=== PATIENT | male | born 1965 | race Two or more races ===

== ENCOUNTER 2020-09-21 16:18 | Outpatient (REF) | payer MEDICARE, MEDICAID, SELFPAY ==
--- NOTE | 2020-09-21 16:45 | XR_ITS ---
EXAMINATION: XR SHOULDER, RIGHT CLINICAL INFORMATION: Acute pain right shoulder. COMPARISON: Right shoulder 04/30/2015 TECHNIQUE: 3 views of the right shoulder. FINDINGS: There is no visible acute fracture or dislocation or subluxation. There are calcified densities along the lateral aspect of right greater tuberosity suggestive of calcific tendinitis. Glenohumeral joint space is maintained. The AC joint space is maintained with minimal marginal osteophytes similar to 2015 exam. Marginal osteophytes also suspected along the inferior glenoid. XR/XR shoulder RT min 2V IMPRESSION: Most likely calcific tendinitis. Mild degenerative changes glenohumeral joint and right AC joint. No acute fracture or dislocation.
== END 2020-09-21 16:19 | disposition home or self-care (01) ==
LOC: HO.XRAY 16:18
PROVIDERS: PCP Internal Medicine Medical Oncology; Visit Provider Internal Medicine Medical Oncology
DX: M25.511 Pain in right shoulder (principal)
CPT/HCPCS: 73030

== ENCOUNTER 2020-09-22 11:23 | Emergency (ER) | payer MEDICARE, MEDICAID, SELFPAY ==
[2020-09-22 11:35] VITALS: BP 165/98; PULSE 103; RESP 16; TEMP 37.4; O2SAT 98; BMI 37.2
--- NOTE | 2020-09-22 11:53 | US_ITS ---
EXAMINATION: RIGHT UPPER EXTREMITY COMPRESSION ULTRASOUND FOR DVT CLINICAL INFORMATION: Right upper extremity swelling COMPARISON: None TECHNIQUE: Doppler spectral analysis and color flow Doppler imaging was performed of the right upper extremity. Compression and augmentation maneuvers were performed. FINDINGS: On the provided imaging the proximal brachial veins are not definitely identified. Within the mid upper arm 1 vein is seen with either an adjacent nerve or segment of the second brachial vein containing thrombus. The subclavian, right internal jugular, cephalic, basilic, and medial cubital veins are patent and compressible. Radial and ulnar veins appear unremarkable. US/US venous duplex UE RT IMPRESSION: Possible noncompressible thrombus within the peripheral aspect of a right brachial vein versus less likely adjacent nerve . Remainder of the right upper extremity venous system is widely patent. This critical result was discussed with PRAKASH Ureña at 2:40 PM on September 22, 2020 and it was ascertained that the content and urgency of the report was understood at the time of direct communication.
[2020-09-22] MEDS: 0.9 % Sodium Chloride 1,000 ML 999 ML IVCONT (12:30)
[2020-09-22] MEDS: Meclizine HCl 25 MG TABLET PO (12:33)
[2020-09-22] MEDS: ondansetron HCL 4 MG/2 ML VIAL IVPUSH (12:34)
--- NOTE | 2020-09-22 12:35 | ED.EXTPRO ---
HPI - Extremity Problem General Chief complaint: Extremity Injury, Upper <PRAKASH Ureña Last Filed: 09/22/20 16:29> Stated complaint: rt arm pain and swelling <PRAKASH Ureña Last Filed: 09/22/20 16:29> Time Seen by Provider: 09/22/20 11:52 <PRAKASH Ureña Last Filed: 09/22/20 16:29> Source: patient <PRAKASH Ureña Last Filed: 09/22/20 16:29> Mode of arrival: ambulatory <PRAKASH Ureña Last Filed: 09/22/20 16:29> Limitations: no limitations <PRAKASH Ureña Last Filed: 09/22/20 16:29> History of Present Illness HPI Narrative: patient presents to ED for right shoulder pain that started on Sunday and then yesterday he developed swelling of right upper extremity from shoulder to hands. Patient states no chest pain or shortness of breath. Patient denies any obvious trauma. Patient had x-ray and his PCP which is negative for any fracture or dislocation as per patient. Patient was seen by PCP to have CT scan of shoulder. <PRAKASH Ureña Last Filed: 09/22/20 16:29> MD Complaint: extremity pain and extremity swelling <PRAKASH Ureña Last Filed: 09/22/20 16:29> Related Data Home medications: Previous Rx's Medication Instructions Recorded apixaban [Eliquis] 5 mg PO BID #42 tab 09/22/20 <PRAKASH Ureña Last Filed: 09/22/20 16:29> Allergies/Adverse reactions: Allergies Allergy/AdvReac Type Severity Reaction Status Date / Time ENVIRONMENTAL Allergy Mild ITCHINESS, Uncoded 07/08/20 15:22 CONGESTION N.K.D.A. Allergy Unknown Uncoded 11/27/18 00:00 <PRAKASH Ureña Last Filed: 09/22/20 16:29> Review of Systems Review of Systems: Yes all other systems are reviewed and are negative <PRAKASH Ureña Last Filed: 09/22/20 16:29> Constitutional: Constitutional: Reports as per HPI and Reports no additional constitutional complaints <PRAKASH Ureña Last Filed: 09/22/20 16:29> Eyes: Eyes: Reports as per HPI and Reports no additional eye complaints <PRAKASH Ureña Last Filed: 09/22/20 16:29> ENT: Reports system reviewed and no additional complaints, except as documented and Reports as per HPI <PRAKASH Ureña - Last Filed: 09/22/20 16:29> Cardiovascular: Cardiovascular: Reports as per HPI and Reports no additional cardiovascular complaints <PRAKASH Ureña - Last Filed: 09/22/20 16:29> Respiratory: Respiratory: Reports as per HPI and Reports no additional respiratory complaints <PRAKASH Ureña - Last Filed: 09/22/20 16:29> Gastrointestinal: Gastrointestinal: Reports as per HPI and Reports no additional gastrointestinal complaints <PRAKASH Ureña - Last Filed: 09/22/20 16:29> Genitourinary: Genitourinary: Reports no additional male genitourinary complaints and Reports as per HPI <PRAKASH Ureña Last Filed: 09/22/20 16:29> Musculoskeletal: Musculoskeletal: Reports no additional musculoskeletal complaints, Reports as per HPI and Reports arthralgias ( Right shoulder) <PRAKASH Ureña - Last Filed: 09/22/20 16:29> Comments: swelling of right upper extremity <PRAKASH Ureña - Last Filed: 09/22/20 16:29> Neurologic: Reports system reviewed and no additional complaints, except as documented and Reports as per HPI <PRAKASH Ureña Last Filed: 09/22/20 16:29> Psychiatric: Psychiatric: Reports no additional psychiatric complaints and Reports as per HPI <PRAKASH Ureña Last Filed: 09/22/20 16:29> [facility] Past Medical History Medical History: Medical History Back pain with history of spinal surgery <PRAKASH Ureña - Last Filed: 09/22/20 16:29> Social History Social History: Social History Advance Directives: No Advance Directives Information Provided: No <PRAKASH Ureña Last Filed: 09/22/20 16:29> Physical Exam Vital Signs: Vital Signs: Last Vital Signs Temp 99.2 F 09/22/20 14:14 Pulse 107 H 09/22/20 15:39 Resp 14 09/22/20 15:39 BP 161/92 H 09/22/20 15:39 Pulse Ox 95 09/22/20 15:39 Body Mass Index 37.2 <PRAKASH Ureña Last Filed: 09/22/20 16:29> Vital Signs: Last Vital Signs Temp 99.2 F 09/22/20 14:14 Pulse 107 H 09/22/20 15:39 Resp 14 09/22/20 15:39 BP 161/92 H 09/22/20 15:39 Pulse Ox 95 09/22/20 15:39 Body Mass Index 37.2 <Gerald Kahn MD - Last Filed: 09/22/20 15:38> Const: General: cooperative, healthy appearing, comfortable, no acute distress, well developed, alert and awake <PRAKASH Ureña - Last Filed: 09/22/20 16:29> Orientation/consciousness: patient oriented x3 <PRAKASH Ureña - Last Filed: 09/22/20 16:29> HENMT: Head: Yes normal to inspection and Yes No palpable skull fracture present <PRAKASH Ureña Last Filed: 09/22/20 16:29> Eyes: General: appearance normal, both eyes and all related structures <PRAKASH Ureña Last Filed: 09/22/20 16:29> Neck: Neck: Yes normal visual inspection, Yes full ROM, Yes no lymphadenopathy, Yes no meningeal signs, Yes trachea midline and Yes tender <PRAKASH Ureña Last Filed: 09/22/20 16:29> Chest: Chest palpation & inspection: normal inspection of the chest, normal palpation of entire chest wall and no localized rib tenderness <PRAKASH Ureña Last Filed: 09/22/20 16:29> Resp: Effort & Inspection: normal respiratory effort and able to speak in complete sentences <PRAKASH Ureña Last Filed: 09/22/20 16:29> Auscultation: clear to auscultation bilaterally <PRAKASH Ureña Last Filed: 09/22/20 16:29> Cardio: Jugular venous distension: no JVD <PRAKASH Ureña Last Filed: 09/22/20 16:29> Heart sounds: S1 normal heart sound present and S2 normal heart sound present <PRAKASH Ureña Last Filed: 09/22/20 16:29> GI: Inspection: Yes normal to inspection and No abdominal wall ecchymosis <PRAKASH Ureña Last Filed: 09/22/20 16:29> Palpation (GI): Soft to palpation, not firm, nontender, no guarding and not rigid <PRAKASH Ureña Last Filed: 09/22/20 16:29> : General: No CVA tenderness and Yes no CVA tenderness <PRAKASH Ureña Last Filed: 09/22/20 16:29> Back/Spine/Pelvis: Back: no CVA tenderness, No CVA tenderness and No back tenderness <PRAKASH Ureña Last Filed: 09/22/20 16:29> Skin: General skin exam: no rashes or lesions noted <PRAKASH Ureña Last Filed: 09/22/20 16:29> Neuro: General: patient oriented x3, gait normal, no meningeal signs and CN's II-XI intact bilaterally <PRAKASH Ureña Last Filed: 09/22/20 16:29> Cranial nerves: Yes CN's II-XII intact bilaterally <PRAKASH Ureña Last Filed: 09/22/20 16:29> Extrem: Other: right upper extremity positive for swelling from shoulder to hand. Radial and brachial pulses intact of right upper extremity. Negative for any redness or warmth of right upper extremity. Negative for red streaks. Patient has limited range of motion due to pain at shoulder. other extremities are normal <PRAKASH Ureña Last Filed: 09/22/20 16:29> Psych: Appearance: grossly normal, well kempt and not disheveled <PRAKASH Ureña Last Filed: 09/22/20 16:29> Course Course Course Narrative: Patient will have basic labs. Patient will be sent for ultrasound to rule out for a DVT. Patient will have basic labs including inflammatory markers. Patient had vasovagal episode while labs during drawn. Patient given fluids, Zofran. If Ultrasound comes back normal. Will send patient for CT scan of shoulder. shoulder Xry yesterday just shows tendonitits. <PRAKASH Ureña - Last Filed: 09/22/20 16:29> I have discussed the case and management with the ELISABETH <Gerald Kahn MD - Last Filed: 09/22/20 15:38> Reevaluation(s) Reevaluation #1: ultrasound shows thrombus of brachial vein as per radiologist to indicate DVT. patient does not have any risk factors for DVT. Will contact Oncology to see if there is any further Workup is indicated. <PRAKASH Ureña - Last Filed: 09/22/20 16:29> Time: 14:57 <PRAKASH Ureña - Last Filed: 09/22/20 16:29> Reevaluation #2: spoke with Dr. Eldridge of Hematology/Oncology who recommends patient be discharged with Eliquis and can follow-up with her for outpatient workup. Patient patient not in any distress. <PRAKASH Ureña - Last Filed: 09/22/20 16:29> Time: 15:25 <PRAKASH Ureña - Last Filed: 09/22/20 16:29> Reevaluation #3: case discussed with Dr. Kahn who agrees to plan. Patient given copy of labs and imaging for follow-up. Patient states he has appointment with his PCP for this Sunday. history, physical exam, and diagnostic does not indicate cellulitis, arterial occlusion, or septic joint. Presently patient denies any chest pain or shortness of breath to indicate PE. <PRAKASH Ureña - Last Filed: 09/22/20 16:29> Time: 16:03 <PRAKASH Ureña - Last Filed: 09/22/20 16:29> MDM - Extremity (Nontraumatic) MDM Narrative Medical decision making narrative: DVT. <PRAKASH Ureña - Last Filed: 09/22/20 16:29> Lab Data Result diagrams: : 09/22/20 12:20 09/22/20 12:20 <PRAKASH Ureña - Last Filed: 09/22/20 16:29> Labs: Lab Results 09/22/20 09/22/20 09/22/20 Range/Units 12:19 12:19 12: WBC 10.6 (4.8-10.8) X10*3/uL RBC 4.62 (4.60-5.80) X10*6/uL Hgb 10.1 L (14.0-18.0) g/dl Hct 33.8 L (42-52) % MCV 73.2 L (80-98) fL MCH 21.9 L (27.0-33.0) pg MCHC 29.9 L (31.0-36.0) g/dl RDW 18.0 H (11.0-16.0) % Plt Count 393 (160-400) X10*3/uL MPV 10.1 (9.4-12.4) fL Immature Gran % (Auto) 0.4 (0.0-0.4) % Neut % (Auto) 71.5 (45-73) % Lymph % (Auto) 17.2 L (20-40) % [place] % (Auto) 10.2 (2-11) % Eos % (Auto) 0.3 (0-4) % Baso % (Auto) 0.4 (0-2) % Lymph # (Auto) 1.8 (1.2-4.9) X10*3/uL [place] # (Auto) 1.1 (0.1-1.2) X10*3/uL Eos # (Auto) 0.0 (0.0-0.4) X10*3/uL Baso # (Auto) 0.0 (0.0-0.2) X10*3/uL Abs Immat Gran (auto) 0.04 H (0.00-0.03) X10*3/uL Absolute Neuts (auto) 7.6 (2.0-8.3) X10*3/uL Absolute Nucleated RBC 0.000 (0.0-0.012) X10*3/uL Nucleated RBC % (auto) 0.0 (0.0-0.2) /100WBC ESR 45 H (0-15) MM/HR PT (10.8-13.0) SEC INR (0.9-1.1) APTT (24.1-38.0) SEC Sodium (135-145) mmol/L Potassium (3.3-5.1) mmol/l Chloride (96-108) mmol/L Carbon Dioxide (22-29) mmol/L Anion Gap (12-20) BUN (9-16) mg/dL Creatinine (0.5-1.4) mg/dL Estim Creat Clear Calc Estimated GFR Random Glucose (60-115) mg/dL Calcium (8.4-10.2) mg/dL Total Bilirubin (0.0-1.0) mg/dL AST (5-37) U/L ALT (0-40) U/L Alkaline Phosphatase (39-117) U/L C-Reactive Protein 17.61 H (< or = 0.50) mg/dL Total Protein (6.5-8.0) g/dL Albumin (3.5-5.0) g/dL 09/22/20 09/22/20 Range/Units 12:20 12:20 WBC (4.8-10.8) X10*3/uL RBC (4.60-5.80) X10*6/uL Hgb (14.0-18.0) g/dl Hct (42-52) % MCV (80-98) fL MCH (27.0-33.0) pg MCHC (31.0-36.0) g/dl RDW (11.0-16.0) % Plt Count (160-400) X10*3/uL MPV (9.4-12.4) fL Immature Gran % (Auto) (0.0-0.4) % Neut % (Auto) (45-73) % Lymph % (Auto) (20-40) % [place] % (Auto) (2-11) % Eos % (Auto) (0-4) % Baso % (Auto) (0-2) % Lymph # (Auto) (1.2-4.9) X10*3/uL [place] # (Auto) (0.1-1.2) X10*3/uL Eos # (Auto) (0.0-0.4) X10*3/uL Baso # (Auto) (0.0-0.2) X10*3/uL Abs Immat Gran (auto) (0.00-0.03) X10*3/uL Absolute Neuts (auto) (2.0-8.3) X10*3/uL Absolute Nucleated RBC (0.0-0.012) X10*3/uL Nucleated RBC % (auto) (0.0-0.2) /100WBC ESR (0-15) MM/HR PT 14.4 H (10.8-13.0) SEC INR 1.2 H (0.9-1.1) APTT 37.6 (24.1-38.0) SEC Sodium 137 (135-145) mmol/L Potassium 4.3 (3.3-5.1) mmol/l Chloride 99 (96-108) mmol/L Carbon Dioxide 27 (22-29) mmol/L Anion Gap 15 (12-20) BUN 15 (9-16) mg/dL Creatinine 1.03 (0.5-1.4) mg/dL Estim Creat Clear Calc 83.8 Estimated GFR > 60 Random Glucose 109 (60-115) mg/dL Calcium 9.0 (8.4-10.2) mg/dL Total Bilirubin 2.3 H (0.0-1.0) mg/dL AST 11 (5-37) U/L ALT 11 (0-40) U/L Alkaline Phosphatase 58 (39-117) U/L C-Reactive Protein (< or = 0.50) mg/dL Total Protein 7.9 (6.5-8.0) g/dL Albumin 4.1 (3.5-5.0) g/dL <PRAKASH Ureña - Last Filed: 09/22/20 16:29> Lab Results 09/22/20 09/22/20 09/22/20 Range/Units 12:19 12:19 12:20 WBC 10.6 (4.8-10.8) X10*3/uL RBC 4.62 (4.60-5.80) X10*6/uL Hgb 10.1 L (14.0-18.0) g/dl Hct 33.8 L (42-52) % MCV 73.2 L (80-98) fL MCH 21.9 L (27.0-33.0) pg MCHC 29.9 L (31.0-36.0) g/dl RDW 18.0 H (11.0-16.0) % Plt Count 393 (160-400) X10*3/uL MPV 10.1 (9.4-12.4) fL Immature Gran % (Auto) 0.4 (0.0-0.4) % Neut % (Auto) 71.5 (45-73) % Lymph % (Auto) 17.2 L (20-40) % [place] % (Auto) 10.2 (2-11) % Eos % (Auto) 0.3 (0-4) % Baso % (Auto) 0.4 (0-2) % Lymph # (Auto) 1.8 (1.2-4.9) X10*3/uL [place] # (Auto) 1.1 (0.1-1.2) X10*3/uL Eos # (Auto) 0.0 (0.0-0.4) X10*3/uL Baso # (Auto) 0.0 (0.0-0.2) X10*3/uL Abs Immat Gran (auto) 0.04 H (0.00-0.03) X10*3/uL Absolute Neuts (auto) 7.6 (2.0-8.3) X10*3/uL Absolute Nucleated RBC 0.000 (0.0-0.012) X10*3/uL Nucleated RBC % (auto) 0.0 (0.0-0.2) /100WBC ESR 45 H (0-15) MM/HR PT (10.8-13.0) SEC INR (0.9-1.1) APTT (24.1-38.0) SEC Sodium (135-145) mmol/L Potassium (3.3-5.1) mmol/l Chloride (96-108) mmol/L Carbon Dioxide (22-29) mmol/L Anion Gap (12-20) BUN (9-16) mg/dL Creatinine (0.5-1.4) mg/dL Estim Creat Clear Calc Estimated GFR Random Glucose (60-115) mg/dL Calcium (8.4-10.2) mg/dL Total Bilirubin (0.0-1.0) mg/dL AST (5-37) U/L ALT (0-40) U/L Alkaline Phosphatase (39-117) U/L C-Reactive Protein 17.61 H (< or = 0.50) mg/dL Total Protein (6.5-8.0) g/dL Albumin (3.5-5.0) g/dL 09/22/20 09/22/20 Range/Units 12:20 12:20 WBC (4.8-10.8) X10*3/uL RBC (4.60-5.80) X10*6/uL Hgb (14.0-18.0) g/dl Hct (42-52) % MCV (80-98) fL MCH (27.0-33.0) pg MCHC (31.0-36.0) g/dl RDW (11.0-16.0) % Plt Count (160-400) X10*3/uL MPV (9.4-12.4) fL Immature Gran % (Auto) (0.0-0.4) % Neut % (Auto) (45-73) % Lymph % (Auto) (20-40) % [place] % (Auto) (2-11) % Eos % (Auto) (0-4) % Baso % (Auto) (0-2) % Lymph # (Auto) (1.2-4.9) X10*3/uL [place] # (Auto) (0.1-1.2) X10*3/uL Eos # (Auto) (0.0-0.4) X10*3/uL Baso # (Auto) (0.0-0.2) X10*3/uL Abs Immat Gran (auto) (0.00-0.03) X10*3/uL Absolute Neuts (auto) (2.0-8.3) X10*3/uL Absolute Nucleated RBC (0.0-0.012) X10*3/uL Nucleated RBC % (auto) (0.0-0.2) /100WBC ESR (0-15) MM/HR PT 14.4 H (10.8-13.0) SEC INR 1.2 H (0.9-1.1) APTT 37.6 (24.1-38.0) SEC Sodium 137 (135-145) mmol/L Potassium 4.3 (3.3-5.1) mmol/l Chloride 99 (96-108) mmol/L Carbon Dioxide 27 (22-29) mmol/L Anion Gap 15 (12-20) BUN 15 (9-16) mg/dL Creatinine 1.03 (0.5-1.4) mg/dL Estim Creat Clear Calc 83.8 Estimated GFR > 60 Random Glucose 109 (60-115) mg/dL Calcium 9.0 (8.4-10.2) mg/dL Total Bilirubin 2.3 H (0.0-1.0) mg/dL AST 11 (5-37) U/L ALT 11 (0-40) U/L Alkaline Phosphatase 58 (39-117) U/L C-Reactive Protein (< or = 0.50) mg/dL Total Protein 7.9 (6.5-8.0) g/dL Albumin 4.1 (3.5-5.0) g/dL <Gerald Kahn MD - Last Filed: 09/22/20 15:38> Discharge Plan Discharge Clinical Impression: DVT (deep venous thrombosis) <PRAKASH Ureña - Last Filed: 09/22/20 16:29> Patient Disposition: Home, Self-Care <PRAKASH Ureña - Last Filed: 09/22/20 16:29> Instructions: Deep Vein Thrombosis (ED) <PRAKASH Ureña - Last Filed: 09/22/20 16:29> Additional Instructions: to ED for any chest pain, shortness of breath, worsening swelling of upper extremity, redness, coughing up blood, dizziness, passing out, fever, chills, or any other concerning symptoms. <PRAKASH Ureña - Last Filed: 09/22/20 16:29> Prescriptions: New Eliquis 5 mg tablet 5 mg PO BID Qty: 42 RF: 0 <PRAKASH Ureña - Last Filed: 09/22/20 16:29> Referrals: Joe Burnett MD [Primary Care Provider] - 2 days ( right upper extremity DVT. Patient started on Eliquis. Recommend outpatient workup for possible hyper coagulable disorders or malignancy.) Pretty Eldridge MD [Physician] - 2 days ( Right upper extremity DVT. Needs outpatient workup. Started on eliquis.) <PRAKASH Ureña - Last Filed: 09/22/20 16:29> Stand Alone Forms: Work/School Release <PRAKASH Ureña Last Filed: 09/22/20 16:29> Interventions: ED Discharge Assessment Last Done: 09/22/20 16:06 <PRAKASH Ureña - Last Filed: 09/22/20 16:29> Discharge Date/Time: 09/22/20 16:07 <PRAKASH Ureña - Last Filed: 09/22/20 16:29> Print Language: Malay <PRAKASH Ureña - Last Filed: 09/22/20 16:29>
[2020-09-22 12:42] LABS: MANUAL DIFF FLAG NO
[2020-09-22 12:46] LABS: Basophils Percent Auto 0.4 % (0-2); Eosinophils Percent Auto 0.3 % (0-4); Hematocrit 33.8 % (42-52); Hemoglobin 10.1 g/dl (14.0-18.0); Imm Gran Abs Auto 0.04 X10*3/uL (0.00-0.03); Imm Gran Pct Auto 0.4 % (0.0-0.4); Lymphocytes Absolute Auto 1.8 X10*3/uL (1.2-4.9); Lymphocytes Percent Auto 17.2 % (20-40); Mean Corpuscular HGB Conc 29.9 g/dl (31.0-36.0); Mean Corpuscular Hemoglobin 21.9 pg (27.0-33.0); Mean Corpuscular Volume 73.2 fL (80-98); Mean Platelet Volume 10.1 fL (9.4-12.4); Monocytes Absolute Auto 1.1 X10*3/uL (0.1-1.2); Monocytes Percent Auto 10.2 % (2-11); Neutrophils Absolute Auto 7.6 X10*3/uL (2.0-8.3); Neutrophils Percent Auto 71.5 % (45-73); Platelet Count 393 X10*3/uL (160-400); Red Blood Count 4.62 X10*6/uL (4.60-5.80); White Blood Count 10.6 X10*3/uL (4.8-10.8)
[2020-09-22 12:58] LABS: INTERNATIONAL NORM RATIO 1.2 (0.9-1.1); Prothrombin Time 14.4 SEC (10.8-13.0)
[2020-09-22 13:01] LABS: Partial Thromboplastin Time 37.6 SEC (24.1-38.0)
[2020-09-22 13:04] LABS: C Reactive Protein 17.61 mg/dL (< or = 0.50)
[2020-09-22 13:06] LABS: Alanine Aminotransferase 11 U/L (0-40); Albumin Level 4.1 g/dL (3.5-5.0); Alkaline Phosphatase 58 U/L (39-117); Anion Gap 15 (12-20); Aspartate Amino Transferase 11 U/L (5-37); Bilirubin Total 2.3 mg/dL (0.0-1.0); Blood Urea Nitrogen 15 mg/dL (9-16); Carbon Dioxide 27 mmol/L (22-29); Chloride 99 mmol/L (96-108); Creatinine Clr Calc Pharmacy 83.8; Estimated Glomerular Filt Rate > 60; Glucose Random 109 mg/dL (60-115); Potassium 4.3 mmol/l (3.3-5.1); Sodium 137 mmol/L (135-145); Total Protein 7.9 g/dL (6.5-8.0)
[2020-09-22 13:28] LABS: Erythrocyte Sedimentation Rate 45 MM/HR (0-15)
[2020-09-22 14:14] VITALS: PULSE 105; RESP 16; TEMP 37.3; O2SAT 97
[2020-09-22 15:11] VITALS: RESP 16
[2020-09-22] MEDS: Morphine Sulfate 4 MG/ML CARTRIDGE IVPUSH (15:11)
[2020-09-22 15:39] VITALS: BP 161/92; PULSE 107; RESP 14; O2SAT 95
--- NOTE | 2020-09-22 15:54 | PC.NURSE ---
radha tovar and pt aware us results, radha spoke with supervisor fitting dr torres re: poc, pt to go home and start on anticoagulants, iv removed w/o apparent incident
--- NOTE | 2020-09-24 11:50 | ED_ITS ---
HPI - Extremity Problem General Chief complaint: Extremity Injury, Upper Stated complaint: rt arm pain and swelling Time Seen by Provider: 09/22/20 11:52 Source: patient Mode of arrival: ambulatory Limitations: no limitations History of Present Illness HPI Narrative: 2 days ago diagnosed with right arm blood clot. Patient presents with increased with swelling MD Complaint: extremity pain and extremity swelling Onset (ago): day(s) Pain Consistency: constant Location: right Quality: aching Related Data Previous Rx's Medication Instructions Recorded apixaban [Eliquis] 5 mg PO BID #42 tab 09/22/20 Allergies Allergy/AdvReac Type Severity Reaction Status Date / Time ENVIRONMENTAL Allergy Mild ITCHINESS, Uncoded 07/08/20 15:22 CONGESTION N.K.D.A. Allergy Unknown Uncoded 11/27/18 00:00 Review of Systems Constitutional: Constitutional: Reports no additional constitutional complaints Eyes: Eyes: Reports no additional eye complaints ENT: Denies dizziness Cardiovascular: Cardiovascular: Reports no additional cardiovascular complaints Respiratory: Respiratory: Reports as per HPI Gastrointestinal: Gastrointestinal: Reports no additional gastrointestinal complaints Musculoskeletal: Musculoskeletal: Reports no additional musculoskeletal complaints Integumentary/Breasts: Skin/Breast: Denies rash Neurologic: Reports system reviewed and no additional complaints, except as documented, Reports as per HPI, Denies dizziness and Denies Sensory deficit (Neuro) Psychiatric: Psychiatric: Denies anxiety PMF Past Medical History Medical History Back pain with history of spinal surgery Social History Social History Advance Directives: No Advance Directives Information Provided: No Physical Exam Vital Signs: Vital Signs: Last Vital Signs Temp 99.2 F 09/22/20 14:14 Pulse 107 H 09/22/20 15:39 Resp 14 09/22/20 15:39 BP 161/92 H 09/22/20 15:39 Pulse Ox 95 09/22/20 15:39 Body Mass Index 37.2 Const: General: healthy appearing Nutritional Appearance: obese Orientation/consciousness: oriented to person and patient oriented x3 Limitations: no limitations HENMT: Head: Yes normal to inspection Ears: external ears normal General nose exam: Normal external nose present Mouth: Normal oral and palatal mucosa present and oropharynx normal Throat: Yes posterior oropharynx normal Eyes: General: appearance normal, both eyes and all related structures Neck: Other: supple Neck: Yes normal visual inspection Chest: Chest palpation & inspection: normal inspection of the chest Resp: Auscultation: clear to auscultation bilaterally Cardio: Jugular venous distension: no JVD Rate: regular rate Rhythm: regular rhythm Heart sounds: S1 normal heart sound present and S2 normal heart sound present GI: Inspection: Yes normal to inspection Palpation (GI): Soft to palpation, nontender and No hepatosplenomegaly present Auscultation: normal bowel sounds : General: Yes no CVA tenderness Back/Spine/Pelvis: Back: no CVA tenderness Skin: General skin exam: no rashes or lesions noted Neuro: General: oriented to person and patient oriented x3 Cranial nerves: Yes CN's II-XII intact bilaterally Motor exam (neuro): 5/5 motor strength present throughout Sensory Exam: No Sensory deficit (Neuro) Extrem: Other: right arm with significant swelling Psych: Appearance: grossly normal Course Course Course Narrative: will place in a sling to keep elevated and give the patient a percocet MDM - Extremity (Nontraumatic) MDM Narrative Medical decision making narrative: patient with known blood clot just started eliquis. will elevate to keep swelling down Lab Data Result diagrams: 09/22/20 12:20 09/22/20 12:20 Labs: Lab Results 09/22/20 09/22/20 09/22/20 Range/Units 12:19 12:19 12:20 WBC 10.6 (4.8-10.8) X10*3/uL RBC 4.62 (4.60-5.80) X10*6/uL Hgb 10.1 L (14.0-18.0) g/dl Hct 33.8 L (42-52) % MCV 73.2 L (80-98) fL MCH 21.9 L (27.0-33.0) pg MCHC 29.9 L (31.0-36.0) g/dl RDW 18.0 H (11.0-16.0) % Plt Count 393 (160-400) X10*3/uL MPV 10.1 (9.4-12.4) fL Immature Gran % (Auto) 0.4 (0.0-0.4) % Neut % (Auto) 71.5 (45-73) % Lymph % (Auto) 17.2 L (20-40) % [place] % (Auto) 10.2 (2-11) % Eos % (Auto) 0.3 (0-4) % Baso % (Auto) 0.4 (0-2) % Lymph # (Auto) 1.8 (1.2-4.9) X10*3/uL [place] # (Auto) 1.1 (0.1-1.2) X10*3/uL Eos # (Auto) 0.0 (0.0-0.4) X10*3/uL Baso # (Auto) 0.0 (0.0-0.2) X10*3/uL Abs Immat Gran (auto) 0.04 H (0.00-0.03) X10*3/uL Absolute Neuts (auto) 7.6 (2.0-8.3) X10*3/uL Absolute Nucleated RBC 0.000 (0.0-0.012) X10*3/uL Nucleated RBC % (auto) 0.0 (0.0-0.2) /100WBC ESR 45 H (0-15) MM/HR PT (10.8-13.0) SEC INR (0.9-1.1) APTT (24.1-38.0) SEC Sodium (135-145) mmol/L Potassium (3.3-5.1) mmol/l Chloride (96-108) mmol/L Carbon Dioxide (22-29) mmol/L Anion Gap (12-20) BUN (9-16) mg/dL Creatinine (0.5-1.4) mg/dL Estim Creat Clear Calc Estimated GFR Random Glucose (60-115) mg/dL Calcium (8.4-10.2) mg/dL Total Bilirubin (0.0-1.0) mg/dL AST (5-37) U/L ALT (0-40) U/L Alkaline Phosphatase (39-117) U/L C-Reactive Protein 17.61 H (< or = 0.50) mg/dL Total Protein (6.5-8.0) g/dL Albumin (3.5-5.0) g/dL 09/22/20 09/22/20 Range/Units 12:20 12:20 WBC (4.8-10.8) X10*3/uL RBC (4.60-5.80) X10*6/uL Hgb (14.0-18.0) g/dl Hct (42-52) % MCV (80-98) fL MCH (27.0-33.0) pg MCHC (31.0-36.0) g/dl RDW (11.0-16.0) % Plt Count (160-400) X10*3/uL MPV (9.4-12.4) fL Immature Gran % (Auto) (0.0-0.4) % Neut % (Auto) (45-73) % Lymph % (Auto) (20-40) % [place] % (Auto) (2-11) % Eos % (Auto) (0-4) % Baso % (Auto) (0-2) % Lymph # (Auto) (1.2-4.9) X10*3/uL [place] # (Auto) (0.1-1.2) X10*3/uL Eos # (Auto) (0.0-0.4) X10*3/uL Baso # (Auto) (0.0-0.2) X10*3/uL Abs Immat Gran (auto) (0.00-0.03) X10*3/uL Absolute Neuts (auto) (2.0-8.3) X10*3/uL Absolute Nucleated RBC (0.0-0.012) X10*3/uL Nucleated RBC % (auto) (0.0-0.2) /100WBC ESR (0-15) MM/HR PT 14.4 H (10.8-13.0) SEC INR 1.2 H (0.9-1.1) APTT 37.6 (24.1-38.0) SEC Sodium 137 (135-145) mmol/L Potassium 4.3 (3.3-5.1) mmol/l Chloride 99 (96-108) mmol/L Carbon Dioxide 27 (22-29) mmol/L Anion Gap 15 (12-20) BUN 15 (9-16) mg/dL Creatinine 1.03 (0.5-1.4) mg/dL Estim Creat Clear Calc 83.8 Estimated GFR > 60 Random Glucose 109 (60-115) mg/dL Calcium 9.0 (8.4-10.2) mg/dL Total Bilirubin 2.3 H (0.0-1.0) mg/dL AST 11 (5-37) U/L ALT 11 (0-40) U/L Alkaline Phosphatase 58 (39-117) U/L C-Reactive Protein (< or = 0.50) mg/dL Total Protein 7.9 (6.5-8.0) g/dL Albumin 4.1 (3.5-5.0) g/dL Discharge Plan Discharge Clinical Impression: DVT (deep venous thrombosis) Patient Disposition: Home, Self-Care Instructions: Deep Vein Thrombosis (ED) Additional Instructions: to ED for any chest pain, shortness of breath, worsening swelling of upper extremity, redness, coughing up blood, dizziness, passing out, fever, chills, or any other concerning symptoms. Prescriptions: New Eliquis 5 mg tablet 5 mg PO BID Qty: 42 RF: 0 Referrals: Joe Burnett MD [Primary Care Provider] - 2 days ( right upper extremity DVT. Patient started on Eliquis. Recommend outpatient workup for possible hyper coagulable disorders or malignancy.) Pretty Eldridge MD [Physician] - 2 days ( Right upper extremity DVT. Needs ou tpatient workup. Started on eliquis.) Stand Alone Forms: Work/School Release Interventions: ED Discharge Assessment Last Done: 09/22/20 16:06 Discharge Date/Time: 09/22/20 16:07 Print Language: Kinyarwanda
== END 2020-09-22 16:07 | disposition home or self-care (01) ==
PROVIDERS: Physician Assistant; Emergency Provider Emergency Medicine; PCP Internal Medicine Medical Oncology
DX: I82.621 Acute embolism and thrombosis of deep veins of right upper extremity (principal)
CPT/HCPCS: 36415; 80053; 85025; 85610; 85652; 85730; 86140; 93971; 96361; 96374; 96375; 99284; J2270; J2405

== ENCOUNTER 2020-09-24 10:46 | Emergency (ER) | payer MEDICARE, MEDICAID, SELFPAY ==
[2020-09-24 10:52] VITALS: BP 142/74; PULSE 95; RESP 18; TEMP 36.7; O2SAT 98; BMI 37.2
--- NOTE | 2020-09-24 11:05 | PC.NURSE ---
family vania [phone]
--- NOTE | 2020-09-24 11:44 | ED.EXTPRO ---
HPI - Extremity Problem General Chief complaint: Extremity Injury, Upper Stated complaint: SWOLLEN RT HAND BLOOD CLOT Time Seen by Provider: 09/24/20 11:44 Source: patient Mode of arrival: ambulatory Limitations: no limitations Related Data Previous Rx's Medication Instructions Recorded apixaban [Eliquis] 5 mg PO BID #42 tab 09/22/20 Allergies Allergy/AdvReac Type Severity Reaction Status Date / Time ENVIRONMENTAL Allergy Mild ITCHINESS, Uncoded 07/08/20 15:22 CONGESTION N.K.D.A. Allergy Unknown Uncoded 11/27/18 00:00 PMFSH Past Medical History Medical History Back pain with history of spinal surgery Social History Social History Advance Directives: No Advance Directives Information Provided: No Physical Exam Vital Signs: Vital Signs: Last Vital Signs Temp 98.0 F 09/24/20 10:52 Pulse 95 09/24/20 10:52 Resp 18 09/24/20 10:52 BP 142/74 H 09/24/20 10:52 Pulse Ox 98 09/24/20 10:52 Body Mass Index 37.2 Discharge Plan Discharge Prescriptions: No Action Eliquis 5 mg tablet 5 mg PO BID Qty: 42 RF: 0
[2020-09-24 12:04] VITALS: BP 131/75; PULSE 92; RESP 18; O2SAT 100
--- NOTE | 2020-09-24 12:07 | PC.NURSE ---
pt states he was seen sunday for pain to right shoulder/axilla and diagnosed with a blood clot. He states he was sent home with blood thinners but continues to have increasing pain. Denies chest pain ot shortness of breath, denies calf pain, has no neuro deficits.
== END 2020-09-24 13:01 | disposition home or self-care (01) ==
PROVIDERS: Emergency Provider Emergency Medicine; PCP Internal Medicine Medical Oncology
DX: R22.31 Localized swelling, mass and lump, right upper limb (principal); M79.641 Pain in right hand; Z79.01 Long term (current) use of anticoagulants
CPT/HCPCS: 99283; 99284

== ENCOUNTER 2020-09-24 16:04 | Outpatient (REF) | payer MEDICARE, MEDICAID, SELFPAY ==
[2020-09-24 16:48] LABS: MANUAL DIFF FLAG NO
[2020-09-24 16:59] LABS: Basophils Percent Auto 0.5 % (0-2); Eosinophils Absolute Auto 0.3 X10*3/uL (0.0-0.4); Eosinophils Percent Auto 3.8 % (0-4); Hematocrit 32.3 % (42-52); Hemoglobin 9.6 g/dl (14.0-18.0); Imm Gran Abs Auto 0.02 X10*3/uL (0.00-0.03); Imm Gran Pct Auto 0.2 % (0.0-0.4); Immature Retic Fraction 29.2 % (2.3-13.4); Lymphocytes Absolute Auto 2.2 X10*3/uL (1.2-4.9); Lymphocytes Percent Auto 26.4 % (20-40); Mean Corpuscular HGB Conc 29.7 g/dl (31.0-36.0); Mean Corpuscular Hemoglobin 22.1 pg (27.0-33.0); Mean Corpuscular Volume 74.3 fL (80-98); Mean Platelet Volume 9.9 fL (9.4-12.4); Monocytes Absolute Auto 0.8 X10*3/uL (0.1-1.2); Neutrophils Absolute Auto 4.9 X10*3/uL (2.0-8.3); Neutrophils Percent Auto 59.1 % (45-73); Platelet Count 417 X10*3/uL (160-400); Red Blood Count 4.35 X10*6/uL (4.60-5.80); Red Cell Distribution Width 17.6 % (11.0-16.0); Retic HGB Equivalent 21.9 pg (30.0-35.0); Reticulocyte Percent 1.3 % (0.5-1.8); Reticulocytes Absolute 0.056 X10*6/uL (0.026-0.095); White Blood Count 8.4 X10*3/uL (4.8-10.8)
[2020-09-24 17:43] LABS: Ferritin 82 ng/mL (20-250)
== END 2020-09-24 16:05 | disposition home or self-care (01) ==
LOC: HO.LAB 16:04
PROVIDERS: PCP Internal Medicine Medical Oncology; Visit Provider Internal Medicine Medical Oncology
DX: I10 Essential (primary) hypertension (principal); E66.9 Obesity, unspecified
CPT/HCPCS: 36415; 82728; 85025; 85045

== ENCOUNTER → 2020-10-13 12:53 | Outpatient (BNVA) | payer MEDICARE, MEDICAID, SELFPAY | PROVIDERS: PCP Internal Medicine Medical Oncology; Visit Provider Orthopaedic Surgery | DX: Z76.89 Persons encountering health services in other specified circumstances (principal) | CPT/HCPCS: 99202 ==

== ENCOUNTER 2020-10-13 13:20 | Outpatient (REF) | payer MEDICARE, MEDICAID, SELFPAY ==
[2020-10-13 15:11] LABS: MANUAL DIFF FLAG NO
[2020-10-13 15:17] LABS: Basophils Absolute Auto 0.1 X10*3/uL (0.0-0.2); Basophils Percent Auto 0.7 % (0-2); Eosinophils Absolute Auto 0.4 X10*3/uL (0.0-0.4); Eosinophils Percent Auto 6.1 % (0-4); Hematocrit 35.7 % (42-52); Hemoglobin 10.4 g/dl (14.0-18.0); Imm Gran Abs Auto 0.01 X10*3/uL (0.00-0.03); Imm Gran Pct Auto 0.1 % (0.0-0.4); Lymphocytes Absolute Auto 2.9 X10*3/uL (1.2-4.9); Lymphocytes Percent Auto 41.4 % (20-40); Mean Corpuscular HGB Conc 29.1 g/dl (31.0-36.0); Mean Corpuscular Hemoglobin 21.6 pg (27.0-33.0); Mean Corpuscular Volume 74.2 fL (80-98); Mean Platelet Volume 10.2 fL (9.4-12.4); Monocytes Absolute Auto 0.4 X10*3/uL (0.1-1.2); Monocytes Percent Auto 6.2 % (2-11); Neutrophils Absolute Auto 3.1 X10*3/uL (2.0-8.3); Neutrophils Percent Auto 45.5 % (45-73); Platelet Count 530 X10*3/uL (160-400); Red Blood Count 4.81 X10*6/uL (4.60-5.80); Red Cell Distribution Width 17.4 % (11.0-16.0); White Blood Count 6.9 X10*3/uL (4.8-10.8)
[2020-10-13 15:56] LABS: Ferritin 5 ng/mL (20-250)
[2020-10-19 18:06] LABS: Hemoglobin 10.3 g/dL (13.2-17.1); MCH 21.4 pg (27.0-33.0); MCV 72.6 fL (80.0-100.0); RBC 4.82 Million/uL (4.20-5.80); RDW 16.6 % (11.0-15.0)
== END 2020-10-13 13:21 | disposition home or self-care (01) ==
LOC: HO.LAB 13:20
PROVIDERS: Visit Provider Internal Medicine Medical Oncology
DX: M75.40 Impingement syndrome of unspecified shoulder (principal); I82.411 Acute embolism and thrombosis of right femoral vein; D64.9 Anemia, unspecified
CPT/HCPCS: 36415; 82728; 83021; 85014; 85018; 85025; 85041; 99202

== ENCOUNTER 2020-10-28 10:59 | Outpatient (REF) | payer MEDICARE, MEDICAID, SELFPAY | END 2020-10-28 11:00 | disposition home or self-care (01) | LOC: HO.LAB 10:59 | PROVIDERS: Visit Provider Internal Medicine | DX: Z20.822 Contact with and (suspected) exposure to COVID-19 (principal) | CPT/HCPCS: 36415; C9803; U0003 ==

== ENCOUNTER 2020-12-02 10:13 | Outpatient (REF) | payer MEDICARE, MEDICAID, SELFPAY ==
[2020-12-02 10:37] LABS: MANUAL DIFF FLAG NO
[2020-12-02 10:42] LABS: Basophils Percent Auto 0.7 % (0-2); Eosinophils Absolute Auto 0.2 X10*3/uL (0.0-0.4); Eosinophils Percent Auto 3.8 % (0-4); Hematocrit 36.5 % (42-52); Hemoglobin 10.7 g/dl (14.0-18.0); Imm Gran Abs Auto 0.01 X10*3/uL (0.00-0.03); Imm Gran Pct Auto 0.2 % (0.0-0.4); Immature Retic Fraction 22.4 % (2.3-13.4); Lymphocytes Absolute Auto 2.4 X10*3/uL (1.2-4.9); Mean Corpuscular HGB Conc 29.3 g/dl (31.0-36.0); Mean Corpuscular Hemoglobin 21.4 pg (27.0-33.0); Mean Platelet Volume 9.9 fL (9.4-12.4); Monocytes Absolute Auto 0.6 X10*3/uL (0.1-1.2); Monocytes Percent Auto 9.7 % (2-11); Neutrophils Absolute Auto 2.8 X10*3/uL (2.0-8.3); Neutrophils Percent Auto 46.6 % (45-73); Platelet Count 405 X10*3/uL (160-400); Red Cell Distribution Width 18.9 % (11.0-16.0); Retic HGB Equivalent 22.7 pg (30.0-35.0); Reticulocyte Percent 1.2 % (0.5-1.8); Reticulocytes Absolute 0.058 X10*6/uL (0.026-0.095); White Blood Count 6.1 X10*3/uL (4.8-10.8)
[2020-12-02 11:31] LABS: Ferritin < 1 ng/mL (20-250)
== END 2020-12-02 10:14 | disposition home or self-care (01) ==
LOC: HO.LAB 10:13
PROVIDERS: PCP Internal Medicine Medical Oncology; Visit Provider Internal Medicine Medical Oncology
DX: Z00.00 Encounter for general adult medical examination without abnormal findings (principal)
CPT/HCPCS: 36415; 82728; 85025; 85045

== ENCOUNTER 2020-12-31 15:51 | Outpatient (REF) | payer MEDICARE, MEDICAID, SELFPAY ==
[2020-12-31 17:11] LABS: MANUAL DIFF FLAG NO
[2020-12-31 17:19] LABS: Basophils Absolute Auto 0.1 X10*3/uL (0.0-0.2); Basophils Percent Auto 0.8 % (0-2); Eosinophils Absolute Auto 0.3 X10*3/uL (0.0-0.4); Eosinophils Percent Auto 4.5 % (0-4); Hematocrit 40.4 % (42-52); Hemoglobin 11.9 g/dl (14.0-18.0); Imm Gran Abs Auto 0.01 X10*3/uL (0.00-0.03); Imm Gran Pct Auto 0.2 % (0.0-0.4); Lymphocytes Absolute Auto 2.8 X10*3/uL (1.2-4.9); Lymphocytes Percent Auto 42.4 % (20-40); Mean Corpuscular HGB Conc 29.5 g/dl (31.0-36.0); Mean Corpuscular Hemoglobin 22.9 pg (27.0-33.0); Mean Corpuscular Volume 77.8 fL (80-98); Mean Platelet Volume 10.3 fL (9.4-12.4); Monocytes Absolute Auto 0.6 X10*3/uL (0.1-1.2); Monocytes Percent Auto 8.3 % (2-11); Neutrophils Absolute Auto 2.9 X10*3/uL (2.0-8.3); Neutrophils Percent Auto 43.8 % (45-73); Platelet Count 347 X10*3/uL (160-400); Red Blood Count 5.19 X10*6/uL (4.60-5.80); Red Cell Distribution Width 23.7 % (11.0-16.0); White Blood Count 6.6 X10*3/uL (4.8-10.8)
[2020-12-31 17:43] LABS: Alanine Aminotransferase 16 U/L (0-40); Albumin Level 4.3 g/dL (3.5-5.0); Alkaline Phosphatase 74 U/L (39-117); Anion Gap 12 (12-20); Aspartate Amino Transferase 16 U/L (5-37); Bilirubin Total 0.9 mg/dL (0.0-1.0); Blood Urea Nitrogen 19 mg/dL (9-16); Calcium 9.3 mg/dL (8.4-10.2); Carbon Dioxide 30 mmol/L (22-29); Chloride 106 mmol/L (96-108); Estimated Glomerular Filt Rate > 60; Glucose Random 104 mg/dL (60-115); Potassium 4.8 mmol/L (3.3-5.1); Sodium 143 mmol/L (135-145); Total Protein 7.7 g/dL (6.5-8.0)
[2020-12-31 18:05] LABS: Ferritin 8 ng/mL (20-250)
== END 2020-12-31 15:52 | disposition home or self-care (01) ==
LOC: HO.LAB 15:51
PROVIDERS: PCP Internal Medicine Medical Oncology; Visit Provider Internal Medicine Medical Oncology
DX: E66.9 Obesity, unspecified (principal); E61.1 Iron deficiency; I10 Essential (primary) hypertension
CPT/HCPCS: 36415; 80053; 82728; 85025

== ENCOUNTER → 2021-01-03 09:38 | Outpatient (BNVA) | payer MEDICARE, MEDICAID, SELFPAY | PROVIDERS: PCP Internal Medicine Medical Oncology; Visit Provider Physician Assistant | DX: Z13.89 Encounter for screening for other disorder (principal) | CPT/HCPCS: Q3014 ==

== ENCOUNTER → 2021-01-24 09:52 | Outpatient (BNVA) | payer MEDICARE, MEDICAID, SELFPAY | PROVIDERS: PCP Internal Medicine Medical Oncology; Visit Provider Physician Assistant | DX: Z13.89 Encounter for screening for other disorder (principal) | CPT/HCPCS: Q3014 ==

== ENCOUNTER 2021-01-31 10:31 | Outpatient (REF) | payer MEDICARE, MEDICAID, SELFPAY ==
[2021-01-31 11:44] LABS: MANUAL DIFF FLAG NO
[2021-01-31 11:51] LABS: Basophils Percent Auto 0.6 % (0-2); Eosinophils Absolute Auto 0.3 X10*3/uL (0.0-0.4); Eosinophils Percent Auto 4.2 % (0-4); Hemoglobin 13.2 g/dl (14.0-18.0); Imm Gran Abs Auto 0.01 X10*3/uL (0.00-0.03); Imm Gran Pct Auto 0.1 % (0.0-0.4); Immature Retic Fraction 13.3 % (2.3-13.4); Lymphocytes Absolute Auto 2.4 X10*3/uL (1.2-4.9); Lymphocytes Percent Auto 35.6 % (20-40); Mean Corpuscular HGB Conc 30.7 g/dl (31.0-36.0); Mean Corpuscular Hemoglobin 24.9 pg (27.0-33.0); Mean Platelet Volume 10.1 fL (9.4-12.4); Monocytes Absolute Auto 0.5 X10*3/uL (0.1-1.2); Monocytes Percent Auto 7.6 % (2-11); Neutrophils Absolute Auto 3.5 X10*3/uL (2.0-8.3); Neutrophils Percent Auto 51.9 % (45-73); Platelet Count 353 X10*3/uL (160-400); Red Blood Count 5.31 X10*6/uL (4.60-5.80); Red Cell Distribution Width 22.6 % (11.0-16.0); Retic HGB Equivalent 28.7 pg (30.0-35.0); Reticulocyte Percent 1.5 % (0.5-1.8); White Blood Count 6.7 X10*3/uL (4.8-10.8)
[2021-01-31 12:25] LABS: Alanine Aminotransferase 18 U/L (0-40); Albumin Level 4.3 g/dL (3.5-5.0); Alkaline Phosphatase 73 U/L (39-117); Anion Gap 16 (12-20); Aspartate Amino Transferase 18 U/L (5-37); Bilirubin Total 0.9 mg/dL (0.0-1.0); Blood Urea Nitrogen 15 mg/dL (9-16); Calcium 9.3 mg/dL (8.4-10.2); Carbon Dioxide 27 mmol/L (22-29); Chloride 102 mmol/L (96-108); Estimated Glomerular Filt Rate > 60; Glucose Random 101 mg/dL (60-115); Potassium 4.7 mmol/L (3.3-5.1); Sodium 140 mmol/L (135-145); Total Protein 7.9 g/dL (6.5-8.0)
[2021-01-31 12:46] LABS: Ferritin 6 ng/mL (20-250)
== END 2021-01-31 10:32 | disposition home or self-care (01) ==
LOC: HO.LAB 10:31
PROVIDERS: PCP Internal Medicine Medical Oncology; Visit Provider Internal Medicine Medical Oncology
DX: I10 Essential (primary) hypertension (principal); E61.1 Iron deficiency; E66.9 Obesity, unspecified
CPT/HCPCS: 36415; 80053; 82728; 85025; 85045

== ENCOUNTER 2021-08-25 09:11 | Outpatient (REF) | payer MEDICARE, MEDICAID, SELFPAY ==
[2021-08-25 10:33] LABS: Prothrombin Time 11.3 SEC (9.9-13.0)
[2021-08-25 10:36] LABS: Partial Thromboplastin Time 41.1 SEC (24.1-38.0)
[2021-08-26 18:35] LABS: Homocysteine 8.7 umol/L (<11.4)
[2021-08-28 20:22] LABS: Protein C Activity 116 % (70-180); Protein S Activity rflx Tot&Fr 96 % (70-150)
[2021-08-29 12:42] LABS: PTT (LAC) Screen 34 sec (< OR = 40)
[2021-08-29 21:47] LABS: Anti-Thrombin III Antigen 91 % (80-120)
[2021-08-30 16:16] LABS: Factor V Leiden NEGATIVE; Prothrombin 20210A NEGATIVE
== END 2021-08-25 09:12 | disposition home or self-care (01) ==
LOC: HO.LAB 09:11
PROVIDERS: PCP Internal Medicine Medical Oncology; Visit Provider Internal Medicine Medical Oncology
DX: G62.9 Polyneuropathy, unspecified (principal); I82.629 Acute embolism and thrombosis of deep veins of unspecified upper extremity
CPT/HCPCS: 36415; 81240; 81241; 83090; 85301; 85302; 85303; 85305; 85306; 85597; 85610; 85613; 85730

== ENCOUNTER 2021-11-30 15:14 | Outpatient (REF) | payer MEDICARE, MEDICAID, SELFPAY ==
--- NOTE | ~2021-11-30 | XR_ITS ---
EXAMINATION: XR CERVICAL SPINE CLINICAL INFORMATION: Neck pain. COMPARISON: None TECHNIQUE: Six views of the cervical spine were obtained. FINDINGS: There is mild straightening of the cervical lordosis. There is grade 1 anterolisthesis of C4 over C5. The rest the vertebral alignment is normal. There is loss of C5-C6, C6-C7 and C7-T1 disc heights. There is moderate ventral spondylosis throughout the cervical spine. The craniovertebral junction and the C1-C2 alignment is normal. No visible acute fracture, dislocation or lytic process is seen. The prevertebral soft tissues are normal. XR/XR cervical spine 4V IMPRESSION: Grade 1 anterolisthesis of C4 over C5. Degenerative disc changes in the lower cervical spine. No visible acute fracture or dislocation.
== END 2021-11-30 15:15 | disposition home or self-care (01) ==
LOC: HO.XRAY 15:14
PROVIDERS: PCP Internal Medicine Medical Oncology; Visit Provider Internal Medicine Medical Oncology
DX: M54.2 Cervicalgia (principal); M54.9 Dorsalgia, unspecified
CPT/HCPCS: 72050

== ENCOUNTER 2022-04-27 07:35 | Emergency (ER) | payer MEDICARE, MEDICAID, SELFPAY ==
--- NOTE | ~2022-04-27 | CT_ITS ---
EXAMINATION: CT ABDOMEN AND PELVIS WITHOUT CONTRAST CLINICAL INFORMATION: Abdominal pain COMPARISON: CT abdomen pelvis 03/14/2013 TECHNIQUE: Multidetector volumetric imaging was performed from the superior aspect of the liver through the pubic symphysis. Sagittal and coronal reformatted images were obtained on the technologist's workstation. This CT examination was performed using dose optimization techniques as appropriate, variously including the following: *Automated exposure control *Adjustment of mA and/or kV according to patient size (this includes techniques or standardized protocols for targeted exams where dose is matched to indication/reason for exam; i.e. extremities or head) *Use of iterative reconstruction technique DLP: 716 mGy-cm FINDINGS: LUNG BASES: The visualized lung bases are unremarkable. LIVER, GALLBLADDER, AND BILIARY TREE: The liver is normal in size, shape, and attenuation. No focal hepatic lesion or biliary ductal dilatation is present. The gallbladder is unremarkable with no evidence of radiopaque gallstones, gallbladder wall thickening, or obvious pericholecystic inflammatory changes. PANCREAS: Unremarkable. SPLEEN: Unremarkable. ADRENAL GLANDS: Unremarkable. KIDNEYS AND URETERS: The kidneys are normal in size, shape, and attenuation. No hydronephrosis, hydroureter, or calculi seen. No perinephric stranding. BLADDER: The bladder is empty with marked symmetric wall thickening measuring about 1.5 cm GASTROINTESTINAL TRACT: Moderate diverticulosis is present in the sigmoid without definite evidence of diverticulitis. The transverse colon appears mildly thickened with some pericolonic inflammatory change is seen, new since the prior study (for example 3:20 and 5:22). ABDOMINAL WALL: No significant hernia is appreciated. LYMPH NODES: No retroperitoneal lymphadenopathy is seen. Small lymph nodes are present in the mesentery, new since the prior study. VASCULAR: Unremarkable. PELVIC VISCERA: There is mild BPH. Seminal vesicles are unremarkable. OSSEOUS STRUCTURES: Posterior pedicular screws are present at L4, L5 and S1. Degenerative changes are noted throughout the spine. CT/CT abdomen pelvis wo con IMPRESSION: 1. There are mild edematous changes in the transverse colon with some pericolonic inflammatory changes in the surrounding fat. Findings suggestive of colitis. 2. Marked bladder wall thickening, however the bladder is poorly distended. Such findings can be seen with cystitis. Please correlate clinically and with urine analysis. 3. Other incidental findings as described above. Fleischner guidelines were followed.
[2022-04-27 07:56] VITALS: BP 156/97; PULSE 87; RESP 16; TEMP 36.6; O2SAT 97; BMI 36.8
--- NOTE | 2022-04-27 07:59 | ED.GENADULT ---
HPI - General Adult General Chief complaint: Abdominal Pain Stated complaint: sharp pain under belly button, worse when eating Time Seen by Provider: 04/27/22 07:59 Source: patient Mode of arrival: ambulatory Limitations: no limitations History of Present Illness HPI narrative: Patient is a 57 year old male presenting to the emergency department today with left sided abdominal pain. Patient states that he has been having abdominal pain intermittently over the last few weeks that starts in his left lower abdomen and radiates to his right lower abdomen. Patient states that he has had diverticulitis in the past and this feels a lot like that. Patient denies any dizziness, lightheadedness, nausea, vomiting, fever, chills, blurry vision, double vision, loss of vision, chest pain, difficulty breathing, shortness of breath, back pain, night sweats, pain with urination, increased urinary frequency, increased urinary urgency, blood in his urine or stool, syncope or a near syncopal episode, recent trauma or falls, bowel incontinence, bladder incontinence, bowel retention, bladder retention, or any other complaints at this time. Onset (ago): week(s) Location: abdomen Radiation: non-radiation Severity: mild Severity scale (1-10): 2 Quality: dull Pain Consistency: intermittent Relieving factors: none Exacerbating factors: none Associated symptoms: denies other symptoms Treatments prior to arrival: none Related Data Home Medications Medication Instructions Recorded Confirmed ferrous sulfate 325 mg (65 mg 325 mg PO DAILY 01/03/21 01/24/21 iron) tablet (Feosol) omeprazole 20 mg capsule,delayed mg PO 01/24/21 01/24/21 release Previous Rx's Medication Instructions Recorded apixaban 5 mg tablet (Eliquis) 5 mg PO BID DVT #42 tabs 09/22/20 bisacodyl 5 mg tablet,delayed 10 mg PO ONCE colonoscopy prep 1 01/24/21 release (Dulcolax (bisacodyl)) day #2 tabs polyethylene glycol 3350 17 238 g PO ONCE 1 day #238 grams 01/24/21 gram/dose oral powder (Miralax) Allergies Allergy/AdvReac Type Severity Reaction Status Date / Time ENVIRONMENTAL Allergy Mild ITCHINESS, Uncoded 01/03/21 09:39 CONGESTION Review of Systems Constitutional: Constitutional: Reports no additional constitutional complaints, Denies chills, Denies fever(s) and Denies night sweats Eyes: Eyes: Reports no additional eye complaints, Denies blurry vision, Denies change in vision, Denies diplopia, Denies eye discharge, Denies loss of vision and Denies eye pain ENT: Denies dizziness Cardiovascular: Cardiovascular: Reports no additional cardiovascular complaints, Denies chest pain, Denies lightheadedness, Denies Loss of Consciousness and Denies dyspnea Respiratory: Respiratory: Reports no additional respiratory complaints and Denies dyspnea Gastrointestinal: Gastrointestinal: Reports no additional gastrointestinal complaints, Reports abdominal pain, Denies melena, Denies hematochezia, Denies change in bowel habits and Denies change in stool character Genitourinary: Genitourinary: Reports no additional male genitourinary complaints, Denies hematuria, Denies oliguria, Denies difficulty urinating, Denies dysuria, Denies urinary frequency, Denies urinary hesitancy, Denies urinary incontinence and Denies urinary urgency Musculoskeletal: Musculoskeletal: Reports no additional musculoskeletal complaints, Denies numbness and Denies tingling Neurologic: Denies dizziness, Denies loss of vision, Denies numbness and Denies tingling Psychiatric: Psychiatric: Reports no additional psychiatric complaints Endocrine: Endocrine: Reports no additional endocrine complaints Hematologic/Lymphatic: Hematologic/Lymphatic: Reports no additional hematologic/lymphatic complaints Allergic/Immunologic: Allergic/Immunologic: Reports no additional allergic/immunologic complaints [facility] Past Medical History Attestation statement: The following information was validated with the patient. Source: old records reviewed Medical History Back pain with history of spinal surgery Social History Social History Household Members: Significant Other Alcohol intake: current Alcohol intake frequency: a few times a month Alcohol type: beer Patient Tobacco Use Status: Never used Tobacco Use of substances other than those prescribed or required for medical reasons: No Advance Directives: No Advance Directives Information Provided: No Current occupational status: disabled Current occupation: Right Handed Physical Exam ED Vital Signs: Vital Signs - 24 hr 04/27/22 07:56 04/27/22 08:35 Temperature 97.8 F Pulse Rate 87 85 Respiratory Rate 16 14 Blood Pressure 156/97 H 164/94 H Pulse Oximetry 97 95 Oxygen Delivery Method Room Air Room Air BMI result Body Mass Index 36.8 Const General: cooperative, no acute distress, alert and awake Nutritional Appearance: well nourished Orientation/consciousness: patient oriented x3 Limitations: no limitations HENMT Head: Yes normal to inspection and Yes atraumatic Ears: hearing grossly normal bilaterally and external ears normal General nose exam: Normal external nose present, no nasal discharge noted and no epistaxis Face and sinus: Yes normal facial exam, No abrasion and No laceration Mouth: Normal oral and palatal mucosa present, no drooling and no muffled voice Eyes General: appearance normal, both eyes and all related structures Periorbital: periorbital findings normal Eyelids: Yes eyelids normal Conjunctivae: conjunctivae normal Pupils: Equal, round and reactive pupils present EOM: EOMs intact bilaterally Neck Neck: Yes normal visual inspection, Yes full ROM and Yes no lymphadenopathy Chest Chest palpation & inspection: normal inspection of the chest Resp Effort & Inspection: normal respiratory effort and able to speak in complete sentences Auscultation: clear to auscultation bilaterally Cardio Rate: regular rate Rhythm: regular rhythm GI Inspection: Yes normal to inspection Palpation (GI): Soft to palpation, not firm, nontender and no guarding Neuro General: patient oriented x3 and moves all extremities Cranial nerves: Yes Equal, round and reactive pupils present Cognition (Neuro): normal cognition Motor exam (neuro): 5/5 motor strength present throughout Sensory Exam: Normal double simultaneous stimulation for sensation Coordination: [id number] test normal Extrem General: Yes normal to inspection, Yes full ROM and Yes capillary refill normal Psych Appearance: grossly normal Mental Status: mental status grossly normal Affect: normal affect Attitude: cooperative Thought process: Normal thought process present Thought content: Normal thought content present Insight: Good insight present (Psych) Medical Decision Making [facility] Narrative Medical decision making narrative: Patient is a 57 year old male presenting to the emergency department today with abdominal pain. Patient's physical exam was unremarkable. Patient's blood work was unremarkable. Patient's urine showed no acute process. Patient's EKG was unremarkable. Patient's abdominal CT showed evidence of colitis and a thickened bladder. I explained my physical exam findings as well as all test results to the patient. I answered all questions asked by the patient. I stressed the importance of the patient taking his medication as prescribed. I stressed the importance of the patient following up with his primary care provider and a urologist for the thickened bladder finding. I stressed the importance of the patient returning to the emergency department immediately if his symptoms were to worsen or if he were to develop any dizziness, shortness of breath, difficulty breathing, chest pain, blurry vision, loss of vision, nausea, vomiting, abdominal pain, fever, chills, back pain, or any other complaints. Patient verbalized agreement and understanding with this treatment plan and discharge. Differential Diagnosis Differential Diagnosis: colitis Medical Records Medical records reviewed: Yes I reviewed the patient's medical records. Lab Data Lab results reviewed: Yes I reviewed the patient's lab results. Result diagrams: 04/27/22 08:19 04/27/22 08:19 Labs: Lab Results 04/27/22 04/27/22 04/27/22 Range/Units 08:19 08:19 08:19 WBC 9.2 (4.8-10.8) X10*3/uL RBC 4.85 (4.60-5.80) X10*6/uL Hgb 13.7 L (14.0-18.0) g/dl Hct 42.9 (42.0-52.0) % MCV 88.5 (80.0-98.0) fL MCH 28.2 (27.0-33.0) pg MCHC 31.9 (31.0-36.0) g/dl RDW 14.2 (11.0-16.0) % Plt Count 326 (160-400) X10*3/uL MPV 9.2 L (9.4-12.4) fL Immature Gran % (Auto) 0.3 (0.0-0.4) % Neut % (Auto) 59.7 (45-73) % Lymph % (Auto) 22.0 (20-40) % [place] % (Auto) 7.9 (2-11) % Eos % (Auto) 9.4 H (0-4) % Baso % (Auto) 0.7 (0-2) % Lymph # (Auto) 2.0 (1.2-4.9) X10*3/uL [place] # (Auto) 0.7 (0.1-1.2) X10*3/uL Eos # (Auto) 0.9 H (0.0-0.4) X10*3/uL Baso # (Auto) 0.1 (0.0-0.2) X10*3/uL Abs Immat Gran (auto) 0.03 (0.00-0.03) X10*3/uL Absolute Neuts (auto) 5.5 (2.0-8.3) x10*3/uL Absolute Nucleated RBC 0.000 (0.0-0.012) X10*3/uL Nucleated RBC % (auto) 0.0 (0.0-0.2) /100WBC Sodium 140 (135-145) mmol/L Potassium 4.3 (3.3-5.1) mmol/L Chloride 104 (96-108) mmol/L Carbon Dioxide 26 (22-29) mmol/L Anion Gap 14 (12-20) BUN 12 (9-16) mg/dL Creatinine 0.94 (0.5-1.4) mg/dL Estim Creat Clear Calc 89.1 Estimated GFR > 60 Random Glucose 134 H (60-115) mg/dL Calcium 9.0 (8.4-10.2) mg/dL Magnesium 1.9 (1.6-2.6) mg/dL Total Bilirubin 1.1 H (0.0-1.0) mg/dL AST 22 (5-37) U/L ALT 15 (0-40) U/L Alkaline Phosphatase 65 (39-117) U/L Troponin I High Sens < 3.5 (<3.5-35.0) ng/L Total Protein 7.4 (6.5-8.0) g/dL Albumin 3.9 (3.5-5.0) g/dL Urine Color Urine Appearance Urine pH (5.0-8.0) Ur Specific Boyds (1.005-1.025) Urine Protein (NEG-TRACE) MG/DL Urine Glucose (UA) (NEG) MG/DL Urine Ketones (NEG) MG/DL Urine Blood (NEG) Urine Nitrite (NEG) Ur Leukocyte Esterase (NEG) Urine RBC (0) /HPF Urine WBC (0-4) /HPF Ur Squamous Epith Cells /LPF Urine Bacteria /LPF Hyaline Casts /LPF Urine Mucus /LPF COVID-19 (BRUCE) (Negative) COVID-19 Clin Com Influenza Type A ([place]YANNE) (Negative) Influenza Type B (CHEYANNE) (Negative) Influenza A & B Note 0704/27/22 04/27/22 Range/Units 08:19 08:19 08:25 WBC (4.8-10.8) X10*3/uL RBC (4.60-5.80) X10*6/uL Hgb (14.0-18.0) g/dl Hct (42.0-52.0) % MCV (80.0-98.0) fL MCH (27.0-33.0) pg MCHC (31.0-36.0) g/dl RDW (11.0-16.0) % Plt Count (160-400) X10*3/uL MPV (9.4-12.4) fL Immature Gran % (Auto) (0.0-0.4) % Neut % (Auto) (45-73) % Lymph % (Auto) (20-40) % [place] % (Auto) (2-11) % Eos % (Auto) (0-4) % Baso % (Auto) (0-2) % Lymph # (Auto) (1.2-4.9) X10*3/uL [place] # (Auto) (0.1-1.2) X10*3/uL Eos # (Auto) (0.0-0.4) X10*3/uL Baso # (Auto) (0.0-0.2) X10*3/uL Abs Immat Gran (auto) (0.00-0.03) X10*3/uL Absolute Neuts (auto) (2.0-8.3) x10*3/uL Absolute Nucleated RBC (0.0-0.012) X10*3/uL Nucleated RBC % (auto) (0.0-0.2) /100WBC Sodium (135-145) mmol/L Potassium (3.3-5.1) mmol/L Chloride (96-108) mmol/L Carbon Dioxide (22-29) mmol/L Anion Gap (12-20) BUN (9-16) mg/dL Creatinine (0.5-1.4) mg/dL Estim Creat Clear Calc Estimated GFR Random Glucose (60-115) mg/dL Calcium (8.4-10.2) mg/dL Magnesium (1.6-2.6) mg/dL Total Bilirubin (0.0-1.0) mg/dL AST (5-37) U/L ALT (0-40) U/L Alkaline Phosphatase (39-117) U/L Troponin I High Sens (<3.5-35.0) ng/L Total Protein (6.5-8.0) g/dL Albumin (3.5-5.0) g/dL Urine Color YELLOW Urine Appearance HAZY Urine pH 6.0 (5.0-8.0) Ur Specific Boyds 1.025 (1.005-1.025) Urine Protein 1+ H (NEG-TRACE) MG/DL Urine Glucose (UA) NEG (NEG) MG/DL Urine Ketones 15 (NEG) MG/DL Urine Blood TRACE (NEG) Urine Nitrite NEG (NEG) Ur Leukocyte Esterase NEG (NEG) Urine RBC 1-4 (0) /HPF Urine WBC 0-2 (0-4) /HPF Ur Squamous Epith Cells 1+ /LPF Urine Bacteria TRACE /LPF Hyaline Casts 0-2 /LPF Urine Mucus 3+ /LPF COVID-19 (BRUCE) Negative (Negative) COVID-19 Clin Com See Note Influenza Type A (CHEYANNE) Negative (Negative) Influenza Type B (CHEY[place]NE) Negative (Negative) Influenza A & B Note See Note Imaging Data CT scan - abdomen: Attestation: I personally reviewed and interpreted this imaging study as follows: My impression: No acute process. Radiologist's impression: EXAMINATION: CT ABDOMEN AND PELVIS WITHOUT CONTRAST? CLINICAL INFORMATION: Abdominal pain? COMPARISON: None? TECHNIQUE: Multidetector volumetric imaging was performed from the superior aspect of the liver through the pubic symphysis. Sagittal and coronal reformatted images were obtained on the technologist's workstation.? This CT examination was performed using dose optimization techniques as appropriate, variously including the following: *Automated exposure control *Adjustment of mA and/or kV according to patient size (this includes techniques or standardized protocols for targeted exams where dose is matched to indication/reason for exam; i.e. extremities or head) *Use of iterative reconstruction technique DLP: 518 mGy-cm FINDINGS: LUNG BASES: The visualized lung bases are unremarkable.? LIVER, GALLBLADDER, AND BILIARY TREE: The liver is normal in size and shape but demonstrates minimally decreased attenuation suggesting hepatic steatosis. No focal hepatic lesion or biliary ductal dilatation is present. The gallbladder is unremarkable with no evidence of radiopaque gallstones, gallbladder wall thickening, or obvious pericholecystic inflammatory changes.? PANCREAS: Unremarkable.? SPLEEN: Unremarkable.? ADRENAL GLANDS: Unremarkable.? KIDNEYS AND URETERS: The kidneys are normal in size, shape, and attenuation. No hydronephrosis, hydroureter, or calculi seen. No perinephric stranding. ? BLADDER: Unremarkable.? GASTROINTESTINAL TRACT: The small and large bowel are unremarkable. The appendix is unremarkable.? ABDOMINAL WALL: No significant hernia is appreciated.? LYMPH NODES: Normal. VASCULAR: Unremarkable. PELVIC VISCERA: Unremarkable.? OSSEOUS STRUCTURES: Mild degenerative changes are present lower thoracic spine with Schmorl's nodes at the endplates of T10 and T11 and a superior endplate Schmorl's node at L1.? CT/CT abdomen pelvis wo con IMPRESSION: 1.? No significant abnormality.? 2.? Incidental note made of normal-sized liver with question of hepatic steatosis as well as mild degenerative changes in the spine with Schmorl's nodes. ? Fleischner guidelines were followed. Dictated By: Gerald Glez MD Signed By: Electronically signed by Gerald Glez MD 04/27/22 8469 ECG Data Attestation: I personally reviewed and interpreted this ECG as follows: Prior ECG tracings: available for review Interpretation: Vent. Rate: 088 BPM ? ? Atrial Rate: 088 BPM P-R Int: 126 ms? QRS Dur: 098 ms QT Int: 388 ms ? ? ? P-R-T Axes: 058 009 043 degrees QTc Int: 469 ms ? Normal sinus rhythm Normal ECG When compared with ECG of 12-NOV-2015 03:19, No significant change was found DD/ 0812 Discharge Plan Discharge Clinical Impression: Colitis Patient Disposition: Home, Self-Care Instructions: Colitis (ED) Additional Instructions: Follow up with your primary care provider and a urologist. Return to the emergency department immediately if your symptoms worsen or if you develop any dizziness, shortness of breath, difficulty breathing, chest pain, blurry vision, loss of vision, nausea, vomiting, abdominal pain, fever, chills, back pain, or any other complaints. Prescriptions: No Action Eliquis 5 mg tablet 5 mg PO BID Qty: 42 0RF Rx Instructions: Take 10 mg b.i.d. daily for 7 days. Then take 5 mg twice b.i.d. daily for 7 day ferrous sulfate [Feosol] 325 mg (65 mg iron) tablet 325 mg PO DAILY omeprazole 20 mg capsule,delayed release(DR/EC) PO bisacodyl [Dulcolax (bisacodyl)] 5 mg tablet,delayed release (DR/EC) 10 mg PO ONCE 1 Days Qty: 2 0RF Rx Instructions: Take 2 tablets by mouth at 12:00pm the day before your procedure. polyethylene glycol 3350 [Miralax] 17 gram/dose powder 238 g PO ONCE 1 Days Qty: 238 0RF Rx Instructions: Take as directed by mouth the day before your procedure. Referrals: Enrrique Snow MD [Physician] - (Call to establish and follow up with a urologist. ) Joe Burnett MD [Primary Care Provider] - (Follow up with your primary care provider. ) Interventions: ED Discharge Assessment Last Done: 04/27/22 10:20 Discharge Date/Time: 04/27/22 10:21 Print Language: Yi
--- NOTE | 2022-04-27 08:01 | ECG_ITS ---
Test Reason : abd pain Blood Pressure : / mmHG Vent. Rate : 088 BPM Atrial Rate : 088 BPM P-R Int : 126 ms QRS Dur : 098 ms QT Int : 388 ms P-R-T Axes : 058 009 043 degrees QTc Int : 469 ms Normal sinus rhythm Normal ECG When compared with ECG of 12-NOV-2015 03:19, No significant change was found Referred By: Marcia Palmer Electronically Signed By:Casimiro Feldman
[2022-04-27 08:23] LABS: MANUAL DIFF FLAG NO
[2022-04-27 08:26] LABS: Basophils Absolute Auto 0.1 X10*3/uL (0.0-0.2); Basophils Percent Auto 0.7 % (0-2); Eosinophils Absolute Auto 0.9 X10*3/uL (0.0-0.4); Eosinophils Percent Auto 9.4 % (0-4); Hematocrit 42.9 % (42.0-52.0); Hemoglobin 13.7 g/dl (14.0-18.0); Imm Gran Abs Auto 0.03 X10*3/uL (0.00-0.03); Imm Gran Pct Auto 0.3 % (0.0-0.4); Mean Corpuscular HGB Conc 31.9 g/dl (31.0-36.0); Mean Corpuscular Hemoglobin 28.2 pg (27.0-33.0); Mean Corpuscular Volume 88.5 fL (80.0-98.0); Mean Platelet Volume 9.2 fL (9.4-12.4); Monocytes Absolute Auto 0.7 X10*3/uL (0.1-1.2); Monocytes Percent Auto 7.9 % (2-11); Neutrophils Absolute Auto 5.5 x10*3/uL (2.0-8.3); Neutrophils Percent Auto 59.7 % (45-73); Platelet Count 326 X10*3/uL (160-400); Red Blood Count 4.85 X10*6/uL (4.60-5.80); Red Cell Distribution Width 14.2 % (11.0-16.0); White Blood Count 9.2 X10*3/uL (4.8-10.8)
[2022-04-27 08:35] VITALS: BP 164/94; PULSE 85; RESP 14; O2SAT 95
[2022-04-27 08:35] LABS: Appearance Urine HAZY; Color Urine YELLOW; Glucose Urine UA NEG (NEG); Leukocyte Esterase Urine NEG (NEG); Nitrite Urine NEG (NEG); Specific Gravity - Urine 1.025 (1.005-1.025); UACC Culture Trigger NO; Urine Blood TRACE (NEG); Urine Ketones 15 MG/DL (NEG); Urine Protein 1+ MG/DL (NEG-TRACE)
[2022-04-27 08:41] LABS: Alanine Aminotransferase 15 U/L (0-40); Albumin Level 3.9 g/dL (3.5-5.0); Alkaline Phosphatase 65 U/L (39-117); Anion Gap 14 (12-20); Aspartate Amino Transferase 22 U/L (5-37); Bilirubin Total 1.1 mg/dL (0.0-1.0); Blood Urea Nitrogen 12 mg/dL (9-16); Carbon Dioxide 26 mmol/L (22-29); Chloride 104 mmol/L (96-108); Creatinine Clr Calc Pharmacy 89.1; Estimated Glomerular Filt Rate > 60; Glucose Random 134 mg/dL (60-115); Magnesium 1.9 mg/dL (1.6-2.6); Potassium 4.3 mmol/L (3.3-5.1); Sodium 140 mmol/L (135-145); Total Protein 7.4 g/dL (6.5-8.0)
[2022-04-27 08:45] LABS: Troponin-I High Sensitivity < 3.5 ng/L (<3.5-35.0)
[2022-04-27 08:46] LABS: COVID-19 Test Negative (Negative)
[2022-04-27 08:55] LABS: WBC Urine 0-2 /HPF (0-4)
[2022-04-27 08:56] LABS: Bacteria Urine TRACE /LPF; Mucus Urine 3+ /LPF; Squamous Epithelial Cell Urine 1+ /LPF
[2022-04-27 08:57] LABS: Hyaline Casts Urine 0-2 /LPF
[2022-04-27 09:19] LABS: IDNOW Serial# 9DB6401D; Influenza A Negative (Negative); Influenza B2 Negative (Negative)
== END 2022-04-27 10:21 | disposition home or self-care (01) ==
PROVIDERS: Physician Assistant Medical; Emergency Provider Emergency Medicine; PCP Internal Medicine Medical Oncology
DX: K52.9 Noninfective gastroenteritis and colitis, unspecified (principal); Z20.822 Contact with and (suspected) exposure to COVID-19; Z79.899 Other long term (current) drug therapy
CPT/HCPCS: 74176; 80053; 81001; 83735; 84484; 85025; 87502; 87635; 93005; 99284

== ENCOUNTER → 2022-05-03 12:39 | Outpatient (BNVA) | payer MEDICARE, MEDICAID, SELFPAY | PROVIDERS: PCP Internal Medicine Medical Oncology; Referring Provider Internal Medicine Medical Oncology; Visit Provider Physician Assistant | DX: R10.9 Unspecified abdominal pain (principal); Z53.20 Procedure and treatment not carried out because of patient's decision for unspecified reasons | CPT/HCPCS: 99212 ==

== ENCOUNTER 2022-06-05 09:14 | Outpatient (REF) | payer MEDICARE, MEDICAID, SELFPAY ==
[2022-06-05 09:42] LABS: MANUAL DIFF FLAG NO
[2022-06-05 10:07] LABS: Basophils Absolute Auto 0.1 X10*3/uL (0.0-0.2); Basophils Percent Auto 0.7 % (0-2); Eosinophils Absolute Auto 0.3 X10*3/uL (0.0-0.4); Eosinophils Percent Auto 4.3 % (0-4); Hematocrit 45.3 % (42.0-52.0); Hemoglobin 14.6 g/dl (14.0-18.0); Imm Gran Abs Auto 0.01 X10*3/uL (0.00-0.03); Imm Gran Pct Auto 0.1 % (0.0-0.4); Lymphocytes Absolute Auto 2.8 X10*3/uL (1.2-4.9); Lymphocytes Percent Auto 42.4 % (20-40); Mean Corpuscular HGB Conc 32.2 g/dl (31.0-36.0); Mean Corpuscular Hemoglobin 28.2 pg (27.0-33.0); Mean Corpuscular Volume 87.6 fL (80.0-98.0); Monocytes Absolute Auto 0.5 X10*3/uL (0.1-1.2); Monocytes Percent Auto 7.8 % (2-11); Neutrophils Percent Auto 44.7 % (45-73); Platelet Count 294 X10*3/uL (160-400); Red Blood Count 5.17 X10*6/uL (4.60-5.80); Red Cell Distribution Width 12.7 % (11.0-16.0); White Blood Count 6.7 X10*3/uL (4.8-10.8)
[2022-06-05 10:17] LABS: Alanine Aminotransferase 23 U/L (0-40); Albumin Level 4.4 g/dL (3.5-5.0); Alkaline Phosphatase 73 U/L (39-117); Anion Gap 15 (12-20); Aspartate Amino Transferase 17 U/L (5-37); Bilirubin Total 1.2 mg/dL (0.0-1.0); Blood Urea Nitrogen 14 mg/dL (9-16); Calcium 9.2 mg/dL (8.4-10.2); Carbon Dioxide 30 mmol/L (22-29); Chloride 101 mmol/L (96-108); Estimated Glomerular Filt Rate > 60; Glucose Random 121 mg/dL (60-115); Potassium 4.7 mmol/L (3.3-5.1); Sodium 141 mmol/L (135-145); Total Protein 7.9 g/dL (6.5-8.0)
== END 2022-06-05 09:15 | disposition home or self-care (01) ==
LOC: HO.LAB 09:14
PROVIDERS: PCP Internal Medicine Medical Oncology; Visit Provider Physician Assistant
DX: R10.9 Unspecified abdominal pain (principal); K52.9 Noninfective gastroenteritis and colitis, unspecified
CPT/HCPCS: 36415; 80053; 85025

== ENCOUNTER 2022-06-06 13:56 | Outpatient (REF) | payer MEDICARE, MEDICAID, SELFPAY ==
[2022-06-06] MEDS: Sorbitol/Mannit/Xanth Imaging 500 ML LIQUID 1500 ML PO (15:16)
== END 2022-06-06 13:57 | disposition home or self-care (01) ==
LOC: HO.US 13:56
PROVIDERS: Visit Provider Physician Assistant
DX: E61.1 Iron deficiency (principal)

== ENCOUNTER 2022-09-19 10:07 | Outpatient (REF) | payer MEDICARE, MEDICAID, SELFPAY ==
[2022-09-19 11:44] LABS: MANUAL DIFF FLAG NO
[2022-09-19 11:56] LABS: Basophils Percent Auto 0.8 % (0-2); Eosinophils Absolute Auto 0.2 X10*3/uL (0.0-0.4); Eosinophils Percent Auto 3.4 % (0-4); Hematocrit 44.3 % (42.0-52.0); Imm Gran Abs Auto 0.01 X10*3/uL (0.00-0.03); Imm Gran Pct Auto 0.2 % (0.0-0.4); Lymphocytes Percent Auto 38.5 % (20-40); Mean Corpuscular HGB Conc 31.6 g/dl (31.0-36.0); Mean Corpuscular Hemoglobin 27.6 pg (27.0-33.0); Mean Corpuscular Volume 87.2 fL (80.0-98.0); Mean Platelet Volume 10.5 fL (9.4-12.4); Monocytes Absolute Auto 0.3 X10*3/uL (0.1-1.2); Monocytes Percent Auto 6.3 % (2-11); Neutrophils Absolute Auto 2.7 x10*3/uL (2.0-8.3); Neutrophils Percent Auto 50.8 % (45-73); Platelet Count 276 X10*3/uL (160-400); Red Blood Count 5.08 X10*6/uL (4.60-5.80); Red Cell Distribution Width 15.1 % (11.0-16.0); White Blood Count 5.3 X10*3/uL (4.8-10.8)
[2022-09-19 12:16] LABS: C Reactive Protein 0.04 mg/dL (< or = 0.50); Iron 116 mcg/dL (45-160); Percent Iron Saturation 27 % (15-50); Total Iron Binding Capacity 431 mcg/dL (228-428); Unsaturated Iron Binding 315 ug/dL
[2022-09-19 12:29] LABS: Erythrocyte Sedimentation Rate 3 MM/HR (0-15)
== END 2022-09-19 10:08 | disposition home or self-care (01) ==
LOC: HO.WFDLDS 10:07
PROVIDERS: Visit Provider Physician Assistant
DX: R19.5 Other fecal abnormalities (principal); K21.9 Gastro-esophageal reflux disease without esophagitis; R93.5 Abnormal findings on diagnostic imaging of other abdominal regions, including retroperitoneum; Z86.2 Personal history of diseases of the blood and blood-forming organs and certain disorders involving the immune mechanism
CPT/HCPCS: 36415; 83540; 85025; 85652; 86140; 99212

== ENCOUNTER 2022-10-24 08:59 | Outpatient (REF) | payer MEDICARE, SELFPAY ==
[2022-10-24 09:21] LABS: MANUAL DIFF FLAG NO
[2022-10-24 10:08] LABS: Basophils Absolute Auto 0.1 X10*3/uL (0.0-0.2); Basophils Percent Auto 0.9 % (0-2); Eosinophils Absolute Auto 0.4 X10*3/uL (0.0-0.4); Eosinophils Percent Auto 5.8 % (0-4); Hematocrit 44.5 % (42.0-52.0); Hemoglobin 14.1 g/dl (14.0-18.0); Imm Gran Abs Auto 0.01 X10*3/uL (0.00-0.03); Imm Gran Pct Auto 0.1 % (0.0-0.4); Lymphocytes Absolute Auto 3.3 X10*3/uL (1.2-4.9); Lymphocytes Percent Auto 47.7 % (20-40); Mean Corpuscular HGB Conc 31.7 g/dl (31.0-36.0); Mean Corpuscular Hemoglobin 27.9 pg (27.0-33.0); Mean Corpuscular Volume 87.9 fL (80.0-98.0); Mean Platelet Volume 9.4 fL (9.4-12.4); Monocytes Absolute Auto 0.4 X10*3/uL (0.1-1.2); Monocytes Percent Auto 5.7 % (2-11); Neutrophils Absolute Auto 2.8 x10*3/uL (2.0-8.3); Neutrophils Percent Auto 39.8 % (45-73); Platelet Count 382 X10*3/uL (160-400); Red Blood Count 5.06 X10*6/uL (4.60-5.80); Red Cell Distribution Width 13.4 % (11.0-16.0); White Blood Count 6.9 X10*3/uL (4.8-10.8)
[2022-10-24 11:11] LABS: Alanine Aminotransferase 15 U/L (0-40); Albumin Level 4.2 g/dL (3.5-5.0); Alkaline Phosphatase 69 U/L (39-117); Anion Gap 13 (12-20); Aspartate Amino Transferase 16 U/L (5-37); Bilirubin Total 0.5 mg/dL (0.0-1.0); Blood Urea Nitrogen 11 mg/dL (9-16); Calcium 9.6 mg/dL (8.4-10.2); Carbon Dioxide 30 mmol/L (22-29); Chloride 102 mmol/L (96-108); Cholesterol 144 mg/dL; Estimated Glomerular Filt Rate > 60; Glucose Random 103 mg/dL (60-115); HDL Cholesterol 41 mg/dL; LDL Cholesterol Calculated 84 mg/dl; Potassium 5.1 mmol/L (3.3-5.1); Sodium 140 mmol/L (135-145); Total Protein 7.9 g/dL (6.5-8.0); Triglycerides 95 mg/dL
[2022-10-24 11:17] LABS: Vitamin D 25-OH Total 19.2 ng/mL (>30)
== END 2022-10-24 09:00 | disposition home or self-care (01) ==
LOC: HO.LAB 08:59
PROVIDERS: PCP Internal Medicine Medical Oncology; Visit Provider Internal Medicine Medical Oncology
DX: Z12.5 Encounter for screening for malignant neoplasm of prostate (principal); E66.9 Obesity, unspecified; N52.9 Male erectile dysfunction, unspecified; I10 Essential (primary) hypertension; E61.1 Iron deficiency; G62.9 Polyneuropathy, unspecified
CPT/HCPCS: 36415; 80053; 80061; 82306; 84153; 85025

== ENCOUNTER 2022-10-31 10:32 | Outpatient (REF) | payer MEDICARE, SELFPAY ==
--- NOTE | ~2022-10-31 | XR_ITS ---
EXAMINATION: XR CHEST CLINICAL INFORMATION: Chest pain. COMPARISON: 04/08/2020 TECHNIQUE: 2 lateral and one frontal view of the chest were obtained. FINDINGS: Stable cardiomediastinal silhouette. Apparent 8 mm nodular opacity in the left lower lung projected over the posterior/lateral left 6th rib. No focal consolidation otherwise. No effusion. No pulmonary edema. No pneumothorax. Mild dorsal spine degeneration. XR/XR chest 2V IMPRESSION: Apparent 8 mm nodular opacity projected over the left lower lung. Recommend follow-up radiographs with nipple marker or CT chest for further evaluation.
--- NOTE | ~2022-10-31 | XR_ITS ---
EXAMINATION: XR RIBS, BILATERAL CLINICAL INFORMATION: Chest, rib pain COMPARISON: Chest x-ray from 04/08/2020 TECHNIQUE: 3 views of the bilateral ribs were obtained. FINDINGS: Metallic BB is placed adjacent to the right lateral eighth rib Lungs are clear. No consolidation, pneumothorax, or pleural effusion. The cardiomediastinal silhouette and pulmonary vasculature are normal. Osseous structures are unremarkable. Ribs are intact. No fractures are identified. XR/XR ribs BI 3V IMPRESSION: Unremarkable examination.
== END 2022-10-31 10:33 | disposition home or self-care (01) ==
LOC: HO.XRAY 10:32
PROVIDERS: PCP Internal Medicine Medical Oncology; Visit Provider Internal Medicine Medical Oncology
DX: R07.9 Chest pain, unspecified (principal); S22.39XA Fracture of one rib, unspecified side, initial encounter for closed fracture; X58.XXXA Exposure to other specified factors, initial encounter; Y93.9 Activity, unspecified; Y92.9 Unspecified place or not applicable; Y99.9 Unspecified external cause status
CPT/HCPCS: 71046; 71110

== ENCOUNTER 2022-11-06 09:07 | Outpatient (REF) | payer MEDICARE, SELFPAY ==
--- NOTE | ~2022-11-06 | XR_ITS ---
EXAMINATION: XR CHEST CLINICAL INFORMATION: Chest pain. Nodule left lower lobe COMPARISON: Chest 10/31/2022 TECHNIQUE: 2 views of the chest were obtained. FINDINGS: The lungs are well-expanded and clear acute process. Previously seen pulmonary nodule left lower lobe is not evident on this exam. Heart size and pulmonary vascularity is normal. No gross bony abnormality seen. XR/XR chest 2V IMPRESSION: No acute cardiopulmonary process seen. No nodules seen left lower lung.
== END 2022-11-06 09:08 | disposition home or self-care (01) ==
LOC: HO.XRAY 09:07
PROVIDERS: PCP Internal Medicine Medical Oncology; Visit Provider Internal Medicine Medical Oncology
DX: R07.9 Chest pain, unspecified (principal); R91.1 Solitary pulmonary nodule
CPT/HCPCS: 71046

== ENCOUNTER 2022-12-05 06:26 | Day surgery (SDC) | payer MEDICARE, SELFPAY ==
[2022-11-30 11:27] VITALS: BMI 34.1
[2022-12-05 06:39] VITALS: BP 172/102; PULSE 97; RESP 20; TEMP 36.8; O2SAT 98
--- NOTE | 2022-12-05 06:42 | P.HPSUR_ITS ---
Pre-Procedural Eval Section A Date of Service: 12/05/22 Section B Chief Complaint: reflux,fecal abnormalities,ab findings on imaging Relevant Family History (Specify if Yes): No Relevant Social History: None Present Medications: see Short Stay Collaborative assessment Medical History: Significant History (Back pain with history of spinal surgery History of anemia) History of Previous Operations: Relevant previous surgery/procedure and date(s) (back surgery) Allergies: Allergies Allergy/AdvReac Type Severity Reaction Status Date / Time ENVIRONMENTAL Allergy Mild ITCHINESS, Uncoded 01/03/21 09:39 CONGESTION Review of Systems Sugical H&P ROS: Negative: Constitution, Cardiovascular, Respiratory, Neurological, Psychiatric, Hem-Onc, Allergic/Immunologic, Gastrointestinal, Genitourinary, Musculoskeletal, Integumentary, Endocrine and Eyes/Ears/Nose/Th roat Exam Surgical H&P Exam: Normal: HEENT, Normal: Heart, Normal: Lungs, Normal: Extremities, Normal: Abdomen, Normal: Skin and Normal: Neurological Plan Diagnosis/Plan: Unchanged I have reviewed the history and physical and performed a pertinent physical examination on my patient. No changes have occurred unless specified. Time Spent With Patient Time: Total time managing care of this patient today ____ minutes.
[2022-12-05 06:46] VITALS: BMI 34.0
[2022-12-05] MEDS: Lactated Ringers 1,000 ML 80 ML IVCONT (07:19)
--- NOTE | 2022-12-05 08:28 | W.PM.OPN ---
Operative Note Operative Note Date of Service: 12/05/22 Narrative: Operative Information Procedure Description: EGD, Colonoscopy Indication: pos cologuard, hx of anemia Anesthesia: MAC FLEXIBLE TRANSORAL UPPER GASTROINTESTINAL ENDOSCOPY AND COLONOSCOPY PROCEDURE NOTE UPPER ENDOSCOPY Consent: Indications for the procedure and potential complications of bleeding, perforation, reaction to medications and missed diagnosis were discussed with the patient and informed consent was obtained. Instrument: Olympus GIF H 190 J mid size upper endoscope Monitoring: Vital signs and clinical assessment, continuous EKG monitoring, Pulse oximetry, Carbon Dioxide monitoring and blood pressure monitoring were done throughout the procedure. Procedure: The patient was placed in the left lateral decubitis position and pre-procedure medications were administered and a bite block was placed. The endoscope was inserted into the mouth and advanced under direct vision to the third part of duodenum. A careful inspection was made as the upper endoscope was withdrawn including a retroflexed examination of the proximal stomach; Findings and interventions are described below. Findings: Larynx:normal Esophagus: GE junction at 44 cm, diaphragm hiatus at 44 cm, normal mucosa Stomach: Patchy erythema. Biopsies were obtained. Grade 2 flap valve on retroflexed examination of the cardia. Duodenum: bulbar duodenitis, bx taken Intervention: Biopsies as noted above COLONOSCOPY Instrument: Olympus variable stiffness pediatric scope 190L Colonoscopy Monitoring: Vital signs and clinical assessment, continuous EKG monitoring, Pulse oximetry, Carbon Dioxide monitoring and blood pressure monitoring were done throughout the procedure. Colon withdrawal time was 14 minutes. Procedure: The patient was placed in the left lateral decubitis position and pre-procedure medications were administered. After a digital rectal examination of the ano-rectum, the video colonoscope was inserted into the rectum and advanced through the colon to the cecum/TI. The colonoscope was slowly withdrawn in a retrograde panoramic fashion and the colon mucosa was carefully examined including a retroflexed view of the rectum. Findings and interventions are described below. Procedure Difficulty:moderate due to looping and prep Findings: Terminal Ileum-not intubated Cecum:normal Ascending Colon: normal, random bx taken Transverse Colon -normal Descending Colon: 8-10 mm L shaped sessile polyp removed with cold snare, not retrieved Sigmoid Colon: moderate diverticulosis with patchy erythema, bx taken Rectum: Retroflexion with medium sized inflammed internal hemorrhoids, grade II Anorectum - normal Colon preparation: [place] Bowel Preparation Scale Right colon; 1-2 Transverse colon: 2 Left colon; 1-2 (0 = Unprepared colon segment with mucosa not seen due to solid stool that cannot be cleared. 1 = Portion of mucosa of the colon segment seen, but other areas of the colon segment not well seen due to staining, residual stool and/or opaque liquid. 2 = Minor amount of residual staining, small fragments of stool and/or opaque liquid, but mucosa of colon segment seen well. 3 = Entire mucosa of colon segment seen well with no residual staining, small fragments of stool or opaque liquid) Impression and Post Procedure Diagnosis: Endoscopy Findings: duodenitis gastritis Colonoscopy Findings: polyp internal hemorrhoids diverticular disease non specific colitis prob SCAD (Segmental?colitis?associated with diverticulosis) Plan: Await Pathology results Repeat Colonoscopy in 1 year due to fair prep and polyp found today or earlier if clinically indicated High fiber diet leaflet avoid straining at stool, epsom salts and sitz bath, anusol supps or cream Above findings were reviewed with the patient and relevant handouts were provided if indicated.
[2022-12-05 08:35] VITALS: BP 141/88; PULSE 95; RESP 18; TEMP 36.1; O2SAT 99
[2022-12-05 08:50] VITALS: BP 152/72; PULSE 91; RESP 18; TEMP 36.4; O2SAT 100
== END 2022-12-05 09:23 | disposition home or self-care (01) ==
PROVIDERS: PCP Internal Medicine Medical Oncology; Visit Provider Internal Medicine Gastroenterology
PROC: (CPT 45385; principal; 2022-12-05 07:30)
DX: R19.5 Other fecal abnormalities (principal); K63.5 Polyp of colon; K52.9 Noninfective gastroenteritis and colitis, unspecified; K57.30 Diverticulosis of large intestine without perforation or abscess without bleeding; K64.1 Second degree hemorrhoids; K21.9 Gastro-esophageal reflux disease without esophagitis; R93.5 Abnormal findings on diagnostic imaging of other abdominal regions, including retroperitoneum; K29.50 Unspecified chronic gastritis without bleeding; K29.80 Duodenitis without bleeding; K44.9 Diaphragmatic hernia without obstruction or gangrene; Z86.2 Personal history of diseases of the blood and blood-forming organs and certain disorders involving the immune mechanism; Z79.899 Other long term (current) drug therapy
CPT/HCPCS: 45385; 45380; 43239; 88305; 88342; J2250

== ENCOUNTER → 2022-12-26 10:42 | Outpatient (BNVA) | payer MEDICARE, SELFPAY | PROVIDERS: PCP Internal Medicine Medical Oncology; Visit Provider Physician Assistant | DX: R19.5 Other fecal abnormalities (principal); K21.9 Gastro-esophageal reflux disease without esophagitis; K57.90 Diverticulosis of intestine, part unspecified, without perforation or abscess without bleeding | CPT/HCPCS: 99212 ==

== ENCOUNTER 2023-02-10 09:35 | Outpatient (REF) | payer MEDICARE, SELFPAY ==
[2023-02-15 12:58] LABS: Testosterone, Total 255 ng/dL (250-1100)
== END 2023-02-10 09:36 | disposition home or self-care (01) ==
LOC: HO.LAB 09:35
PROVIDERS: PCP Internal Medicine Medical Oncology; Visit Provider Internal Medicine Medical Oncology
DX: N52.9 Male erectile dysfunction, unspecified (principal)
CPT/HCPCS: 36415; 84403

== ENCOUNTER 2023-03-29 15:09 | Outpatient (REF) | payer MEDICARE, MEDICAID, SELFPAY ==
--- NOTE | ~2023-03-29 | US_ITS ---
EXAMINATION: US SOFT TISSUE HEAD/NECK CLINICAL INFORMATION: Neck mass. COMPARISON: None available. TECHNIQUE: Linear transducer grayscale and color Doppler examination of the neck. FINDINGS: There are numerous bilateral cervical lymph nodes. Lymph nodes are normal in size and demonstrate normal ultrasound morphology and flow. Largest right cervical lymph node is in the submandibular region and measures 0.8 x 0.5 x 1.3 cm. Largest left cervical lymph node is in the submental region and measures 1.9 x 0.5 x 1.1 cm. No soft tissue mass or fluid collection is seen. US/US soft tiss head and/or neck IMPRESSION: Bilateral normal-appearing cervical lymph nodes.
== END 2023-03-29 15:10 | disposition home or self-care (01) ==
LOC: HO.US 15:09
PROVIDERS: PCP Internal Medicine Medical Oncology; Visit Provider Internal Medicine Medical Oncology
DX: R22.1 Localized swelling, mass and lump, neck (principal)
CPT/HCPCS: 76536

== ENCOUNTER → 2023-04-05 10:41 | Outpatient (BNVA) | payer MEDICARE, SELFPAY | PROVIDERS: PCP Internal Medicine Medical Oncology; Visit Provider Urology | DX: R79.89 Other specified abnormal findings of blood chemistry (principal); N52.9 Male erectile dysfunction, unspecified | CPT/HCPCS: 99202 ==

== ENCOUNTER 2023-04-21 07:44 | Outpatient (REF) | payer MEDICARE, SELFPAY | END 2023-04-21 07:45 | disposition home or self-care (01) | LOC: HO.LAB 07:44 | PROVIDERS: PCP Internal Medicine Medical Oncology; Visit Provider Internal Medicine Medical Oncology | DX: N52.9 Male erectile dysfunction, unspecified (principal); E66.9 Obesity, unspecified; E61.1 Iron deficiency; E55.9 Vitamin D deficiency, unspecified; E29.1 Testicular hypofunction | CPT/HCPCS: 36415; 80053; 80061; 82947; 83001; 83002; 84146; 84402; 84403; 84443; 85025 ==

== ENCOUNTER 2023-05-01 12:11 | Outpatient (REF) | payer MEDICARE, MEDICAID, SELFPAY ==
--- NOTE | ~2023-05-01 | US_ITS ---
EXAMINATION: US THYROID CLINICAL INFORMATION: Dysphagia. COMPARISON: Ultrasound soft tissue head/neck 03/29/2023. TECHNIQUE: Linear transducer grayscale and color Doppler examination with attention to the region of the thyroid. FINDINGS: SIZE: Measurements of the thyroid lobes and nodules are given in sagittal, anteroposterior and transverse dimensions respectively. Right Thyroid Lobe: 4.5 x 1.2 x 2.4 cm, volume 6.8 mL. Parenchyma: The gland echotexture is homogeneous. Thyroid vascularity is normal. Left Thyroid Lobe: 4.3 x 1.4 x 2.4 cm, volume 7.6 mL. Parenchyma: The gland echotexture is homogeneous. Thyroid vascularity is normal. Isthmus: 0.3 cm in maximum AP dimension. Estimated total number of nodules greater than or equal to 1 cm: 0. Lumber Planer nodules are described as follows: 1. Location: Right mid. Size: 0.7 x 0.7 x 0.7 cm, volume 0.2 mL. Nodule characteristics: Composition: Solid/almost completely solid (2). Echogenicity: Isoechoic (1). Shape: Not taller than wide (0). Margins: Smooth (0). Echogenic Foci: None (0). ACR TI-RADS total points: 3 ACR TI-RADS category: 3 2. Location: Right inferior. Size: 0.8 x 0.5 x 0.8 cm, volume 0.2 mL. Nodule characteristics: Composition: Cannot be determined (2). Echogenicity: Cannot be determined (1). Shape: Not taller than wide (0). Margins: Smooth (0). Echogenic Foci: None (0). ACR TI-RADS total points: 3 ACR TI-RADS category: 3 NODES: No lymphadenopathy is seen in the tissue surrounding the thyroid gland. US/US thyroid IMPRESSION: Normal size homogeneous thyroid gland with 2 subcentimeter nodules, both TR 3, for which no further follow-up is recommended. ACR TI-RADS RECOMMENDATION REFERENCE: Ultrasound-guided fine-needle aspiration, followup ultrasound, no further follow up. * TR1 (0 point) and TR2 (2 points): No FNA or follow up. * TR3 (3 points): FNA if more than or equal to 2.5 cm in maximum dimension, followup ultrasound in 1, 3 and 5 years if 1.5 to 2.4 cm in maximum dimension. * TR4 (4-6 points): FNA if more than or equal to 1.5 cm in maximum dimension, followup ultrasound in 1, 2, 3 and 5 years if 1 to 1.4 cm in maximum dimension. * TR5 (more than or equal to 7 points): FNA if more than or equal to 1 cm in maximum dimension, followup ultrasound every year for 5 years if 0.5 to 0.9 cm in maximum dimension. * TR3, TR4 or TR5 nodules that are below the size threshold for followup receive no follow up.
== END 2023-05-01 12:12 | disposition home or self-care (01) ==
LOC: HO.US 12:11
PROVIDERS: PCP Internal Medicine Medical Oncology; Visit Provider Internal Medicine Medical Oncology
DX: R13.10 Dysphagia, unspecified (principal)
CPT/HCPCS: 76536

== ENCOUNTER 2023-07-06 11:25 | Outpatient (AMB) | payer MEDICARE, SELFPAY ==
--- NOTE | 2023-07-06 11:25 | A.OFFVIS_ITS ---
Intake Intake Visit Reasons: 3m/ED-low testo/labs Allergies ENVIRONMENTAL Allergy (Mild, Uncoded 01/03/21 09:39) ITCHINESS, CONGESTION Medication List - Last Reconciled 07/06/23 by Page Joshua MD ferrous sulfate (Feosol) 325 mg PO DAILY methylcellulose (laxative) (Citrucel) 500 mg PO TID omeprazole 20 mg PO DAILY polyethylene glycol 3350 (Miralax) 17 grams PO DAILY sildenafil (Viagra) 100 mg PO DAILY PRN tadalafil (Cialis) 5 mg PO DAILY HPI HPI Comments History of Present Illness Details Jann is a 58-year-old male who presents today to the office via Tele- health for a follow-up. 07/06/2023? He is followed today for blood work results.? He was last seen by me on 04/05/2023 for erectile dysfunction. Testosterone free/total, glucose fasting, prolactin, LH and FSH was ordered at that time. Cialis 5 mg QD was ordered, and he was advised to Tele-health follow-up after 3 months at that time. He has been taking Cialis 5 mg. He states that he is not having the erection during the time of intercourse. Blood work was reviewed,FSH, prolactin WNL; LH - low normal, Testosterone low normal. Discussed to add Viagra on demand in addition to the daily Cialis Review of charts: Last visit: 04/05/23-- The patient states that his previous testosterone levels that were checked couple of years ago were even lower than the current one and since then he lost 60 pounds. I did discuss that obesity is a risk factor for low testosterone and he states that he has been working on changing his diet to more healthy diet.? The patient complains about erectile dysfunction. IIEF score -21 I have discussed ordering Cialis 5 mg QD. I did review, PSA results with him from 10/24/22--0.70. PMH blood clot in his right arm and was on blood thinner about a year currently off the blood thinner for several months.? He denies any problems with urination.? Evaluation today-- Blood: negative, leukocytes: negative.? prostate exam deferred, pt states had ALINA recently with PCP, testes nl size. IIEF score -21 AUA symptom score- 0 07/06/2023: Plan: Add Viagra 100 mg at the time of intercourse. Refilled Cialis 5 mg. Continue taking Cialis 5 mg daily. Follow-up Tele-health in 4 months. [facility] Medical History Back pain with history of spinal surgery DVT (deep venous thrombosis) GERD (gastroesophageal reflux disease) History of anemia Surgical History H/O colonoscopy History of esophagogastroduodenoscopy (EGD) Family History Son CML (chronic myelocytic leukemia), Onset Age: 36 Social History Household Members: Significant Other Are you a primary care program resident to a significant other at home: No Do you presently have visiting nurse or other home services: No Alcohol intake: current Alcohol intake frequency: former alcohol drinker Alcohol type: beer Patient Tobacco Use Status: Never used Tobacco Current occupational status: disabled Current occupation: Right Handed Review of Systems Const All systems reviewed & are unremarkable except as noted in HPI and below Reports no additional complaints Eyes Reports no additional complaints ENT Denies neck pain Card Denies leg edema Resp Denies cough GI Denies constipation Musc Reports no additional complaints and Denies neck pain Skin/Breast Denies rash and Denies unusual bruising Neuro Reports no additional complaints Psych Reports no additional complaints Endo Reports no additional complaints Ethan/Lymph Reports no additional complaints Aller/Immun Reports no additional complaints Assessment & Plan Assessment & Plan (1) Low testosterone in male: Code(s): R79.89 - Other specified abnormal findings of blood chemistry (2) Erectile dysfunction: Code(s): N52.9 - Male erectile dysfunction, unspecified Plan To add Viagra 100 mg at the time of intercourse. Refilled Cialis 5 mg. Continue taking Cialis 5 mg daily. Follow-up Tele-health in 4 months. Medications: New sildenafil (Viagra) administer 30 minutes to 1 hours before sexual activity BIN [id number] [facility] Group [id number] 100 mg PO DAILY PRN 30 tabs 1RF sexual activity Refilled tadalafil (Cialis) [id number] [facility] [id number] Member [id number] 5 mg PO DAILY 30 tabs 5RF Patient Instructions: The patient had an opportunity to ask questions regarding treatment plan. All questions were answered. Imaging, Laboratory studies and physical exam results were discussed and reviewed in detail. No major barriers to understanding were identified. The patient expressed understanding and agreement with the above treatment plan.? ? ? The patient is aware they should contact our office by phone for worsening of their current condition or the appearance of new symptoms. Compliance is encouraged with any medications and followup testing that is ordered.? ? ? It is a privilege to be allowed the opportunity to participate in the urologic care of your patient. If you have any questions or concerns regarding treatment for the above conditions please do not hesitate to contact me. The office telephone contact is [phone].? ? ? This note is constructed in part using voice recognition software. While every effort has been made to ensure accuracy driver license reviewing officer errors may have been included.? ? ? Yours sincerely,? ? ? Page Josuha MD? ? ? Telehealth Telehealth Location of provider rendering services: practice address Location of patient: address on file Patient Identification confirmed using: Name, : Yes Telehealth method: voice only Patient verbally consented to treatment: Yes Patient verbally consented to billing insurance company: Yes Patient informed of any privacy concerns related to visit: Yes Minutes spent on Phone/Video with Pt.: 15 Coding Level of Care Code Tele New Pt Level 4 (31472) Diagnoses Low testosterone in male R79.89 Erectile dysfunction N52.9
== END 2023-07-06 12:12 | disposition home or self-care (01) ==
LOC: HO.HUSH 11:25
PROVIDERS: PCP Internal Medicine Medical Oncology; Visit Provider Urology
DX: R79.89 Other specified abnormal findings of blood chemistry (principal); N52.9 Male erectile dysfunction, unspecified
CPT/HCPCS: 99442

== ENCOUNTER → 2023-07-06 11:25 | Outpatient (BNVA) | payer MEDICARE, SELFPAY | PROVIDERS: PCP Internal Medicine Medical Oncology; Visit Provider Urology ==

== ENCOUNTER 2023-07-13 10:13 | Outpatient (REF) | payer MEDICARE, MEDICAID, SELFPAY ==
--- NOTE | ~2023-07-13 | FL_ITS ---
EXAMINATION: XR BARIUM SWALLOW CLINICAL INFORMATION: Dysphagia COMPARISON: None available. TECHNIQUE: Modified barium swallow was performed under lateral fluoroscopy in presence of speech therapist. Video documentation was performed. FINDINGS: Following oral administration of various consistencies of barium under lateral fluoroscopy there is normal propagation bolus from the oral cavity through the pharynx into esophagus without any laryngeal penetration or aspiration. Internal finding of grade 1 anterolisthesis C4 over C5. There are degenerative disc changes with spondylosis C5-C6 and C6-C7 disc levels. The craniovertebral junction and the C1-C2 alignment is normal. FLUOROSCOPY TIME: 0 minutes and 21 seconds DOSE AREA PRODUCT: 279.8 uGy-m2 (microgray-meter squared) FL/FL barium swallow modified IMPRESSION: Unremarkable modified barium swallow. Grade 1 anterolisthesis C4 over C5 with degenerative disc changes C5-C6 and C6-C7 disc levels with moderate spondylosis. Correlate with speech therapy results.
--- NOTE | 2023-07-13 14:08 | MHC.SL.IMP ---
Date of Plan of Treatment: 07/13/23 Onset of Symptoms/Illness: 04/30/23 Date Treatment Started: 07/13/23 Admitting Diagnosis: Dysphagia Primary Speech & Language Diagnosis: R13.19 Other Dysphagia Reason for Today's Visit: 49702 Modified Barium Swallow Study Comments: Pre-evaluation Dietary Consistencies: Regular Pre-evaluation Liquid Consistency: Thin Pre-evaluation Medication Administration: Crushed with Puree [facility] Fall Risk Assessment Score: Oral Motor Exam Facial Symmetry: Asymmetrical Normal for Patient Oral Expression Ability: No Impairment Is patient able to manage secretions?: Yes Is patient able to produce volitional cough?: Yes Food and Liquid Trials: Oral Impairment: Lip Closure: 0=No labial escape Oral Impairment: Tongue Control During Bolus Hold: 0=Cohesive bolus between tongue to palatal seal Oral Impairment: Bolus Preparation/Mastication: 0=Timely and efficient chewing and mashing Oral Impairment: Bolus Transport/Lingual Motion: 0=Brisk tongue motion Oral Impairment: Oral Residue: 1=Trace residue lining oral structures Oral Impairment:Initiation of Pharyngeal Swallow: 0=Bolus head at posterior angle of ramus (first hyoid excursion) Pharyngeal Impairment: Soft Palate Elevation: 0=No bolus between soft palate (SP)/pharyngeal wall (PW) Pharyngeal Impairment: Laryngeal Elevation: 0=Complete superior movement of thyroid cartilage (see description) Pharyngeal Impairment: Anterior Hyoid Excursion: 0=Complete anterior movement Pharyngeal Impairment: Epiglottic Movement: 0=Complete inversion Pharyngeal Impairment: Laryngeal Vestibular Closure:: 0=Complete: no air/contrast in laryngeal vestibule Pharyngeal Impairment: Pharyngeal Stripping Wave: 0=Present: complete Pharyngeal Impairment: Pharyngeal Contraction: Did not test Pharyngeal Impairment: Pharyngoesophageal Segment Openin=Partial distention/partial duration: partial obstruction of flow Pharyngeal Impairment: Tongue Base (TB) Retraction: 1=Trace column of contrast/air between TB and posterior PW Pharyngeal Impairment: Pharyngeal Residue: 1=Trace residue within or on pharyngeal structures Pharyngeal Impairment: Esophageal Clearance Upright Position: 0=Complete clearance: esophageal coating Impressions and Recommendations Clinical Observations: Modified Barium Swallow Study Fluoroscopic Evaluation of Swallowing Function CPT Code 78596 Evaluation Year: 2022 Evaluating Clinician: Cristhian Shelley MA, CCC-DIAMOND CLEAVER Study Number: 1 Patient Name: Jann Garcia Age: 68 Gender: Male MEDICAL HISTORY: COVID-19 Positive: No Current (pre-evaluation) Intake/Diet: Pre-Study Functional Oral Intake Scale (FOIS): 7- Total oral intake with no restrictions MBSImP ID: [id number] [facility] Results: Lip closure for intraoral bolus containment resulted in no labial escape. Tongue control during bolus hold maintained a cohesive bolus held between tongue to palate seal. Bolus preparation and mastication resulted in timely and efficient chewing and mashing. Bolus transport/lingual motion was with brisk tongue motion. Oral residue was a trace, lining oral structures. Initiation of the pharyngeal swallow occurred as the bolus head reached the posterior angle of the mandibular ramus. Soft palate elevation resulted in no bolus between the soft palate and the pharyngeal wall. Laryngeal elevation demonstrated complete superior movement of the thyroid cartilage with complete approximation of the arytenoids to the epiglottic petiole. Anterior hyoid excursion demonstrated complete anterior movement. Epiglottic movement resulted in complete inversion. Laryngeal vestibular closure was complete, as indicated by no air or contrast within the laryngeal vestibule at the height of the swallow. Pharyngeal stripping wave was present and complete. Pharyngeal contraction could not be determined due to logistical reasons not related to physiologic impairment. Pharyngoesophageal segment opening demonstrated partial distension/partial duration, with partial obstruction of bolus flow. Tongue base retraction allowed a trace column of contrast or air between the retracted tongue base and the posterior pharyngeal wall. Pharyngeal residue was not present. There was complete pharyngeal clearance. Esophageal clearance in the upright position could not be assessed due to logistical reasons not related to physiologic impairment. Oral Impairment Score: 0 Pharyngeal Impairment Score: 1 (absence of score, component 13) Esophageal Impairment Score: --- (absence of score, component 17) Laryngeal Penetration and Aspiration: Neither penetration nor aspiration was observed in today's study with Cookie, Pudding-thick, Thin. Summary: Pt demonstrated good airway protection with oral and pharyngeal clearance. Incomplete clearance of the upper esophageal sphincter was noted with contrast present after the swallow. Further investigation of esophageal motility may assist with determining the etiology of the phenomenon via full Esophagram or EGD procedure. Liquid Intake Recommendation: Thin Liquid Intake Strategies: Unrestricted Dietary Recommendations: Regular Medication Administration: Crushed with Puree Please contact the pharmacy regarding appropriate crushable or liquid drug formulations that are available whenever modified delivery is recommended. Compensatory Strategies Recommended: Sitting Upright (90 deg) Small Bites and Sips Alternate Liquids/Solids Supervision during eating and or drinking: None Needed Recommended Treatments: Compens. Strategy Educat. Recommendation for Speech Therapy: NA:Typical Evaluation Text Comment: Frequency/Duration: Date Range for Service Requested: Timeline to reassess: PRN Dust Collector Clinician/Clinical Fellow: No Supervisory Statement: N/A Speech Language Pathologist: Cristhian Shelley M.A., CCC-DIAMOND [employer]AVER
== END 2023-07-13 10:14 | disposition home or self-care (01) ==
LOC: HO.XRAY 10:13
PROVIDERS: PCP Internal Medicine Medical Oncology; Visit Provider Internal Medicine Medical Oncology
DX: R13.19 Other dysphagia (principal)
CPT/HCPCS: 74230; 92611

== ENCOUNTER → 2023-07-13 10:16 | Outpatient (BNV) | payer MEDICARE, SELFPAY | PROVIDERS: PCP Internal Medicine Medical Oncology; Visit Provider Radiology Diagnostic Radiology | DX: R13.10 Dysphagia, unspecified (principal); M43.02 Spondylolysis, cervical region | CPT/HCPCS: 74230 ==

== ENCOUNTER 2023-10-27 08:47 | Outpatient (REF) | payer MEDICARE, SELFPAY ==
[2023-10-27 10:26] LABS: Alanine Aminotransferase 15 U/L (0-40); Albumin Level 4.1 g/dL (3.5-5.0); Alkaline Phosphatase 57 U/L (39-117); Anion Gap 13 (12-20); Aspartate Amino Transferase 19 U/L (5-37); Bilirubin Total 1.8 mg/dL (0.0-1.0); Blood Urea Nitrogen 15 mg/dL (9-16); Calcium 9.9 mg/dL (8.4-10.2); Carbon Dioxide 31 mmol/L (22-29); Chloride 104 mmol/L (96-108); Cholesterol 145 mg/dL (<200); Estimated Glomerular Filt Rate > 60; Glucose Random 121 mg/dL (60-115); HDL Cholesterol 51 mg/dL (>40); LDL Cholesterol Calculated 71 mg/dL (<100); Potassium 4.9 mmol/L (3.3-5.1); Sodium 143 mmol/L (135-145); Total Protein 7.8 g/dL (6.5-8.0); Triglycerides 115 mg/dL (<150)
== END 2023-10-27 08:48 | disposition home or self-care (01) ==
LOC: HO.LAB 08:47
PROVIDERS: PCP Internal Medicine Medical Oncology; Visit Provider Internal Medicine Medical Oncology
DX: M54.16 Radiculopathy, lumbar region (principal); E66.9 Obesity, unspecified; I10 Essential (primary) hypertension; R53.82 Chronic fatigue, unspecified; R35.1 Nocturia; Z12.5 Encounter for screening for malignant neoplasm of prostate
CPT/HCPCS: 36415; 80053; 80061; 84153; 85025

== ENCOUNTER 2023-11-08 15:01 | Outpatient (AMB) | payer MEDICARE, SELFPAY ==
--- NOTE | 2023-11-08 14:51 | MHC.OFFVIS ---
Intake Intake Visit Reasons: 4m follow up Intake Note: Patient is present today for a follow up: Erectile Disfunction medications: Sildenafil, Tadalafil Blood Thiners: None Esthetician Permanent Makeup Artist Required: No Accompanied by: self Allergies ENVIRONMENTAL Allergy (Mild, Uncoded 01/03/21 09:39) ITCHINESS, CONGESTION Medication List - Last Reconciled 11/08/23 by Page Joshua MD ferrous sulfate (Feosol) 325 mg PO DAILY methylcellulose (laxative) (Citrucel) 500 mg PO TID omeprazole 20 mg PO DAILY polyethylene glycol 3350 (Miralax) 17 grams PO DAILY sildenafil (Viagra) 100 mg PO DAILY PRN tadalafil (Cialis) 5 mg PO DAILY HPI HPI Comments History of Present Illness Details Jann is a 58-year-old male who presents today to the office via Tele-health for a follow-up. 11/08/23-- FU prescribed Cialis 5 mg daily and Viagra 100 mg prn as needed on demand for ED. The patient states he is doing well and erections are better since on Cialis. Discussed PSA is normal. PSA - 10/27/23-- 0.83 Review of chart: Office visit: 04/05/23-- IIEF score -21 AUA symptom score- 0 prostate exam deferred, pt states had ALINA recently with PCP, testes nl size. results: PSA 10/24/22--0.70. 11/08/23 Plan: Viagra 100 mg at the time of intercourse prn Continue taking Cialis 5 mg daily. Follow-up one year in person [facility] Medical History DVT (deep venous thrombosis) GERD (gastroesophageal reflux disease) History of anemia Back pain with history of spinal surgery Surgical History History of esophagogastroduodenoscopy (EGD) H/O colonoscopy Family History Son CML (chronic myelocytic leukemia), Onset Age: 36 Social History Household Members: Significant Other Are you a primary day care center director to a significant other at home: No Do you presently have visiting nurse or other home services: No Alcohol intake: current Alcohol intake frequency: former alcohol drinker Alcohol type: beer Patient Tobacco Use Status: Never used Tobacco Current occupational status: disabled Current occupation: Right Handed Assessment & Plan Assessment & Plan (1) Low testosterone in male: Code(s): R79.89 - Other specified abnormal findings of blood chemistry (2) Erectile dysfunction: Code(s): N52.9 - Male erectile dysfunction, unspecified Plan Viagra 100 mg at the time of intercourse prn Continue taking Cialis 5 mg daily. Follow-up one year in person Medications: Refilled tadalafil (Cialis) [id number] [facility] [id number] Member [id number] 5 mg PO DAILY 30 tabs 5RF Telehealth Telehealth Location of provider rendering services: practice address Location of patient: address on file Patient Identification confirmed using: Name, : Yes Telehealth method: voice only Patient verbally consented to treatment: Yes Patient verbally consented to billing insurance company: Yes Patient informed of any privacy concerns related to visit: Yes Minutes spent on Phone/Video with Pt.: 15 Coding Level of Care Code Tele Est Pt Level 3 (91040) Diagnoses Low testosterone in male R79.89 Erectile dysfunction N52.9
== END 2023-11-08 15:46 | disposition home or self-care (01) ==
LOC: HO.HUSH 15:01
PROVIDERS: PCP Internal Medicine Medical Oncology; Visit Provider Urology
DX: R79.89 Other specified abnormal findings of blood chemistry (principal); N52.9 Male erectile dysfunction, unspecified
CPT/HCPCS: 99442

== ENCOUNTER → 2023-11-08 15:01 | Outpatient (BNVA) | payer MEDICARE, SELFPAY | PROVIDERS: PCP Internal Medicine Medical Oncology; Visit Provider Urology ==

== ENCOUNTER 2024-02-05 10:06 | Emergency (ER) | payer MEDICARE, SELFPAY ==
--- NOTE | ~2024-02-05 | XR_ITS ---
EXAMINATION: XR CHEST CLINICAL INFORMATION: Shortness of breath and cough COMPARISON: 11/06/2022 TECHNIQUE: 2 views of the chest were obtained. FINDINGS: No significant abnormality is noted involving the heart, lungs, mediastinum, bony thorax or soft tissues. Some minimal left basilar atelectasis is seen. No consolidations, pleural effusions or pneumothorax. XR/XR chest 2V IMPRESSION: No acute intrathoracic disease.
[2024-02-05 10:56] VITALS: BP 165/91; PULSE 116; RESP 20; TEMP 38.5; O2SAT 95; BMI 33.4
[2024-02-05 12:11] LABS: Influenza A PCR POSITIVE (Negative); Influenza B PCR NEGATIVE (Negative); Resp Syncy Virus RNA Qual PCR NEGATIVE (Negative); SARS COV2 PCR INHOUSE NEGATIVE (Negative)
[2024-02-05 14:43] VITALS: BP 148/93; PULSE 112; RESP 16; TEMP 39.3; O2SAT 98
--- NOTE | 2024-02-05 14:44 | ED.GENADULT ---
HPI - General Adult General Chief complaint: Upper Respiratory Symptoms Stated complaint: Flu Symptoms Time Seen by Provider: 02/05/24 14:43 Source: patient, RN notes reviewed and old records reviewed Mode of arrival: ambulatory Limitations: no limitations History of Present Illness HPI narrative: 58-year-old male presents for evaluation of flu-like symptoms. He reports his symptoms started this past Sunday Reports his girlfriend is admitted with flu and pneumonia Patient complains of fevers, cough, body aches, headache. He has not taken any medications to help alleviate his symptoms He denies any chest pain or shortness of breath Related Data Home Medications ?Medication ?Instructions ?Recorded ?Confirmed ferrous sulfate 325 mg (65 mg 325 mg PO DAILY 01/03/21 11/08/23 iron) tablet (Feosol) omeprazole 20 mg capsule,delayed 20 mg PO DAILY 01/24/21 11/08/23 release Previous Rx's ?Medication ?Instructions ?Recorded methylcellulose (laxative) 500 mg 500 mg PO TID #90 tabs 12/26/22 tablet (Citrucel) polyethylene glycol 3350 17 17 g PO DAILY #510 grams 12/26/22 gram/dose oral powder (Miralax) sildenafil 100 mg tablet (Viagra) 100 mg PO DAILY PRN sexual 07/06/23 activity #30 tabs tadalafil 5 mg tablet (Cialis) 5 mg PO DAILY #30 tabs 11/08/23 acetaminophen 325 mg capsule 650 mg (2 x 325 mg) PO Q6H PRN 02/05/24 fever or pain #20 caps ibuprofen 600 mg tablet 600 mg PO Q6H PRN fever or pain 02/05/24 #20 tabs Allergies Allergy/AdvReac Type Severity Reaction Status Date / Time ENVIRONMENTAL Allergy Mild Itching Uncoded 02/05/24 11:00 Review of Systems Constitutional: Constitutional: Reports body ache(s), Reports chills, Reports fever(s), Reports headache(s) and Reports malaise Eyes: Eyes: Denies blurry vision ENT: Reports headache(s) Cardiovascular: Cardiovascular: Denies chest pain and Denies dyspnea Respiratory: Respiratory: Reports cough and Denies dyspnea Gastrointestinal: Gastrointestinal: Denies abdominal pain, Denies nausea and Denies vomiting Musculoskeletal: Musculoskeletal: Denies back pain Integumentary/Breasts: Skin/Breast: Denies rash Neurologic: Reports headache(s) PMFSH Past Medical History Medical History DVT (deep venous thrombosis) GERD (gastroesophageal reflux disease) History of anemia Back pain with history of spinal surgery Surgical History History of esophagogastroduodenoscopy (EGD) H/O colonoscopy Family History Family History Son CML (chronic myelocytic leukemia), Onset Age: 36 Social History Social History Household Members: Significant Other Are you a primary medicare insurance specialist to a significant other at home: No Do you presently have visiting nurse or other home services: No Alcohol intake: current Alcohol intake frequency: former alcohol drinker Alcohol type: beer Patient Tobacco Use Status: Never used Tobacco Advance Directives: No Advance Directives Information Provided: Yes Current occupational status: disabled Current occupation: Right Handed Physical Exam ED Vital Signs: Vital Signs - 24 hr 02/05/24 10:56 02/05/24 14:43 Temperature 101.3 F H 102.8 F H Pulse Rate 116 H 112 H Respiratory Rate 20 16 Blood Pressure 165/91 H 148/93 H Pulse Oximetry 95 98 Oxygen Delivery Method Room Air Room Air BMI result Body Mass Index 33.4 Const General: healthy appearing, comfortable, no acute distress, alert and awake Nutritional Appearance: well nourished Orientation/consciousness: patient oriented x3 HENMT Head: Yes normocephalic and Yes atraumatic Eyes Eyelids: Yes eyelids normal Conjunctivae: conjunctivae normal Sclerae: sclerae normal Corneas: corneas normal Pupils: Equal, round and reactive pupils present EOM: EOMs intact bilaterally Neck Neck: Yes full ROM Resp Effort & Inspection: normal respiratory effort, able to speak in complete sentences, no audible wheezes and not labored Auscultation: clear to auscultation bilaterally GI Inspection: No distended Palpation (GI): Soft to palpation, not firm, nontender, no guarding and not rigid Skin General skin exam: elasticity normal Neuro General: patient oriented x3 Cranial nerves: Yes Equal, round and reactive pupils present and Yes Bilaterally intact EOM present Cognition (Neuro): normal cognition Extrem Other: Moving all extremities well without any obvious deformities Medications Administered Discontinued Medications Generic Name Dose Route Start Last Admin Trade Name Freq PRN Reason Stop Dose Admin Acetaminophen 975 mg 02/05/24 14:43 02/05/24 14:48 Acetaminophen 325 Mg Tablet PO 02/05/24 14:44 975 mg ONCE ONE Administration Ibuprofen 600 mg 02/05/24 14:43 02/05/24 14:48 Ibuprofen 600 Mg Tablet PO 02/05/24 14:44 600 mg ONCE ONE Administration Medical Decision Making Medical Decision Making MDM Narrative: 58 old male presents for evaluation of flu-like symptoms. He tested positive for influenza A. Symptoms started 5 days ago, he is under window for Tamiflu treatment. He is febrile to 102.8, slightly tachycardic which is likely related to his fever. However he is not hypoxic or hypotensive. Plan to treat with antipyretics and discharge Differential Diagnosis Differential Diagnoses: The differential diagnosis associated with the presentation includes Influenza Viral syndrome Pneumonia Bronchitis Lab Data Labs: Lab Results 02/05/24 Range/Units 11:15 Influenza Type A (PCR) POSITIVE A (Negative) Influenza Type B (PCR) NEGATIVE (Negative) RSV RNA Qual (PCR) NEGATIVE (Negative) SARS-CoV-2 RNA (RT-PCR) NEGATIVE (Negative) Discharge Plan Discharge Clinical Impression: Influenza A Patient Disposition: Home, Self-Care Instructions: Influenza (ED) Additional Instructions: You tested positive for the flu. Drink lots of fluids to stay hydrated. You may use ibuprofen/Tylenol for fevers headache and body aches Follow-up with your primary doctor return for new or worsening symptoms Prescriptions: New ibuprofen 600 mg tablet 600 mg PO Q6H PRN (Reason: fever or pain) Qty: 20 0RF acetaminophen 325 mg capsule 650 mg PO Q6H PRN (Reason: fever or pain) Qty: 20 0RF No Action ferrous sulfate [Feosol] 325 mg (65 mg iron) tablet 325 mg PO DAILY omeprazole 20 mg capsule,delayed release(DR/EC) 20 mg PO DAILY Citrucel 500 mg tablet 500 mg PO TID Qty: 90 5RF polyethylene glycol 3350 [Miralax] 17 gram/dose powder 17 g PO DAILY Qty: 510 6RF sildenafil [Viagra] 100 mg tablet 100 mg PO DAILY PRN (Reason: sexual activity) Qty: 30 1RF Rx Instructions: administer 30 minutes to 1 hours before sexual activity ARA [id number] [facility] [id number] tadalafil [Cialis] 5 mg tablet 5 mg PO DAILY Qty: 30 5RF Rx Instructions: [id number] [facility][NOTE 3] [id number] Member [id number] Discharge Date/Time: 02/05/24 14:50 Print Language: Guinean
[2024-02-05] MEDS: Acetaminophen 325 MG TABLET 975 MG PO (14:48)
[2024-02-05] MEDS: Ibuprofen 600 MG TABLET PO (14:48)
== END 2024-02-05 14:50 | disposition home or self-care (01) ==
PROVIDERS: Emergency Provider Emergency Medicine; PCP Internal Medicine Medical Oncology
DX: J10.1 Influenza due to other identified influenza virus with other respiratory manifestations (principal); Z86.718 Personal history of other venous thrombosis and embolism
CPT/HCPCS: 0241U; 71046; 99282; 99283

== ENCOUNTER 2024-06-25 09:53 | Outpatient (REF) | payer MEDICARE, SELFPAY ==
[2024-06-25 10:18] LABS: MANUAL DIFF FLAG NO
[2024-06-25 10:42] LABS: Basophils Percent Auto 0.6 % (0-2); Eosinophils Absolute Auto 0.3 X10*3/uL (0.0-0.4); Eosinophils Percent Auto 4.5 % (0-4); Hematocrit 45.5 % (42.0-52.0); Hemoglobin 14.8 g/dl (14.0-18.0); Imm Gran Abs Auto 0.01 X10*3/uL (0.00-0.03); Imm Gran Pct Auto 0.1 % (0.0-0.4); Lymphocytes Absolute Auto 2.9 X10*3/uL (1.2-4.9); Lymphocytes Percent Auto 41.2 % (20-40); Mean Corpuscular HGB Conc 32.5 g/dl (31.0-36.0); Mean Corpuscular Hemoglobin 28.9 pg (27.0-33.0); Mean Corpuscular Volume 88.9 fL (80.0-98.0); Mean Platelet Volume 9.6 fL (9.4-12.4); Monocytes Absolute Auto 0.4 X10*3/uL (0.1-1.2); Neutrophils Absolute Auto 3.3 x10*3/uL (2.0-8.3); Neutrophils Percent Auto 47.6 % (45-73); Platelet Count 287 X10*3/uL (160-400); Red Blood Count 5.12 X10*6/uL (4.60-5.80); Red Cell Distribution Width 13.8 % (11.0-16.0)
[2024-06-25 11:21] LABS: Alanine Aminotransferase 18 U/L (0-40); Albumin Level 4.2 g/dL (3.5-5.0); Alkaline Phosphatase 55 U/L (39-117); Anion Gap 12 (12-20); Aspartate Amino Transferase 18 U/L (5-37); Blood Urea Nitrogen 13 mg/dL (9-16); Calcium 10.1 mg/dL (8.4-10.2); Carbon Dioxide 30 mmol/L (22-29); Chloride 103 mmol/L (96-108); Cholesterol 166 mg/dL (<200); Estimated Glomerular Filt Rate > 60; Glucose Fasting 113 mg/dL (60-99); HDL Cholesterol 54 mg/dL (>40); LDL Cholesterol Calculated 96 mg/dL (<100); Potassium 4.4 mmol/L (3.3-5.1); Sodium 141 mmol/L (135-145); Triglycerides 83 mg/dL (<150)
[2024-06-25 11:28] LABS: Ferritin 25 ng/mL (20-250)
== END 2024-06-25 09:54 | disposition home or self-care (01) ==
LOC: HO.LAB 09:53
PROVIDERS: PCP Internal Medicine Medical Oncology; Visit Provider Internal Medicine Medical Oncology
DX: E66.9 Obesity, unspecified (principal); I10 Essential (primary) hypertension; R53.82 Chronic fatigue, unspecified
CPT/HCPCS: 36415; 80053; 80061; 82728; 85025

== ENCOUNTER 2024-11-04 09:21 | Outpatient (REF) | payer MEDICARE, SELFPAY ==
[2024-11-04 09:35] LABS: MANUAL DIFF FLAG NO
[2024-11-04 09:52] LABS: Basophils Absolute Auto 0.1 X10*3/uL (0.0-0.2); Basophils Percent Auto 0.9 % (0-2); Eosinophils Absolute Auto 0.2 X10*3/uL (0.0-0.4); Eosinophils Percent Auto 3.1 % (0-4); Hematocrit 44.4 % (42.0-52.0); Hemoglobin 14.5 g/dl (14.0-18.0); Lymphocytes Absolute Auto 2.3 X10*3/uL (1.2-4.9); Mean Corpuscular HGB Conc 32.7 g/dl (31.0-36.0); Mean Corpuscular Hemoglobin 28.7 pg (27.0-33.0); Mean Corpuscular Volume 87.7 fL (80.0-98.0); Mean Platelet Volume 9.3 fL (9.4-12.4); Monocytes Absolute Auto 0.4 X10*3/uL (0.1-1.2); Monocytes Percent Auto 7.6 % (2-11); Neutrophils Absolute Auto 2.6 x10*3/uL (2.0-8.3); Neutrophils Percent Auto 47.4 % (45-73); Platelet Count 270 X10*3/uL (160-400); Red Blood Count 5.06 X10*6/uL (4.60-5.80); Red Cell Distribution Width 13.7 % (11.0-16.0); White Blood Count 5.5 X10*3/uL (4.8-10.8)
--- OUTSIDE RECORDS SUMMARY | 2024-11-04 10:16 | XMS_ITS ---
Author Organization Jessica Burnett III, MD Address [address] [place] [address] Care Team Providers Care Exhibit Cleaner Name Role Phone Jessica Burnett Primary Care Provider Allergies Allergen (clinical drug ingredient) Drug/Non Drug Allergy documented on EMR Reaction Allergy Type Onset Date Status No Known Drug Allergy Unknown Drug Allergy Active REASON FOR VISIT Right lower quadrant abdominal pain, Inguinal hernia, Lumbar radiculopathy Medications Medication SIG (Take, Route, Frequency, Duration) Notes Start Date End Date Status Omeprazole 20 MG TAKE 2 CAPSULE 30 NJ NUTES BEFORE MORNING MEAL ORALLY ONCE A DAY 30 DAYS Active Ferrous Sulfate 324 (65 Fe) MG TAKE 1 TABLET BY MOUTH EVERY DAY Active Social History Tobacco Use: Social History Observation Description Date Details (start date - stop date) Never Smoker NA - NA Sex Assigned At : Social History Observation Description Sex Assigned At Male Tobacco Use/Smoking Question Answer Notes Patient is a nonsmoker Additional Findings: Tobacco Non-User Aggressive non-smoker Vital Signs Temperature 98.2 degrees Fahrenheit 05/02/20 24 Blood pressure systolic 122 mm Hg 05/02/20 24 Blood pressure diastolic 76 mm Hg 024 Heart Rate 86 /min 05/02/2024 Height 63 in 05/02/2024 Weight 199 lbs 05/02/2024 BMI 35.25 kg/m2 05/02/2024 Encounters Encounter Location Date Provider Diagnosis Jessica Burnett III, MD [address] [place] [address] [place] [id number] 05/02/2024 Jessica Whiterne Radiculopathy, lumba r region M54.16 ; Hearing loss H91.90 ; Obesity E66.9 ; Shoulder impingement syndrome M75.40 and Right inguinal hernia K40.90 Assessments Encounter Date Diagnosis (ICD Code) Assessment Notes Treatment Notes Treatment Clinical Notes 05/02/2024 Radiculopathy, lumbar region (ICD-10 - M54.16) He continues to complain of discomfort in his lumbar spine that radiates into the buttocks. He has less intense pain in his lumbar spine with decreased range of motion. We will employ conservative regimen of heat, rest and ibuprofen. 05/02/2024 Hearing loss (ICD-10 - H91.90) He has mild hearing loss. He does not wish to have amplification her ENT evaluation at this time. He is able to function without impairment in daily life.. 05/02/2024 Obesity (ICD-10 - E66.9) His weight is stable. He is in the obese range. We have reviewed his diet and nutrition. We have formulated a weight loss strategy to lose weight at a rate of one half of a pound per week. 05/02/2024 Shoulder impingement syndrome (ICD-10 - M75.40) He has a nerve impingement left arm and I have referred him back to orthopedics. 05/02/2024 Right inguinal hernia (ICD-10 - K40.90) His symptoms are mild and he wants to observe this for a while to see how much of a nuisance it is. He was informed he could have it repaired or live with it. Follow-up visit was arranged. Plan Of Treatment Medication Medication Name Sig Start Date Stop Date Notes Omeprazole 20 MG TAKE 2 CAPSULE 30 NJ NUTES BEFORE MORNING MEAL ORALLY ONCE A DAY 30 DAYS Ferrous Sulfate 324 (65 Fe) MG TAKE 1 TA BLET BY MOUTH EVERY DAY Next Appt Details Follow Up: 3 Months, Reason: Office visit Provider Name:Jessica Burnett, 11/11/2024 10:00:00 AM, [address] [place] [address] [place], [place], [id number], Progress Notes * Hugo GARCIAOB:1965 (59 yo M)Acc No.[id number]:05/02/2024 Progress Notes Patient:?Jann Garcia Provider:?Jessica Burnett MD :1965???Age:59 Y???Sex:Male Andre e:05/02/2024 [id number] Subjective: * Chief Complaints: * ???Right lower quadrant abdo magdiel painInguinal herniaLumbar radiculopathy * HPI: ???COVID-19 Screening:? Recently complained of right lower quadrant abdominal pain in a small hernia was detected. Since his last visit the pain has resolved. He has occasional mild discomfort in the inguinal area but it does not affect his ability to conduct all of the activities of daily living. We agreed on observation at this time. He has gained 2 pounds and feels well. His low back pain is minimal at this time. ?Questions?Have you experienced fever, chills, cough, sore throat, shortness of breath, difficulty breathing, muscle aches, loss of taste or smell??No ?Have you been exposed to the virus within the last 10 days??No ?Have you travelled internationally in the last 10 days??No ?Have you been exposed to COVID-19 in the past??Yes * ROS:?General/Constitutional:?pain?Right lower quadrant abdominal pain and back pain are much better.?Chills?denies.?Fatigue?admits.?Fever?denies.?ENT:?Decreased hearing?denies.?Respiratory:?Cough?denies.?Cardiovascular:?Chest pain with exertion?denies.?Dyspnea on exertion?denies.?Shortness of breath?denies.?Gastrointestinal:?Constipation?occasional.?Decreased appetite?denies.?Diarrhea?denies.?Heartburn?denies.?Nausea?denies.?Rectal bleeding?denies.?Vomiting?denies.?Hematology:?bruising?denies.?petechiae?denies.?Swollen glands?none have been noted.?Genitourinary:?Frequent urination?once a night.?Musculoskeletal:?Muscle aches?denies.?Painful joints?denies.?Sciatica?denies.?Weakness?denies.?Skin:?Itching?denies.?Rash?denies.?Skin lesion(s)?denies.?Neurologic:?Difficulty speaking?denies.?Dizziness?denies.?Headache?denies.?Low back pain?that is chronic.?Psychiatric:?Depressed mood?denies.? * Medical History:? * Surgical History:?spinal fus ion x 4 L4-S1 colonoscopy posterior decompresson L4- L5 caudal epidural injection LSS 12/2012removal of cyst in back 10/2018 * Hospitalization/Major Diagno stic Procedure:?back pain 04/2019 * Family History:?Father: shyam lopez, asthma, cardiac disease, diagnosed with CVD.?Mother: alive, diagnosed with DM.?3 brother(s) , 2 sister(s) - healthy. 2 son(s) , 2 daughter(s) - healthy. .? His mother is diabetic and his father has CAD and asthma. * Social History:?Tobacco Use:?Tobacco Use/Smoking?Patient is a?nonsmoker ?Additional Findings: Tobacco Non-User?Aggressive non-smoker ???He drinks socially and does not smoke. He is and sexually active. * Medications:?TakingFerrous S ulfate 324 (65 Fe) MG Tablet Delayed Release TAKE 1 TABLET BY MOUTH EVERY DAY Omeprazole 20 MG Capsule Delayed Release TAKE 2 CAPSULE 30 MINUTES BEFORE MORNING MEAL ORALLY ONCE A DAY 30 DAYS Medication List reviewed and reconciled with the patientTaking Ferrous Sulfate 324 (65 Fe) MG Tablet Delayed Release TAKE 1 TABLET BY MOUTH EVERY DAY Taking Omeprazole 20 MG Capsule Delayed Release TAKE 2 CAPSULE 30 MINUTES BEFORE MORNING MEAL ORALLY ONCE A DAY 30 DAYS Medication List reviewed and reconciled with the patient * Allergies:?No Known Drug All ergyno[Allergies Verified] Objective: * Vitals:?Ht: 63, Wt: 199, BMI :35.25, BP: 122/76, HR: 86, Temp: 98.2, Wt-k.26. * ???Past Orders: Imaging:XR chest 2V * Order Date 02/05/2024 11/06/2022 10/31/2022 ???Lab:SARS-CoV2/FLU/RSV (Order Date - 02/05/2024) (Collection Date - 02/05/2024)?ValueReference Range?Influenza A PCRPOSITIVEANegative -?Influenza B PCRNEGATIVENegative -?Resp Syncy Virus RNA Qual PCR NEGATIVENegative -?SARS COV2 PCR INHOUSENEGATIVENegative - * Examination: ???General Examination: ?GENERAL APPEARANCE:?pleasant, well nourished, well developed, in no acute distress, calm and relaxed , obese , man.?HEAD:?atraumatic, normocephalic.?EYES:?eomi, perrla, anicteric, conjugate.?EARS:?normal.?NOSE:?septum intact.?ORAL CAVITY:?normal, unremarkable.?NECK/THYROID:?no jugular venous distention, no carotid bruit, thyroid normal.?LYMPH NODES:?no enlarged lymph nodes,spleen normal.?SKIN:?no suspicious lesions, anicteric.?HEART:?no clicks, gallops, murmurs, or rubs, regular rhythm, S1, S2 normal, no s3, or vascular bruits.?LUNGS:?clear to auscultation .?BREASTS:??no masses palpable bilaterally.?ABDOMEN:?bowel sounds normal, no ascites, no organomegaly, no mass , centripital obesity, Small right inguinal hernia unchanged.?RECTAL EXAM:?not examined.?MUSCULOSKELETAL:?extremities unremarkable, no clubbing, cyanosis or edema, Mild decreased range of motion lumbar spine.?PERIPHERAL PULSES:?normal.?NEUROLOGIC:?alert and oriented, cranial nerves 2-12 grossly intact, deep tendon reflexes 2+ symmetrical, motor strength normal upper and lower extremities, sensory exam intact.?PSYCH:?alert, oriented.? Assessment: * Assessment: 1.?Hearing loss - H91.90, He has mild hearing loss. He does not wish to have amplification her ENT evaluation at this time. He is able to function without impairment in daily life..?2.?Radiculopathy, lumbar region - M54.16, He continues to complain of discomfort in his lumbar spine that radiates into the buttocks. He has less intense pain in his lumbar spine with decreased range of motion. We will employ conservative regimen of heat, rest and ibuprofen.?3.?Obesity - E66.9, His weight is stable. He is in the obese range. We have reviewed his diet and nutrition. We have formulated a weight loss strategy to lose weight at a rate of one half of a pound per week.?4.?Shoulder impingement syndrome - M75.40, He has a nerve impingement left arm and I have referred him back to orthopedics.?5.?Right inguinal hernia - K40.90, His symptoms are mild and he wants to observe this for a while to see how much of a nuisance it is. He was informed he could have it repaired or live with it. Follow-up visit was arranged.? Plan: * Treatment: * Procedure Codes:? * Preventive Medicine:? ??Counseling:?Care goal follow-up plan:?Counseling for abnormal BMI given?Yes ?Above Normal BMI Follow-up?Dietary management education, guidance, and counseling, Dietary needs education, Exercise promotion: strength training, Exercise promotion: stretching, Feeding regime, Giving encouragement to exercise, Lifestyle education regarding diet, Nutrition / feeding management, Nutrition therapy, Prescribed activity/exercise education, Prescribed diet education, Prescribed dietary intake, Special diet education, Weight monitoring , Intervention, Order not done: Medical or Other reason not done * Follow Up:?3 Months (Reason: Office visit) * Images: * Sign off status: Completed true * Provider:?Jessica Burnett MD Date:?04/21 Generated for Jordy roberts/Basilio/eTransmitting on:?11/04/2024 10:15 AM EST History and Physical Notes * HPI (History of Present Illness) Category Sub-Category Detail Notes COVID-19 Screening Questions Have you had any new onset fever, chills, cough, congestion, sore throat, shortness of breath, muscle aches?: No Have you been exposed to the virus withi n the last 10 days?: No Have you travelled internationally in [facility] last 10 days?: No Have you been exposed to COVID-19 in the past?: Yes Examination Category Sub-Category Detail Notes General Examination GENERAL APPEARANCE: pleasant , well nourished, well developed, in no acute distress, calm and relaxed , obese , man HEAD: atraumatic, normocep halic EYES: eomi, perrla, anicte shania, conjugate EARS: normal NOSE: septum intact NECK/THYROID: no jugular venous di stention, no carotid bruit, thyroid normal HEART: no clicks, gallops, murmurs, or rubs, regular rhythm, S1, S2 normal, no s3, or vascular bruits LUNGS: clear to auscultatio n ABDOMEN: bowel sounds normal, no ascites, no organomegaly, no mass , centripital obesity, Small right inguinal hernia unchanged NEUROLOGIC: alert and oriented, cranial nerves 2-12 grossly intact, deep tendon reflexes 2+ symmetrical, motor strength normal upper and lower extremities, sensory exam intact SKIN: no suspicious lesion s, anicteric PERIPHERAL PULSES: normal BREASTS: no masses palpable b ilaterally MUSCULOSKELETAL: extremities unremark able, no clubbing, cyanosis or edema, Mild decreased range of motion lumbar spine LYMPH NODES: no enlarged lymph no erika,spleen normal RECTAL EXAM: not examined PSYCH: alert, oriented ORAL CAVITY: normal, unremarkable
--- OUTSIDE RECORDS SUMMARY | 2024-11-04 10:16 | XMS_ITS ---
Author Organization Jessica Burnett III, MD Address [address] [place] [address] Care Team Providers Care Yarn Weigher Name Role Phone Jessica Burnett Primary Care Provider Allergies Allergen (clinical drug ingredient) Drug/Non Drug Allergy documented on EMR Reaction Allergy Type Onset Date Status No Known Drug Allergy Unknown Drug Allergy Active REASON FOR VISIT Intermittent sharp right lower quadrant abdominal pain, Lumbar radiculopathy, Obesity, Hearing loss, Right shoulder pain, Hypertension Medications Medication SIG (Take, Route, Frequency, Duration) Notes Start Date End Date Status Ferrous Sulfate 324 (65 Fe) MG TAKE 1 TABLET BY MOUTH EVERY DAY Active Omeprazole 20 MG TAKE 2 CAPSULE 30 TX NUTES BEFORE MORNING MEAL ORALLY ONCE A DAY 30 DAYS Active Social History Tobacco Use: Social History Observation Description Date Details (start date - stop date) Never Smoker NA - NA Sex Assigned At : Social History Observation Description Sex Assigned At Male Tobacco Use/Smoking Question Answer Notes Patient is a nonsmoker Additional Findings: Tobacco Non-User Aggressive non-smoker Problems Problem Type SNOMED Code ICD Code Onset Dates Problem Status W/U Status Risk Notes Problem [id number] Right inguinal hernia (K40.90) Active confirmed His symptoms are mild and he wants to observe this for a while to see how much of a nuisance it is. He was informed he could have it repaired or live with it. Follow-up visit was arranged. Vital Signs Temperature 97.2 degrees Fahrenheit 04/10/20 24 Blood pressure systolic 149 mm Hg 04/10/20 24 Blood pressure diastolic 80 mm Hg 024 Heart Rate 80 /min 04/10/2024 Height 63 in 04/10/2024 Weight 197 lbs 04/10/2024 BMI 34.89 kg/m2 04/10/2024 Encounters Encounter Location Date Provider Diagnosis Jessica Burnett III, MD [address] [place] [address] [place] [address] 04/10/2024 Jessica Burnett Radiculopathy, lumba r region M54.16 ; Obesity E66.9 ; Hearing loss H91.90 ; Hypertension I10 ; Shoulder impingement syndrome M75.40 ; Chronic GERD K21.9 ; Pilonidal cyst L05.91 and Right inguinal hernia K40.90 Assessments Encounter Date Diagnosis (ICD Code) Assessment Notes Treatment Notes Treatment Clinical Notes 04/10/2024 Radiculopathy, lumbar region (ICD-10 - M54.16) He continues to complain of discomfort in his lumbar spine that radiates into the buttocks. He Has significant pain in his lumbar spine with decreased range of motion. We will employ conservative regimen of heat, rest and ibuprofen. 04/10/2024 Obesity (ICD-10 - E66.9) His weight is stable. He is in the obese range. We have reviewed his diet and nutrition. We have formulated a weight loss strategy to lose weight at a rate of one half of a pound per week. 04/10/2024 Hearing loss (ICD-10 - H91.90) He has mild hearing loss. He does not wish to have amplification her ENT evaluation at this time. He is able to function without impairment in daily life.. 04/10/2024 Hypertension (ICD-10 - I10) His blood pressure stable. I have strongly recommended aggressive weight loss with regular exercise and sodium restriction. 04/10/2024 Shoulder impingement syndrome (ICD-10 - M75.40) He has a nerve impingement left arm and I have referred him back to orthopedics. 04/10/2024 Chronic GERD (ICD-10 - K21.9) This discomfort has resolved and his current therapy was continued. 04/10/2024 Pilonidal cyst (ICD-10 - L05.91) . This lesion has completely healed and is not symptomatic at this time. 04/10/2024 Right inguinal hernia (ICD-10 - K40.90) His symptoms are mild and he wants to observe this for a while to see how much of a nuisance it is. He was informed he could have it repaired or live with it. Follow-up visit was arranged. Plan Of Treatment Medication Medication Name Sig Start Date Stop Date Notes Ferrous Sulfate 324 (65 Fe) MG TAKE 1 TA BLET BY MOUTH EVERY DAY Omeprazole 20 MG TAKE 2 CAPSULE 30 TX NUTES BEFORE MORNING MEAL ORALLY ONCE A DAY 30 DAYS Next Appt Details Follow Up: 6 Weeks, Reason: Office visit Provider Name:Jessica Burnett, 11/11/2024 10:00:00 AM, [address] [place] [address] [place], [address], Progress Notes * Hugo GARCIAOB:1965 (59 yo M)Acc No.[id number]:04/10/2024 Progress Notes Patient:?Jose Jann Provider:?Jessica Burnett MD :1965???Age:59 Y???Sex:Male Andre e:04/10/2024 [facility] [place] [id number] Subjective: * Chief Complaints: * ???Intermittent sharp right lower quadrant abdominal painLumbar radiculopathyObesityHearing lossRight shoulder painHypertension * HPI: ???COVID-19 Screening:? He returns for a scheduled visit to manage numerous medical issues. His blood pressure is currently stable. His shoulder pain has improved. His hearing loss is unchanged. He continues to try to lose weight. The pilonidal cyst is not effective. A new complaint is a sharp intermittent discomfort in the right lower quadrant of the abdomen over the inguinal ligament. This is worse when he bends over or strains. On examination today a small right inguinal hernia was detected. He does not wish to pursue surgery at this time and will be observed. ?Questions?Have you experienced fever, chills, cough, sore throat, shortness of breath, difficulty breathing, muscle aches, loss of taste or smell??No ?Have you been exposed to the virus within the last 10 days??No ?Have you travelled internationally in the last 10 days??No ?Have you been exposed to COVID-19 in the past??Yes * ROS:?General/Constitutional:?pain?Lumbar spine, right inguinal ligament.?Chills?denies.?Fatigue?admits.?Fever?denies.?ENT:?Decreased hearing?denies.?Respiratory:?Cough?denies.?Cardiovascular:?Chest pain with exertion?denies.?Dyspnea on exertion?denies.?Shortness of [...] ergyno[Allergies Verified] Objective: * Vitals:?Ht: 63, Wt: 197, BMI :34.89, BP: 149/80, HR: 80, Temp: 97.2, Wt-k.36. * Examination: ???General Examination: ?GENERAL APPEARANCE:?pleasant, well [...] mass , centripital obesity, Small right inguinal hernia.?RECTAL EXAM:?not examined.?MUSCULOSKELETAL:?extremities unremarkable, no clubbing, cyanosis or edema, Mild pain range of motion lumbar spine and both shoulders.?PERIPHERAL PULSES:?normal.?NEUROLOGIC:?alert and oriented, cranial nerves 2-12 grossly intact, deep tendon reflexes 2+ symmetrical, motor strength normal upper and lower extremities, sensory exam intact.?PSYCH:?alert, oriented.? Assessment: * Assessment: 1.?Obesity - E66.9, His ericka ht is stable. He is in the obese range. We have reviewed his diet and nutrition. We have formulated a weight loss strategy to lose weight at a rate of one half of a pound per week.?2.?Radiculopathy, lumbar region - M54.16, He continues to complain of discomfort in his lumbar spine that radiates into the buttocks. He Has significant pain in his lumbar spine with decreased range of motion. We will employ conservative regimen of heat, rest and ibuprofen.?3.?Hearing loss - H91.90, He has mild hearing loss. He does not wish to have amplification her ENT evaluation at this time. He is able to function without impairment in daily life..?4.?Hypertension - I10, His blood pressure stable. I have strongly recommended aggressive weight loss with regular exercise and sodium restriction.?5.?Shoulder impingement syndrome - M75.40, He has a nerve impingement left arm and I have referred him back to orthopedics.?6.?Chronic GERD - K21.9, This discomfort has resolved and his current therapy was continued.?7.?Pilonidal cyst - L05.91, . This lesion has completely healed and is not symptomatic at this time. 8.?Right inguinal hernia - K40.90, His symptoms are [...] or Other reason not done * Follow Up:?6 Weeks (Reason: Office visit) * Images: * Sign off status: Completed true * Provider:?Jessica Burnett MD Date:?03/23 Generated for Jordy roberts/Basilio/eTransmitting on:?11/04/2024 10:16 AM EST History and Physical Notes * HPI (History of Present Illness) Category Sub-Category Detail Notes COVID-19 Screening Questions Have you had any new onset fever, chills, cough, congestion, sore throat, shortness of breath, muscle aches?: No Have you been exposed to the virus withi n the last 10 days?: No Have you travelled internationally in [facility] last 10 days?: No Have you been [...] , centripital obesity, Small right inguinal hernia NEUROLOGIC: alert and oriented, cranial nerves 2-12 grossly intact, deep tendon reflexes 2+ symmetrical, motor strength normal upper and lower extremities, sensory exam intact SKIN: no suspicious lesion s, anicteric PERIPHERAL PULSES: normal BREASTS: no masses palpable b ilaterally MUSCULOSKELETAL: extremities unremark able, no clubbing, cyanosis or edema, Mild pain range of motion lumbar spine and both shoulders LYMPH NODES: no enlarged lymph no erika,spleen normal RECTAL EXAM: not examined PSYCH: alert, oriented ORAL CAVITY: normal, unremarkable
--- OUTSIDE RECORDS SUMMARY | 2024-11-04 10:16 | XMS_ITS ---
Author Organization Jessica Burnett III, MD Address [address] [place] [address] Care Team Providers Care Body Man Name Role Phone Jessica Burnett Primary Care Provider [phone] Allergies Allergen (clinical drug ingredient) Drug/Non Drug Allergy documented on EMR Reaction Allergy Type Onset Date Status No Known Drug Allergy Unknown Drug Allergy Active REASON FOR VISIT Right inguinal hernia, Lumbar radiculopathy, History of DVT, Iron deficiency anemia, GERD, Obesity,Hearing loss Medications Medication SIG (Take, Route, Frequency, Duration) Notes Start Date End Date Status Ferrous Sulfate 324 (65 Fe) MG TAKE 1 TABLET BY MOUTH EVERY DAY Active Omeprazole 20 MG TAKE 2 CAPSULES 30 M INUTES BEFORE MORNING MEAL ORALLY ONCE A DAY 30 DAYS 90 Active Social History Tobacco Use: Social History Observation Description Date Details (start date - stop date) Never Smoker NA - NA Sex Assigned At : Social History Observation Description Sex Assigned At Male Tobacco Use/Smoking Question Answer Notes Patient is a nonsmoker Additional Findings: Tobacco Non-User Aggressive non-smoker Vital Signs Temperature 97.3 degrees Fahrenheit 07/08/20 24 Blood pressure systolic 141 mm Hg 07/08/20 24 Blood pressure diastolic 98 mm Hg 024 Heart Rate 76 /min 07/08/2024 Height 63 in 07/08/2024 Weight 200 lbs 07/08/2024 BMI 35.42 kg/m2 07/08/2024 Encounters Encounter Location Date Provider Diagnosis Jessica Burnett III, MD [address] [place] [address] [address] [place], [place] [address] 07/08/2024 Jessica Burnett Radiculopathy, lumba r region M54.16 ; Obesity E66.9 ; Iron deficiency E61.1 ; Hearing loss H91.90 ; Hypertension I10 ; Chronic GERD K21.9 ; Vitamin D deficiency E55.9 and Right inguinal hernia K40.90 Assessments Encounter Date Diagnosis (ICD Code) Assessment Notes Treatment Notes Treatment Clinical Notes 07/08/2024 Radiculopathy, lumbar region (ICD-10 - M54.16) He continues to complain of discomfort in his lumbar spine that radiates into the buttocks. He has less intense pain in his lumbar spine with decreased range of motion. We will employ conservative regimen of heat, rest and ibuprofen. 07/08/2024 Obesity (ICD-10 - E66.9) His body mass index is 35.4. He has gained 1 pound. He now weighs 200 pounds. We discussed his weight loss strategy on diet. We made a plan to lose weight at one half of a pound per week. 07/08/2024 Iron deficiency (ICD-10 - E61.1) His blood work is stable. He will continue on his iron therapy. His ferritin is in the normal range. 07/08/2024 Hearing loss (ICD-10 - H91.90) He has mild hearing loss. He does not wish to have amplification her ENT evaluation at this time. He is able to function without impairment in daily life.. 07/08/2024 Hypertension (ICD-10 - I10) His blood pressure is 141/88. I have strongly recommended aggressive weight loss with regular exercise and sodium restriction. 07/08/2024 Chronic GERD (ICD-10 - K21.9) This discomfort has resolved and his current therapy was continued. 07/08/2024 Vitamin D deficiency (ICD-10 - E55.9) I continue to recommend he take 1000 units of vitamin D daily 07/08/2024 Right inguinal hernia (ICD-10 - K40.90) His [...] EVERY DAY Omeprazole 20 MG TAKE 2 CAPSULES 30 M INUTES BEFORE MORNING MEAL ORALLY ONCE A DAY 30 DAYS 90 Pending Test Test Name Order Date PROFILE, RANDOM (COMPREHENSIVE METABOLIC ) 07/08/2024 CBC WITH AUTO DIFF 07/08/2024 Ferritin 07/08/2024 Next Appt Details Follow Up: As Scheduled, Urmila son: OV, Annual Exam Provider Name:Jessica Burnett, 11/11/2024 10:00:00 AM, [address] [place] [address] DR, [facility] [address], [place], [address], Progress Notes * GARCIAHugo PORRASOB:1965 (59 yo M)Acc No.[id number]:07/08/2024 Progress Notes Patient:?Jann Garcia Provider:?Jessica Burnett MD :1965???Age:59 Y???Sex:Male Andre e:07/08/2024 [facility] Subjective: * Chief Complaints: * ???Right inguinal herniaLumb ar radiculopathyHistory of DVTIron deficiency anemiaGERDObesityHearing loss * HPI: ???COVID-19 Screening:? He returns for routine medical management. He occasionally feels the hernia in the right inguinal area but it is not painful and he does not wish to have it repaired at this time. His low back pain is occasional but has not gotten worse. His shoulder pain has resolved. His reflux symptoms are controlled. He is trying to lose weight and consume a healthy diet. ?Questions?Have you experienced fever, chills, cough, sore throat, shortness of breath, difficulty breathing, muscle aches, loss of taste or smell??No ?Have you been exposed to the virus within the last 10 days??No ?Have you travelled internationally in the last 10 days??No ?Have you been exposed to COVID-19 in the past??Yes * ROS:?General/Constitutional:?pain?only normal aches and pains.?Chills?denies.?Fatigue?admits.?Fever?denies.?ENT:?Decreased hearing?in both ears.?Respiratory:?Cough?denies.?Cardiovascular:?Chest pain with exertion?denies.?Dyspnea on exertion?denies.?Shortness of breath?denies.?Gastrointestinal:?Constipation?denies.?Decreased appetite?denies.?Diarrhea?denies.?Heartburn?denies.?Nausea?denies.?Rectal bleeding?denies.?Vomiting?denies.?Hematology:?bruising?denies.?petechiae?denies.?Swollen glands?none have been noted.?Genitourinary:?Frequent urination?once a night.?Musculoskeletal:?Muscle aches?denies.?Painful joints?denies.?Sciatica?denies.?Weakness?denies.?Skin:?Itching?denies.?Rash?denies.?Skin lesion(s)?denies.?Neurologic:?Difficulty speaking?denies.?Dizziness?denies.?Headache?denies.?Low back pain?denies.?Psychiatric:?Depressed mood?denies.? * Medical History:? * Surgical History:?spinal [...] 20 MG Capsule Delayed Release TAKE 2 CAPSULES 30 MINUTES BEFORE MORNING MEAL ORALLY ONCE A DAY 30 DAYS 90 Medication List reviewed and reconciled with the patientTaking Ferrous Sulfate 324 (65 Fe) MG Tablet Delayed Release TAKE 1 TABLET BY MOUTH EVERY DAY Taking Omeprazole 20 MG Capsule Delayed Release TAKE 2 CAPSULES 30 MINUTES BEFORE MORNING MEAL ORALLY ONCE A DAY 30 DAYS 90 Medication List reviewed and reconciled with the patient * Allergies:?No Known Drug All ergyno[Allergies Verified] Objective: * Vitals:?Ht: 63, Wt: 200, BMI :35.42, BP: 141/98, HR: 76, Temp: 97.3, Wt-k.72. * Examination: ???General Examination: ?GENERAL APPEARANCE:?pleasant, well [...] ascites, no organomegaly, no mass , centripital obesity,Small right inguinal hernia.?RECTAL EXAM:?not examined.?MUSCULOSKELETAL:?extremities unremarkable, no clubbing, cyanosis or edema, Pain to elevation right shoulder.?PERIPHERAL PULSES:?normal.?NEUROLOGIC:?alert and oriented, cranial nerves 2-12 grossly intact, deep tendon reflexes 2+ symmetrical, motor strength normal upper and lower extremities, sensory exam intact.?PSYCH:?alert, oriented.? Assessment: * Assessment: 1.?Radiculopathy, lumbar reg ion - M54.16 (Primary), He continues to complain of discomfort in his lumbar spine that radiates into the buttocks. He has less intense pain in his lumbar spine with decreased range of motion. We will employ conservative regimen of heat, rest and ibuprofen.?2.?Obesity - E66.9, His body mass index is 35.4. He has gained 1 pound. He now weighs 200 pounds. We discussed his weight loss strategy on diet. We made a plan to lose weight at one half of a pound per week.?3.?Iron deficiency - E61.1, His blood work is stable. He will continue on his iron therapy. His ferritin is in the normal range.?4.?Hearing loss - H91.90, He has mild hearing loss. He does not wish to have amplification her ENT evaluation at this time. He is able to function without impairment in daily life..?5.?Hypertension - I10, His blood pressure is 141/88. I have strongly recommended aggressive weight loss with regular exercise and sodium restriction. 6.?Chronic GERD - K21.9, This discomfort has resolved and his current therapy was continued.?7.?Vitamin D deficiency - E55.9, I continue to recommend he take 1000 units of vitamin D daily?8.?Right inguinal hernia - K40.90, His symptoms are mild and he wants to observe this for a while to see how much of a nuisance it is. He was informed he could have it repaired or live with it. Follow-up visit was arranged.? Plan: * Treatment: 2.?Obesity?LAB: PROFILE, RANDOM (COMPREHENSIVE METABOLIC) ?LAB: CBC WITH AUTO DIFF ?LAB: Ferritin 3.?Iron deficiency?LAB: PROFILE, RANDOM (COMPREHENSIVE METABOLIC) ?LAB: CBC WITH AUTO DIFF ?LAB: Ferritin 4.?Others? Continue Omeprazole Capsule Delayed Release, 20 MG, TAKE 2 CAPSULES 30 MINUTES BEFORE MORNING MEAL ORALLY ONCE A DAY 30 DAYS 90.?? * Procedure Codes:? * Preventive Medicine:? ??Counseling:?Care [...] or Other reason not done * Follow Up:?As Scheduled (Urmila son: OV, Annual Exam) * Images: * Sign off status: Completed true * Provider:?Jessica Burnett MD Date:?06/22 Generated for Jordy roberts/Basilio/Gemini on:?11/04/2024 10:15 AM EST History and Physical Notes * HPI (History of Present Illness) Category Sub-Category Detail Notes COVID-19 Screening Questions Have you had any new onset fever, chills, cough, congestion, sore throat, shortness of breath, muscle aches?: No Have you been exposed to the virus withi n the last 10 days?: No Have you travelled internationally in e last 10 days?: No Have you been [...] ascites, no organomegaly, no mass , centripital obesity,Small right inguinal hernia NEUROLOGIC: alert and oriented, cranial nerves 2-12 grossly intact, deep tendon reflexes 2+ symmetrical, motor strength normal upper and lower extremities, sensory exam intact SKIN: no suspicious lesion s, anicteric PERIPHERAL PULSES: normal BREASTS: no masses palpable b ilaterally MUSCULOSKELETAL: extremities unremark able, no clubbing, cyanosis or edema, Pain to elevation right shoulder LYMPH NODES: no enlarged lymph no erika,spleen normal RECTAL EXAM: not examined PSYCH: alert, oriented ORAL CAVITY: normal, unremarkable
--- OUTSIDE RECORDS SUMMARY | 2024-11-04 10:17 | XMS_ITS | Patient Health Record ---
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 Name Role Phone Jessica Burnett Primary Care Provider [phone] Allergies Allergen (clinical drug ingredient) Drug/Non Drug Allergy documented on EMR Reaction Allergy Type Onset Date Status No Known Drug Allergy Unknown Drug Allergy Active Results Component Value Reference Range Notes URINE DIP STICK Reviewed date:11/06/2023 09:56:54 AM Interpretation:normal Performing Lab: Notes/Report: normal SG 1.000 1.005 - 1.025 pH 5.0 5.0 - 9.0 JAIDA neg Negative - NIT neg Negative - PRO trace Negative - Trace GLU neg Negative - KET neg Negative - UBG 0.2 0.1 - 1.8 ELEANOR neg 0.2 - 1.3 BLD neg Negative - Menstrating N/A SARS-CoV2/FLU/RSV Reviewed date:02/15/2024 08:47:43 PM Interpretation: Performing Lab:[facility], [address] [place] [phone] Notes/Report: Influenza A PCR POSITIVE Negative Influenza B PCR NEGATIVE Negative Resp Syncy Virus RNA Qual PCR NEGATIVE Negative SARS COV2 PCR INHOUSE NEGATIVE Negative All test results must be correlated with clinical findings. Negative results do not preclude SARS-CoV2, influenza A virus, influenza B virus and/or RSV infection and should not be used as the sole basis for treatment or other patient management decisions. Negative results must be combined with clinical observations, patient history, and epidemiological information. This test has not been evaluated for monitoring treatment of infection. This test has been authorized by the FDA under an Emergency Use Authorization (EUA) for use by authorized laboratories. Testing performed on the [employer] GeneXpert utilizing real-time RT-PCR. All SARS CoV2 and positive influenza A/B results are reported to [facility]. XR chest 2V Reviewed date:02/15/2024 08:47:43 PM Interpretation: Performing Lab: Notes/Report: [address] [address] XRay Report Signed Patient: Jann Garcia MR#: [id number] 724 : 1965 Acct:[id number] Age/Sex: 58 / M ADM Date: 02/05/24 Loc: .ED Attending Dr: Ordering Physician: Generic ED Physician Date of Service: 02/05/24 Procedure(s): XR chest 2V Accession Number(s): [id number] cc: Jessica Burnett MD; Generic ED Physician EXAMINATION: XR CHEST CLINICAL INFORMATION: Shortness of breath and cough COMPARISON: 11/06/2022 TECHNIQUE: 2 views of the chest were obtained. FINDINGS: No significant abnormality is noted involving the heart, lungs, mediastinum, bony thorax or soft tissues. Some minimal left basilar atelectasis is seen. No consolidations, pleural effusions or pneumothorax. XR/XR chest 2V IMPRESSION: No acute intrathoracic disease. Dictated By: Gerald Glez MD Signed By: <Electronically signed by Gerald Glez MD in OV> 02/05/24 1213 DD/ 1112 TD/TT: Instructional Support Services Director: [address] [address] XRay Report Signed Patient: Mak Garcia MR#: [id number] 724 : 1965 Acct:[id number] Age/Sex: 58 / M ADM Date: 02/05/24 Loc: .ED Attending Dr: Ordering Physician: Generic ED Physician Date of Service: 02/05/24 Procedure(s): XR [address] 2V Accession Number(s): [id number] cc: Jessica Burnett MD; Generic ED Physician EXAMINATION: XR CHEST CLINICAL INFORMATION: Shortness of breath and cough COMPARISON: 11/06/2022 TECHNIQUE: 2 views of the chest were obtained. FINDINGS: No significant abnormality is noted involving the heart, lungs, mediastinum, bony thorax or soft tissues. Some minimal left basilar atelectasis is seen. No consolidations, pleural effusions or pneumothorax. XR/XR chest 2V IMPRESSION: No acute intrathorac ic disease. Dictated By: Gerald Glez MD Signed By: <Electronically signed by Gerald Glez MD in OV> 02/05/24 1213 DD/ 1112 TD/TT: Instructional Support Services Director: VALENTE Complete Blood Count Auto Di ff Reviewed date:07/08/2024 10:08:54 AM Interpretation: Performing Lab:[facility], [address] [place] [phone] Notes/Report: White Blood Count 7.0 4.8-10.8 X10*3/uL Red Blood Count 5.12 4.60-5.80 X10*6/uL Hemoglobin 14.8 14.0-18.0 g/dl Hematocrit 45.5 42.0-52.0 % Mean Corpuscular Volume 88.9 80.0-98.0 fL Mean Corpuscular Hemoglobin 28.9 27.0-33.0 pg Mean Corpuscular HGB Conc 32.5 31.0-36.0 g/dl Red Cell Distribution Width 13.8 11.0-16.0 % Platelet Count 287 160-400 X10*3/uL Mean Platelet Volume 9.6 9.4-12.4 fL Neutrophils Percent Auto 47.6 45-73 % Imm Gran Pct Auto 0.1 0.0-0.4 % Lymphocytes Percent Auto 41.2 20-40 % Monocytes Percent Auto 6.0 2-11 % Eosinophils Percent Auto 4.5 0-4 % Basophils Percent Auto 0.6 0-2 % NRBC Pct Auto 0.0 0.0-0.2 /100WBC Neutrophils Absolute Auto 3.3 2.0-8.3 x10*3/u L Imm Gran Abs Auto 0.01 0.00-0.03 X10*3/uL Lymphocytes Absolute Auto 2.9 1.2-4.9 X10*3/u L Monocytes Absolute Auto 0.4 0.1-1.2 X10*3/uL Eosinophils Absolute Auto 0.3 0.0-0.4 X10*3/u L Basophils Absolute Auto 0.0 0.0-0.2 X10*3/uL NRBC Abs Auto 0.000 0.0-0.012 X10*3/uL Comprehensive [place]. Panel Fa Reviewed date:07/08/2024 10:08:54 AM Interpretation: Performing Lab:[facility], [address] [place] [phone] Notes/Report: Sodium 141 135-145 mmol/L Potassium 4.4 3.3-5.1 mmol/L Chloride 103 96-108 mmol/L Carbon Dioxide 30 22-29 mmol/L Anion Gap 12 12-20 Blood Urea Nitrogen 13 9-16 mg/dL Creatinine 0.83 0.5-1.4 mg/dL Estimated Glomerular Filt Rate > 60 NOTE: For -[place] individuals, multiply the result by 1.210. Chronic Kidney Disease: Estimated GFR < 60 mL/min/1.73m2 Severe Kidney Disease: Estimated GFR < 15 mL/min/1.73m2 Glucose Fasting 113 60-99 mg/dL A fasting glucose from 100-125 mg/dl is considered impaired (pre-diabetes). Calcium 10.1 8.4-10.2 mg/dL Bilirubin Total 1.0 0.0-1.0 mg/dL Aspartate Amino Transferase 18 5-37 U/L Alanine Aminotransferase 18 0-40 U/L Total Protein 8.0 6.5-8.0 g/dL Albumin Level 4.2 3.5-5.0 g/dL Alkaline Phosphatase 55 39-117 U/L Ferritin Reviewed date:07/08/2024 10:08:54 AM Interpretation: Performing Lab:[facility], [address] [place] [phone] Notes/Report: Ferritin 25 20-250 ng/mL Lipid Panel Reviewed date:07/08/2024 10:08:54 AM Interpretation: Performing Lab:[facility], [address] [place] [phone] Notes/Report: Triglycerides 83 <150 mg/dL Desirable Triglyceride: less than 150 mg/dL Borderline High Triglyceride 150-199 mg/dL High Triglyceride: 200-499 mg/dL Very High Triglyceride: greater than or equal to 5OO mg/dL Cholesterol 166 <200 mg/dL Desirable Cholesterol: less than 200 mg/dL Borderline High Cholesterol: 200-239 mg/dL High Cholesterol: greater than 239 mg/dL LDL Cholesterol Calculated 96 <100 mg/dL Desirable LDL: less than 100 mg/dL Near Optimal/Above Optimal LDL: 110-129 mg/dL Borderline High LDL: 130-159 mg/dL High LDL: 160-189 mg/dL Very High LDL: greater than or equal to 190 mg/dL HDL Cholesterol 54 >40 mg/dL Desirable HDL: greater than 40 mg/dL Note: This HDL assay may give artificially low results in patients with liver disease. Complete Blood Count Auto Di ff (Not yet reviewed by provider) Interpretation: Performing Lab:[facility], [address] [place] [address] Notes/Report: White Blood Count 5.5 4.8-10.8 X10*3/uL Red Blood Count 5.06 4.60-5.80 X10*6/uL Hemoglobin 14.5 14.0-18.0 g/dl Hematocrit 44.4 42.0-52.0 % Mean Corpuscular Volume 87.7 80.0-98.0 fL Mean Corpuscular Hemoglobin 28.7 27.0-33.0 pg Mean Corpuscular HGB Conc 32.7 31.0-36.0 g/dl Red Cell Distribution Width 13.7 11.0-16.0 % Platelet Count 270 160-400 X10*3/uL Mean Platelet Volume 9.3 9.4-12.4 fL Neutrophils Percent Auto 47.4 45-73 % Imm Gran Pct Auto 0.0 0.0-0.4 % Lymphocytes Percent Auto 41.0 20-40 % Monocytes Percent Auto 7.6 2-11 % Eosinophils Percent Auto 3.1 0-4 % Basophils Percent Auto 0.9 0-2 % NRBC Pct Auto 0.0 0.0-0.2 /100WBC Neutrophils Absolute Auto 2.6 2.0-8.3 x10*3/u L Imm Gran Abs Auto 0.00 0.00-0.03 X10*3/uL Lymphocytes Absolute Auto 2.3 1.2-4.9 X10*3/u L Monocytes Absolute Auto 0.4 0.1-1.2 X10*3/uL Eosinophils Absolute Auto 0.2 0.0-0.4 X10*3/u L Basophils Absolute Auto 0.1 0.0-0.2 X10*3/uL NRBC Abs Auto 0.000 0.0-0.012 X10*3/uL Reason For Referral No Information Medications Medication SIG (Take, Route, Frequency, Duration) Notes Start Date End Date Status Ferrous Sulfate 324 (65 Fe) MG TAKE 1 TABLET BY MOUTH EVERY DAY Active Omeprazole 20 MG TAKE 2 CAPSULES 30 M INUTES BEFORE MORNING MEAL ORALLY ONCE A DAY 30 DAYS 90 Active Immunizations Vaccine Route Administration Date Status Comme nts Influenza IM Intramuscular 09/06/2015 Administered Influenza IM Intramuscular 07/24/2016 Administered Influenza no Preserv 3 and > IM Intramuscular 08/27/2017 Administered Influenza no Preserv 3 and > IM Intramuscular 08/22/2018 Administered Influenza no Preserv 3 and > Unknown 06/10/2020 Administered COVID- 19 Vaccine Unknown 01/24/2021 Administered COVID- 19 Vaccine Unknown 02/23/2021 Administered Influenza, quad Unknown 07/30/2021 Administered COVID- 19 Vaccine Unknown 02/03/2022 Administered COVID- 19 Vaccine Unknown 09/02/2021 Administered COVID- 19 Vaccine Unknown 07/28/2022 Administered Tdap Unknown 06/20/2011 Administered SHINGRIX Unknown 08/25/2020 Administered Influenza no Preserv 3 and > Unknown 08/03/2010 Administered Influenza no Preserv 3 and > Unknown 08/22/2012 Administered Influenza, quad Unknown 08/25/2022 Administered Influenza no Preserv 3 and > Unknown 08/15/2013 Administered Influenza no Preserv 3 and > Unknown 07/17/2019 Administered Influenza no Preserv 3 and > Unknown 07/18/2011 Administered PCV20 Unknown 11/06/2022 Administered Influenza, quad IM Intramuscular 08/22/2023 Administered Social History Tobacco Use: Social History Observation Description Date Details (start date - stop date) Never Smoker NA - NA Sex Assigned At : Social History Observation Description Sex Assigned At Male Tobacco Use/Smoking Question Answer Notes Patient is a nonsmoker Additional Findings: Tobacco Non-User Aggressive non-smoker Problems Problem Type SNOMED Code ICD Code Onset Dates Problem Status W/U Status Risk Notes Problem 300071031 Obesity (E66.9) Active confirmed His body mass index is 35.4. He has gained 1 pound. He now weighs 200 pounds. We discussed his weight loss strategy on diet. We made a plan to lose weight at one half of a pound per week. Problem 62514217 Hypertension (I10) Active confirmed His blood pressure is 141/88. I have strongly recommended aggressive weight loss with regular exercise and sodium restriction. Problem 82744853 Iron deficiency (E61.1) Active confirmed His blood work is stable. He will continue on his iron therapy. His ferritin is in the normal range. Problem 220813318 Radiculopathy, lumbar region (M54.16) Active confirmed He continues to complain of discomfort in his lumbar spine that radiates into the buttocks. He has less intense pain in his lumbar spine with decreased range of motion. We will employ conservative regimen of heat, rest and ibuprofen. Problem 83647499 Hearing loss (H91.90) Active confirmed He has mild hearing loss. He does not wish to have amplification her ENT evaluation at this time. He is able to function without impairment in daily life.. Problem 18555562 Pilonidal cyst (L05.91) Active confirmed . This lesion has completely healed and is not symptomatic at this time. Problem 268975035 DJD (degenerative joint disease) (M19.90) Active confirmed He continues to have recommended lumbar spine pain. He will continue on his current regimen. Problem 13356104 Vitamin D deficiency (E55.9) Active confirmed I continue to recommend he take 1000 units of vitamin D daily Problem 248604925 Shoulder impingement syndrome (M75.40) Active confirmed He has a nerve impingement left arm and I have referred him back to orthopedics. Problem 783396283 ED (erectile dysfunction) (N52.9) Active confirmed This problem rascon s been addressed with prescription medication. He says it is working. He remained generally care of urologist. Problem 516217079 Right inguinal hernia (K40.90) Active confirmed His symptoms ar e mild and he wants to observe this for a while to see how much of a nuisance it is. He was informed he could have it repaired or live with it. Follow-up visit was arranged. Problem 595354440 Chronic GERD (K21.9) Active confirmed This discomfort has resolved and his current therapy was continued. Problem 837447144711990 Chronic deep vein thrombosis (DVT) of brachial vein of right upper extremity (I82.721) Active confirmed After an adequate course of anticoagulation a thrombophilia evaluation is negative. His anticoagulation was discontinued today. Vital Signs Heart Rate 76 /min 07/08/2024 Temperature 97.3 degrees Fahrenheit 07/08/2024 Blood pressure diastolic 98 mm Hg 07/08/2024 Height 63 in 07/08/2024 Blood pressure systolic 141 mm Hg 07/08/2024 Weight 200 lbs 07/08/2024 BMI 35.42 kg/m2 07/08/2024 Encounters Encounter Location Date Provider Diagnosis Jessica Burnett III, MD [address] [place] [address] [place] [address] 11/06/2023 Jessica Burnett Radiculopathy, lumba r region M54.16 ; Iron deficiency E61.1 ; Chronic GERD K21.9 ; Obesity E66.9 ; Shoulder impingement syndrome M75.40 ; DJD (degenerative joint disease) M19.90 ; Pilonidal cyst L05.91 ; Hypertension I10 ; Vitamin D deficiency E55.9 and Chronic deep vein thrombosis (DVT) of brachial vein of right upper extremity I82.721 Jessica Burnett III, MD [address] [place] [address] [place] [address] 03/07/2024 Jessica Burnett Radiculopathy, lumba r region M54.16 ; Obesity E66.9 ; Hypertension I10 ; Chronic fatigue R53.82 ; Hearing loss H91.90 and Shoulder impingement syndrome M75.40 Jessica Burnett III, MD [address] [place] [address] [place] [address] 04/10/2024 Jessica Burnett Radiculopathy, lumba r region M54.16 ; Obesity E66.9 ; Hearing loss H91.90 ; Hypertension I10 ; Shoulder impingement syndrome M75.40 ; Chronic GERD K21.9 ; Pilonidal cyst L05.91 and Right inguinal hernia K40.90 Jessica Burnett III, MD [address] [place] [address] [place] [address] 05/02/2024 Jessica Burnett Radiculopathy, lumba r region M54.16 ; Hearing loss H91.90 ; Obesity E66.9 ; Shoulder impingement syndrome M75.40 and Right inguinal hernia K40.90 Jessica Burnett III, MD [address] [place] [address] [place] [address] 07/08/2024 Jessica Burnett Radiculopathy, lumba r region M54.16 ; Obesity E66.9 ; Iron deficiency E61.1 ; Hearing loss H91.90 ; Hypertension I10 ; Chronic GERD K21.9 ; Vitamin D deficiency E55.9 and Right inguinal hernia K40.90 Jessica Burnett III, MD [address] [place] [address] [place] [address] 01/08/2024 Jessica Burnett III, MD [address] [place] [address] [place] [address] 01/08/2024 Jessica Burnett III, MD [address] [place] [address] [place] [address] 02/05/2024 Jessica Burnett III, MD [address] [place] [address] [place] [address] 02/06/2024 Jessica Burnett III, MD [address] [place] [address] [place] [address] 02/06/2024 Jessica Burnett Assessments Encounter Date Diagnosis (ICD Code) Assessment Notes Treatment Notes Treatment Clinical Notes 11/06/2023 Iron deficiency (ICD-10 - E61.1) He was continued on his iron therapy at this time. 11/06/2023 Radiculopathy, lumbar region (ICD-10 - M54.16) The pain in his neck is now much improved and he is able to conduct all of the activities of daily living without impairment. He Has significant pain in his lumbar spine with decreased range of motion. We will employ conservative regimen of heat, rest and ibuprofen. 03/07/2024 Obesity (ICD-10 - E66.9) His weight is stable. He is in the obese range. We have reviewed his diet and nutrition. We have formulated a weight loss strategy to lose weight at a rate of one half of a pound per week. 03/07/2024 Radiculopathy, lumbar region (ICD-10 - M54.16) He [...] half of a pound per week. 04/10/2024 Radiculopathy, lumbar region (ICD-10 - M54.16) He continues to complain of discomfort in his lumbar spine that radiates into the buttocks. He Has significant pain in his lumbar spine with decreased range of motion. We will employ conservative regimen of heat, rest and ibuprofen. 05/02/2024 Radiculopathy, lumbar region (ICD-10 - M54.16) [...] function without impairment in daily life.. 07/08/2024 Obesity (ICD-10 - E66.9) His body mass index is 35.4. He has gained 1 pound. He now weighs 200 pounds. We discussed his weight loss strategy on diet. We made a plan to lose weight at one half of a pound per week. 07/08/2024 Radiculopathy, lumbar region (ICD-10 - M54.16) He continues to complain of discomfort in his lumbar spine that radiates into the buttocks. He has less intense pain in his lumbar spine with decreased range of motion. We will employ conservative regimen of heat, rest and ibuprofen. 11/06/2023 Chronic GERD (ICD-10 - K21.9) This discomfort has resolved and his current therapy was continued. 03/07/2024 Hypertension (ICD-10 - I10) His blood pressure stable but slightly high. I have strongly recommended aggressive weight loss with regular exercise and sodium restriction. 04/10/2024 Hearing loss (ICD-10 - H91.90) He [...] His ferritin is in the normal range. 11/06/2023 Obesity (ICD-10 - E66.9) He haslost 1 pound and remains obese. We discussed his diet and nutrition. We reviewed his weight loss strategy. We made a plan to lose weight at a rate of one half of a pound per week. 03/07/2024 Chronic fatigue (ICD-10 - R53.82) He says he is tired most of the time. Comprehensive blood work has been ordered to assess this problem. 04/10/2024 Hypertension (ICD-10 - I10) His blood pressure stable. I have strongly recommended aggressive weight loss with regular exercise and sodium restriction. 05/02/2024 Shoulder impingement syndrome (ICD-10 - M75.40) He has a nerve impingement left arm and I have referred him back to orthopedics. 07/08/2024 Hearing loss (ICD-10 - H91.90) He has mild hearing loss. He does not wish to have amplification her ENT evaluation at this time. He is able to function without impairment in daily life.. 11/06/2023 Shoulder impingement syndrome (ICD-10 - M75.40) He has a nerve impingement left arm and I have referred him back to orthopedics. 03/07/2024 Hearing loss (ICD-10 - H91.90) He has mild hearing loss. He does not wish to have amplification her ENT evaluation at this time. He is able to function without impairment in daily life.. 04/10/2024 Shoulder impingement syndrome (ICD-10 - M75.40) [...] live with it. Follow-up visit was arranged. 07/08/2024 Hypertension (ICD-10 - I10) His blood pressure is 141/88. I have strongly recommended aggressive weight loss with regular exercise and sodium restriction. 11/06/2023 DJD (degenerative joint disease) (ICD-10 - M19.90) He continues to have recommended lumbar spine pain. He will continue on his current regimen. 03/07/2024 Shoulder impingement syndrome (ICD-10 - M75.40) He has a nerve impingement left arm and I have referred him back to orthopedics. 04/10/2024 Chronic GERD (ICD-10 - K21.9) This discomfort has resolved and his current therapy was continued. 07/08/2024 Chronic GERD (ICD-10 - K21.9) This discomfort has resolved and his current therapy was continued. 11/06/2023 Pilonidal cyst (ICD-10 - L05.91) . This lesion has completely healed and is not symptomatic at this time. 04/10/2024 Pilonidal cyst (ICD-10 - L05.91) . This lesion has completely healed and is not symptomatic at this time. 07/08/2024 Vitamin D deficiency (ICD-10 - E55.9) I continue to recommend he take 1000 units of vitamin D daily 11/06/2023 Hypertension (ICD-10 - I10) His blood pressures in the normal range. I recommended aggressive weight loss and sodium restriction. No change in his medication was necessary. 04/10/2024 Right inguinal hernia (ICD-10 - K40.90) His symptoms are mild and he wants to observe this for a while to see how much of a nuisance it is. He was informed he could have it repaired or live with it. Follow-up visit was arranged. 07/08/2024 Right inguinal hernia (ICD-10 - K40.90) His symptoms are mild and he wants to observe this for a while to see how much of a nuisance it is. He was informed he could have it repaired or live with it. Follow-up visit was arranged. 11/06/2023 Vitamin D deficiency (ICD-10 - E55.9) I continue to recommend he take 1000 units of vitamin D daily 11/06/2023 Chronic deep vein thrombosis (DVT) of brachial vein of right upper extremity (ICD-10 - I82.721) After an adequate course of anticoagulation a thrombophilia evaluation is negative. His anticoagulation was discontinued today. Plan Of Treatment Pending Test Test Name Order Date PROFILE, FASTING (COMPREHENSIVE METABOLI C) 03/23/2023 PROFILE, FASTING (COMPREHENSIVE METABOLI C) 08/22/2023 PROFILE, FASTING (COMPREHENSIVE METABOLI C) 05/23/2023 PROFILE, RANDOM (COMPREHENSIVE METABOLIC ) 01/31/2021 PROFILE, RANDOM (COMPREHENSIVE METABOLIC ) 08/30/2022 PROFILE, RANDOM (COMPREHENSIVE METABOLIC ) 07/08/2024 PROFILE, RANDOM (COMPREHENSIVE METABOLIC ) 12/31/2020 LIPID PANEL 08/30/2022 LIPID PANEL 05/23/2023 TSH (THYROID STIMULATING HORMONE) 2022 FERRITIN 05/23/2023 FERRITIN 12/31/2020 PSA, TOTAL 08/30/2022 PSA, TOTAL 08/22/2023 CBC w DIFF 05/23/2023 CBC w DIFF 01/31/2021 CBC w DIFF 03/23/2023 CBC w DIFF 08/30/2022 CBC w DIFF 08/22/2023 CBC w DIFF 12/31/2020 PROTHROMBIN TIME (PT, INR) 08/17/2021 PARTIAL THROMBOPLASTIN TIME (PTT) 2020 ANTITHROMBIN III & AG (REFLEX) HOMOCYSTEINE 08/17/2021 PROTEIN C ACTIVITY REFLEX AG 08/17/2021 PROTEIN S ACTIVITY REFLEX AG 08/17/2021 TESTOSTERONE, FREE AND TOTAL 05/23/2023 TESTOSTERONE, TOTAL 02/09/2023 TESTOSTERONE, TOTAL 03/23/2023 LUPUS ANTICOAGULANT PANEL 08/17/2021 FACTOR V LEIDEN 08/17/2021 XR BARIUM SWALLOW, MODIFIED VIDEO 2022 XR SHOULDER RT 2 VIEWS 09/21/2020 US THYROID 04/30/2023 VITAMIN D 25-OH TOTAL 08/30/2022 CBC WITH AUTO DIFF 07/08/2024 Complete Blood Count Auto Diff Prothrombin [id number] 08/17/2021 Ferritin 07/08/2024 Lipid Panel 03/23/2023 Lipid Panel 08/22/2023 Next Appt Details Provider Name:Jessica Burnett, 11/11/2024 10:00:00 AM, [address] [place] [address] [address], [place], [address], Insurance Providers Payer Name Payer Address Payer Phone Subscriber Number Group Number Insured Name Patient Relationship to Insured Coverage Start Date Coverage End Date [employer] [address] [place] [address] [id number] Mka Garciage Self - patient is the insured MEDICAID [address] [place] [id number] Mak Garciage Self - patient is the insured [facility]ICARE [facility] [address] [facility] [place] [address] [id number] Jann Garcia Self - patient is the insured Medical (General) History Medical History History ICD Code Shoulder impingement syndrome 726.2 obesity hypertension erectile dysfunction chronic back pain low testosterone level DJD lumbar spine with foraminal narrowin g 2012 MRI [facility] lumbar radiculopathy hearing loss Anemia D64.9 09/22/2020 DVT right brachial vein Right inguinal hernia Surgical History Surgery Date(Month/Year) removal of cyst in back 10/2018 caudal epidural injection LSS 12/2012 posterior decompresson L4-L5 colonoscopy spinal fusion x 4 L4-S1 Hospitalization History Reason Date(Month/Year) back pain 04/2019
[2024-11-04 10:48] LABS: Alanine Aminotransferase 21 U/L (0-40); Albumin Level 4.3 g/dL (3.5-5.0); Alkaline Phosphatase 59 U/L (39-117); Anion Gap 9 (12-20); Aspartate Amino Transferase 23 U/L (5-37); Bilirubin Total 3.1 mg/dL (0.0-1.0); Blood Urea Nitrogen 20 mg/dL (9-16); Calcium 9.5 mg/dL (8.4-10.2); Carbon Dioxide 32 mmol/L (22-29); Chloride 105 mmol/L (96-108); Estimated Glomerular Filt Rate > 60; Ferritin 48 ng/mL (20-250); Glucose Random 146 mg/dL (60-115); Potassium 4.2 mmol/L (3.3-5.1); Sodium 142 mmol/L (135-145); Total Protein 7.9 g/dL (6.5-8.0)
== END 2024-11-04 09:22 | disposition home or self-care (01) ==
LOC: HO.LAB 09:21
PROVIDERS: PCP Internal Medicine Medical Oncology; Visit Provider Internal Medicine Medical Oncology
DX: E66.9 Obesity, unspecified (principal); E61.1 Iron deficiency
CPT/HCPCS: 36415; 80053; 82728; 85025

== ENCOUNTER 2024-11-11 10:39 | Outpatient (REF) | payer MEDICARE, SELFPAY ==
--- OUTSIDE RECORDS SUMMARY | 2024-11-11 12:05 | XMS_ITS ---
Author Organization Jessica Burnett III, MD Address [address] [place] [address] Care Team Providers Care Social Services Assistant Name Role Phone Jessica Burnett Primary Care Provider Allergies Allergen (clinical drug ingredient) Drug/Non Drug Allergy documented on EMR Reaction Allergy Type Onset Date Status No Known Drug Allergy Unknown Drug Allergy Active Results Component Value Reference Range Notes URINE DIP STICK Reviewed date:11/11/2024 11:09:46 AM Interpretation: Performing Lab: Notes/Report: SG 1.020 1.005 - 1.025 pH 6.0 5.0 - 9.0 JAIDA Neg Negative - NIT Neg Negative - PRO 15 Negative - Trace GLU Neg Negative - KET 5 Negative - UBG 0.2 0.1 - 1.8 ELEANOR Neg 0.2 - 1.3 BLD Positive Negative - Menstrating N/A REASON FOR VISIT annual exam Medications Medication SIG (Take, Route, Frequency, Duration) Notes Start Date End Date Status Omeprazole 20 MG TAKE 2 CAPSULES 30 M INUTES BEFORE MORNING MEAL ORALLY ONCE A DAY 30 DAYS 90 Active Ferrous Sulfate 324 (65 Fe) MG TAKE 1 TABLET BY MOUTH EVERY DAY Active Immunizations Vaccine Route Administration Date Status Comme nts Influenza Vaccine Afluria IM Intramuscular 11/11/2024 Admi nistered Social History Tobacco Use: Social History Observation Description Date Details (start date - stop date) Never Smoker NA - NA Sex Assigned At : Social History Observation Description Sex Assigned At Male Tobacco Control (Standard) Question Answer Notes Tobacco use: Nonsmoker Additional Findings: Tobacco non-user Aggressive nonsmoker AUDIT-C (Standard) Question Answer Notes Did you have a drink containing alcohol in the p ast year? No Points 0 Interpretation Negative Vital Signs Temperature 99.5 degrees Fahrenheit 11/11/19 25 Blood pressure systolic 130 mm Hg 11/11/19 25 Blood pressure diastolic 74 mm Hg 025 Heart Rate 81 /min 11/11/2024 Height 63 in 11/11/2024 Weight 202 lbs 11/11/2024 BMI 35.78 kg/m2 11/11/2024 Encounters Encounter Location Date Provider Diagnosis Jessica Burnett III, MD [address] [place] [address] [place] [address] 11/11/2024 Jessica Burnett Radiculopathy, lumba r region M54.16 ; Encounter for immunization Z23 ; Obesity E66.9 ; ED (erectile dysfunction) N52.9 ; Iron deficiency E61.1 and Annual physical exam Z00.00 Assessments Encounter Date Diagnosis (ICD Code) Assessment Notes Treatment Notes Treatment Clinical Notes 11/11/2024 Radiculopathy, lumbar region (ICD-10 - M54.16) He continues to complain of discomfort in his lumbar spine that radiates into the buttocks. He has less intense pain in his lumbar spine with decreased range of motion. We will employ conservative regimen of heat, rest and ibuprofen. 11/11/2024 Encounter for immunization (ICD-10 - Z23) 11/11/2024 Obesity (ICD-10 - E66.9) 11/11/2024 ED (erectile dysfunction) (ICD-10 - N52.9) 11/11/2024 Iron deficiency (ICD-10 - E61.1) 11/11/2024 Annual physical exam (ICD-10 - Z00.00) Plan Of Treatment Medication Medication Name Sig Start Date Stop Date Notes Omeprazole 20 MG TAKE 2 CAPSULES 30 M INUTES BEFORE MORNING MEAL ORALLY ONCE A DAY 30 DAYS 90 Ferrous Sulfate 324 (65 Fe) MG TAKE 1 TA BLET BY MOUTH EVERY DAY Pending Test Test Name Order Date PROFILE, FASTING (COMPREHENSIVE METABOLI C) 11/11/2024 PROFILE, RANDOM (COMPREHENSIVE METABOLIC ) 11/11/2024 PSA, TOTAL 11/11/2024 CBC WITH AUTO DIFF 11/11/2024 Lipid Panel 11/11/2024 Next Appt Details Follow Up: 3 Months, Reason: OV Provider Name:Jessica Burnett, 02/10/2025 09:30:00 AM, [address] [facility] [address], [place], [address], Provider Name:Jessica Burnett, 11/12/2025 10:00:00 AM, [address] [facility] [address], [place], [address], Progress Notes * Hugo GARCIAOB:1965 (59 yo M)Acc No.[id number]:11/11/2024 Progress Notes Patient:?GARCIASisJann Provider:?Jessica Burnett MD :1965???Age:59 Y???Sex:Male Andre e:11/11/2024 [facility] [place] Subjective: * Chief Complaints: * ???1. Annual exam. * HPI: ???Depression Screening:?PHQ-9?Little interest or pleasure in doing things?Not at all ?Feeling down, depressed, or hopeless?Not at all ?Trouble falling or staying asleep, or sleeping too much?More than half the days ?Feeling tired or having little energy?Not at all ?Poor appetite or overeating?Not at all ?Feeling bad about yourself or that you are a failure, or have let yourself or your family down?Not at all ?Trouble concentrating on things, such as reading the newspaper or watching television?Not at all ?Moving or speaking so slowly that other people could have noticed; or the opposite, being so fidgety or restless that you have been moving around a lot more than usual?Not at all ?Thoughts that you would be better off or of hurting yourself in some way?Not at all ?Total Score?2 ?Interpretation?Minimal Depression ???COVID-19 Screening:?Questions?Have you had any new onset fever, chills, cough, congestion, sore throat, shortness of breath, muscle aches??No ???Fall Risk Screening:?Fall History?Have you had any falls with injury in the past year??No ?Have you had two or more falls in the past year??No ?Fall Risk Assessment:?SDOH Questions:?SDOH Questions?In the past year have you been worried about losing your housing??No ?In the past year have you or any family members you live with been unable to get any of the following when it was really needed? Check all that apply:?Decline to answer * ROS:?General/Constitutional:?pain?only normal aches and pains.?Chills?denies.?Fatigue?admits.?Fever?denies.?ENT:?Decreased hearing?denies.?Respiratory:?Cough?denies.?Cardiovascular:?Chest pain with exertion?denies.?Dyspnea on exertion?denies.?Shortness of breath?denies.?Gastrointestinal:?Constipation?denies.?Decreased appetite?denies.?Diarrhea?denies.?Heartburn?denies.?Nausea?denies.?Rectal bleeding?denies.?Vomiting?denies.?Hematology:?bruising?denies.?petechiae?denies.?Swollen glands?none have been noted.?Genitourinary:?Frequent urination?denies.?Musculoskeletal:?Muscle aches?denies.?Painful joints?denies.?Sciatica?denies.?Weakness?denies.?Skin:?Itching?denies.?Rash?denies.?Skin lesion(s)?denies.?Neurologic:?Difficulty speaking?denies.?Dizziness?denies.?Headache?denies.?Low back pain?denies.?Psychiatric:?Depressed mood?denies.? * Medical History:?Shoulder im pingement syndrome, Obesity, Hypertension, Erectile dysfunction, Chronic back pain, Low testosterone level, DJD lumbar spine with foraminal narrowing 2012 MRI [facility], Lumbar radiculopathy, Hearing loss, Anemia, 09/22/2020 DVT right brachial vein, Right inguinal hernia. * Surgical History:?spinal fus ion x 4 L4-S1 , colonoscopy , posterior decompresson L4-L5 , caudal epidural injection LSS 12/2012, removal of cyst in back 10/2018. * Hospitalization/Major Diagno stic Procedure:?back pain 04/2019. * Family History:?Father: dece ased, asthma, cardiac disease, alzheimer's dementia, diagnosed with CVD.?Mother: , diagnosed with DM.?3 brother(s) , 2 sister(s) - healthy. 2 son(s) , 2 daughter(s) - healthy. .? His mother is diabetic and his father has CAD and asthma. * Social History:?Tobacco Use:?Tobacco Control (Standard)?Tobacco use:?Nonsmoker ?Additional Findings: Tobacco non-user?Aggressive nonsmoker ???Drugs/Alcohol:?Drugs?Have you used drugs other than those for medical reasons in the past 12 months??No ???Drug/Alcohol:?AUDIT-C (Standard)?Did you have a drink containing alcohol in the past year??No ?Points?0 ?Interpretation?Negative ???He drinks socially and does not smoke. He is and sexually active. * Medications:?Taking Omeprazo le 20 MG Capsule Delayed Release TAKE 2 CAPSULES 30 MINUTES BEFORE MORNING MEAL ORALLY ONCE A DAY 30 DAYS 90 , Taking Ferrous Sulfate 324 (65 Fe) MG Tablet Delayed Release TAKE 1 TABLET BY MOUTH EVERY DAY , Medication List reviewed and reconciled with the patient * Allergies:?No Known Drug All ergy. Objective: * Vitals:?Ht: 63, Wt: 202, BMI :35.78, BP: 130/74, HR: 81, Temp: 99.5, Wt-k.63. * ???Past Orders: Lab:Complete Blood Count Aut o Diff * Collection Date 11/04/2024 06/25/2024 10/27/2023 Collection Time 09:33 AM 10:16 AM 09:06 AM Order Date 11/04/2024 06/25/2024 10/27/2023 White Blood Count 5.5 (Ref Range: 4.8-10.8 X10*3/uL) 7.0 (Ref Range: 4.8-10.8 X10*3/uL) 6.8 (Ref Range: 4.8-10.8 X10*3/uL) Red Blood Count 5.06 (Ref Range: 4.60-5.80 X10*6/uL) 5.12 (Ref Range: 4.60-5.80 X10*6/uL) 5.11 (Ref Range: 4.60-5.80 X10*6/uL) Hemoglobin 14.5 (Ref Range: 14.0-18.0 g/dl) 14.8 (Ref Range: 14.0-18.0 g/dl) 14.5 (Ref Range: 14.0-18.0 g/dl) Hematocrit 44.4 (Ref Range: 42.0-52.0 %) 45.5 (Ref Range: 42.0-52.0 %) 45.3 (Ref Range: 42.0-52.0 %) Mean Corpuscular Volume 87.7 (Ref Range: 80.0-98.0 fL) 88.9 (Ref Range: 80.0-98.0 fL) 88.6 (Ref Range: 80.0-98.0 fL) Mean Corpuscular Hemoglobin 28.7 (Ref Range: 27.0-33.0 pg) 28.9 (Ref Range: 27.0-33.0 pg) 28.4 (Ref Range: 27.0-33.0 pg) Mean Corpuscular HGB Conc 32.7 (Ref Range: 31.0-36.0 g/dl) 32.5 (Ref Range: 31.0-36.0 g/dl) 32.0 (Ref Range: 31.0-36.0 g/dl) Red Cell Distribution Width 13.7 (Ref Range: 11.0-16.0 %) 13.8 (Ref Range: 11.0-16.0 %) 13.8 (Ref Range: 11.0-16.0 %) Platelet Count 270 (Ref Range: 160-400 X10*3/uL) 287 (Ref Range: 160-400 X10*3/uL) 308 (Ref Range: 160-400 X10*3/uL) Mean Platelet Volume 9.3?L (Ref Range: 9.4-12.4 fL) 9.6 (Ref Range: 9.4-12.4 fL) 9.6 (Ref Range: 9.4-12.4 fL) Neutrophils Percent Auto 47.4 (Ref Range: 45-73 %) 47.6 (Ref Range: 45-73 %) 51.3 (Ref Range: 45-73 %) Imm Gran Pct Auto 0.0 (Ref Range: 0.0-0.4 %) 0.1 (Ref Range: 0.0-0.4 %) 0.1 (Ref Range: 0.0-0.4 %) Lymphocytes Percent Auto 41.0?H (Ref Range: 20-40 %) 41.2?H (Ref Range: 20-40 %) 38.1 (Ref Range: 20-40 %) Monocytes Percent Auto 7.6 (Ref Range: 2-11 %) 6.0 (Ref Range: 2-11 %) 6.2 (Ref Range: 2-11 %) Eosinophils Percent Auto 3.1 (Ref Range: 0-4 %) 4.5?H (Ref Range: 0-4 %) 3.7 (Ref Range: 0-4 %) Basophils Percent Auto 0.9 (Ref Range: 0-2 %) 0.6 (Ref Range: 0-2 %) 0.6 (Ref Range: 0-2 %) NRBC Pct Auto 0.0 (Ref Range: 0.0-0.2 /100WBC) 0.0 (Ref Range: 0.0-0.2 /100WBC) 0.0 (Ref Range: 0.0-0.2 /100WBC) Neutrophils Absolute Auto 2.6 (Ref Range: 2.0-8.3 x10*3/uL) 3.3 (Ref Range: 2.0-8.3 x10*3/uL) 3.5 (Ref Range: 2.0-8.3 x10*3/uL) Imm Gran Abs Auto 0.00 (Ref Range: 0.00-0.03 X10*3/uL) 0.01 (Ref Range: 0.00-0.03 X10*3/uL) 0.01 (Ref Range: 0.00-0.03 X10*3/uL) Lymphocytes Absolute Auto 2.3 (Ref Range: 1.2-4.9 X10*3/uL) 2.9 (Ref Range: 1.2-4.9 X10*3/uL) 2.6 (Ref Range: 1.2-4.9 X10*3/uL) Monocytes Absolute Auto 0.4 (Ref Range: 0.1-1.2 X10*3/uL) 0.4 (Ref Range: 0.1-1.2 X10*3/uL) 0.4 (Ref Range: 0.1-1.2 X10*3/uL) Eosinophils Absolute Auto 0.2 (Ref Range: 0.0-0.4 X10*3/uL) 0.3 (Ref Range: 0.0-0.4 X10*3/uL) 0.3 (Ref Range: 0.0-0.4 X10*3/uL) Basophils Absolute Auto 0.1 (Ref Range: 0.0-0.2 X10*3/uL) 0.0 (Ref Range: 0.0-0.2 X10*3/uL) 0.0 (Ref Range: 0.0-0.2 X10*3/uL) NRBC Abs Auto 0.000 (Ref Range: 0.0-0.012 X10*3/uL) 0.000 (Ref Range: 0.0-0.012 X10*3/uL) 0.000 (Ref Range: 0.0-0.012 X10*3/uL) * Lab:Comprehensive Met. Panel * Collection Date 11/04/2024 10/27/2023 10/24/2022 Collection Time 09:33 AM 09:06 AM 09:19 AM Order Date 11/04/2024 10/27/2023 10/24/2022 Sodium 142 (Ref Range: 135-145 mmol/L) 143 (Ref Range: 135-145 mmol/L) 140 (Ref Range: 135-145 mmol/L) Bilirubin Total 3.1?H (Ref Range: 0.0-1.0 mg/dL) 1.8?H (Ref Range: 0.0-1.0 mg/dL) 0.5 (Ref Range: 0.0-1.0 mg/dL) Aspartate Amino Transferase 23 (Ref Range: 5-37 U/L) 19 (Ref Range: 5-37 U/L) 16 (Ref Range: 5-37 U/L) Alanine Aminotransferase 21 (Ref Range: 0-40 U/L) 15 (Ref Range: 0-40 U/L) 15 (Ref Range: 0-40 U/L) Total Protein 7.9 (Ref Range: 6.5-8.0 g/dL) 7.8 (Ref Range: 6.5-8.0 g/dL) 7.9 (Ref Range: 6.5-8.0 g/dL) Albumin Level 4.3 (Ref Range: 3.5-5.0 g/dL) 4.1 (Ref Range: 3.5-5.0 g/dL) 4.2 (Ref Range: 3.5-5.0 g/dL) Alkaline Phosphatase 59 (Ref Range: 39-117 U/L) 57 (Ref Range: 39-117 U/L) 69 (Ref Range: 39-117 U/L) Potassium 4.2 (Ref Range: 3.3-5.1 mmol/L) 4.9 (Ref Range: 3.3-5.1 mmol/L) 5.1 (Ref Range: 3.3-5.1 mmol/L) Chloride 105 (Ref Range: 96-108 mmol/L) 104 (Ref Range: 96-108 mmol/L) 102 (Ref Range: 96-108 mmol/L) Carbon Dioxide 32?H (Ref Range: 22-29 mmol/L) 31?H (Ref Range: 22-29 mmol/L) 30?H (Ref Range: 22-29 mmol/L) Anion Gap 9?L (Ref Range: 12-20) 13 (Ref Range: 12-20) 13 (Ref Range: 12-20) Blood Urea Nitrogen 20?H (Ref Range: 9-16 mg/dL) 15 (Ref Range: 9-16 mg/dL) 11 (Ref Range: 9-16 mg/dL) Creatinine 0.90 (Ref Range: 0.5-1.4 mg/dL) 0.85 (Ref Range: 0.5-1.4 mg/dL) 0.80 (Ref Range: 0.5-1.4 mg/dL) Estimated Glomerular Filt Rate > 60 > 60 > 60 Glucose Random 146?H (Ref Range: 60-115 mg/dL) 121?H (Ref Range: 60-115 mg/dL) 103 (Ref Range: 60-115 mg/dL) Calcium 9.5 (Ref Range: 8.4-10.2 mg/dL) 9.9 (Ref Range: 8.4-10.2 mg/dL) 9.6 (Ref Range: 8.4-10.2 mg/dL) * Lab:Ferritin * Collection Date 11/04/2024 06/25/2024 01/31/2021 Collection Time 09:33 AM 10:16 AM 10:42 AM Order Date 11/04/2024 06/25/2024 01/31/2021 Ferritin 48 (Ref Range: 20-250 ng/mL) 25 (Ref Range: 20-250 ng/mL) 6?L (Ref Range: 20-250 ng/mL) * Examination: ???General Examination: ?GENERAL APPEARANCE:?pleasant, well nourished, well developed, in no acute distress, calm and relaxed.?HEAD:?atraumatic, normocephalic.?EYES:?eomi, perrla, anicteric, conjugate.?EARS:?normal.?NOSE:?septum intact.?ORAL CAVITY:?normal, unremarkable.?NECK/THYROID:?no jugular venous distention, no carotid bruit, thyroid normal.?LYMPH NODES:?no enlarged lymph nodes,spleen normal.?SKIN:?no suspicious lesions, anicteric.?HEART:?no clicks, gallops, murmurs, or rubs, regular rhythm, S1, S2 normal, no s3, or vascular bruits.?LUNGS:?clear to auscultation .?BREASTS:??no masses palpable bilaterally.?ABDOMEN:?bowel sounds normal, no ascites, no organomegaly, no mass.?RECTAL EXAM:?not examined.?MUSCULOSKELETAL:?extremities unremarkable, no clubbing, cyanosis or edema.?PERIPHERAL PULSES:?normal.?NEUROLOGIC:?alert and oriented, cranial nerves 2-12 grossly intact, deep tendon reflexes 2+ symmetrical, motor strength normal upper and lower extremities, sensory exam intact.?PSYCH:?alert, oriented.? Assessment: * Assessment: 1.?Encounter for immunizatio n - Z23 (Primary)???2.?Radiculopathy, lumbar region - M54.16???Notes :He continues to complain of discomfort in his lumbar spine that radiates into the buttocks. He has less intense pain in his lumbar spine with decreased range of motion. We will employ conservative regimen of heat, rest and ibuprofen.???3.?Obesity - E66.9???4.?ED (erectile dysfunction) - N52.9???5.?Iron deficiency - E61.1???6.?Annual physical exam - Z00.00??? Plan: * Treatment: 2.?Obesity?LAB: PROFILE, FASTING (COMPREHENSIVE METABOLIC) ?LAB: PROFILE, RANDOM (COMPREHENSIVE METABOLIC) ?LAB: PSA, TOTAL ?LAB: CBC WITH AUTO DIFF ?LAB: Lipid Panel 3.?ED (erectile dysfunction) ?LAB: PROFILE, FASTING (COMPREHENSIVE METABOLIC) ?LAB: PROFILE, RANDOM (COMPREHENSIVE METABOLIC) ?LAB: PSA, TOTAL ?LAB: CBC WITH AUTO DIFF ?LAB: Lipid Panel 4.?Iron deficiency?LAB: PROFILE, FASTING (COMPREHENSIVE METABOLIC) ?LAB: PROFILE, RANDOM (COMPREHENSIVE METABOLIC) ?LAB: PSA, TOTAL ?LAB: CBC WITH AUTO DIFF ?LAB: Lipid Panel 5.?Annual physical exam?LAB: PROFILE, FASTING (COMPREHENSIVE METABOLIC) ?LAB: PROFILE, RANDOM (COMPREHENSIVE METABOLIC) ?LAB: PSA, TOTAL ?LAB: CBC WITH AUTO DIFF ?LAB: Lipid Panel ?LAB: URINE DIP STICK (Collection Date & Time - 11/11/2024) ? Value Reference Range ?SG 1.020 1.005 - 1.025 * ?pH 6.0 5.0 - 9.0 * ?JAIDA Neg Negative - * ?NIT Neg Negative - * ?PRO 15 Negative - Trac e * ?GLU Neg Negative - * ?KET 5 Negative - * ?UBG 0.2 0.1 - 1.8 * ?ELEANOR Neg 0.2 - 1.3 * ?BLD Positive Negative - * ?Menstrating N/A 6.?Others? Continue Omeprazole Capsule Delayed Release, 20 MG, TAKE 2 CAPSULES 30 MINUTES BEFORE MORNING MEAL ORALLY ONCE A DAY 30 DAYS 90.?? * Immunizations:? Influenza Vaccine Afluria : 0.5 mL (Dose No:1) (Route: Intramuscular) given by Rich Harrison on Right Deltoid (Encounter for immunization) ???Immunization record has been reviewed and updated. * Procedure Codes:?58751 CCIIV 4 VAC NO PRSV 0.5 ML IM, [address]38 URINE-NO MICRO, 65931 FLU VACC 4 LORENZO 3 YRS PLUS IM * Preventive Medicine:? ??Counseling:?Care goal follow-up plan:?Counseling [...] not done * Follow Up:?3 Months (Reason: OV) * Images: * The named appointment provid er may or may not be the originator of this progress note, and it is not deemed complete until electronically signed by the appointment provider. Sign off status: Pending * Provider:?Jessica Burnett MD Date:?10/23 Generated for Jordy roberts/Basilio/Coryitting on:?11/11/2024 12:05 PM EST History and Physical Notes * HPI (History of Present Illness) Category Sub-Category Detail Notes Depression Screening PHQ-9 Little inte rest or pleasure in doing things: Not at all Feeling down, depressed, or hopeless: No t at all Trouble falling or staying a sleep, or sleeping too much: More than half the days Feeling tired or having little energy: N ot at all Poor appetite or overeating: Not at all Feeling bad about yourself o r that you are a failure, or have let yourself or your family down: Not at all Trouble concentrating on thi ngs, such as reading the newspaper or watching television: Not at all Moving or speaking so slowly that other people could have noticed; or the opposite, being so fidgety or restless that you have been moving around a lot more than usual: Not at all Thoughts that you would be b yaw off or of hurting yourself in some way: Not at all Total Score: 2 Interpretation: Minimal Depression Fall Risk Screening Fall History Have you had any falls with injury in the past year?: No Have you had two or more falls in the st year?: No Fall Risk Assessment:: COVID-19 Screening Questions Have you had any new onset fever, chills, cough, congestion, sore throat, shortness of breath, muscle aches?: No SDOH Questions SDOH Questions In the past year have you been worried about losing your housing?: No In the past year have you or any family members you live with been unable to get any of the following when it was really needed? Check all that apply:: Decline to answer Examination Category Sub-Category Detail Notes General Examination GENERAL APPEARANCE: pleasant , well nourished, well developed, in no acute distress, calm and relaxed HEAD: atraumatic, normocep halic EYES: eomi, perrla, anicte shania, conjugate EARS: normal NOSE: septum intact NECK/THYROID: no jugular venous di stention, no carotid bruit, thyroid normal HEART: no clicks, gallops, murmurs, or rubs, regular rhythm, S1, S2 normal, no s3, or vascular bruits LUNGS: clear to auscultatio n ABDOMEN: bowel sounds normal, no ascites, no organomegaly, no mass NEUROLOGIC: alert and oriented, cranial nerves 2-12 grossly intact, deep tendon reflexes 2+ symmetrical, motor strength normal upper and lower extremities, sensory exam intact SKIN: no suspicious lesion s, anicteric PERIPHERAL PULSES: normal BREASTS: no masses palpable b ilaterally MUSCULOSKELETAL: extremities unremark able, no clubbing, cyanosis or edema LYMPH NODES: no enlarged lymph no erika,spleen normal RECTAL EXAM: not examined PSYCH: alert, oriented ORAL CAVITY: normal, unremarkable
--- OUTSIDE RECORDS SUMMARY | 2024-11-11 12:06 | XMS_ITS ---
Author Organization Jessica Burnett III, MD Address [address] [place] [address] Care Team Providers Care Children'S Program Coordinator Name Role Phone Jessica Burnett Primary Care Provider [phone] Allergies Allergen (clinical drug ingredient) Drug/Non Drug Allergy documented on EMR Reaction Allergy Type Onset Date Status No Known Drug Allergy Unknown Drug Allergy Active REASON FOR VISIT Right lower quadrant abdominal pain, Inguinal hernia, Lumbar radiculopathy Medications Medication SIG (Take, Route, Frequency, Duration) Notes Start Date End Date Status Omeprazole 20 MG TAKE 2 CAPSULE 30 LA NUTES BEFORE MORNING MEAL ORALLY ONCE A [...] Date Provider Diagnosis Jessica Burnett III, MD [address] [place] [address] [place] [address] 05/02/2024 Jessica Burnett Radiculopathy, lumba r region [...] Omeprazole 20 MG TAKE 2 CAPSULE 30 LA NUTES BEFORE MORNING MEAL ORALLY ONCE A DAY 30 DAYS Ferrous Sulfate 324 (65 Fe) MG TAKE 1 TA BLET BY MOUTH EVERY DAY Next Appt Details Follow Up: 3 Months, Reason: Office visit Provider Name:Jessica Burnett, 02/10/2025 09:30:00 AM, [address] [place] [address] [place] [place], [place], [address], Provider Name:Jessica Burnett, 11/12/2025 10:00:00 AM, [address] [facility] [address], [place], [address], Progress Notes * Hugo GARCIAOB:1965 (59 yo M)Acc No.[id number]:05/02/2024 Progress Notes Patient:?Jann Garcia Provider:?Jessica Burnett MD :1965???Age:59 Y???Sex:Male Andre e:05/02/2024 [id number] Subjective: * Chief Complaints: * ???Right lower [...] * Provider:?Jessica Burnett MD Date:?04/21 Generated for Printi ng/Tashag/eTransmitting on:?11/11/2024 12:05 PM EST History and Physical [...]
--- OUTSIDE RECORDS SUMMARY | 2024-11-11 12:06 | XMS_ITS ---
Author Organization Jessica Burnett III, MD Address [address] [place] [address] Care Team Providers Care Device Sales Consultant Name Role Phone Jessica Burnett Primary Care [...] Date Provider Diagnosis Jessica Burnett III, MD [address] [place] [address] [address] [place], [place] [address] 07/08/2024 Jessica Burnett Radiculopathy, lumba r region [...] Urmila son: OV, Annual Exam Provider Name:Jessica Brunett, 02/10/2025 09:30:00 AM, [address] [facility] [address], [place], [address], Provider Name:Jessica Burnett, 11/12/2025 10:00:00 AM, [address] [place] [address] [address], [place], [address], Progress Notes * Hugo GARCIAOB:1965 (59 yo M)Acc No.[id number]:07/08/2024 Progress Notes Patient:?Jann Garcia Provider:?Jessica Burnett MD :1965???Age:59 Y???Sex:Male Andre e:07/08/2024 [id number] Subjective: * Chief Complaints: * ???Right inguinal [...] Burnett MD Date:?06/22 Generated for Jordy roberts/Basilio/Gemini on:?11/11/2024 12:05 PM EST History and Physical Notes * HPI (History of Present Illness) Category Sub-Category Detail Notes COVID-19 Screening Questions Have you had any new onset fever, chills, cough, congestion, sore throat, shortness of breath, muscle aches?: No Have you been exposed to the virus withi n the last 10 days?: No [facility] you [facility]?: No Have you [...]
[2024-11-11 13:04] LABS: MANUAL DIFF FLAG NO
[2024-11-11 13:09] LABS: Basophils Percent Auto 0.8 % (0-2); Eosinophils Absolute Auto 0.2 X10*3/uL (0.0-0.4); Eosinophils Percent Auto 3.8 % (0-4); Hematocrit 43.7 % (42.0-52.0); Hemoglobin 14.3 g/dl (14.0-18.0); Imm Gran Abs Auto 0.01 X10*3/uL (0.00-0.03); Imm Gran Pct Auto 0.2 % (0.0-0.4); Lymphocytes Absolute Auto 2.2 X10*3/uL (1.2-4.9); Lymphocytes Percent Auto 40.4 % (20-40); Mean Corpuscular HGB Conc 32.7 g/dl (31.0-36.0); Mean Corpuscular Hemoglobin 28.9 pg (27.0-33.0); Mean Corpuscular Volume 88.3 fL (80.0-98.0); Mean Platelet Volume 9.9 fL (9.4-12.4); Monocytes Absolute Auto 0.4 X10*3/uL (0.1-1.2); Monocytes Percent Auto 6.8 % (2-11); Neutrophils Absolute Auto 2.6 x10*3/uL (2.0-8.3); Platelet Count 261 X10*3/uL (160-400); Red Blood Count 4.95 X10*6/uL (4.60-5.80); Red Cell Distribution Width 13.5 % (11.0-16.0); White Blood Count 5.3 X10*3/uL (4.8-10.8)
[2024-11-11 13:17] LABS: Alanine Aminotransferase 21 U/L (0-40); Albumin Level 4.2 g/dL (3.5-5.0); Alkaline Phosphatase 57 U/L (39-117); Anion Gap 10 (12-20); Aspartate Amino Transferase 26 U/L (5-37); Bilirubin Total 2.2 mg/dL (0.0-1.0); Blood Urea Nitrogen 18 mg/dL (9-16); Calcium 9.1 mg/dL (8.4-10.2); Carbon Dioxide 31 mmol/L (22-29); Chloride 103 mmol/L (96-108); Estimated Glomerular Filt Rate > 60; Glucose Random 128 mg/dL (60-115); Potassium 4.2 mmol/L (3.3-5.1); Sodium 140 mmol/L (135-145)
== END 2024-11-11 10:40 | disposition home or self-care (01) ==
LOC: HO.10HDL 10:39
PROVIDERS: Visit Provider Internal Medicine Medical Oncology
DX: Z00.00 Encounter for general adult medical examination without abnormal findings (principal); E66.9 Obesity, unspecified; N52.9 Male erectile dysfunction, unspecified; E61.1 Iron deficiency
CPT/HCPCS: 36415; 80053; 85025

== ENCOUNTER 2025-02-04 08:12 | Outpatient (REF) | payer MEDICARE, SELFPAY ==
--- OUTSIDE RECORDS SUMMARY | 2025-02-04 08:20 | XMS_ITS ---
Author Organization Jessica Burnett III, MD Address [address] [place] [address] Care Team Providers [facility] Cutter Name Role Phone Jessica Burnett Primary Care Provider [phone] Allergies Allergen (clinical drug ingredient) Drug/Non Drug [...] ast year? No Points 0 Interpretation Negative Problems Problem Type SNOMED Code ICD Code Onset Dates Problem Status W/U Status Risk Notes Problem 65346544 Elevated bilirubin (R17) Active confirmed His bilirubi n was 3.9. This value will be repeated and evaluated is still elevated. Problem 56440384 Hyperglycemia (R73.9) Active confirmed His fasting glucose is 146. This will be repeated with a hemoglobin A1c. Vital Signs Temperature 99.5 degrees Fahrenheit 11/11/19 25 Blood pressure systolic 130 mm Hg 11/11/19 25 Blood pressure diastolic 74 mm Hg 025 Heart Rate 81 /min 11/11/2024 Height 63 in 11/11/2024 Weight 202 lbs 11/11/2024 BMI 35.78 kg/m2 11/11/2024 Encounters Encounter Location Date Provider Diagnosis Jessica Burnett III, MD [address] [place] [address] [place] [address] 11/11/2024 Jessica Burnett Radiculopathy, lumba r region M54.16 ; Encounter for immunization Z23 ; Obesity E66.9 ; Iron deficiency E61.1 ; Elevated bilirubin R17 ; Hypertension I10 ; Hearing loss H91.90 ; Shoulder impingement syndrome M75.40 ; Chronic GERD K21.9 and Hyperglycemia R73.9 Assessments Encounter Date Diagnosis (ICD Code) Assessment Notes Treat ment Notes Treatment Clinical Notes 11/11/2024 Radiculopathy, lumbar region (ICD-10 - M54.16) He continues to complain of discomfort in his lumbar spine that radiates into the buttocks. He has less intense pain in his lumbar spine with decreased range of motion. We will employ conservative regimen of heat, rest and ibuprofen. 11/11/2024 Encounter for immunization (ICD-10 - Z23) He received influenza vaccine today without difficulty and tolerated it well. 11/11/2024 Obesity (ICD-10 - E66.9) He has gained 2 pounds in his body mass index is 35.78. We discussed drug therapy, diet, nutrition weight loss programs etc. We made a plan to lose weight at a rate of one half of a pound per week. 11/11/2024 Iron deficiency (ICD-10 - E61.1) His mean cell volume is normal and his ferritin is 48. His iron was continued. 11/11/2024 Elevated bilirubin (ICD-10 - R17) His bilirubin was 3.9. This value will be repeated and evaluated is still elevated. 11/11/2024 Hypertension (ICD-10 - I10) His blood pressure is stable. I have strongly recommended aggressive weight loss with regular exercise and sodium restriction. 11/11/2024 Hearing loss (ICD-10 - H91.90) He has mild hearing loss. He does not wish to have amplification her ENT evaluation at this time. He is able to function without impairment in daily life.. 11/11/2024 Shoulder impingement syndrome (ICD-10 - M75.40) He has a nerve impingement left arm and I have referred him back to orthopedics. 11/11/2024 Chronic GERD (ICD-10 - K21.9) This discomfort has resolved and his current therapy was continued. 11/11/2024 Hyperglycemia (ICD-10 - R73.9) His fasting glucose is 146. This will be repeated with a hemoglobin A1c. Plan Of Treatment Medication Medication Name Sig [...] OV Provider Name:Jessica Burnett, 02/10/2025 09:30:00 AM, [address] [place] [address] [place] [place], [place], [id number], Provider Name:Jessica Burnett, 11/12/2025 10:00:00 AM, [address] [place] [address] [place], [place], [id number], Progress Notes * Hugo GARCIAOB:1965 (59 yo M)Acc No.[id number]:11/11/2024 Progress Notes Patient:?Jann GARCIA Provider:?Jessica Burnett MD :1965???Age:59 Y???Sex:Male Andre e:11/11/2024 Address: [address], [facility], [id number] Subjective: * Chief Complaints: * ???Annual exam * HPI: ???Depression Screening:?PHQ-9?Little interest or pleasure [...] needed? Check all that apply:?Decline to answer ???:? The patient, a 59-year-old male, has been experiencing chronic back pain, which he describes as bothersome but manageable. The pain appears to be constant, located in the back, and of a dull nature. The patient also reported a previous abdominal pain which has since resolved. He mentioned a past issue with heartburn, but this has been controlled with medication. The patient also reported knee pain and difficulty sleeping due to discomfort. He has a history of hearing loss, for which he has hearing aids but does not regularly use. He also reported allergies, but the specific allergen was not identified. The patient's vitals were not self-reported. * ROS:?General/Constitutional:?pain?Low back and knees, otherwise only normal aches and pains.?Chills?denies.?Fatigue?admits.?Fever?denies.?ENT:?Decreased hearing?denies.?Respiratory:?Cough?denies.?Cardiovascular:?Chest pain with exertion?denies.?Dyspnea on exertion?denies.?Shortness of breath?denies.?Gastrointestinal:?Admits?Abdominal pain.?Constipation?occasional.?Decreased appetite?denies.?Diarrhea?denies.?Heartburn?denies.?Nausea?denies.?Rectal bleeding?denies.?Vomiting?denies.?Hematology:?bruising?denies.?petechiae?denies.?Swollen glands?none have been noted.?Genitourinary:?Frequent urination?once a night.?Musculoskeletal:?Muscle aches?denies.?Painful joints?denies.?Sciatica?denies.?Weakness?denies.?Skin:?Itching?denies.?Rash?denies.?Skin lesion(s)?denies.?Neurologic:?Difficulty speaking?denies.?Dizziness?denies.?Headache?denies.?Low back pain?that is chronic.?Psychiatric:?Depressed mood?denies.? * Medical History:? * Surgical History:?spinal fus ion x 4 L4-S1 colonoscopy posterior decompresson L4- L5 caudal epidural injection LSS 12/2012removal of cyst in back 10/2018No history * Hospitalization/Major Diagno stic Procedure:?back pain 04/2019No history * Family History:?Father: dece ased, asthma, cardiac [...] smoke. He is and sexually active. * Medications:?TakingOmeprazol e 20 MG Capsule Delayed Release TAKE 2 CAPSULES 30 MINUTES BEFORE MORNING MEAL ORALLY ONCE A DAY 30 DAYS 90 Ferrous Sulfate 324 (65 Fe) MG Tablet Delayed Release TAKE 1 TABLET BY MOUTH EVERY DAY Medication List reviewed and reconciled with the patientTaking Omeprazole 20 MG Capsule Delayed Release TAKE 2 CAPSULES 30 MINUTES BEFORE MORNING MEAL ORALLY ONCE A DAY 30 DAYS 90 Taking Ferrous Sulfate 324 (65 Fe) MG Tablet Delayed Release TAKE 1 TABLET BY MOUTH EVERY DAY Medication List reviewed and reconciled with the patient * Allergies:?No Known Drug All ergyno[Allergies Verified] Objective: * Vitals:?Ht: 63, Wt: 202, BMI [...] developed, in no acute distress, calm and relaxed, obese, man.?HEAD:?atraumatic, normocephalic.?EYES:?eomi, perrla, anicteric, conjugate.?EARS:?normal.?NOSE:?septum intact.?ORAL CAVITY:?normal, unremarkable.?NECK/THYROID:?no jugular venous distention, no carotid bruit, thyroid normal.?LYMPH NODES:?no enlarged lymph nodes,spleen normal.?SKIN:?no suspicious lesions, anicteric.?HEART:?no clicks, gallops, murmurs, or rubs, regular rhythm, S1, S2 normal, no s3, or vascular bruits.?LUNGS:?clear to auscultation .?BREASTS:??no masses palpable bilaterally.?ABDOMEN:?bowel sounds normal, no ascites, no organomegaly, no mass, centripital obesity.?RECTAL EXAM:?not examined.?MUSCULOSKELETAL:?extremities unremarkable, no clubbing, cyanosis or edema, No knee effusions, Mild decreased range of motion with pain lumbar spine.?PERIPHERAL PULSES:?normal.?NEUROLOGIC:?alert and oriented, cranial nerves 2-12 grossly intact, deep tendon reflexes 2+ symmetrical, motor strength normal upper and lower extremities, sensory exam intact.?PSYCH:?alert, oriented.? Assessment: * Assessment: 1.?Radiculopathy, lumbar reg ion - M54.16 (Primary)???Notes :He continues to complain of discomfort in his lumbar spine that radiates into the buttocks. He has less intense pain in his lumbar spine with decreased range of motion. We will employ conservative regimen of heat, rest and ibuprofen.???2.?Encounter for immunization - Z23???Notes :He received influenza vaccine today without difficulty and tolerated it well.???3.?Obesity - E66.9???Notes :He has gained 2 pounds in his body mass index is 35.78.? We discussed drug therapy, diet, nutrition weight loss programs etc.? We made a plan to lose weight at a rate of one half of a pound per week.???4.?Iron deficiency - E61.1???Notes :His mean cell volume is normal and his ferritin is 48.? His iron was continued.???5.?Elevated bilirubin - R17???Notes :His bilirubin was 3.9.? This value will be repeated and evaluated is still elevated.???6.?Hypertension - I10???Notes :His blood pressure is stable. I have strongly recommended aggressive weight loss with regular exercise and sodium restriction.???7.?Hearing loss - H91.90???Notes :He has mild hearing loss. He does not wish to have amplification her ENT evaluation at this time. He is able to function without impairment in daily life..???8.?Shoulder impingement syndrome - M75.40???Notes :He has a nerve impingement left arm and I have referred him back to orthopedics.???9.?Chronic GERD - K21.9???Notes :This discomfort has resolved and his current therapy was continued.???10.?Hyperglycemia - R73.9???Notes :His fasting glucose is 146.? This will be repeated with a hemoglobin A1c.??? Plan: * Treatment: 2.?Obesity?LAB: PROFILE, FASTING (COMPREHENSIVE METABOLIC) ?LAB: PROFILE, RANDOM (COMPREHENSIVE METABOLIC) ?LAB: PSA, TOTAL ?LAB: CBC WITH AUTO DIFF ?LAB: Lipid Panel 3.?Iron deficiency?LAB: PROFILE, FASTING (COMPREHENSIVE METABOLIC) ?LAB: PROFILE, RANDOM (COMPREHENSIVE METABOLIC) ?LAB: PSA, TOTAL ?LAB: CBC WITH AUTO DIFF ?LAB: Lipid Panel 4.?Others? Continue Omeprazole Capsule Delayed Release, 20 MG, TAKE 2 CAPSULES 30 MINUTES BEFORE MORNING MEAL ORALLY ONCE A DAY 30 DAYS 90.?? * Immunizations:? Influenza Vaccine Afluria : 0.5 mL (Dose No:1) (Route: Intramuscular) given by Rich Harrison on Right Deltoid (Encounter for immunization) ???Immunization record has been reviewed and updated. * Labs:? * ?Lab: URINE DIP STICK (C ollection Date & Time - 11/11/2024) ? Value [...] ?BLD Positive Negative - * ?Menstrating N/A * Procedure Codes:?95504 CCIIV 4 VAC NO PRSV 0.5 ML [id number] URINE-NO [id number] FLU VACC 4 LORENZO 3 YRS PLUS [...] Up:?3 Months (Reason: OV) * Images: * Sign off status: Completed true * Provider:?Jessica Burnett MD Date:?10/23 Generated for Jordy roberts/Basilio/eTransmitting on:?02/04/2025 08:20 AM EDT History and Physical Notes * HPI (History [...] developed, in no acute distress, calm and relaxed, obese, man HEAD: atraumatic, normocep halic EYES: eomi, perrla, anicte shania, conjugate EARS: normal NOSE: septum intact NECK/THYROID: no jugular venous di stention, no carotid bruit, thyroid normal HEART: no clicks, gallops, murmurs, or rubs, regular rhythm, S1, S2 normal, no s3, or vascular bruits LUNGS: clear to auscultatio n ABDOMEN: bowel sounds normal, no ascites, no organomegaly, no mass, centripital obesity NEUROLOGIC: alert and oriented, cranial nerves 2-12 grossly intact, deep tendon reflexes 2+ symmetrical, motor strength normal upper and lower extremities, sensory exam intact SKIN: no suspicious lesion s, anicteric PERIPHERAL PULSES: normal BREASTS: no masses palpable b ilaterally MUSCULOSKELETAL: extremities unremark able, no clubbing, cyanosis or edema, No knee effusions, Mild decreased range of motion with pain lumbar spine LYMPH NODES: no enlarged lymph no erika,spleen normal RECTAL EXAM: not examined PSYCH: alert, oriented ORAL CAVITY: normal, unremarkable
--- OUTSIDE RECORDS SUMMARY | 2025-02-04 08:20 | XMS_ITS | Patient Health Record ---
Author Organization Jessica Burnett III, MD Address [address] [place] [address] Care Team Providers Care Staff Developer Name Role Phone Jessica Burnett Primary Care [...] 1.3 BLD Positive Negative - Menstrating N/A SARS-CoV2/FLU/RSV Reviewed date:02/15/2024 08:47:43 PM Interpretation: Performing Lab:[facility], [address] [place] [phone] Notes/Report: Influenza A PCR POSITIVE Negative Influenza [...] by authorized laboratories. Testing performed on the [employer] GeneXpert utilizing real-time RT-PCR. All SARS CoV2 and positive influenza A/B results are reported to [facility]. XR chest 2V Reviewed date:02/15/2024 08:47:43 PM Interpretation: Performing Lab: Notes/Report: [address] [address] XRay Report Signed Patient: Jann Garcia MR#: [id number] 724 : 1965 Acct:[id number] Age/Sex: 58 / M ADM Date: 02/05/24 Loc: .ED Attending Dr: Ordering Physician: Generic ED Physician Date of Service: 02/05/24 Procedure(s): XR chest 2V Accession Number(s): [id number] cc: Jessica Burnett MD; Generic ED Physician [...] in OV> 02/05/24 1213 DD/ 1112 TD/TT: Decontamination Worker: [address] [address] XRay Report Signed Patient: Mak Garcia MR#: [id number] 724 : 1965 Acct:[id number] Age/Sex: 58 / M ADM Date: 02/05/24 Loc: .ED Attending Dr: Ordering Physician: Generic ED Physician Date of Service: 02/05/24 Procedure(s): XR [address] 2V Accession Number(s): [id number] cc: Jessica Burnett MD; Generic ED Physician [...] in OV> 02/05/24 1213 DD/ 1112 TD/TT: Decontamination Worker: VALENTE Complete Blood Count Auto Di ff Reviewed date:07/08/2024 10:08:54 AM Interpretation: Performing Lab:[facility], [address] [place] [address] Notes/Report: White Blood Count 7.0 4.8-10.8 X10*3/uL [...] NRBC Abs Auto 0.000 0.0-0.012 X10*3/uL Comprehensive [place]. Panel Fa st Reviewed date:07/08/2024 10:08:54 AM Interpretation: Performing Lab:[facility], [address] [place] [address] Notes/Report: Sodium 141 135-145 mmol/L Potassium 4.4 3.3-5.1 mmol/L Chloride 103 96-108 mmol/L Carbon Dioxide 30 22-29 mmol/L Anion Gap 12 12-20 Blood Urea Nitrogen 13 9-16 mg/dL Creatinine 0.83 0.5-1.4 mg/dL Estimated Glomerular Filt Rate > 60 NOTE: For -Slovenian individuals, multiply the result by 1.210. Chronic [...] Ferritin Reviewed date:07/08/2024 10:08:54 AM Interpretation: Performing Lab:[facility], [address] [place] [phone] Notes/Report: Ferritin 25 20-250 ng/mL Lipid Panel Reviewed date:07/08/2024 10:08:54 AM Interpretation: Performing Lab:[facility], [address] [place] [address] Notes/Report: Triglycerides 83 <150 mg/dL Desirable Triglyceride: [...] disease. Complete Blood Count Auto Di ff Reviewed date:11/06/2024 01:10:46 PM Interpretation: Performing Lab:[facility], [address] [place] [phone] Notes/Report: White Blood Count 5.5 4.8-10.8 X10*3/uL [...] NRBC Abs Auto 0.000 0.0-0.012 X10*3/uL Comprehensive Met. Panel Reviewed date:11/06/2024 01:10:46 PM Interpretation: Performing Lab:[facility], [address] [place] [address] Notes/Report: Sodium 142 135-145 mmol/L Potassium 4.2 3.3-5.1 mmol/L Chloride 105 96-108 mmol/L Carbon Dioxide 32 22-29 mmol/L Anion Gap 9 12-20 Blood Urea Nitrogen 20 9-16 mg/dL Creatinine 0.90 0.5-1.4 mg/dL Estimated Glomerular Filt Rate > 60 Chronic Kidney Disease: Estimated GFR < 60 mL/min/1.73m2 Severe Kidney Disease: Estimated GFR < 15 mL/min/1.73m2 Glucose Random 146 60-115 mg/dL Calcium 9.5 8.4-10.2 mg/dL Bilirubin Total 3.1 0.0-1.0 mg/dL Slight Icte karl. Aspartate Amino Transferase 23 5-37 U/L Alanine Aminotransferase 21 0-40 U/L Total Protein 7.9 6.5-8.0 g/dL Albumin Level 4.3 3.5-5.0 g/dL Alkaline Phosphatase 59 39-117 U/L Ferritin Reviewed date:11/06/2024 01:10:46 PM Interpretation: Performing Lab:[facility], [address] [place] [address] Notes/Report: Ferritin 48 20-250 ng/mL Complete Blood Count Auto Di ff (Not yet reviewed by provider) Interpretation: Performing Lab:[facility], [address] [place] [phone] Notes/Report: White Blood Count 5.3 4.8-10.8 X10*3/uL Red Blood Count 4.95 4.60-5.80 X10*6/uL Hemoglobin 14.3 14.0-18.0 g/dl Hematocrit 43.7 42.0-52.0 % Mean Corpuscular Volume 88.3 80.0-98.0 fL Mean Corpuscular Hemoglobin 28.9 27.0-33.0 pg Mean Corpuscular HGB Conc 32.7 31.0-36.0 g/dl Red Cell Distribution Width 13.5 11.0-16.0 % Platelet Count 261 160-400 X10*3/uL Mean Platelet Volume 9.9 9.4-12.4 fL Neutrophils Percent Auto 48.0 45-73 % Imm Gran Pct Auto 0.2 0.0-0.4 % Lymphocytes Percent Auto 40.4 20-40 % Monocytes Percent Auto 6.8 2-11 % Eosinophils Percent Auto 3.8 0-4 % Basophils Percent Auto 0.8 0-2 % NRBC Pct Auto 0.0 0.0-0.2 /100WBC Neutrophils Absolute Auto 2.6 2.0-8.3 x10*3/u L Imm Gran Abs Auto 0.01 0.00-0.03 X10*3/uL Lymphocytes Absolute Auto 2.2 1.2-4.9 X10*3/u L Monocytes Absolute Auto 0.4 0.1-1.2 X10*3/uL Eosinophils Absolute Auto 0.2 0.0-0.4 X10*3/u L Basophils Absolute Auto 0.0 0.0-0.2 X10*3/uL NRBC Abs Auto 0.000 0.0-0.012 X10*3/uL Comprehensive Met. Panel (No t yet reviewed by provider) Interpretation: Performing Lab:[facility], [address] [place] [phone] Notes/Report: Sodium 140 135-145 mmol/L Potassium 4.2 3.3-5.1 mmol/L Chloride 103 96-108 mmol/L Carbon Dioxide 31 22-29 mmol/L Anion Gap 10 12-20 Blood Urea Nitrogen 18 9-16 mg/dL Creatinine 0.81 0.5-1.4 mg/dL Estimated Glomerular Filt Rate > 60 Chronic Kidney Disease: Estimated GFR < 60 mL/min/1.73m2 Severe Kidney Disease: Estimated GFR < 15 mL/min/1.73m2 Glucose Random 128 60-115 mg/dL Calcium 9.1 8.4-10.2 mg/dL Bilirubin Total 2.2 0.0-1.0 mg/dL Slight Icte karl. Aspartate Amino Transferase 26 5-37 U/L Alanine Aminotransferase 21 0-40 U/L Total Protein 8.0 6.5-8.0 g/dL Albumin Level 4.2 3.5-5.0 g/dL Alkaline Phosphatase 57 39-117 U/L Reason For Referral No Information Medications Medication [...] Administered Influenza, quad IM Intramuscular 08/22/2023 Administered COVID Pfizer Bivalent Unknown 07/28/2022 Administered Influenza Vaccine Afluria IM Intramuscular 11/11/2024 Admi [...] Problem Status W/U Status Risk Notes Problem 285888396 Obesity (E66.9) Active confirmed He has gained 2 pounds in his body mass index is 35.78. We discussed drug therapy, diet, nutrition weight loss programs etc. We made a plan to lose weight at a rate of one half of a pound per week. Problem 51331302 Hyperglycemia (R73.9) Active confirmed His fasting glucose is 146. This will be repeated with a hemoglobin A1c. Problem 70362730 Hypertension (I10) Active confirmed His blood pressure is stable. I have strongly recommended aggressive weight loss with regular exercise and sodium restriction. Problem 57714533 Iron deficiency (E61.1) Active confirmed His mean cell volume is normal and his ferritin is 48. His iron was continued. Problem 668844715 Radiculopathy, lumbar region (M54.16) Active confirmed He continues to complain of discomfort in his lumbar spine that radiates into the buttocks. He has less intense pain in his lumbar spine with decreased range of motion. We will employ conservative regimen of heat, rest and ibuprofen. Problem 71922952 Hearing loss (H91.90) Active confirmed He has mild hearing loss. He does not wish to have amplification her ENT evaluation at this time. He is able to function without impairment in daily life.. Problem 12051640 Pilonidal cyst (L05.91) Active confirmed . This lesion has completely healed and is not symptomatic at this time. Problem 894979802 DJD (degenerative joint disease) (M19.90) Active confirmed He continues to have recommended lumbar spine pain. He will continue on his current regimen. Problem 69153327 Vitamin D deficiency (E55.9) Active confirmed I continue to recommend he take 1000 units of vitamin D daily Problem 599211958 Shoulder impingement syndrome (M75.40) Active confirmed He has a nerve impingement left arm and I have referred him back to orthopedics. Problem 278313544 ED (erectile dysfunction) (N52.9) Active confirmed This problem rascon s been addressed with prescription medication. He says it is working. He remained generally care of urologist. Problem 353330367 Right inguinal hernia (K40.90) Active confirmed His symptoms are mild and he wants to observe this for a while to see how much of a nuisance it is. He was informed he could have it repaired or live with it. Follow-up visit was arranged. Problem 16514060 Elevated bilirubin (R17) Active confirmed His bilirubi n was 3.9. This value will be repeated and evaluated is still elevated. Problem 761226254 Chronic GERD (K21.9) Active confirmed This discomfort has resolved and his current therapy was continued. 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 His anticoagulation was discontinued today. Vital Signs Heart Rate 81 /min 11/11/2024 Temperature 99.5 degrees Fahrenheit 11/11/2024 Blood pressure diastolic 74 mm Hg 11/11/2024 Height 63 in 11/11/2024 Blood pressure systolic 130 mm Hg 11/11/2024 Weight 202 lbs 11/11/2024 BMI 35.78 kg/m2 11/11/2024 Encounters Encounter Location Date Provider Diagnosis Jessica Burnett III, MD [address] [place] [address] [place] [address] 03/07/2024 Jessica Burnett Radiculopathy, lumba r region M54.16 ; Obesity E66.9 ; Hypertension I10 ; Chronic fatigue R53.82 ; Hearing loss H91.90 and Shoulder impingement syndrome M75.40 Jessica Burnett III, MD [address] [place] [address] [place] [address] 04/10/2024 Jessica Burnett Radiculopathy, lumba r region M54.16 ; Obesity E66.9 ; Hearing loss H91.90 ; Hypertension I10 ; Shoulder impingement syndrome M75.40 ; Chronic GERD K21.9 ; Pilonidal cyst L05.91 and Right inguinal hernia K40.90 Jessica Burnett III, MD [address] [place] [address] [place] [address] 05/02/2024 Jessica Burnett Radiculopathy, lumba r region M54.16 ; Hearing loss H91.90 ; Obesity E66.9 ; Shoulder impingement syndrome M75.40 and Right inguinal hernia K40.90 Jessica Burnett III, MD [address] [place] [address] [place] [address] 07/08/2024 Jessica Burnett Radiculopathy, lumba r region M54.16 ; Obesity E66.9 ; Iron deficiency E61.1 ; Hearing loss H91.90 ; Hypertension I10 ; Chronic GERD K21.9 ; Vitamin D deficiency E55.9 and Right inguinal hernia K40.90 Jessica Burnett III, MD [address] [place] [address] [place] [address] 11/11/2024 Jessica Burnett Radiculopathy, lumba r region M54.16 ; Encounter for immunization Z23 ; Obesity E66.9 ; Iron deficiency E61.1 ; Elevated bilirubin R17 ; Hypertension I10 ; Hearing loss H91.90 ; Shoulder impingement syndrome M75.40 ; Chronic GERD K21.9 and Hyperglycemia R73.9 Jessica Burnett III, MD [address] [place] [address] [place] [address] 02/05/2024 Jessica Burentt III, MD [address] [place] [address] [place] [address] 02/06/2024 Jessica Burnett III, MD [address] [place] [address] [place] [address] 02/06/2024 Jessica Burnett Assessments Encounter Date Diagnosis (ICD Code) Assessment Notes Treat ment Notes Treatment Clinical Notes 03/07/2024 Obesity (ICD-10 - E66.9) His weight [...] regimen of heat, rest and ibuprofen. 11/11/2024 Radiculopathy, lumbar region (ICD-10 - M54.16) [...] today without difficulty and tolerated it well. 03/07/2024 Hypertension (ICD-10 - I10) His blood [...] His ferritin is in the normal range. 11/11/2024 Obesity (ICD-10 - E66.9) He has [...] function without impairment in daily life.. 11/11/2024 Iron deficiency (ICD-10 - E61.1) His mean cell volume is normal and his ferritin is 48. His iron was continued. 03/07/2024 Hearing loss (ICD-10 - H91.90) He [...] with regular exercise and sodium restriction. 11/11/2024 Elevated bilirubin (ICD-10 - R17) His bilirubin was 3.9. This value will be repeated and evaluated is still elevated. 03/07/2024 Shoulder impingement syndrome (ICD-10 - M75.40) He has a nerve impingement left arm and I have referred him back to orthopedics. 04/10/2024 Chronic GERD (ICD-10 - K21.9) This discomfort has resolved and his current therapy was continued. 07/08/2024 Chronic GERD (ICD-10 - K21.9) This discomfort has resolved and his current therapy was continued. 11/11/2024 Hypertension (ICD-10 - I10) His blood pressure is stable. I have strongly recommended aggressive weight loss with regular exercise and sodium restriction. 04/10/2024 Pilonidal cyst (ICD-10 - L05.91) . This lesion has completely healed and is not symptomatic at this time. 07/08/2024 Vitamin D deficiency (ICD-10 - E55.9) I continue to recommend he take 1000 units of vitamin D daily 11/11/2024 Hearing loss (ICD-10 - H91.90) He has mild hearing loss. He does not wish to have amplification her ENT evaluation at this time. He is able to function without impairment in daily life.. 04/10/2024 Right inguinal hernia (ICD-10 - K40.90) [...] live with it. Follow-up visit was arranged. 11/11/2024 Shoulder impingement syndrome (ICD-10 - M75.40) He has a nerve impingement left arm and I have referred him back to orthopedics. 11/11/2024 Chronic GERD (ICD-10 - K21.9) This discomfort has resolved and his current therapy was continued. 11/11/2024 Hyperglycemia (ICD-10 - R73.9) His fasting glucose is 146. This will be repeated with a hemoglobin A1c. Plan Of Treatment Pending Test Test Name Order Date PROFILE, FASTING (COMPREHENSIVE METABOLI C) 03/23/2023 PROFILE, FASTING (COMPREHENSIVE METABOLI C) 08/22/2023 PROFILE, FASTING (COMPREHENSIVE METABOLI C) 05/23/2023 PROFILE, FASTING (COMPREHENSIVE METABOLI C) 11/11/2024 PROFILE, RANDOM (COMPREHENSIVE METABOLIC ) 08/30/2022 PROFILE, RANDOM (COMPREHENSIVE METABOLIC ) 07/08/2024 PROFILE, RANDOM (COMPREHENSIVE METABOLIC ) 12/31/2020 PROFILE, RANDOM (COMPREHENSIVE METABOLIC ) 11/11/2024 PROFILE, RANDOM (COMPREHENSIVE METABOLIC ) 01/31/2021 LIPID PANEL 08/30/2022 LIPID PANEL 05/23/2023 TSH (THYROID STIMULATING HORMONE) 2022 FERRITIN 12/31/2020 FERRITIN 05/23/2023 PSA, TOTAL 11/11/2024 PSA, TOTAL 08/30/2022 PSA, TOTAL 08/22/2023 CBC w DIFF 05/23/2023 CBC w DIFF 01/31/2021 CBC w DIFF 03/23/2023 CBC w DIFF 08/30/2022 CBC w DIFF 12/31/2020 CBC w DIFF 08/22/2023 PROTHROMBIN TIME (PT, INR) 08/17/2021 PARTIAL THROMBOPLASTIN TIME (PTT) 2020 ANTITHROMBIN III & AG (REFLEX) HOMOCYSTEINE 08/17/2021 PROTEIN C ACTIVITY REFLEX AG 08/17/2021 PROTEIN S ACTIVITY REFLEX AG 08/17/2021 TESTOSTERONE, FREE AND TOTAL 05/23/2023 TESTOSTERONE, TOTAL 03/23/2023 TESTOSTERONE, TOTAL 02/09/2023 LUPUS ANTICOAGULANT PANEL 08/17/2021 FACTOR V LEIDEN 08/17/2021 XR BARIUM SWALLOW, MODIFIED VIDEO 2022 XR SHOULDER RT 2 VIEWS 09/21/2020 US THYROID 04/30/2023 VITAMIN D 25-OH TOTAL 08/30/2022 CBC WITH AUTO DIFF 11/11/2024 CBC WITH AUTO DIFF 07/08/2024 Complete Blood Count Auto Diff 5 Prothrombin [id number] 08/17/2021 Comprehensive Met. Panel 11/11/2024 Ferritin 07/08/2024 Lipid Panel 11/11/2024 Lipid Panel 03/23/2023 Lipid Panel 08/22/2023 Next Appt Details Provider Name:Jessica Hortencia, 02/10/2025 09:30:00 AM, [address] [facility] [address], [place], [address], Provider Name:Jessica Burnett, 11/12/2025 10:00:00 AM, [address] [place] [address] [address], [place], [address], Insurance Providers Payer Name Payer Address Payer Phone Subscriber Number Group Number Insured Name Patient Relationship to Insured Coverage Start Date Coverage End Date [employer] [address] [place] [address] [id number] GarciaMakge Self - patient is the insured MEDICAID [place] [address] [facility] [place] [id number] Jann Garcia Self - patient is the insured MEDICARE NGS [address] [place] [address] [id number] Jann Garcia Self - patient is the insured Medical (General) History Medical History History ICD Code Shoulder impingement syndrome 726.2 obesity hypertension erectile dysfunction chronic back pain low testosterone level DJD lumbar spine with foraminal narrowin g 2012 MRI [facility] lumbar radiculopathy hearing loss Anemia D64.9 09/22/2020 DVT right brachial vein Right inguinal hernia Surgical History Surgery Date(Month/Year) spinal fusion x 4 L4-S1 colonoscopy posterior decompresson L4-L5 caudal epidural injection LSS 12/2012 removal of cyst in back 10/2018 No history Hospitalization History Reason Date(Month/Year) back pain 04/2019 No history
--- OUTSIDE RECORDS SUMMARY | 2025-02-04 08:20 | XMS_ITS ---
Author Organization Jessica Burnett III, MD Address [address] [facility] [place] [address] Care Team Providers Care Operations And Maintenance Specialist Name Role Phone Jessica Burnett Primary Care [...] Date Provider Diagnosis Jessica Burnett III, MD [address] [place] [address] [place], [place] [address] 07/08/2024 Jessica Burnett Radiculopathy, lumba r region [...] son: OV, Annual Exam Provider Name:Jessica Burnett, 02/10/2025 09:30:00 AM, [address] [facility] [address], [place], [address], Provider Name:Jessica Burnett, 11/12/2025 10:00:00 AM, [address] [place] [address] [address], [place], [address], Progress Notes * Hugo GARCIAOB:1965 (59 yo M)Acc No.[id number]:07/08/2024 Progress Notes Patient:?Jann Garcia Provider:?Jessica Burnett MD [...] reason not done * Follow Up:?As Scheduled ([place] son: OV, Annual Exam) * Images: * Sign off status: Completed true * Provider:?Jessica Burnett MD Date:?06/22 Generated for Jordy roberts/Basilio/eTmicahitting on:?02/04/2025 08:20 AM EDT History and Physical Notes * HPI (History of Present Illness) Category Sub-Category Detail Notes COVID-19 Screening Questions Have you had any new onset fever, chills, cough, congestion, sore throat, shortness of breath, muscle aches?: No Have you been exposed to the virus withi n the last 10 days?: No Have you travelled internationally in [facility] last 10 days?: No Have you been [...]
--- OUTSIDE RECORDS SUMMARY | 2025-02-04 08:20 | XMS_ITS ---
Author Organization Jessica Burnett III, MD Address [address] [place] [place] [address] Care Team Providers Care Cell Phone Repair Technician Name Role Phone Jessica Burnett Primary Care [...] Omeprazole 20 MG TAKE 2 CAPSULE 30 SC NUTES BEFORE MORNING MEAL ORALLY ONCE A [...] Date Provider Diagnosis Jessica Burnett III, MD [address] [place] [address] [place] [address] 05/02/2024 Jessica Burnett Radiculopathy, lumba r region [...] Omeprazole 20 MG TAKE 2 CAPSULE 30 SC NUTES BEFORE MORNING MEAL ORALLY ONCE A DAY 30 DAYS Ferrous Sulfate 324 (65 Fe) MG TAKE 1 TA BLET BY MOUTH EVERY DAY Next Appt Details Follow Up: 3 Months, Reason: Office visit Provider Name:Jessica Burnett, 02/10/2025 09:30:00 AM, [address] [place] [address] [address], [place], [address], Provider Name:Jessica Burnett, 11/12/2025 10:00:00 AM, [address] [facility] [address], [place], [address], Progress Notes * Hugo GARCIAOB:1965 (59 yo M)Acc No.[id number]:05/02/2024 Progress Notes Patient:?Jann Garcia Provider:?Jessica Burnett MD :1965???Age:59 Y???Sex:Male Andre e:05/02/2024 [facility] Subjective: * Chief Complaints: * ???Right lower [...] Provider:?Jessica Burnett MD Date:?04/21 Generated for Printi ng/Fahayg/eTransmitting on:?02/04/2025 08:20 AM EDT History and Physical [...]
[2025-02-04 08:29] LABS: MANUAL DIFF FLAG NO
[2025-02-04 09:28] LABS: Basophils Percent Auto 0.7 % (0-2); Eosinophils Absolute Auto 0.3 X10*3/uL (0.0-0.4); Eosinophils Percent Auto 5.2 % (0-4); Hematocrit 43.5 % (42.0-52.0); Hemoglobin 14.1 g/dl (14.0-18.0); Imm Gran Abs Auto 0.01 X10*3/uL (0.00-0.03); Imm Gran Pct Auto 0.2 % (0.0-0.4); Lymphocytes Absolute Auto 2.3 X10*3/uL (1.2-4.9); Lymphocytes Percent Auto 40.5 % (20-40); Mean Corpuscular HGB Conc 32.4 g/dl (31.0-36.0); Mean Corpuscular Volume 89.3 fL (80.0-98.0); Mean Platelet Volume 10.1 fL (9.4-12.4); Monocytes Absolute Auto 0.4 X10*3/uL (0.1-1.2); Monocytes Percent Auto 7.3 % (2-11); Neutrophils Absolute Auto 2.7 x10*3/uL (2.0-8.3); Neutrophils Percent Auto 46.1 % (45-73); Platelet Count 283 X10*3/uL (160-400); Red Blood Count 4.87 X10*6/uL (4.60-5.80); Red Cell Distribution Width 13.4 % (11.0-16.0); White Blood Count 5.8 X10*3/uL (4.8-10.8)
[2025-02-04 10:05] LABS: Alanine Aminotransferase 19 U/L (0-40); Albumin Level 4.1 g/dL (3.5-5.0); Alkaline Phosphatase 57 U/L (39-117); Anion Gap 12 (12-20); Aspartate Amino Transferase 20 U/L (5-37); Bilirubin Total 1.3 mg/dL (0.0-1.0); Blood Urea Nitrogen 19 mg/dL (9-16); Calcium 9.4 mg/dL (8.4-10.2); Carbon Dioxide 28 mmol/L (22-29); Chloride 108 mmol/L (96-108); Cholesterol 158 mg/dL (<200); Estimated Glomerular Filt Rate > 60; Glucose Fasting 134 mg/dL (60-99); HDL Cholesterol 45 mg/dL (>40); LDL Cholesterol Calculated 93 mg/dL (<100); Sodium 144 mmol/L (135-145); Total Protein 7.4 g/dL (6.5-8.0); Triglycerides 101 mg/dL (<150)
[2025-02-04 10:21] LABS: Prostate Specific Antigen 1.02 ng/mL (<0.05-4.0)
== END 2025-02-04 08:13 | disposition home or self-care (01) ==
LOC: HO.LAB 08:12
PROVIDERS: PCP Internal Medicine Medical Oncology; Visit Provider Internal Medicine Medical Oncology
DX: Z00.00 Encounter for general adult medical examination without abnormal findings (principal); E66.9 Obesity, unspecified; N52.9 Male erectile dysfunction, unspecified; E61.1 Iron deficiency; Z12.5 Encounter for screening for malignant neoplasm of prostate
CPT/HCPCS: 36415; 80053; 80061; 84153; 85025

== ENCOUNTER 2025-02-10 10:04 | Outpatient (REF) | payer MEDICARE, SELFPAY ==
--- OUTSIDE RECORDS SUMMARY | 2025-02-10 11:27 | XMS_ITS | Patient Health Record ---
Author Organization Jessica Burnett III, MD Address [address] [place] [address] Care Team Providers Care Billing Assistant Name Role Phone Jessica Burnett Primary [...] 1.3 BLD Positive Negative - Menstrating N/A Complete Blood Count Auto Di ff Reviewed date:07/08/2024 10:08:54 AM Interpretation: Performing Lab:[facility], [address] [place] [phone] Notes/Report: White Blood Count 7.0 4.8-10.8 X10*3/uL [...] NRBC Abs Auto 0.000 0.0-0.012 X10*3/uL Comprehensive [place]. Panel Fa st Reviewed date:07/08/2024 10:08:54 AM Interpretation: Performing Lab:[facility], [address] [place] [phone] Notes/Report: Sodium 141 135-145 mmol/L Potassium 4.4 3.3-5.1 mmol/L Chloride 103 96-108 mmol/L Carbon Dioxide 30 22-29 mmol/L Anion Gap 12 12-20 Blood Urea Nitrogen 13 9-16 mg/dL Creatinine 0.83 0.5-1.4 mg/dL Estimated Glomerular Filt Rate > 60 NOTE: For -[place] individuals, multiply the result by 1.210. Chronic [...] Ferritin Reviewed date:07/08/2024 10:08:54 AM Interpretation: Performing Lab:[facility], [address] [place] [phone] Notes/Report: Ferritin 25 20-250 ng/mL Lipid Panel Reviewed date:07/08/2024 10:08:54 AM Interpretation: Performing Lab:[facility], [address] [place] [phone] Notes/Report: Triglycerides 83 <150 mg/dL Desirable Triglyceride: [...] ff Reviewed date:11/06/2024 01:10:46 PM Interpretation: Performing Lab:[facility], [address] [place] [phone] Notes/Report: White Blood Count 5.5 4.8-10.8 X10*3/uL [...] Panel Reviewed date:11/06/2024 01:10:46 PM Interpretation: Performing Lab:[facility], [address] [place] [phone] Notes/Report: Sodium 142 135-145 mmol/L Potassium 4.2 [...] Ferritin Reviewed date:11/06/2024 01:10:46 PM Interpretation: Performing Lab:[facility], [address] [place] [phone] Notes/Report: Ferritin 48 20-250 ng/mL Complete Blood Count Auto Di ff Reviewed date:02/07/2025 07:19:51 AM Interpretation: Performing Lab:[facility], [address] [place] [phone] Notes/Report: White Blood Count 5.3 4.8-10.8 X10*3/uL [...] 0.000 0.0-0.012 X10*3/uL Comprehensive Met. Panel Reviewed date:02/07/2025 07:19:51 AM Interpretation: Performing Lab:[address] [phone] Notes/Report: Sodium 140 135-145 mmol/L Potassium 4.2 [...] 3.5-5.0 g/dL Alkaline Phosphatase 57 39-117 U/L Complete Blood Count Auto Di ff Reviewed date:02/07/2025 07:19:51 AM Interpretation: Performing Lab:[address] [phone] Notes/Report: White Blood Count 5.8 4.8-10.8 X10*3/uL Red Blood Count 4.87 4.60-5.80 X10*6/uL Hemoglobin 14.1 14.0-18.0 g/dl Hematocrit 43.5 42.0-52.0 % Mean Corpuscular Volume 89.3 80.0-98.0 fL Mean Corpuscular Hemoglobin 29.0 27.0-33.0 pg Mean Corpuscular HGB Conc 32.4 31.0-36.0 g/dl Red Cell Distribution Width 13.4 11.0-16.0 % Platelet Count 283 160-400 X10*3/uL Mean Platelet Volume 10.1 9.4-12.4 fL Neutrophils Percent Auto 46.1 45-73 % Imm Gran Pct Auto 0.2 0.0-0.4 % Lymphocytes Percent Auto 40.5 20-40 % Monocytes Percent Auto 7.3 2-11 % Eosinophils Percent Auto 5.2 0-4 % Basophils Percent Auto 0.7 0-2 % NRBC Pct Auto 0.0 0.0-0.2 /100WBC Neutrophils Absolute Auto 2.7 2.0-8.3 x10*3/u L Imm Gran Abs Auto 0.01 0.00-0.03 X10*3/uL Lymphocytes Absolute Auto 2.3 1.2-4.9 X10*3/u L Monocytes Absolute Auto 0.4 0.1-1.2 X10*3/uL Eosinophils Absolute Auto 0.3 0.0-0.4 X10*3/u L Basophils Absolute Auto 0.0 0.0-0.2 X10*3/uL NRBC Abs Auto 0.000 0.0-0.012 X10*3/uL Comprehensive [place]. Panel Fa st Reviewed date:02/07/2025 07:19:51 AM Interpretation: Performing Lab:[facility], [address] [place] [phone] Notes/Report: Sodium 144 135-145 mmol/L Potassium 4.0 3.3-5.1 mmol/L Chloride 108 96-108 mmol/L Carbon Dioxide 28 22-29 mmol/L Anion Gap 12 12-20 Blood Urea Nitrogen 19 9-16 mg/dL Creatinine 0.88 0.5-1.4 mg/dL Estimated Glomerular Filt Rate > 60 Chronic Kidney Disease: Estimated GFR < 60 mL/min/1.73m2 Severe Kidney Disease: Estimated GFR < 15 mL/min/1.73m2 Glucose Fasting 134 60-99 mg/dL A fasting glucose of 126 mg/dl or greater on more than one occasion is considered diagnostic of diabetes. Calcium 9.4 8.4-10.2 mg/dL Bilirubin Total 1.3 0.0-1.0 mg/dL Aspartate Amino Transferase 20 5-37 U/L Alanine Aminotransferase 19 0-40 U/L Total Protein 7.4 6.5-8.0 g/dL Albumin Level 4.1 3.5-5.0 g/dL Alkaline Phosphatase 57 39-117 U/L Lipid Panel Reviewed date:02/07/2025 07:19:51 AM Interpretation: Performing Lab:[facility], [address] [place] [phone] Notes/Report: Triglycerides 101 <150 mg/dL Desirable Triglyceride: less than 150 mg/dL Borderline High Triglyceride 150-199 mg/dL High Triglyceride: 200-499 mg/dL Very High Triglyceride: greater than or equal to 5OO mg/dL Cholesterol 158 <200 mg/dL Desirable Cholesterol: less than 200 mg/dL Borderline High Cholesterol: 200-239 mg/dL High Cholesterol: greater than 239 mg/dL LDL Cholesterol Calculated 93 <100 mg/dL Desirable LDL: less than 100 mg/dL Near Optimal/Above Optimal LDL: 110-129 mg/dL Borderline High LDL: 130-159 mg/dL High LDL: 160-189 mg/dL Very High LDL: greater than or equal to 190 mg/dL HDL Cholesterol 45 >40 mg/dL Desirable HDL: greater than 40 mg/dL Note: This HDL assay may give artificially low results in patients with liver disease. Prostate Specific Antigen Reviewed date:02/07/2025 07:19:51 AM Interpretation: Performing Lab:[facility], [address] [place] [phone] Notes/Report: Prostate Specific Antigen 1.02 <0.05-4.0 ng/mL PSA methodology: Arthur Alinity i Chemiluminescent Microparticle Immunoassay (CMIA) Reason For Referral Reason bilateral knee pain bilateral knee effusion Diagnosis 1 Pain in right knee ( M25.561) Diagnosis 2 Pain in left knee (M 25.562) Referral Organization Jessica Burnett III, MD Referring Provider First Name Jessica Referring Provider Last Name Hortencia Referring Provider Speciality Internal M edicine Referred Provider [facility], Orthopedic Surgeons Referred Provider Specialty Orthopedic S urgery Referral Priority Routine Medications Medication SIG (Take, Route, Frequency, Duration) [...] Problem Status W/U Status Risk Notes Problem 315218427 Obesity (E66.9) Active confirmed He has gained 2 pounds in his body mass index is 35.78. We discussed drug therapy, diet, nutrition weight loss programs etc. We made a plan to lose weight at a rate of one half of a pound per week. Problem 70437923 Hyperglycemia (R73.9) Active confirmed His fasting glucose is 146. This will be repeated with a hemoglobin A1c. Problem 15963315 Hypertension (I10) Active confirmed His blood pressure is stable. I have strongly recommended aggressive weight loss with regular exercise and sodium restriction. Problem 73208592 Iron deficiency (E61.1) Active confirmed His mean cell volume is normal and his ferritin is 48. His iron was continued. Problem 168451432 Radiculopathy, lumbar region (M54.16) Active confirmed He continues to complain of discomfort in his lumbar spine that radiates into the buttocks. He has less intense pain in his lumbar spine with decreased range of motion. We will employ conservative regimen of heat, rest and ibuprofen. Problem 44822866 Hearing loss (H91.90) Active confirmed He has mild hearing loss. He does not wish to have amplification her ENT evaluation at this time. He is able to function without impairment in daily life.. Problem 43223302 Pilonidal cyst (L05.91) Active confirmed . This lesion has completely healed and is not symptomatic at this time. Problem 119135930 DJD (degenerative joint disease) (M19.90) Active confirmed He continues to have recommended lumbar spine pain. He will continue on his current regimen. Problem 67064917 Vitamin D deficiency (E55.9) Active confirmed I continue to recommend he take 1000 units of vitamin D daily Problem 043163872 Shoulder impingement syndrome (M75.40) Active confirmed He has a nerve impingement left arm and I have referred him back to orthopedics. Problem 401107082 ED (erectile dysfunction) (N52.9) Active confirmed This problem rascon s been addressed with prescription medication. He says it is working. He remained generally care of urologist. Problem 766191481 Right inguinal hernia (K40.90) Active confirmed His symptoms are mild and he wants to observe this for a while to see how much of a nuisance it is. He was informed he could have it repaired or live with it. Follow-up visit was arranged. Problem 19523352 Elevated bilirubin (R17) Active confirmed His bilirubi n was 3.9. This value will be repeated and evaluated is still elevated. Problem 493948918 Chronic GERD (K21.9) Active confirmed This discomfort has resolved and his current therapy was continued. 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 His anticoagulation was discontinued today. Vital Signs Heart Rate 82 /min 02/10/2025 Temperature 97.5 degrees Fahrenheit 02/10/2025 Blood pressure diastolic 74 mm Hg 11/11/2024 Height 63 in 02/10/2025 Blood pressure systolic 130 mm Hg 11/11/2024 Weight 200 lbs 02/10/2025 BMI 35.42 kg/m2 02/10/2025 Encounters Encounter Location Date Provider Diagnosis Jessica Burnett III, MD [address] [place] [address] [place] [address] 02/10/2025 Jessica Burnett Radiculopathy, lumba r region M54.16 ; Pain in right knee M25.561 ; Pain in left knee M25.562 and Hyperglycemia R73.9 Jessica Burnett III, MD [address] [place] [address] [place] [address] 03/07/2024 Jessica Burnett Radiculopathy, lumba r region M54.16 ; Obesity E66.9 ; Hypertension I10 ; Chronic fatigue R53.82 ; Hearing loss H91.90 and Shoulder impingement syndrome M75.40 Jessica Burnett III, MD [address] [place] [address] [place] [address] 04/10/2024 Jessica Burnett Radiculopathy, lumba r region M54.16 ; Obesity E66.9 ; Hearing loss H91.90 ; Hypertension I10 ; Shoulder impingement syndrome M75.40 ; Chronic GERD K21.9 ; Pilonidal cyst L05.91 and Right inguinal hernia K40.90 Jessica Burnett III, MD [address] [place] [address] [place] [address] 05/02/2024 Jessica Burnett Radiculopathy, lumba r region M54.16 ; Hearing loss H91.90 ; Obesity E66.9 ; Shoulder impingement syndrome M75.40 and Right inguinal hernia K40.90 Jessica Burnett III, MD [address] [place] [address] [place] [address] 07/08/2024 Jessica Burnett Radiculopathy, lumba r region M54.16 ; Obesity E66.9 ; Iron deficiency E61.1 ; Hearing loss H91.90 ; Hypertension I10 ; Chronic GERD K21.9 ; Vitamin D deficiency E55.9 and Right inguinal hernia K40.90 Jessica Burnett III, MD [address] [place] [address] [place], [place] [phone] 11/11/2024 Jessica Burnett Radiculopathy, lumba r region M54.16 ; Encounter for immunization Z23 ; Obesity E66.9 ; Iron deficiency E61.1 ; Elevated bilirubin R17 ; Hypertension I10 ; Hearing loss H91.90 ; Shoulder impingement syndrome M75.40 ; Chronic GERD K21.9 and Hyperglycemia R73.9 Assessments Encounter Date Diagnosis (ICD Code) Assessment Notes Treat ment Notes Treatment Clinical Notes 02/10/2025 Radiculopathy, lumbar region (ICD-10 - M54.16) He [...] today without difficulty and tolerated it well. 02/10/2025 Pain in right knee (ICD-10 - M25.561) 03/07/2024 Hypertension (ICD-10 - I10) His blood [...] one half of a pound per week. 02/10/2025 Pain in left knee (ICD-10 - M25.562) 03/07/2024 Chronic fatigue (ICD-10 - R53.82) He [...] ferritin is 48. His iron was continued. 02/10/2025 Hyperglycemia (ICD-10 - R73.9) 03/07/2024 Hearing loss (ICD-10 - H91.90) He [...] PROFILE, FASTING (COMPREHENSIVE METABOLI C) 11/11/2024 PROFILE, FASTING (COMPREHENSIVE METABOLI C) 03/23/2023 PROFILE, FASTING (COMPREHENSIVE METABOLI C) 08/22/2023 PROFILE, FASTING (COMPREHENSIVE METABOLI C) 05/23/2023 PROFILE, RANDOM (COMPREHENSIVE METABOLIC ) 11/11/2024 PROFILE, RANDOM (COMPREHENSIVE METABOLIC ) 01/31/2021 PROFILE, RANDOM (COMPREHENSIVE METABOLIC ) 08/30/2022 PROFILE, RANDOM (COMPREHENSIVE METABOLIC ) 07/08/2024 PROFILE, RANDOM (COMPREHENSIVE METABOLIC ) 12/31/2020 LIPID PANEL 05/23/2023 LIPID PANEL 08/30/2022 TSH (THYROID STIMULATING HORMONE) 2022 FERRITIN 05/23/2023 FERRITIN 12/31/2020 PSA, TOTAL 11/11/2024 PSA, TOTAL 08/30/2022 PSA, TOTAL 08/22/2023 CBC w DIFF 08/22/2023 CBC w DIFF 12/31/2020 CBC w DIFF 05/23/2023 CBC w DIFF 01/31/2021 CBC w DIFF 03/23/2023 CBC w DIFF 08/30/2022 PROTHROMBIN TIME (PT, INR) 08/17/2021 PARTIAL THROMBOPLASTIN [...] DIFF 11/11/2024 CBC WITH AUTO DIFF 07/08/2024 Prothrombin [id number] 08/17/2021 Uric Acid 02/10/2025 Ferritin 07/08/2024 Lipid Panel 03/23/2023 Lipid Panel 08/22/2023 Lipid Panel 11/11/2024 Hemoglobin A1c 02/10/2025 Next Appt Details Provider Name:Jessica Burnett, 03/03/2025 10:45:00 AM, [address] [facility] [address], [place], [phone], Provider Name:Jessica Burnett, 11/12/2025 10:00:00 AM, [address] [facility] [address], [place], [phone], Insurance Providers Payer Name Payer Address Payer Phone Subscriber Number Group Number Insured Name Patient Relationship to Insured Coverage Start Date Coverage End Date [employer] [address] [place] [address] [id number] Mak Garciage Self - patient is the insured MEDICA[place] [address] [place], [place] [id number] Mak Garciage Self - patient is the insured MEDICARE NGS [address] [facility] [address] [id number] Jann Garcia Self - patient is the insured Medical (General) History Medical History History ICD Code Shoulder impingement syndrome 726.2 obesity hypertension erectile dysfunction chronic back pain low testosterone level DJD lumbar spine with foraminal narrowin g 2012 MRI [facility] lumbar radiculopathy hearing loss Anemia D64.9 09/22/2020 DVT right brachial vein Right inguinal hernia Surgical History Surgery Date(Month/Year) No history removal of cyst in back 10/2018 caudal epidural injection LSS 12/2012 posterior decompresson L4-L5 colonoscopy spinal fusion x 4 L4-S1 Hospitalization History Reason Date(Month/Year) No history back pain 04/2019
--- OUTSIDE RECORDS SUMMARY | 2025-02-10 11:28 | XMS_ITS ---
Author Organization Jessica Burnett III, MD Address [address] [place] [address] Care Team Providers Care Dispensary Attendant Name Role Phone Jessica Burnett Primary Care Provider Allergies Allergen (clinical drug ingredient) Drug/Non Drug Allergy documented on EMR Reaction Allergy Type Onset Date Status No Known Drug Allergy Unknown Drug Allergy Active Reason For Referral Reason bilateral knee pain bilateral knee effusion Diagnosis 1 Pain in right knee ( M25.561) Diagnosis 2 Pain in left knee (M 25.562) Referral Organization Jessica Burnett III, MD Referring Provider First Name Jessica Referring Provider Last Name Hortencia Referring Provider Speciality Internal M edicine Referred Provider [facility], Orthopedic Surgeons Referred Provider Specialty Orthopedic S urgery Referral Priority Routine REASON FOR VISIT back same, gerd good, bilateral knee pain and swelling, last week both knees swelled up, [facility] Medications Medication SIG (Take, Route, Frequency, Duration) [...] Nonsmoker Additional Findings: Tobacco non-user Aggressive nonsmoker Vital Signs Temperature 97.5 degrees Fahrenheit 02/11/20 Heart Rate 82 /min 02/10/2025 Height 63 in 02/10/2025 Weight 200 lbs 02/10/2025 BMI 35.42 kg/m2 02/10/2025 Encounters Encounter Location Date Provider Diagnosis Jessica Burnett III, MD [address] [place] [address] [place] [address] 02/10/2025 Jessica Burnett Radiculopathy, lumba r region M54.16 ; Pain in right knee M25.561 ; Pain in left knee M25.562 and Hyperglycemia R73.9 Assessments Encounter Date Diagnosis (ICD Code) Assessment Notes Treat ment Notes Treatment Clinical Notes 02/10/2025 Radiculopathy, lumbar region (ICD-10 - M54.16) He continues to complain of discomfort in his lumbar spine that radiates into the buttocks. He has less intense pain in his lumbar spine with decreased range of motion. We will employ conservative regimen of heat, rest and ibuprofen. 02/10/2025 Pain in right knee (ICD-10 - M25.561) 02/10/2025 Pain in left knee (ICD-10 - M25.562) 02/10/2025 Hyperglycemia (ICD-10 - R73.9) Plan Of Treatment Medication Medication Name Sig Start Date Stop Date Notes Ferrous Sulfate 324 (65 Fe) MG TAKE 1 TA BLET BY MOUTH EVERY DAY Omeprazole 20 MG TAKE 2 CAPSULES 30 M INUTES BEFORE MORNING MEAL ORALLY ONCE A DAY 30 DAYS 90 Pending Test Test Name Order Date Uric Acid 02/10/2025 Hemoglobin A1c 02/10/2025 Referrals Referral Date Details 02/10/2025 02/10/2025, bilatera l knee pain bilateral knee effusion, [facility] Next Appt Details Follow Up: 21 days, Reason: OV review labs and pt saw Ortho Provider Name:Jessica Burnett, 03/03/2025 10:45:00 AM, [address] [place] [address] [place], [address], Provider Name:Jessica Burnett, 11/12/2025 10:00:00 AM, [address] [place] [address] [place], [address], Progress Notes * Hugo GARCIAOB:1965 (59 yo M)Acc No.[id number]:02/10/2025 Progress Notes Patient:?Jann GARCIA Provider:?Jessica Burnett MD :1965???Age:59 Y???Sex:Male Andre e:02/10/2025 Address: [address], [id number] Subjective: * Chief Complaints: * ???1. Back same. 2. Gerd goo d. 3. Bilateral knee pain and swelling. 4. Last week both knees swelled up, [facility]. * HPI: ???COVID-19 Screening:?Questions?Have you had any new onset fever, chills, cough, congestion, sore throat, shortness of breath, muscle aches??No * ROS:?General/Constitutional:?pain?only normal aches and pains.?Chills?denies.?Fatigue?admits.?Fever?denies.?ENT:?Decreased hearing?denies.?Respiratory:?Cough?denies.?Cardiovascular:?Chest [...] LSS 12/2012, removal of cyst in back 10/2018, No history . * Hospitalization/Major Diagno stic Procedure:?back pain 04/2019, No history . * Family History:?Father: dece ased, asthma, cardiac disease, alzheimer's dementia, diagnosed with CVD.?Mother: , diagnosed with DM.?3 brother(s) , 2 sister(s) - healthy. 2 son(s) , 2 daughter(s) - healthy. .? His mother is diabetic and his father has CAD and asthma. * Social History:?Tobacco Use:?Tobacco Control (Standard)?Tobacco use:?Nonsmoker ?Additional Findings: Tobacco non-user?Aggressive nonsmoker ???He drinks socially and does not smoke. [...] All ergy. Objective: * Vitals:?Ht: 63, Wt: 200, BMI :35.42, HR: 82, Temp: 97.5, Wt-k.72. * ???Past Orders: Lab:Prostate Specific Antige n * Collection Date 02/04/2025 10/27/2023 10/24/2022 Collection Time 08:28 AM 09:06 AM 09:19 AM Order Date 02/04/2025 10/27/2023 10/24/2022 Prostate Specific Antigen 1.02 (Ref Range: <0.05-4.0 ng/mL) 0.83 (Ref Range: <0.05-4.0 ng/mL) 1.70 (Ref Range: <0.05-4.0 ng/mL) * Lab:Lipid Panel * Collection Date 02/04/2025 06/25/2024 10/27/2023 Collection Time 08:28 AM 10:16 AM 09:06 AM Order Date 02/04/2025 06/25/2024 10/27/2023 Triglycerides 101 (Ref Range: <150 mg/dL) 83 (Ref Range: <150 mg/dL) 115 (Ref Range: <150 mg/dL) Cholesterol 158 (Ref Range: <200 mg/dL) 166 (Ref Range: <200 mg/dL) 145 (Ref Range: <200 mg/dL) LDL Cholesterol Calculated 93 (Ref Range: <100 mg/dL) 96 (Ref Range: <100 mg/dL) 71 (Ref Range: <100 mg/dL) HDL Cholesterol 45 (Ref Range: >40 mg/dL) 54 (Ref Range: >40 mg/dL) 51 (Ref Range: >40 mg/dL) * Lab:Comprehensive [place]. Pane l Fast * Collection Date 02/04/2025 06/25/2024 04/21/2023 Collection Time 08:28 AM 10:16 AM 07:54 AM Order Date 02/04/2025 06/25/2024 04/21/2023 Sodium 144 (Ref Range: 135-145 mmol/L) 141 (Ref Range: 135-145 mmol/L) 144 (Ref Range: 135-145 mmol/L) Bilirubin Total 1.3?H (Ref Range: 0.0-1.0 mg/dL) 1.0 (Ref Range: 0.0-1.0 mg/dL) 1.7?H (Ref Range: 0.0-1.0 mg/dL) Aspartate Amino Transferase 20 (Ref Range: 5-37 U/L) 18 (Ref Range: 5-37 U/L) 18 (Ref Range: 5-37 U/L) Alanine Aminotransferase 19 (Ref Range: 0-40 U/L) 18 (Ref Range: 0-40 U/L) 15 (Ref Range: 0-40 U/L) Total Protein 7.4 (Ref Range: 6.5-8.0 g/dL) 8.0 (Ref Range: 6.5-8.0 g/dL) 7.7 (Ref Range: 6.5-8.0 g/dL) Albumin Level 4.1 (Ref Range: 3.5-5.0 g/dL) 4.2 (Ref Range: 3.5-5.0 g/dL) 4.0 (Ref Range: 3.5-5.0 g/dL) Alkaline Phosphatase 57 (Ref Range: 39-117 U/L) 55 (Ref Range: 39-117 U/L) 56 (Ref Range: 39-117 U/L) Potassium 4.0 (Ref Range: 3.3-5.1 mmol/L) 4.4 (Ref Range: 3.3-5.1 mmol/L) 4.0 (Ref Range: 3.3-5.1 mmol/L) Chloride 108 (Ref Range: 96-108 mmol/L) 103 (Ref Range: 96-108 mmol/L) 109?H (Ref Range: 96-108 mmol/L) Carbon Dioxide 28 (Ref Range: 22-29 mmol/L) 30?H (Ref Range: 22-29 mmol/L) 25 (Ref Range: 22-29 mmol/L) Anion Gap 12 (Ref Range: 12-20) 12 (Ref Range: 12-20) 14 (Ref Range: 12-20) Blood Urea Nitrogen 19?H (Ref Range: 9-16 mg/dL) 13 (Ref Range: 9-16 mg/dL) 11 (Ref Range: 9-16 mg/dL) Creatinine 0.88 (Ref Range: 0.5-1.4 mg/dL) 0.83 (Ref Range: 0.5-1.4 mg/dL) 0.86 (Ref Range: 0.5-1.4 mg/dL) Estimated Glomerular Filt Rate > 60 > 60 > 60 Glucose Fasting 134?H (Ref Range: 60-99 mg/dL) 113?H (Ref Range: 60-99 mg/dL) 107?H (Ref Range: 60-99 mg/dL) Calcium 9.4 (Ref Range: 8.4-10.2 mg/dL) 10.1 (Ref Range: 8.4-10.2 mg/dL) 9.4 (Ref Range: 8.4-10.2 mg/dL) * Lab:Complete Blood Count Aut o Diff * Collection Date 02/04/2025 11/11/2024 11/04/2024 Collection Time 08:28 AM 10:45 AM 09:33 AM Order Date 02/04/2025 11/11/2024 11/04/2024 White Blood Count 5.8 (Ref Range: 4.8-10.8 X10*3/uL) 5.3 (Ref Range: 4.8-10.8 X10*3/uL) 5.5 (Ref Range: 4.8-10.8 X10*3/uL) Red Blood Count 4.87 (Ref Range: 4.60-5.80 X10*6/uL) 4.95 (Ref Range: 4.60-5.80 X10*6/uL) 5.06 (Ref Range: 4.60-5.80 X10*6/uL) Hemoglobin 14.1 (Ref Range: 14.0-18.0 g/dl) 14.3 (Ref Range: 14.0-18.0 g/dl) 14.5 (Ref Range: 14.0-18.0 g/dl) Hematocrit 43.5 (Ref Range: 42.0-52.0 %) 43.7 (Ref Range: 42.0-52.0 %) 44.4 (Ref Range: 42.0-52.0 %) Mean Corpuscular Volume 89.3 (Ref Range: 80.0-98.0 fL) 88.3 (Ref Range: 80.0-98.0 fL) 87.7 (Ref Range: 80.0-98.0 fL) Mean Corpuscular Hemoglobin 29.0 (Ref Range: 27.0-33.0 pg) 28.9 (Ref Range: 27.0-33.0 pg) 28.7 (Ref Range: 27.0-33.0 pg) Mean Corpuscular HGB Conc 32.4 (Ref Range: 31.0-36.0 g/dl) 32.7 (Ref Range: 31.0-36.0 g/dl) 32.7 (Ref Range: 31.0-36.0 g/dl) Red Cell Distribution Width 13.4 (Ref Range: 11.0-16.0 %) 13.5 (Ref Range: 11.0-16.0 %) 13.7 (Ref Range: 11.0-16.0 %) Platelet Count 283 (Ref Range: 160-400 X10*3/uL) 261 (Ref Range: 160-400 X10*3/uL) 270 (Ref Range: 160-400 X10*3/uL) Mean Platelet Volume 10.1 (Ref Range: 9.4-12.4 fL) 9.9 (Ref Range: 9.4-12.4 fL) 9.3?L (Ref Range: 9.4-12.4 fL) Neutrophils Percent Auto 46.1 (Ref Range: 45-73 %) 48.0 (Ref Range: 45-73 %) 47.4 (Ref Range: 45-73 %) Imm Gran Pct Auto 0.2 (Ref Range: 0.0-0.4 %) 0.2 (Ref Range: 0.0-0.4 %) 0.0 (Ref Range: 0.0-0.4 %) Lymphocytes Percent Auto 40.5?H (Ref Range: 20-40 %) 40.4?H (Ref Range: 20-40 %) 41.0?H (Ref Range: 20-40 %) Monocytes Percent Auto 7.3 (Ref Range: 2-11 %) 6.8 (Ref Range: 2-11 %) 7.6 (Ref Range: 2-11 %) Eosinophils Percent Auto 5.2?H (Ref Range: 0-4 %) 3.8 (Ref Range: 0-4 %) 3.1 (Ref Range: 0-4 %) Basophils Percent Auto 0.7 (Ref Range: 0-2 %) 0.8 (Ref Range: 0-2 %) 0.9 (Ref Range: 0-2 %) NRBC Pct Auto 0.0 (Ref Range: 0.0-0.2 /100WBC) 0.0 (Ref Range: 0.0-0.2 /100WBC) 0.0 (Ref Range: 0.0-0.2 /100WBC) Neutrophils Absolute Auto 2.7 (Ref Range: 2.0-8.3 x10*3/uL) 2.6 (Ref Range: 2.0-8.3 x10*3/uL) 2.6 (Ref Range: 2.0-8.3 x10*3/uL) Imm Gran Abs Auto 0.01 (Ref Range: 0.00-0.03 X10*3/uL) 0.01 (Ref Range: 0.00-0.03 X10*3/uL) 0.00 (Ref Range: 0.00-0.03 X10*3/uL) Lymphocytes Absolute Auto 2.3 (Ref Range: 1.2-4.9 X10*3/uL) 2.2 (Ref Range: 1.2-4.9 X10*3/uL) 2.3 (Ref Range: 1.2-4.9 X10*3/uL) Monocytes Absolute Auto 0.4 (Ref Range: 0.1-1.2 X10*3/uL) 0.4 (Ref Range: 0.1-1.2 X10*3/uL) 0.4 (Ref Range: 0.1-1.2 X10*3/uL) Eosinophils Absolute Auto 0.3 (Ref Range: 0.0-0.4 X10*3/uL) 0.2 (Ref Range: 0.0-0.4 X10*3/uL) 0.2 (Ref Range: 0.0-0.4 X10*3/uL) Basophils Absolute Auto 0.0 (Ref Range: 0.0-0.2 X10*3/uL) 0.0 (Ref Range: 0.0-0.2 X10*3/uL) 0.1 (Ref Range: 0.0-0.2 X10*3/uL) NRBC Abs Auto 0.000 (Ref Range: 0.0-0.012 X10*3/uL) 0.000 (Ref Range: 0.0-0.012 X10*3/uL) 0.000 (Ref Range: 0.0-0.012 X10*3/uL) * Examination: ???General Examination: ?GENERAL APPEARANCE:?pleasant, well [...] * Assessment: 1.?Radiculopathy, lumbar reg ion - M54.16???Notes :He continues to complain of discomfort in his lumbar spine that radiates into the buttocks. He has less intense pain in his lumbar spine with decreased range of motion. We will employ conservative regimen of heat, rest and ibuprofen.???2.?Pain in right knee - M25.561???3.?Pain in left knee - M25.562???4.?Hyperglycemia - R73.9??? Plan: * Treatment: 2.?Pain in right knee?LAB: Uric Acid ?LAB: Hemoglobin A1c? Referral To:[facility]??Orthopedic Surgery ?Reason:bilateral knee pain bilateral knee effusion 3.?Pain in left knee?LAB: Uric Acid ?LAB: Hemoglobin A1c? Referral To:[facility]??Orthopedic Surgery ?Reason:bilateral knee pain bilateral knee effusion 4.?Hyperglycemia?LAB: Uric Acid ?LAB: Hemoglobin A1c 5.?Others? Continue Omeprazole Capsule Delayed Release, 20 MG, TAKE 2 CAPSULES 30 MINUTES BEFORE MORNING MEAL ORALLY ONCE A DAY 30 DAYS 90.?? * Follow Up:?21 days (Reason: OV review labs and pt saw Ortho) * Images: * The named appointment provid er may or may not be the originator of this progress note, and it is not deemed complete until electronically signed by the appointment provider. Sign off status: Pending * Provider:?Jessica Burnett MD Date:?01/21 Generated for Jordy roberts/Basilio/Coryitting on:?02/10/2025 11:28 AM EDT History and Physical Notes * HPI (History of Present Illness) Category Sub-Category Detail Notes COVID-19 Screening Questions Have you had any new onset fever, chills, cough, congestion, sore throat, shortness of breath, muscle aches?: No Examination Category Sub-Category Detail Notes General Examination [...] PSYCH: alert, oriented ORAL CAVITY: normal, unremarkable Consultation Request Notes Referral Date Referring Provider Referred Provider Not es 02/10/2025 Hortencia [facility], [facility] Surgeons bilateral knee pain bilateral knee effusion
--- OUTSIDE RECORDS SUMMARY | 2025-02-10 11:28 | XMS_ITS ---
Author Organization Jessica Burnett III, MD Address [address] [place] [address] Care Team Providers Care Concierge Name Role Phone Jessica Burnett Primary Care [...] Problem Status W/U Status Risk Notes Problem [id number] Elevated bilirubin (R17) Active confirmed His bilirubi n was 3.9. This value will be repeated and evaluated is still elevated. Problem [id number] Hyperglycemia (R73.9) Active confirmed His fasting glucose [...] Date Provider Diagnosis Jessica Burnett III, MD [address] [place] [address] [place] [address] 11/11/2024 Jessica Burnett Radiculopathy, lumba r region [...] 3 Months, Reason: OV Provider Name:Jessica Burnett, 03/03/2025 10:45:00 AM, [address] [place] [address] [address], [place], [address], Provider Name:Jessica Burnett, 11/12/2025 10:00:00 AM, [address] [place] [address] [address], [place], [address], Progress Notes * Hugo GARCIAOB:1965 (59 yo M)Acc No.[id number]:11/11/2024 Progress Notes Patient:?Jann GARCIA Provider:?Jessica Burnett MD :1965???Age:59 Y???Sex:Male Andre e:11/11/2024 Address: [address], [facility], [id number] Subjective: * Chief Complaints: * ???Annual exam [...] Negative - * ?Menstrating N/A * Procedure Codes:?80502 CCIIV 4 VAC NO PRSV 0.5 ML [id number] URINE-NO [id number] FLU VACC 4 LORENZO 3 YRS PLUS [...] Burnett MD Date:?10/23 Generated for Jordy roberts/Basilio/eTransmitting on:?02/10/2025 11:28 AM EDT History and Physical [...]
--- OUTSIDE RECORDS SUMMARY | 2025-02-10 11:28 | XMS_ITS ---
Author Organization Jessica Burnett III, MD Address [address] [place] [address] Care Team Providers Care District Sales Representative Name Role Phone Jessica Burnett Primary Care Provider [phone] Allergies Allergen (clinical drug ingredient) Drug/Non [...] Date Provider Diagnosis Jessica Burnett III, MD [address] [place] [address] [address] [place], [place] [address] 07/08/2024 Jessica Burnett Radiculopathy, lumba r region [...] son: OV, Annual Exam Provider Name:Jessica Burnett, 03/03/2025 10:45:00 AM, [address], [place], [address], Provider Name:Jessica Burnett, 11/12/2025 10:00:00 AM, [address] [place] [address] [address], [place], [address], Progress Notes * Hugo GARCIAOB:1965 (59 yo M)Acc No.[id number]:07/08/2024 Progress Notes Patient:?Jann Garcia Provider:?Jessica Burnett MD :1965???Age:59 Y???Sex:Male Andre e:07/08/2024 [facility] Subjective: * Chief Complaints: * ???Right [...] reason not done * Follow Up:?As Scheduled ([place] son: OV, Annual Exam) * Images: * Sign off status: Completed true * Provider:?Jessica Burnett MD Date:?06/22 Generated for Jordy roberts/Basilio/eTmicahitting on:?02/10/2025 11:27 AM EDT History and Physical Notes * HPI (History of Present Illness) Category Sub-Category Detail Notes COVID-19 Screening Questions Have you had any new onset fever, chills, cough, congestion, sore throat, shortness of breath, muscle aches?: No Have you been exposed to the virus withi n the last 10 days?: No Have you travelled internationally in [facility] last 10 days?: No Have you been [...]
[2025-02-10 14:10] LABS: Uric Acid 6.8 mg/dL (3.4-7.0)
[2025-02-10 14:22] LABS: Estimated Average Glucose 151 mg/dL; Hemoglobin A1C 194.8316 umol/L; Hemoglobin A1c % 6.9 % (<6.0); Total Hemoglobin (HGBA1C) 3772.9879 umol/L
== END 2025-02-10 10:05 | disposition home or self-care (01) ==
LOC: HO.10HDL 10:04
PROVIDERS: Visit Provider Internal Medicine Medical Oncology
DX: M54.16 Radiculopathy, lumbar region (principal); M25.561 Pain in right knee; M25.562 Pain in left knee; R73.9 Hyperglycemia, unspecified
CPT/HCPCS: 36415; 83036; 84550

== ENCOUNTER 2025-04-06 13:58 | Outpatient (REF) | payer MEDICARE, SELFPAY ==
--- NOTE | ~2025-04-06 | XR_ITS ---
EXAMINATION: XR CHEST CLINICAL INFORMATION: BRONCHITIS COMPARISON: February 05, 2024. TECHNIQUE: 2 views of the chest were obtained. FINDINGS: No consolidation, pleural effusion or pneumothorax. No hyperinflation. Cardiomediastinal silhouette size is normal. Multilevel thoracolumbar spondylosis. Degenerative changes in the acromioclavicular joints. XR/XR chest 2V IMPRESSION: No acute airspace disease. Multilevel spondylosis. Stable chest. Electronically signed by: Tony Klein MD 04/06/2025 02:31 PM EDT
--- OUTSIDE RECORDS SUMMARY | 2025-04-06 15:40 | XMS_ITS | Patient Health Record ---
Author Organization Jessica Burnett III, MD Address [address] [place] [address] Care Team Providers Care Purchase Order Checker Name Role Phone Jessica Burnett Primary Care [...] 1.3 BLD Positive Negative - Menstrating N/A Uric Acid (Not yet reviewed by provider) Interpretation: Performing Lab:[facility], [address] [place] [phone] Notes/Report: Uric Acid 6.8 3.4-7.0 mg/dL Hemoglobin A1c (Not yet revi ewed by provider) Interpretation: Performing Lab:[facility], [address] [place] [phone] Notes/Report: Hemoglobin A1c % 6.9 <6.0 % Hemoglobin A1C Reference Range Adults: 4.8 - 6.0 % Non diabetic: < 6.0 % Goal: < 7.0 % Additional Action Suggested: > 8.0 % Note: Hemoglobin A1c results are invalid for patients with abnormal amounts of HbF. Blood transfusions may impact the HbA1c concentration in the patient sample. Estimated Average Glucose 151 eAG = Estimated average glucose which is %A1C expressed as average glucose, using the formula of the [id number] Average Glucose study (ADAG), Diabetes Care, Vol.31,#8, May. 2007 Complete Blood Count Auto Di ff Reviewed date:07/08/2024 10:08:54 AM Interpretation: Performing Lab:[facility], [address] [place] [phone] Notes/Report: White Blood Count 7.0 4.8-10.8 X10*3/uL [...] 0.0-0.2 /100WBC Neutrophils Absolute Auto 3.3 2.0-8.3 x10*3/uL Imm Gran Abs Auto 0.01 0.00-0.03 X10*3/uL Lymphocytes Absolute Auto 2.9 1.2-4.9 X10*3/uL Monocytes Absolute Auto 0.4 0.1-1.2 X10*3/uL Eosinophils Absolute Auto 0.3 0.0-0.4 X10*3/uL Basophils Absolute Auto 0.0 0.0-0.2 X10*3/uL NRBC Abs Auto 0.000 0.0-0.012 X10*3/uL Comprehensive [place]. Panel Fa Reviewed date:07/08/2024 10:08:54 AM Interpretation: Performing Lab:[facility], [address] [place] [phone] Notes/Report: Sodium 141 135-145 mmol/L Potassium 4.4 3.3-5.1 mmol/L Chloride 103 96-108 mmol/L Carbon Dioxide 30 22-29 mmol/L Anion Gap 12 12-20 Blood Urea Nitrogen 13 9-16 mg/dL Creatinine 0.83 0.5-1.4 mg/dL Estimated Glomerular Filt Rate > 60 NOTE: For -[place]ian individuals, multiply the result by 1.210. Chronic [...] Ferritin Reviewed date:07/08/2024 10:08:54 AM Interpretation: Performing Lab:[facility], [address] [place] [phone] Notes/Report: Ferritin 25 20-250 ng/mL Lipid Panel Reviewed date:07/08/2024 10:08:54 AM Interpretation: Performing Lab:[facility], [address] [place] [phone] Notes/Report: Triglycerides 83 <150 mg/dL Desirable Triglyceride: [...] ff Reviewed date:11/06/2024 01:10:46 PM Interpretation: Performing Lab:[facility], [address] [place] [phone] Notes/Report: White Blood Count 5.5 4.8-10.8 X10*3/uL [...] 0.0-0.2 /100WBC Neutrophils Absolute Auto 2.6 2.0-8.3 x10*3/uL Imm Gran Abs Auto 0.00 0.00-0.03 X10*3/uL Lymphocytes Absolute Auto 2.3 1.2-4.9 X10*3/uL Monocytes Absolute Auto 0.4 0.1-1.2 X10*3/uL Eosinophils Absolute Auto 0.2 0.0-0.4 X10*3/uL Basophils Absolute Auto 0.1 0.0-0.2 X10*3/uL NRBC Abs Auto 0.000 0.0-0.012 X10*3/uL Comprehensive Met. Panel Reviewed date:11/06/2024 01:10:46 PM Interpretation: Performing Lab:[address] [phone] Notes/Report: Sodium 142 135-145 mmol/L Potassium 4.2 [...] Ferritin Reviewed date:11/06/2024 01:10:46 PM Interpretation: Performing Lab:[facility], [address] [place] [phone] Notes/Report: Ferritin 48 20-250 ng/mL Complete Blood Count Auto Di ff Reviewed date:02/07/2025 07:19:51 AM Interpretation: Performing Lab:[facility], [address] [place] [phone] Notes/Report: White Blood Count 5.3 4.8-10.8 X10*3/uL [...] 0.0-0.2 /100WBC Neutrophils Absolute Auto 2.6 2.0-8.3 x10*3/uL Imm Gran Abs Auto 0.01 0.00-0.03 X10*3/uL Lymphocytes Absolute Auto 2.2 1.2-4.9 X10*3/uL Monocytes Absolute Auto 0.4 0.1-1.2 X10*3/uL Eosinophils Absolute Auto 0.2 0.0-0.4 X10*3/uL Basophils Absolute Auto 0.0 0.0-0.2 X10*3/uL NRBC Abs Auto 0.000 0.0-0.012 X10*3/uL Comprehensive Met. Panel Reviewed date:02/07/2025 07:19:51 AM Interpretation: Performing Lab:[facility], [address] [place] [phone] Notes/Report: Sodium 140 135-145 mmol/L Potassium 4.2 [...] ff Reviewed date:02/07/2025 07:19:51 AM Interpretation: Performing Lab:[facility], [address] [place] [phone] Notes/Report: White Blood Count 5.8 4.8-10.8 X10*3/uL [...] 0.0-0.2 /100WBC Neutrophils Absolute Auto 2.7 2.0-8.3 x10*3/uL Imm Gran Abs Auto 0.01 0.00-0.03 X10*3/uL Lymphocytes Absolute Auto 2.3 1.2-4.9 X10*3/uL Monocytes Absolute Auto 0.4 0.1-1.2 X10*3/uL Eosinophils Absolute Auto 0.3 0.0-0.4 X10*3/uL Basophils Absolute Auto 0.0 0.0-0.2 X10*3/uL NRBC Abs Auto 0.000 0.0-0.012 X10*3/uL Comprehensive [place]. Panel Fa st Reviewed date:02/07/2025 07:19:51 AM Interpretation: Performing Lab:[facility], [address] [place] [phone] Notes/Report: Sodium 144 135-145 mmol/L Potassium 4.0 [...] Panel Reviewed date:02/07/2025 07:19:51 AM Interpretation: Performing Lab:[address] [phone] Notes/Report: Triglycerides 101 <150 mg/dL Desirable Triglyceride: [...] Antigen Reviewed date:02/07/2025 07:19:51 AM Interpretation: Performing Lab:[address] [place] [address] Notes/Report: Prostate Specific Antigen 1.02 <0.05-4.0 ng/mL PSA methodology: Arthur Alinity i Chemiluminescent Microparticle Immunoassay (CMIA) XR chest 2V (Not yet reviewe d by provider) Interpretation: Performing Lab: Notes/Report: [address] [address] XRay Report Signed Patient: Jann Garcia MR#: [id number] 724 : 1965 Acct:[id number] Age/Sex: 60 / M ADM Date: 04/06/25 Loc: [facility] Attending Dr: Jessica Burnett MD Ordering Physician: Jessica Burnett MD Date of Service: 04/06/25 Procedure(s): XR chest 2V Accession Number(s): [id number] cc: Jessica Burnett MD EXAMINATION: XR CHEST CLINICAL INFORMATION: BRONCHITIS COMPARISON: February 05, 2024. TECHNIQUE: 2 views of the chest were obtained. FINDINGS: No consolidation, pleural effusion or pneumothorax. No hyperinflation. Cardiomediastinal silhouette size is normal. Multilevel thoracolumbar spondylosis. Degenerative changes in the acromioclavicular joints. XR/XR chest 2V IMPRESSION: No acute airspace disease. Multilevel spondylosis. Stable chest. Electronically signed by: Tony Klein MD 04/06/2025 02:31 PM EDT RP Dictated By: Tony Mcpherson MD Signed By: <Electronically signed by Tony Coombs MD in OV> 04/06/25 1431 DD/ 1405 TD/TT: 04/06/25 1410 Event Staff Member: [address] [address] XRay Report Signed Patient: Mak Garcia MR#: [id number] 724 : 1965 Acct:[id number] Age/Sex: 60 / M ADM Date: 04/06/25 Loc: [facility] Attending Dr: Jessica Burnett MD Ordering Physician: Jessica Burnett MD Date of Service: 04/06/25 Procedure(s): XR chest 2V Accession Number(s): [id number] cc: Jessica Burnett MD EXAMINATION: XR CHEST CLINICAL INFORMATION: BRONCHITIS COMPARISON: February 05, 2024. TECHNIQUE: 2 views of the chest were obtained. FINDINGS: No consolidation, pl eural effusion or pneumothorax. No hyperinflation. Cardiomediastinal silhouette size is normal. Multilevel thoracolu mbar spondylosis. Degenerative changes in the acromioclavicular joints. X R/XR chest 2V IMPRESSION: No acute airspace disease. Multilevel spondylosis. Stable chest. Electronically leroy d by: Tony Klein MD 04/06/2025 02:31 PM EDT RP Dictated By: Tony Condon MD Signed By: <Electronically signed by Tony Coombs MD in OV> 04/06/25 1431 DD/ 1405 TD/TT: 04/06/25 1410 Event Staff Member: Reason For Referral Reason bilateral knee pain bilateral knee effusion Diagnosis 1 Pain in right knee ( M25.561) Diagnosis 2 Pain in left knee (M 25.562) Referral Organization Jessica Burnett III, MD Referring Provider First Name Jessica Referring Provider Last Name Hortencia Referring Provider Speciality Internal M edicine Referred Provider [facility], Orthopedic Surgeons Referred Provider Specialty Orthopedic S urgery General Notes Nimisha Perez [facility] 02/12 02:41:18 PM >ref/demo/progress note/labs faxed to [facility], Nimisha Perez [facility] 03/17/2025 02:14:58 PM >I called [facility] they stated pt has appt with Dr Driver on 04/08/2025 at 9AM Referral Priority Routine Referral Appointment Date 04/08/2025 Medications Medication SIG (Take, Route, Frequency, Duration) [...] Problem Status W/U Status Risk Notes Problem 538128047 Obesity (E66.9) Active confirmed We have discussed his diet and nutrition. We made a plan to lose weight at a rate of 1 pound per week. Problem 10769918 Hyperglycemia (R73.9) Active confirmed His fasting blood glucose level was 134 which technically is in the diabetic range. I have discussed prediabetes with him at length. I have ordered a hemoglobin A1c to be done with the uric acid. Problem 17013927 Hypertension (I10) Active confirmed His blood pressure is stable. I have strongly recommended aggressive weight loss with regular exercise and sodium restriction. Problem 69691199 Iron deficiency (E61.1) Active confirmed Recent blood work shows his problem has resolved. Problem [id number] Pain in right knee (M25.561) Active confirmed He is being referred to orthopedics. I have ordered a uric acid level to be done today. He was instructed to use ibuprofen. A follow-up visit was arranged. Problem 498740191054250 Pain in left knee (M25.562) Active confirmed The left knee is less painful than the right but similar in physical examination. In orthopedic evaluation has been requested. Blood work is pending. Problem 105936601 Radiculopathy, lumbar region (M54.16) Active confirmed He continues to complain of discomfort in his lumbar spine that radiates into the buttocks. He has less intense pain in his lumbar spine with decreased range of motion. We will employ conservative regimen of heat, rest and ibuprofen. Problem 61735508 Hearing loss (H91.90) Active confirmed He has mild hearing loss. He does not wish to have amplification her ENT evaluation at this time. He is able to function without impairment in daily life.. Problem 91776089 Pilonidal cyst (L05.91) Active confirmed . This lesion has completely healed and is not symptomatic at this time. Problem 885186730 DJD (degenerative joint disease) (M19.90) Active confirmed He continues to have recommended lumbar spine pain. He will continue on his current regimen. Problem 67336839 Vitamin D deficiency (E55.9) Active confirmed I continue to recommend he take 1000 units of vitamin D daily Problem 495854521 Shoulder impingement syndrome (M75.40) Active confirmed He has a nerve impingement left arm and I have referred him back to orthopedics.He will be seen April 09, 2025. Problem 789159184 ED (erectile dysfunction) (N52.9) Active confirmed This problem rascon s been addressed with prescription medication. He says it is working. He remained generally care of urologist. Problem 064960388 Right inguinal hernia (K40.90) Active confirmed His symptoms are mild and he wants to observe this for a while to see how much of a nuisance it is. He was informed he could have it repaired or live with it. Follow-up visit was arranged. Problem 69721695 Elevated bilirubin (R17) Active confirmed His bilirubi n was 3.9. This value will be repeated and evaluated is still elevated. Problem 256468740 Chronic GERD (K21.9) Active confirmed This discomfort has resolved and his current therapy was continued. Problem 963974305422743 Chronic deep vein thrombosis (DVT) of brachial vein of right upper extremity (I82.721) Active confirmed After an adequate course of anticoagulation a thrombophilia evaluation is negative. His anticoagulation was discontinued today. Vital Signs Heart Rate 98 /min 04/06/2025 Temperature 101.3 degrees Fahrenheit 04/06/2025 Blood pressure diastolic 87 mm Hg 04/06/2025 Height 63 in 04/06/2025 Blood pressure systolic 130 mm Hg 04/06/2025 Weight 202 lbs 04/06/2025 BMI 35.78 kg/m2 04/06/2025 Encounters Encounter Location Date Provider Diagnosis Jessica Burnett III, MD [address] [place] [address] [place] [address] 04/06/2025 Jessica Burnett Radiculopathy, lumba r region M54.16 ; Obesity E66.9 and Bronchitis J40 Jessica Burnett III, MD [address] [place] [address] [place] [address] 04/10/2024 Jessica Burnett Radiculopathy, lumba r region M54.16 ; Obesity E66.9 ; Hearing loss H91.90 ; Hypertension I10 ; Shoulder impingement syndrome M75.40 ; Chronic GERD K21.9 ; Pilonidal cyst L05.91 and Right inguinal hernia K40.90 Jessica Burnett III, MD [address] [place] [address] [place] [address] 05/02/2024 Jessica Burnett Radiculopathy, lumba r region M54.16 ; Hearing loss H91.90 ; Obesity E66.9 ; Shoulder impingement syndrome M75.40 and Right inguinal hernia K40.90 Jessica Burnett III, MD [address] [place] [address] [place] [address] 07/08/2024 Jessica Burnett Radiculopathy, lumba r region M54.16 ; Obesity E66.9 ; Iron deficiency E61.1 ; Hearing loss H91.90 ; Hypertension I10 ; Chronic GERD K21.9 ; Vitamin D deficiency E55.9 and Right inguinal hernia K40.90 Jessica Burnett III, MD [address] [address] 11/11/2024 Jessica Whiterne Radiculopathy, lumba r region M54.16 ; Encounter for immunization Z23 ; Obesity E66.9 ; Iron deficiency E61.1 ; Elevated bilirubin R17 ; Hypertension I10 ; Hearing loss H91.90 ; Shoulder impingement syndrome M75.40 ; Chronic GERD K21.9 and Hyperglycemia R73.9 Jessica Burnett III, MD [address] [place] [address] [place] [phone] 02/10/2025 Jessica Hortencia Radiculopathy, lumba r region M54.16 ; Pain in right knee M25.561 ; Pain in left knee M25.562 ; Hyperglycemia R73.9 ; Hearing loss H91.90 ; Obesity E66.9 ; Shoulder impingement syndrome M75.40 ; Hypertension I10 ; Chronic GERD K21.9 and Vitamin D deficiency E55.9 Jessica Burnett III, MD [address] [place] [address] [place] [address] 03/03/2025 Jessica Hortencia Radiculopathy, lumba r region M54.16 ; Shoulder impingement syndrome M75.40 ; Obesity E66.9 ; Iron deficiency E61.1 ; Hypertension I10 and Pain in right knee M25.561 Assessments Encounter Date Diagnosis (ICD Code) Assessment Notes Treat ment Notes Treatment Clinical Notes 04/06/2025 Radiculopathy, lumbar [...] use ibuprofen. A follow-up visit was arranged. 02/10/2025 Radiculopathy, lumbar region (ICD-10 - M54.16) He continues to complain of discomfort in his lumbar spine that radiates into the buttocks. He has less intense pain in his lumbar spine with decreased range of motion. We will employ conservative regimen of heat, rest and ibuprofen. 03/03/2025 Radiculopathy, lumbar region (ICD-10 - M54.16) [...] orthopedics.He will be seen April 09, 2025. 04/06/2025 Obesity (ICD-10 - E66.9) 04/10/2024 Hearing loss (ICD-10 - H91.90) He [...] Pain in left knee (ICD-10 - M25.562) The left knee is less painful than the right but similar in physical examination. In orthopedic evaluation has been requested. Blood work is pending. 03/03/2025 Obesity (ICD-10 - E66.9) We have discussed his diet and nutrition. We made a plan to lose weight at a rate of 1 pound per week. 04/06/2025 Bronchitis (ICD-10 - J40) 04/10/2024 Hypertension (ICD-10 - I10) His blood [...] was continued. 02/10/2025 Hyperglycemia (ICD-10 - R73.9) His fasting blood glucose level was 134 which technically is in the diabetic range. I have discussed prediabetes with him at length. I have ordered a hemoglobin A1c to be done with the uric acid. 03/03/2025 Iron deficiency (ICD-10 - E61.1) Recent blood work shows his problem has resolved. 04/10/2024 Shoulder impingement syndrome (ICD-10 - M75.40) [...] be repeated and evaluated is still elevated. 02/10/2025 Hearing loss (ICD-10 - H91.90) He has mild hearing loss. He does not wish to have amplification her ENT evaluation at this time. He is able to function without impairment in daily life.. 03/03/2025 Hypertension (ICD-10 - I10) His blood pressure is stable. I have strongly recommended aggressive weight loss with regular exercise and sodium restriction. 04/10/2024 Chronic GERD (ICD-10 - K21.9) This discomfort has resolved and his current therapy was continued. 07/08/2024 Chronic GERD (ICD-10 - K21.9) This discomfort has resolved and his current therapy was continued. 11/11/2024 Hypertension (ICD-10 - I10) His blood pressure is stable. I have strongly recommended aggressive weight loss with regular exercise and sodium restriction. 02/10/2025 Obesity (ICD-10 - E66.9) He has gained 2 pounds in his body mass index is 35.78. We discussed drug therapy, diet, nutrition weight loss programs etc. We made a plan to lose weight at a rate of one half of a pound per week. 03/03/2025 Pain in right knee (ICD-10 - M25.561) He is being referred to orthopedics. I have ordered a uric acid level to be done today. He was instructed to use ibuprofen. A follow-up visit was arranged. 04/10/2024 Pilonidal cyst (ICD-10 - L05.91) . [...] to function without impairment in daily life.. 02/10/2025 Shoulder impingement syndrome (ICD-10 - M75.40) He has a nerve impingement left arm and I have referred him back to orthopedics. 04/10/2024 Right inguinal hernia (ICD-10 - K40.90) [...] I have referred him back to orthopedics. 02/10/2025 Hypertension (ICD-10 - I10) His blood pressure is stable. I have strongly recommended aggressive weight loss with regular exercise and sodium restriction. 11/11/2024 Chronic GERD (ICD-10 - K21.9) This discomfort has resolved and his current therapy was continued. 02/10/2025 Chronic GERD (ICD-10 - K21.9) This discomfort has resolved and his current therapy was continued. 11/11/2024 Hyperglycemia (ICD-10 - R73.9) His fasting glucose is 146. This will be repeated with a hemoglobin A1c. 02/10/2025 Vitamin D deficiency (ICD-10 - E55.9) I continue to recommend he take 1000 units of vitamin D daily Plan Of Treatment Pending Test Test Name Order Date PROFILE, FASTING (COMPREHENSIVE METABOLI C) 03/23/2023 PROFILE, FASTING (COMPREHENSIVE METABOLI C) 08/22/2023 PROFILE, FASTING (COMPREHENSIVE METABOLI C) 04/06/2025 PROFILE, FASTING (COMPREHENSIVE METABOLI C) 05/23/2023 PROFILE, FASTING (COMPREHENSIVE METABOLI C) 11/11/2024 PROFILE, FASTING (COMPREHENSIVE METABOLI C) 03/03/2025 PROFILE, RANDOM (COMPREHENSIVE METABOLIC ) 07/08/2024 PROFILE, RANDOM (COMPREHENSIVE METABOLIC ) 12/31/2020 PROFILE, RANDOM (COMPREHENSIVE METABOLIC ) 11/11/2024 PROFILE, RANDOM (COMPREHENSIVE METABOLIC ) 01/31/2021 PROFILE, RANDOM (COMPREHENSIVE METABOLIC ) 08/30/2022 LIPID PANEL 08/30/2022 LIPID PANEL 05/23/2023 TSH (THYROID STIMULATING HORMONE) 2022 FERRITIN 12/31/2020 FERRITIN 05/23/2023 PSA, TOTAL 08/30/2022 PSA, TOTAL 08/22/2023 PSA, TOTAL 11/11/2024 CBC w DIFF 01/31/2021 CBC w DIFF 03/03/2025 CBC w DIFF 03/23/2023 CBC w DIFF 08/30/2022 CBC w DIFF 04/06/2025 CBC w DIFF 08/22/2023 CBC w DIFF 12/31/2020 CBC w DIFF 05/23/2023 SED RATE (ESR) 04/06/2025 PROTHROMBIN TIME (PT, INR) 08/17/2021 PARTIAL THROMBOPLASTIN TIME (PTT) 2020 ANTITHROMBIN III & AG (REFLEX) HOMOCYSTEINE 08/17/2021 PROTEIN C ACTIVITY REFLEX AG 08/17/2021 PROTEIN S ACTIVITY REFLEX AG 08/17/2021 TESTOSTERONE, FREE AND TOTAL 05/23/2023 TESTOSTERONE, TOTAL 03/23/2023 TESTOSTERONE, TOTAL 02/09/2023 LUPUS ANTICOAGULANT PANEL 08/17/2021 FACTOR V LEIDEN 08/17/2021 XR BARIUM SWALLOW, MODIFIED VIDEO 2022 XR CHEST 2 VIEW PA & LAT 04/06/2025 XR SHOULDER RT 2 VIEWS 09/21/2020 US THYROID 04/30/2023 VITAMIN D 25-OH TOTAL 08/30/2022 CBC WITH AUTO DIFF 11/11/2024 CBC WITH AUTO DIFF 07/08/2024 Prothrombin 53883K 08/17/2021 Uric Acid 02/10/2025 Ferritin 03/03/2025 Ferritin 07/08/2024 Lipid Panel 11/11/2024 Lipid Panel 03/03/2025 Lipid Panel 03/23/2023 Lipid Panel 08/22/2023 XR chest 2V 04/06/2025 Hemoglobin A1c 02/10/2025 Next Appt Details Provider Name:Jessica Burnett, 06/04/2025 09:30:00 AM, [address] [place] [address] [place], [place], [phone], Provider Name:Jessica Burnett, 11/12/2025 10:00:00 AM, [address] [place] [address] [place], [place], [phone], Insurance Providers Payer Name Payer Address Payer Phone Subscriber Number Group Number Insured Name Patient Relationship to Insured Coverage Start Date Coverage End Date [employer] Medicare [address] [place] [address] [id number] aJnn Garcia Self - patient is the insured MEDICA[place] [address] [place] [id number] [phone] [id number] Jann Garcia Self - patient is the insured MEDICARE NGS [address] [place] [address] [id number] Jann Garcia Self - patient is the [...]
== END 2025-04-06 13:59 | disposition home or self-care (01) ==
LOC: HO.XRAY 13:58
PROVIDERS: PCP Internal Medicine Medical Oncology; Visit Provider Internal Medicine Medical Oncology
DX: J40 Bronchitis, not specified as acute or chronic (principal)
CPT/HCPCS: 71046

== ENCOUNTER → 2025-04-06 14:05 | Outpatient (BNV) | payer MEDICARE, SELFPAY | PROVIDERS: PCP Internal Medicine Medical Oncology; Visit Provider Radiology Diagnostic Radiology | DX: M47.895 Other spondylosis, thoracolumbar region (principal) | CPT/HCPCS: 71046 ==

== ENCOUNTER 2025-04-06 14:30 | Emergency (ER) | payer MEDICARE, SELFPAY ==
[2025-04-06 14:35] VITALS: BP 150/89; PULSE 99; RESP 18; TEMP 36.4; O2SAT 94; BMI 34.8
--- NOTE | 2025-04-06 14:40 | ED_ITS ---
HPI - General Adult General Chief complaint: Back Pain/Injury Stated complaint: neck shoulder pain unable to move neck Time Seen by Provider: 04/06/25 14:42 Source: patient Mode of arrival: ambulatory Limitations: no limitations History of Present Illness ED Provider: Marcia Palmer PA-C HPI narrative: Patient is a 60 year old assigned male at with a history of anemia presenting to the emergency department today with left shoulder and neck pain. Patient states that over the last 4 days he has had left shoulder pain that now extends across his back into his right shoulder and neck. Patient states that he was seen by his primary care provider who recommended he come to the ER. Patient denies any dizziness, lightheadedness, abdominal pain, nausea, vomiting, fever, chills, blurry vision, double vision, loss of vision, chest pain, difficulty breathing, shortness of breath, back pain, night sweats, pain with urination, increased urinary frequency, increased urinary urgency, blood in his urine or stool, syncope or a near syncopal episode, recent trauma or falls, bowel incontinence, bladder incontinence, or any other complaints at this time. Onset (ago): day(s) (4) Relieving factors: none Exacerbating factors: movement Associated symptoms: denies other symptoms Treatments prior to arrival: none Related Data Home Medications ?Medication ?Instructions ?Recorded ?Confirmed ferrous sulfate 325 mg (65 mg 325 mg PO DAILY 01/03/21 11/08/23 iron) tablet (Feosol) omeprazole 20 mg capsule,delayed 20 mg PO DAILY 01/24/21 11/08/23 release Previous Rx's ?Medication ?Instructions ?Recorded methylcellulose (laxative) 500 mg 500 mg PO TID #90 tabs 12/26/22 tablet (Citrucel) polyethylene glycol 3350 17 17 g PO DAILY #510 grams 12/26/22 gram/dose oral powder (Miralax) sildenafil 100 mg tablet (Viagra) 100 mg PO DAILY PRN sexual 07/06/23 activity #30 tabs tadalafil 5 mg tablet (Cialis) 5 mg PO DAILY #30 tabs 11/08/23 acetaminophen 325 mg capsule 650 mg (2 x 325 mg) PO Q6H PRN 02/05/24 fever or pain #20 caps ibuprofen 600 mg tablet 600 mg PO Q6H PRN fever or pain 02/05/24 #20 tabs cyclobenzaprine 5 mg tablet 5 mg PO TID PRN muscle spasm 7 04/06/25 days #21 tabs prednisone 20 mg tablet 20 mg PO DAILY 7 days #7 tabs 04/06/25 Allergies Allergy/AdvReac Type Severity Reaction Status Date / Time ENVIRONMENTAL Allergy Mild Itching Uncoded 04/06/25 14:38 Review of Systems Constitutional: Constitutional: Reports no additional constitutional complaints, Denies chills, Denies fever(s) and Denies night sweats Eyes: Eyes: Reports no additional eye complaints, Denies blurry vision, Denies change in vision, Denies diplopia, Denies eye discharge, Denies loss of vision and Denies eye pain ENT: Denies dizziness, Reports neck mass and Reports neck pain Cardiovascular: Cardiovascular: Reports no additional cardiovascular complaints, Denies chest pain, Denies lightheadedness, Denies Loss of Consciousness and Denies dyspnea Respiratory: Respiratory: Reports no additional respiratory complaints and Denies dyspnea Gastrointestinal: Gastrointestinal: Reports no additional gastrointestinal complaints, Denies abdominal pain, Denies melena, Denies hematochezia, Denies change in bowel habits and Denies change in stool character Genitourinary: Genitourinary: Reports no additional male genitourinary complaints, Denies hematuria, Denies oliguria, Denies difficulty urinating, Denies dysuria, Denies urinary frequency, Denies urinary hesitancy, Denies urinary incontinence and Denies urinary urgency Musculoskeletal: Musculoskeletal: Reports no additional musculoskeletal complaints, Reports neck pain, Denies numbness and Denies tingling Comments: left and right shoulder pain Neurologic: Denies dizziness, Denies loss of vision, Denies numbness and De nies tingling Psychiatric: Psychiatric: Reports no additional psychiatric complaints Endocrine: Endocrine: Reports no additional endocrine complaints Hematologic/Lymphatic: Hematologic/Lymphatic: Reports no additional hematologic/lymphatic complaints Allergic/Immunologic: Allergic/Immunologic: Reports no additional allergic/immunologic complaints PMFSH Past Medical History Attestation statement: The following information was validated with the patient. Source: old records reviewed and nursing notes reviewed Medical History DVT (deep venous thrombosis) GERD (gastroesophageal reflux disease) History of anemia Back pain with history of spinal surgery Surgical History History of esophagogastroduodenoscopy (EGD) H/O colonoscopy Family History Family History Son CML (chronic myelocytic leukemia), Onset Age: 36 Social History Social History Household Members: Significant Other Are you a primary child day care provider to a significant other at home: No Do you presently have visiting nurse or other home services: No Alcohol intake: current Alcohol intake frequency: former alcohol drinker Alcohol type: beer Patient Tobacco Use Status: Never used Tobacco Advance Directives: No Advance Directives Information Provided: Yes Current occupational status: disabled Current occupation: Right Handed Physical Exam ED Vital Signs: Vital Signs - 24 hr 04/06/25 14:35 04/06/25 15:01 Temperature 97.6 F 97.6 F Pulse Rate 99 99 Respiratory Rate 18 18 Blood Pressure 150/89 H 150/89 H Pulse Oximetry 94 94 Oxygen Delivery Method Room Air Room Air BMI result Body Mass Index 34.8 Const General: cooperative, no acute distress, alert and awake Nutritional Appearance: well nourished Orientation/consciousness: patient oriented x3 HENMT Head: Yes normal to inspection and Yes atraumatic Ears: hearing grossly normal bilaterally and external ears normal General nose exam: Normal external nose present, no nasal discharge noted and no epistaxis Face and sinus: Yes normal facial exam, No abrasion and No laceration Mouth: Normal oral and palatal mucosa present, no drooling and no muffled voice Eyes General: appearance normal, both eyes and all related structures Periorbital: periorbital findings normal Eyelids: Yes eyelids normal Conjunctivae: conjunctivae normal Pupils: Equal, round and reactive pupils present EOM: EOMs intact bilaterally Neck Neck: Yes normal visual inspection, Yes full ROM and Yes no lymphadenopathy Resp Effort & Inspection: normal respiratory effort and able to speak in complete sentences Neuro General: patient oriented x3, moves all extremities and CN's II-XI intact bilaterally Cranial nerves: Yes Equal, round and reactive pupils present Cognition (Neuro): normal cognition Extrem General: Yes normal to inspection, Yes full ROM and Yes capillary refill normal Psych Appearance: grossly normal Mental Status: mental status grossly normal Affect: normal affect Attitude: cooperative Thought process: Normal thought process present Thought content: Normal thought content present Insight: Good insight present (Psych) Medical Decision Making Medical Decision Making MDM Narrative: Patient is a 60 year old assigned male at with a history of anemia presenting to the emergency department today with left shoulder and neck pain. Patient's physical exam was unremarkable. Patient was able to touch his chin to his chest without incident. Patient has full ROM of both upper extremities and his neck. Patient afebrile. Patient's clinical presentation is most consistent with a muscle spasm vs. cervical radiculopathy. Patient's clinical presentation is not consistent with or concerning for meninigits or any other infectious process. I explained my physical exam findings to the patient. I answered all questions asked by the patient. I stressed the importance of the patient taking his medication as directed (either prescribed or as the over the counter packaging recommends). I stressed the importance of the patient following up with his primary care provider. I stressed the importance of the patient returning to the emergency department immediately if his symptoms were to worsen or if he were to develop any dizziness, shortness of breath, difficulty breathing, chest pain, blurry vision, loss of vision, nausea, vomiting, abdominal pain, fever, chills, back pain, or any other complaints. Patient verbalized agreement and understanding with this treatment plan and discharge. Differential Diagnosis Differential Diagnoses: The differential diagnosis associated with the presentation includes Muscle spasm Cervical radiculopathy Neck pain Shoulder pain Admission/Observation Consideration of admission/observation: Escalation of care including admission/observation considered Patient would have been admitted to the hospital had his clinical presentation warranted hospital admission. Tests considered The following testing was considered but not selected: I considered obtaining imaging of the patient's cervical spine and bilateral shoulders however, his current clinical presentation did not warrant this. I discussed this with the patient who verbalized understanding and agreement. Prescription Management I considered prescription management with: Pain Medication (Patient prescribed pain medication.) Discharge Plan Discharge Clinical Impression: Cervical paraspinal muscle spasm, Cervical radiculopathy Patient Disposition: Home, Self-Care Instructions: Cervical Radiculopathy (ED), Muscle Spasm (ED) Additional Instructions: Follow up with your primary care provider. Return to the emergency department immediately if your symptoms worsen or if you develop any numbness, tingling, dizziness, shortness of breath, difficulty breathing, chest pain, blurry vision, loss of vision, nausea, vomiting, abdominal pain, fever, chills, back pain, or any other complaints. Please see the information below about our Patient Portal. If you are not yet enrolled in the [facility] Patient Portal, you will receive an enrollment email invitation following your visit to any [facility] setting. You may also self-enroll in the Patient Portal by visiting our website: [email or web address] The following information is required to access the Patient Portal: - Your [facility] Medical Record Number - Your personal home email address (must match what is in your electronic medical record, Registration staff can assist with this) - Name - Date of Capabilities of the Patient Portal: - Message some providers - View upcoming appointments - Access your health summary, medical history, and visit history - View current conditions and allergies - View procedure and lab results - View your medications, including guidelines, side effects, and precautions - Complete pre-appointment questionnaires requested by your provider - Ready summary reports of your office visits and procedures To access the Patient Portal Mobile [employer], follow these directions: - Search Single Digits in the [employer] Store or [employer] Store - Download the [employer] - Search for [facility] - Enter your login/password Prescriptions: New cyclobenzaprine 5 mg tablet 5 mg PO TID PRN (Reason: muscle spasm) 7 Days Qty: 21 0RF prednisone 20 mg tablet 20 mg PO DAILY 7 Days Qty: 7 0RF No Action ibuprofen 600 mg tablet 600 mg PO Q6H PRN (Reason: fever or pain) Qty: 20 0RF acetaminophen 325 mg capsule 650 mg PO Q6H PRN (Reason: fever or pain) Qty: 20 0RF ferrous sulfate [Feosol] 325 mg (65 mg iron) tablet 325 mg PO DAILY omeprazole 20 mg capsule,delayed release(DR/EC) 20 mg PO DAILY Citrucel 500 mg tablet 500 mg PO TID Qty: 90 5RF polyethylene glycol 3350 [Miralax] 17 gram/dose powder 17 g PO DAILY Qty: 510 6RF sildenafil [Viagra] 100 mg tablet 100 mg PO DAILY PRN (Reason: sexual activity) Qty: 30 1RF Rx Instructions: administer 30 minutes to 1 hours before sexual activity BIN [id number] [facility] [address] tadalafil [Cialis] 5 mg tablet 5 mg PO DAILY Qty: 30 5RF Rx Instructions: [id number] [facility] [id number] Member [id number] Referrals: Joe Burnett MD [Primary Care Provider] - Interventions: ED Discharge Assessment Last Done: 04/06/25 15:01 Discharge Date/Time: 04/06/25 15:02 Print Language: Japanese
[2025-04-06 15:01] VITALS: BP 150/89; PULSE 99; RESP 18; TEMP 36.4; O2SAT 94
== END 2025-04-06 15:02 | disposition home or self-care (01) ==
PROVIDERS: Emergency Provider Emergency Medicine Emergency Medical Services; PCP Internal Medicine Medical Oncology
DX: M62.838 Other muscle spasm (principal); M54.12 Radiculopathy, cervical region; M25.512 Pain in left shoulder; Z79.899 Other long term (current) drug therapy
CPT/HCPCS: 99282; 99283

== ENCOUNTER 2025-04-07 08:46 | Outpatient (REF) | payer MEDICARE, SELFPAY ==
[2025-04-07 09:02] LABS: MANUAL DIFF FLAG NO
--- OUTSIDE RECORDS SUMMARY | 2025-04-07 09:15 | XMS_ITS | Patient Health Record ---
Author Organization Jessica Burnett III, MD Address [address] [place] [address] Care Team Providers Care Order Checker Packer Processer Name Role Phone Jessica Burnett Primary Care [...] (Not yet reviewed by provider) Interpretation: Performing Lab:[facility], [address] [place] [phone] Notes/Report: Uric Acid 6.8 3.4-7.0 mg/dL Hemoglobin A1c (Not yet revi ewed by provider) Interpretation: Performing Lab:[facility], [address] [place] [phone] Notes/Report: Hemoglobin A1c % 6.9 <6.0 % [...] average glucose, using the formula of the Q9E-Oxkcyfj Average Glucose study (ADAG), Diabetes Care, Vol.31,#8, May. 2007 Complete Blood Count Auto Di ff Reviewed date:07/08/2024 10:08:54 AM Interpretation: Performing Lab:[facility], [address] [place] [phone] Notes/Report: White Blood Count 7.0 4.8-10.8 X10*3/uL [...] NRBC Abs Auto 0.000 0.0-0.012 X10*3/uL Comprehensive [place]. Panel Fa Reviewed date:07/08/2024 10:08:54 AM Interpretation: Performing Lab:[facility], [address] [place] [phone] Notes/Report: Sodium 141 135-145 mmol/L Potassium 4.4 3.3-5.1 mmol/L Chloride 103 96-108 mmol/L Carbon Dioxide 30 22-29 mmol/L Anion Gap 12 12-20 Blood Urea Nitrogen 13 9-16 mg/dL Creatinine 0.83 0.5-1.4 mg/dL Estimated Glomerular Filt Rate > 60 NOTE: For -Latvian individuals, multiply the result by 1.210. Chronic [...] Ferritin Reviewed date:07/08/2024 10:08:54 AM Interpretation: Performing Lab:[facility], [address] [place] [phone] Notes/Report: Ferritin 25 20-250 ng/mL Lipid Panel Reviewed date:07/08/2024 10:08:54 AM Interpretation: Performing Lab:[facility], [address] [place] [phone] Notes/Report: Triglycerides 83 <150 mg/dL Desirable Triglyceride: [...] ff Reviewed date:11/06/2024 01:10:46 PM Interpretation: Performing Lab:[facility], [address] [place] [phone] Notes/Report: White Blood Count 5.5 4.8-10.8 X10*3/uL [...] Panel Reviewed date:11/06/2024 01:10:46 PM Interpretation: Performing Lab:[address] [phone] Notes/Report: Sodium 142 135-145 mmol/L Potassium 4.2 [...] Ferritin Reviewed date:11/06/2024 01:10:46 PM Interpretation: Performing Lab:[facility], [address] [place] [phone] Notes/Report: Ferritin 48 20-250 ng/mL Complete Blood Count Auto Di ff Reviewed date:02/07/2025 07:19:51 AM Interpretation: Performing Lab:[facility], [address] [place] [phone] Notes/Report: White Blood Count 5.3 4.8-10.8 X10*3/uL [...] Panel Reviewed date:02/07/2025 07:19:51 AM Interpretation: Performing Lab:[facility], [address] [place] [phone] Notes/Report: Sodium 140 135-145 mmol/L Potassium 4.2 [...] ff Reviewed date:02/07/2025 07:19:51 AM Interpretation: Performing Lab:[facility], [address] [place] [phone] Notes/Report: White Blood Count 5.8 4.8-10.8 X10*3/uL [...] NRBC Abs Auto 0.000 0.0-0.012 X10*3/uL Comprehensive [place]. Panel Fa st Reviewed date:02/07/2025 07:19:51 AM Interpretation: Performing Lab:[facility], [address] [place] [phone] Notes/Report: Sodium 144 135-145 mmol/L Potassium 4.0 [...] Panel Reviewed date:02/07/2025 07:19:51 AM Interpretation: Performing Lab:[address] [phone] Notes/Report: Triglycerides 101 <150 mg/dL Desirable Triglyceride: [...] Antigen Reviewed date:02/07/2025 07:19:51 AM Interpretation: Performing Lab:[address] [place] [address] Notes/Report: Prostate Specific Antigen 1.02 <0.05-4.0 ng/mL PSA methodology: Arthur Alinity i Chemiluminescent Microparticle Immunoassay (CMIA) XR chest 2V (Not yet reviewe d by provider) Interpretation: Performing Lab: Notes/Report: [address] [address] XRay Report Signed Patient: Jann Garcia MR#: [id number] 724 : 1965 Acct:[id number] Age/Sex: 60 / M ADM Date: 04/06/25 Loc: [facility] Attending Dr: Jessica Burnett MD Ordering Physician: Jessica Burnett MD Date of Service: 04/06/25 Procedure(s): XR chest 2V Accession Number(s): [id number] cc: Jessica Burnett MD EXAMINATION: XR CHEST [...] 04/06/25 1431 DD/ 1405 TD/TT: 04/06/25 1410 Sand Slinger Operator: [address] [address] XRay Report Signed Patient: Mak Garcia MR#: [id number] 724 : 1965 Acct:[id number] Age/Sex: 60 / M ADM Date: 04/06/25 Loc: [facility] Attending Dr: Jessica Burnett MD Ordering Physician: Jessica Burnett MD Date of Service: 04/06/25 Procedure(s): XR chest 2V Accession Number(s): [id number] cc: Jessica Burnett MD EXAMINATION: XR CHEST [...] 04/06/25 1431 DD/ 1405 TD/TT: 04/06/25 1410 Sand Slinger Operator: Reason For Referral Reason bilateral knee pain bilateral knee effusion Diagnosis 1 Pain in right knee ( M25.561) Diagnosis 2 Pain in left knee (M 25.562) Referral Organization Jessica Burnett III, MD Referring Provider First Name Jessica Referring Provider Last Name Hortencia Referring Provider Speciality Internal M edicine Referred Provider [facility] er, Orthopedic Surgeons Referred Provider Specialty Orthopedic S urgery General Notes Nimisha Perez [facility] 02/12 02:41:18 PM >ref/demo/progress note/labs faxed to [facility], Nimisha Perez [facility] 03/17/2025 02:14:58 PM >I called [facility] they stated pt has appt with [...] Problem Status W/U Status Risk Notes Problem 424382219 Obesity (E66.9) Active confirmed We have discussed his diet and nutrition. We made a plan to lose weight at a rate of 1 pound per week. Problem 00455450 Hyperglycemia (R73.9) Active confirmed His fasting blood glucose level was 134 which technically is in the diabetic range. I have discussed prediabetes with him at length. I have ordered a hemoglobin A1c to be done with the uric acid. Problem 18091480 Hypertension (I10) Active confirmed His blood pressure is stable. I have strongly recommended aggressive weight loss with regular exercise and sodium restriction. Problem 48572471 Iron deficiency (E61.1) Active confirmed Recent blood work shows his problem has resolved. Problem 8577407155 Pain in right knee (M25.561) Active confirmed He is being referred to orthopedics. I have ordered a uric acid level to be done today. He was instructed to use ibuprofen. A follow-up visit was arranged. Problem [id number] Pain in left knee (M25.562) Active confirmed The left knee is less painful than the right but similar in physical examination. In orthopedic evaluation has been requested. Blood work is pending. Problem 425556740 Radiculopathy, lumbar region (M54.16) Active confirmed He continues to complain of discomfort in his lumbar spine that radiates into the buttocks. He has less intense pain in his lumbar spine with decreased range of motion. We will employ conservative regimen of heat, rest and ibuprofen. Problem 46542012 Hearing loss (H91.90) Active confirmed He has mild hearing loss. He does not wish to have amplification her ENT evaluation at this time. He is able to function without impairment in daily life.. Problem 91524610 Pilonidal cyst (L05.91) Active confirmed . This lesion has completely healed and is not symptomatic at this time. Problem 748367984 DJD (degenerative joint disease) (M19.90) Active confirmed He continues to have recommended lumbar spine pain. He will continue on his current regimen. Problem 12295267 Vitamin D deficiency (E55.9) Active confirmed I continue to recommend he take 1000 units of vitamin D daily Problem 315060444 Shoulder impingement syndrome (M75.40) Active confirmed He has a nerve impingement left arm and I have referred him back to orthopedics.He will be seen April 09, 2025. Problem 408501962 ED (erectile dysfunction) (N52.9) Active confirmed This problem rascon s been addressed with prescription medication. He says it is working. He remained generally care of urologist. Problem 494612767 Right inguinal hernia (K40.90) Active confirmed His symptoms are mild and he wants to observe this for a while to see how much of a nuisance it is. He was informed he could have it repaired or live with it. Follow-up visit was arranged. Problem 53924207 Elevated bilirubin (R17) Active confirmed His bilirubi n was 3.9. This value will be repeated and evaluated is still elevated. Problem 845704183 Chronic GERD (K21.9) Active confirmed This discomfort has resolved and his current therapy was continued. 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 [...] Date Provider Diagnosis Jessica Burnett III, MD [address] [place] [address] [place] [phone] 04/06/2025 Jessica Burnett Radiculopathy, lumba r region M54.16 ; Obesity E66.9 and Bronchitis J40 Jessica Burnett III, MD [address] [place] [address] [place] [address] 04/10/2024 Jessica Burnett Radiculopathy, lumba r region M54.16 ; Obesity E66.9 ; Hearing loss H91.90 ; Hypertension I10 ; Shoulder impingement syndrome M75.40 ; Chronic GERD K21.9 ; Pilonidal cyst L05.91 and Right inguinal hernia K40.90 Jessica Burnett III, MD [address] [place] [address] [place] [phone] 05/02/2024 Jessica Burnett Radiculopathy, lumba r region M54.16 ; Hearing loss H91.90 ; Obesity E66.9 ; Shoulder impingement syndrome M75.40 and Right inguinal hernia K40.90 Jessica Burnett III, MD [address] [place] [address] [place] [address] 07/08/2024 Jessica Burnett Radiculopathy, lumba r region M54.16 ; Obesity E66.9 ; Iron deficiency E61.1 ; Hearing loss H91.90 ; Hypertension I10 ; Chronic GERD K21.9 ; Vitamin D deficiency E55.9 and Right inguinal hernia K40.90 Jessica Burnett III, MD [address] [place] [address] 11/11/2024 Jessica Whiterne Radiculopathy, lumba r region M54.16 ; Encounter for immunization Z23 ; Obesity E66.9 ; Iron deficiency E61.1 ; Elevated bilirubin R17 ; Hypertension I10 ; Hearing loss H91.90 ; Shoulder impingement syndrome M75.40 ; Chronic GERD K21.9 and Hyperglycemia R73.9 Jessica Burnett III, MD [address] [place] [address] [place] [phone] 02/10/2025 Jessica Hortencia Radiculopathy, lumba r region M54.16 ; Pain in right knee M25.561 ; Pain in left knee M25.562 ; Hyperglycemia R73.9 ; Hearing loss H91.90 ; Obesity E66.9 ; Shoulder impingement syndrome M75.40 ; Hypertension I10 ; Chronic GERD K21.9 and Vitamin D deficiency E55.9 Jessica Burnett III, MD [address] [place] [address] [place] [address] 03/03/2025 Jessica Hortencia Radiculopathy, lumba r region [...] 11/11/2024 CBC WITH AUTO DIFF 07/08/2024 Prothrombin 90763V 08/17/2021 Uric Acid 02/10/2025 Ferritin 03/03/2025 Ferritin 07/08/2024 Lipid Panel 11/11/2024 Lipid Panel 03/03/2025 Lipid Panel 03/23/2023 Lipid Panel 08/22/2023 XR chest 2V 04/06/2025 Hemoglobin A1c 02/10/2025 Next Appt Details Provider Name:Jessica Burnett, 06/04/2025 09:30:00 AM, [address] [place] [address] [place], [place], [phone], Provider Name:Jessica Burnett, 11/12/2025 10:00:00 AM, [address] [place] [address] [place], [place], [phone], Insurance Providers Payer Name Payer Address Payer Phone Subscriber Number Group Number Insured Name Patient Relationship to Insured Coverage Start Date Coverage End Date [employer] [address] [place] [address] [id number] Jann Garcia Self - patient is the insured [place] [address] [place] [id number] [phone] [id number] Jann Garcia Self - patient is the insured MEDICARE [place] [address] [facility] [place] [place] [address] [phone] [id number] Jann Garcia Self - patient is the [...]
[2025-04-07 09:30] LABS: Basophils Percent Auto 0.3 % (0-2); Eosinophils Percent Auto 0.5 % (0-4); Hematocrit 39.7 % (42.0-52.0); Hemoglobin 12.9 g/dl (14.0-18.0); Imm Gran Abs Auto 0.03 X10*3/uL (0.00-0.03); Imm Gran Pct Auto 0.3 % (0.0-0.4); Lymphocytes Absolute Auto 2.3 X10*3/uL (1.2-4.9); Lymphocytes Percent Auto 26.7 % (20-40); Mean Corpuscular HGB Conc 32.5 g/dl (31.0-36.0); Mean Corpuscular Hemoglobin 28.3 pg (27.0-33.0); Mean Corpuscular Volume 87.1 fL (80.0-98.0); Mean Platelet Volume 9.7 fL (9.4-12.4); Monocytes Absolute Auto 0.8 X10*3/uL (0.1-1.2); Monocytes Percent Auto 8.9 % (2-11); Neutrophils Absolute Auto 5.5 x10*3/uL (2.0-8.3); Neutrophils Percent Auto 63.3 % (45-73); Platelet Count 281 X10*3/uL (160-400); Red Blood Count 4.56 X10*6/uL (4.60-5.80); Red Cell Distribution Width 13.5 % (11.0-16.0); White Blood Count 8.7 X10*3/uL (4.8-10.8)
[2025-04-07 09:57] LABS: Alanine Aminotransferase 14 U/L (0-40); Albumin Level 4.3 g/dL (3.5-5.0); Alkaline Phosphatase 58 U/L (39-117); Anion Gap 10 (12-20); Aspartate Amino Transferase 18 U/L (5-37); Bilirubin Total 2.1 mg/dL (0.0-1.0); Blood Urea Nitrogen 15 mg/dL (9-16); Calcium 9.7 mg/dL (8.4-10.2); Carbon Dioxide 31 mmol/L (22-29); Chloride 104 mmol/L (96-108); Estimated Glomerular Filt Rate > 60; Glucose Fasting 98 mg/dL (60-99); Potassium 4.2 mmol/L (3.3-5.1); Sodium 141 mmol/L (135-145); Total Protein 7.7 g/dL (6.5-8.0)
[2025-04-07 10:09] LABS: Erythrocyte Sedimentation Rate 29 MM/HR (0-15)
== END 2025-04-07 08:47 | disposition home or self-care (01) ==
LOC: HO.LAB 08:46
PROVIDERS: PCP Internal Medicine Medical Oncology; Visit Provider Internal Medicine Medical Oncology
DX: M54.16 Radiculopathy, lumbar region (principal); E66.9 Obesity, unspecified; J40 Bronchitis, not specified as acute or chronic
CPT/HCPCS: 36415; 80053; 85025; 85652

== ENCOUNTER 2025-04-08 08:46 | Outpatient (AMB) | payer MEDICARE, SELFPAY ==
--- NOTE | 2025-04-08 08:52 | MHC.OFFVIS ---
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 He describes his knee pains as sharp in nature. He did undergo right knee arthroscopic surgery several years ago. He got temporary relief from that procedure. He has failed the last 3 months of conservative treatment which has included a home exercise program, physical therapy exercises, Tylenol, muscle relaxants and anti-inflammatory medicines. He has had cortisone injections in the past. The most recent injection gave him minimal relief. He has not had a viscosupplementation injection. He wishes to hold off on further surgery if at all possible. At this point his bilateral knee pains are interfering with his activities of daily living and his ability to sleep well through the night. Allergies ENVIRONMENTAL Allergy (Mild, Uncoded 04/08/25 08:54) Itching Medication List - Last Reconciled 04/08/25 by Zion Simental MD acetaminophen 650 mg (2 x 325 mg) PO Q6H PRN cyclobenzaprine 5 mg PO TID PRN 7 days ferrous sulfate (Feosol) 325 mg PO DAILY ibuprofen 600 mg PO Q6H PRN omeprazole 20 mg PO DAILY prednisone 20 mg PO DAILY 7 days sildenafil (Viagra) 100 mg PO DAILY PRN tadalafil (Cialis) 5 mg PO DAILY PFSH Medical History DVT (deep venous thrombosis) GERD (gastroesophageal reflux disease) History of anemia Back pain with history of spinal surgery Surgical History History of esophagogastroduodenoscopy (EGD) H/O colonoscopy Family History Son CML (chronic myelocytic leukemia), Onset Age: 36 Social History Household Members: Significant Other Are you a primary patient care technician to a significant other at home: No Do you presently have visiting nurse or other home services: No Alcohol intake: current Alcohol intake frequency: former alcohol drinker Alcohol type: beer Patient Tobacco Use Status: Never used Tobacco Current occupational status: disabled Current occupation: Right Handed Physical Exam Vital Signs: BMI result Body Mass Index 34.8 Const Other: Well-nourished well-developed very friendly male awake alert and oriented x3 in no acute distress Extrem Other: Bilateral lower extremity examination shows good capillary refill, no skin lesions noted, normal sensation light touch Bilateral knee examination shows minimal effusions, palpable crepitus with range of motion, pain with range of motion, no instability Assessment & Plan Assessment & Plan (1) Osteoarthritis of left knee: Code(s): M17.12 - Unilateral primary osteoarthritis, left knee Category: Medical (2) Osteoarthritis of right knee: Code(s): M17.11 - Unilateral primary osteoarthritis, right knee Category: Medical Plan Mr. Garcia presents with bilateral knee pains due to osteoarthritis. I had a lengthy discussion with the patient regarding the treatment options. He wishes to hold off on surgery for as long as possible. I agree with this plan. He has not gotten good relief from cortisone injections in the past. Thus, I will see whether or not his insurance company will cover a viscosupplementation injection, such as Durolane, for both of his knees. I will see him back once the injection is available. Feel free to call me at any time should questions regarding his orthopedic management arise. Thank you very much for asking me to see this very friendly gentleman. I spent 21 minutes in reviewing the patient's records and imaging studies, seeing the patient and documenting in the medical record. Orders: Orders XR Knee Carlos 3V Today G89.29 - Other chronic pain, M25.561 - Pain in right knee, M25.562 - Pain in left knee Coding Level of Care Code New Pt Level 3 (76633) Complex EM visit Add On G2211 Diagnoses Osteoarthritis of left knee M17.12 Osteoarthritis of right knee M17.11
[2025-04-08 08:58] VITALS: BMI 34.8
--- OUTSIDE RECORDS SUMMARY | 2025-04-08 09:17 | XMS_ITS | Patient Health Record ---
Author Organization Jessica Burnett III, MD Address [address] [place] [address] Care Team Providers Care Dental Front Office Assistant Name Role Phone Jessica Burnett Primary [...] (Not yet reviewed by provider) Interpretation: Performing Lab:[facility], [address] [place] [phone] Notes/Report: Uric Acid 6.8 3.4-7.0 mg/dL Hemoglobin A1c (Not yet revi ewed by provider) Interpretation: Performing Lab:[facility], [address] [place] [phone] Notes/Report: Hemoglobin A1c % 6.9 <6.0 % [...] average glucose, using the formula of the [id number] Average Glucose study (ADAG), Diabetes Care, Vol.31,#8, May. 2007 Complete Blood Count Auto Di ff Reviewed date:07/08/2024 10:08:54 AM Interpretation: Performing Lab:[facility], [address] [place] [phone] Notes/Report: White Blood Count 7.0 4.8-10.8 X10*3/uL [...] NRBC Abs Auto 0.000 0.0-0.012 X10*3/uL Comprehensive [place]. Panel Fa Reviewed date:07/08/2024 10:08:54 AM Interpretation: Performing Lab:[facility], [address] [place] [phone] Notes/Report: Sodium 141 135-145 mmol/L Potassium 4.4 3.3-5.1 mmol/L Chloride 103 96-108 mmol/L Carbon Dioxide 30 22-29 mmol/L Anion Gap 12 12-20 Blood Urea Nitrogen 13 9-16 mg/dL Creatinine 0.83 0.5-1.4 mg/dL Estimated Glomerular Filt Rate > 60 NOTE: For -[place] individuals, multiply the result by 1.210. Chronic [...] Ferritin Reviewed date:07/08/2024 10:08:54 AM Interpretation: Performing Lab:[facility], [address] [place] [phone] Notes/Report: Ferritin 25 20-250 ng/mL Lipid Panel Reviewed date:07/08/2024 10:08:54 AM Interpretation: Performing Lab:[facility], [address] [place] [phone] Notes/Report: Triglycerides 83 <150 mg/dL Desirable Triglyceride: [...] ff Reviewed date:11/06/2024 01:10:46 PM Interpretation: Performing Lab:[facility], [address] [place] [phone] Notes/Report: White Blood Count 5.5 4.8-10.8 X10*3/uL [...] Panel Reviewed date:11/06/2024 01:10:46 PM Interpretation: Performing Lab:[address] [phone] Notes/Report: Sodium 142 135-145 mmol/L Potassium 4.2 [...] Ferritin Reviewed date:11/06/2024 01:10:46 PM Interpretation: Performing Lab:[facility], [address] [place] [phone] Notes/Report: Ferritin 48 20-250 ng/mL Complete Blood Count Auto Di ff Reviewed date:02/07/2025 07:19:51 AM Interpretation: Performing Lab:[facility], [address] [place] [phone] Notes/Report: White Blood Count 5.3 4.8-10.8 X10*3/uL [...] Panel Reviewed date:02/07/2025 07:19:51 AM Interpretation: Performing Lab:[facility], [address] [place] [phone] Notes/Report: Sodium 140 135-145 mmol/L Potassium 4.2 [...] ff Reviewed date:02/07/2025 07:19:51 AM Interpretation: Performing Lab:[facility], [address] [place] [phone] Notes/Report: White Blood Count 5.8 4.8-10.8 X10*3/uL [...] NRBC Abs Auto 0.000 0.0-0.012 X10*3/uL Comprehensive [place]. Panel Fa st Reviewed date:02/07/2025 07:19:51 AM Interpretation: Performing Lab:[facility], [address] [place] [phone] Notes/Report: Sodium 144 135-145 mmol/L Potassium 4.0 [...] Panel Reviewed date:02/07/2025 07:19:51 AM Interpretation: Performing Lab:[address] [phone] Notes/Report: Triglycerides 101 <150 mg/dL Desirable Triglyceride: [...] Antigen Reviewed date:02/07/2025 07:19:51 AM Interpretation: Performing Lab:[address] [place] [address] Notes/Report: Prostate Specific Antigen 1.02 <0.05-4.0 ng/mL PSA methodology: Arthur Alinity i Chemiluminescent Microparticle Immunoassay (CMIA) XR chest 2V (Not yet reviewe d by provider) Interpretation: Performing Lab: Notes/Report: [address] [address] XRay Report Signed Patient: Jann Garcia MR#: [id number] 724 : 1965 Acct:[id number] Age/Sex: 60 / M ADM Date: 04/06/25 Loc: [facility] Attending Dr: Jessica Burnett MD Ordering Physician: Jessica Burnett MD Date of Service: 04/06/25 Procedure(s): XR chest 2V Accession Number(s): [id number] cc: Jessica Burnett MD EXAMINATION: XR CHEST [...] 04/06/25 1431 DD/ 1405 TD/TT: 04/06/25 1410 Quality Control Expert: [address] [address] XRay Report Signed Patient: Mak Garcia MR#: [id number] 724 : 1965 Acct:[id number] Age/Sex: 60 / M ADM Date: 04/06/25 Loc: [facility] Attending Dr: Jessica Burnett MD Ordering Physician: Jessica Burnett MD Date of Service: 04/06/25 Procedure(s): XR chest 2V Accession Number(s): [id number] cc: Jessica Burnett MD EXAMINATION: XR CHEST [...] 04/06/25 1431 DD/ 1405 TD/TT: 04/06/25 1410 Quality Control Expert: Complete Blood Count Auto Di ff (Not yet reviewed by provider) Interpretation: Performing Lab:[facility], [address] [place] [phone] Notes/Report: White Blood Count 8.7 4.8-10.8 X10*3/uL Red Blood Count 4.56 4.60-5.80 X10*6/uL Hemoglobin 12.9 14.0-18.0 g/dl Hematocrit 39.7 42.0-52.0 % Mean Corpuscular Volume 87.1 80.0-98.0 fL Mean Corpuscular Hemoglobin 28.3 27.0-33.0 pg Mean Corpuscular HGB Conc 32.5 31.0-36.0 g/dl Red Cell Distribution Width 13.5 11.0-16.0 % Platelet Count 281 160-400 X10*3/uL Mean Platelet Volume 9.7 9.4-12.4 fL Neutrophils Percent Auto 63.3 45-73 % Imm Gran Pct Auto 0.3 0.0-0.4 % Lymphocytes Percent Auto 26.7 20-40 % Monocytes Percent Auto 8.9 2-11 % Eosinophils Percent Auto 0.5 0-4 % Basophils Percent Auto 0.3 0-2 % NRBC Pct Auto 0.0 0.0-0.2 /100WBC Neutrophils Absolute Auto 5.5 2.0-8.3 x10*3/uL Imm Gran Abs Auto 0.03 0.00-0.03 X10*3/uL Lymphocytes Absolute Auto 2.3 1.2-4.9 X10*3/uL Monocytes Absolute Auto 0.8 0.1-1.2 X10*3/uL Eosinophils Absolute Auto 0.0 0.0-0.4 X10*3/uL Basophils Absolute Auto 0.0 0.0-0.2 X10*3/uL NRBC Abs Auto 0.000 0.0-0.012 X10*3/uL Erythrocyte Sedimentation Ra te (Not yet reviewed by provider) Interpretation: Performing Lab:[facility], [address] [place] [phone] Notes/Report: Erythrocyte Sedimentation Rate 29 0-15 MM/HR Patients with polycythemia and many hemoglobin abnormalities may have depressed sed rates whereas patients with anemia may have elevated sed rates. Comprehensive [place]. Panel Fa st (Not yet reviewed by provider) Interpretation: Performing Lab:[facility], [address] [place] [phone] Notes/Report: Sodium 141 135-145 mmol/L Potassium 4.2 3.3-5.1 mmol/L Chloride 104 96-108 mmol/L Carbon Dioxide 31 22-29 mmol/L Anion Gap 10 12-20 Blood Urea Nitrogen 15 9-16 mg/dL Creatinine 0.72 0.5-1.4 mg/dL Estimated Glomerular Filt Rate > 60 Chronic Kidney Disease: Estimated GFR < 60 mL/min/1.73m2 Severe Kidney Disease: Estimated GFR < 15 mL/min/1.73m2 Glucose Fasting 98 60-99 mg/dL Calcium 9.7 8.4-10.2 mg/dL Bilirubin Total 2.1 0.0-1.0 mg/dL Aspartate Amino Transferase 18 5-37 U/L Alanine Aminotransferase 14 0-40 U/L Total Protein 7.7 6.5-8.0 g/dL Albumin Level 4.3 3.5-5.0 g/dL Alkaline Phosphatase 58 39-117 U/L Reason For Referral Reason bilateral knee pain bilateral knee effusion Diagnosis 1 Pain in right knee ( M25.561) Diagnosis 2 Pain in left knee (M 25.562) Referral Organization Jessica Burnett III, MD Referring Provider First Name Jessica Referring Provider Last Name Hortencia Referring Provider Speciality Internal M edicine Referred Provider [facility] Referred Provider Specialty Orthopedic S urgery General Notes [facility] 02/12 02:41:18 PM >ref/demo/progress note/labs faxed to [facility], Nimisha Perez [facility] 03/17/2025 02:14:58 PM >I called [facility] they stated pt has appt with [...] Problem Status W/U Status Risk Notes Problem 940512228 Obesity (E66.9) Active confirmed On his next visit we will collaborate a weight loss strategy designed to lose weight at a rate of 1 pound. Problem 40896359 Hyperglycemia (R73.9) Active confirmed His fasting blood glucose level was 134 which technically is in the diabetic range. I have discussed prediabetes with him at length. I have ordered a hemoglobin A1c to be done with the uric acid. Problem 10507786 Hypertension (I10) Active confirmed His blood pressure is stable. I have strongly recommended aggressive weight loss with regular exercise and sodium restriction. Problem 47734524 Iron deficiency (E61.1) Active confirmed Recent blood work shows his problem has resolved. Problem 4679901127 Pain in right knee (M25.561) Active confirmed He is being referred to orthopedics. I have ordered a uric acid level to be done today. He was instructed to use ibuprofen. A follow-up visit was arranged. Problem [id number] Pain in left knee (M25.562) Active confirmed The left knee is less painful than the right but similar in physical examination. In orthopedic evaluation has been requested. Blood work is pending. Problem 384182140 Radiculopathy, lumbar region (M54.16) Active confirmed He continues to complain of discomfort in his lumbar spine that radiates into the buttocks. He has less intense pain in his lumbar spine with decreased range of motion. We will employ conservative regimen of heat, rest and ibuprofen. Problem 71886111 Hearing loss (H91.90) Active confirmed He has mild hearing loss. He does not wish to have amplification her ENT evaluation at this time. He is able to function without impairment in daily life.. Problem 86546409 Pilonidal cyst (L05.91) Active confirmed . This lesion has completely healed and is not symptomatic at this time. Problem 186334861 DJD (degenerative joint disease) (M19.90) Active confirmed He continues to have recommended lumbar spine pain. He will continue on his current regimen. Problem 78042987 Vitamin D deficiency (E55.9) Active confirmed I continue to recommend he take 1000 units of vitamin D daily Problem 394208067 Shoulder impingement syndrome (M75.40) Active confirmed He has a nerve impingement left arm and I have referred him back to orthopedics.He will be seen April 09, 2025. Problem 103431933 ED (erectile dysfunction) (N52.9) Active confirmed This problem rascon s been addressed with prescription medication. He says it is working. He remained generally care of urologist. Problem 771773900 Right inguinal hernia (K40.90) Active confirmed His symptoms are mild and he wants to observe this for a while to see how much of a nuisance it is. He was informed he could have it repaired or live with it. Follow-up visit was arranged. Problem 20888899 Elevated bilirubin (R17) Active confirmed His bilirubi n was 3.9. This value will be repeated and evaluated is still elevated. Problem 741648801 Chronic GERD (K21.9) Active confirmed This discomfort has resolved and his current therapy was continued. 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 His anticoagulation was discontinued today. Problem 07400506 Neck pain, acute (M54.2) Active confirmed Because he had fever and stiff neck he was sent to the emergency room Vital Signs Heart Rate 98 /min 04/06/2025 Temperature 98.1 degrees Fahrenheit 04/08/2025 Blood pressure diastolic 87 mm Hg 04/06/2025 Height 63 in 04/08/2025 Blood pressure systolic 130 mm Hg 04/06/2025 Weight 202 lbs 04/08/2025 BMI 35.78 kg/m2 04/08/2025 Encounters Encounter Location Date Provider Diagnosis Jessica Burnett III, MD [address] [place] [address] [address] [place], [place] [address] 04/08/2025 Jessica Burnett III MD [address] [place] [address] [place] [address] 04/10/2024 Jessica Whiterne Radiculopathy, lumba r region M54.16 ; Obesity E66.9 ; Hearing loss H91.90 ; Hypertension I10 ; Shoulder impingement syndrome M75.40 ; Chronic GERD K21.9 ; Pilonidal cyst L05.91 and Right inguinal hernia K40.90 Jessica Burnett III, MD [address] [place] [address] [place] [address] 05/02/2024 Jessica Burnett Radiculopathy, lumba r region M54.16 ; Hearing loss H91.90 ; Obesity E66.9 ; Shoulder impingement syndrome M75.40 and Right inguinal hernia K40.90 Jessica Burnett III, MD [address] [place] [address] [place] [address] 07/08/2024 Jessica Whiterne Radiculopathy, lumba r region M54.16 ; Obesity E66.9 ; Iron deficiency E61.1 ; Hearing loss H91.90 ; Hypertension I10 ; Chronic GERD K21.9 ; Vitamin D deficiency E55.9 and Right inguinal hernia K40.90 Jessica Burnett III, MD [address] [place] [address] [place] [address] 11/11/2024 Jessica Whiterne Radiculopathy, lumba r region M54.16 ; Encounter for immunization Z23 ; Obesity E66.9 ; Iron deficiency E61.1 ; Elevated bilirubin R17 ; Hypertension I10 ; Hearing loss H91.90 ; Shoulder impingement syndrome M75.40 ; Chronic GERD K21.9 and Hyperglycemia R73.9 Jessica Burnett III, MD [address] [place] [address] [place] [address] 02/10/2025 Jessica Burnett Radiculopathy, lumba r region M54.16 ; Pain in right knee M25.561 ; Pain in left knee M25.562 ; Hyperglycemia R73.9 ; Hearing loss H91.90 ; Obesity E66.9 ; Shoulder impingement syndrome M75.40 ; Hypertension I10 ; Chronic GERD K21.9 and Vitamin D deficiency E55.9 Jessica Burnett III, MD [address] [place] [address] [place] [address] 03/03/2025 Jessica Burnett Radiculopathy, lumba r region M54.16 ; Shoulder impingement syndrome M75.40 ; Obesity E66.9 ; Iron deficiency E61.1 ; Hypertension I10 and Pain in right knee M25.561 Jessica Burnett III, MD [address] [place] [address] [address] [place] [address] 04/06/2025 Jessica Hortencia Radiculopathy, lumba r region M54.16 ; Neck pain, acute M54.2 and Obesity E66.9 Assessments Encounter Date Diagnosis (ICD Code) Assessment Notes Treat ment Notes Treatment Clinical Notes 04/10/2024 Obesity (ICD-10 - E66.9) His weight [...] will be seen April 09, 2025. 04/06/2025 Radiculopathy, lumbar region (ICD-10 - M54.16) [...] he was sent to the emergency room 04/10/2024 Hearing loss (ICD-10 - H91.90) He [...] rate of 1 pound per week. 04/06/2025 Obesity (ICD-10 - E66.9) On his next visit we will collaborate a weight loss strategy designed to lose weight at a rate of 1 pound. 04/10/2024 Hypertension (ICD-10 - I10) His blood [...] Date PROFILE, FASTING (COMPREHENSIVE METABOLI C) 03/03/2025 PROFILE, FASTING (COMPREHENSIVE METABOLI C) 03/23/2023 PROFILE, FASTING (COMPREHENSIVE METABOLI C) 08/22/2023 PROFILE, FASTING (COMPREHENSIVE METABOLI C) 05/23/2023 PROFILE, FASTING (COMPREHENSIVE METABOLI C) 11/11/2024 PROFILE, FASTING (COMPREHENSIVE METABOLI C) 04/06/2025 PROFILE, RANDOM (COMPREHENSIVE METABOLIC ) 11/11/2024 PROFILE, RANDOM (COMPREHENSIVE METABOLIC ) 01/31/2021 PROFILE, RANDOM (COMPREHENSIVE METABOLIC ) 08/30/2022 PROFILE, RANDOM (COMPREHENSIVE METABOLIC ) 07/08/2024 PROFILE, RANDOM (COMPREHENSIVE METABOLIC ) 12/31/2020 LIPID PANEL 08/30/2022 LIPID PANEL 05/23/2023 TSH (THYROID STIMULATING HORMONE) 2022 FERRITIN 12/31/2020 FERRITIN 05/23/2023 PSA, TOTAL 11/11/2024 PSA, TOTAL 08/30/2022 PSA, TOTAL 08/22/2023 CBC w DIFF 04/06/2025 CBC w DIFF 05/23/2023 CBC w DIFF 01/31/2021 CBC w DIFF 03/03/2025 CBC w DIFF 03/23/2023 CBC w DIFF 08/30/2022 CBC w DIFF 08/22/2023 CBC w DIFF 12/31/2020 SED RATE (ESR) 04/06/2025 PROTHROMBIN TIME (PT, [...] 07/08/2024 Complete Blood Count Auto Diff 5 Erythrocyte Sedimentation Rate 5 Prothrombin 63955B 08/17/2021 Comprehensive [place]. Panel Fast 5 Uric Acid 02/10/2025 Ferritin 03/03/2025 Ferritin 07/08/2024 Lipid Panel 03/23/2023 Lipid Panel 08/22/2023 Lipid Panel 11/11/2024 Lipid Panel 03/03/2025 XR chest 2V 04/06/2025 Hemoglobin A1c 02/10/2025 Next Appt Details Provider Name:Jessica Burnett, 06/04/2025 09:30:00 AM, [address] [place] [address] [address], [place], [address], Provider Name:Jessica Burnett, 11/12/2025 10:00:00 AM, [address] [place] [address] [address], [place], [address], Insurance Providers Payer Name Payer Address Payer Phone Subscriber Number Group Number Insured Name Patient Relationship to Insured Coverage Start Date Coverage End Date [employer] [address] [place] [address] [id number] Jann Garcia Self - patient is the insured MED[place] [address] [place], [place] [id number] Jann Garcia Self - patient is the insured MEDICARE NGS [address] [place] [address] [id number] Jann Garcia Self - patient is the [...]
== END 2025-04-08 09:10 | disposition home or self-care (01) ==
LOC: HO.HOS 08:46
PROVIDERS: PCP Internal Medicine Medical Oncology; Visit Provider Orthopaedic Surgery
DX: M17.0 Bilateral primary osteoarthritis of knee (principal)
CPT/HCPCS: 99203; G2211

== ENCOUNTER 2025-04-08 12:37 | Outpatient (REF) | payer MEDICARE, SELFPAY ==
--- OUTSIDE RECORDS SUMMARY | 2025-04-09 13:40 | XMS_ITS | Patient Health Record ---
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 Name Role Phone Jessica Burnett Primary Care Provider [phone] Allergies Allergen (clinical drug ingredient) Drug/Non Drug [...] Positive Negative - Menstrating N/A Uric Acid Reviewed date:04/08/2025 09:28:19 AM Interpretation: Performing Lab:[facility], [address] [place] [phone] Notes/Report: Uric Acid 6.8 3.4-7.0 mg/dL Hemoglobin A1c Reviewed date:04/08/2025 09:28:19 AM Interpretation: Performing Lab:[facility], [address] [place] [phone] Notes/Report: Hemoglobin A1c % 6.9 <6.0 % [...] average glucose, using the formula of the [id number] Average Glucose study (ADAG), Diabetes Care, Vol.31,#8, May. 2007 Complete Blood Count Auto Di ff Reviewed date:07/08/2024 10:08:54 AM Interpretation: Performing Lab:[facility], [address] [place] [phone] Notes/Report: White Blood Count 7.0 4.8-10.8 X10*3/uL [...] NRBC Abs Auto 0.000 0.0-0.012 X10*3/uL Comprehensive [place]. Panel Fa Reviewed date:07/08/2024 10:08:54 AM Interpretation: Performing Lab:[facility], [address] [place] [phone] Notes/Report: Sodium 141 135-145 mmol/L Potassium 4.4 3.3-5.1 mmol/L Chloride 103 96-108 mmol/L Carbon Dioxide 30 22-29 mmol/L Anion Gap 12 12-20 Blood Urea Nitrogen 13 9-16 mg/dL Creatinine 0.83 0.5-1.4 mg/dL Estimated Glomerular Filt Rate > 60 NOTE: For -[place]ue[place] individuals, multiply the result by 1.210. Chronic [...] Reviewed date:07/08/2024 10:08:54 AM Interpretation: Performing Lab:[facility], [address] [place] [phone] Notes/Report: Ferritin 25 20-250 ng/mL Lipid Panel Reviewed date:07/08/2024 10:08:54 AM Interpretation: Performing Lab:[facility], [address] [place] [phone] Notes/Report: Triglycerides 83 <150 mg/dL Desirable Triglyceride: [...] Reviewed date:11/06/2024 01:10:46 PM Interpretation: Performing Lab:[facility], [address] [place] [phone] Notes/Report: White Blood Count 5.5 4.8-10.8 X10*3/uL [...] Panel Reviewed date:11/06/2024 01:10:46 PM Interpretation: Performing Lab:[facility], [address] [place] [phone] Notes/Report: Sodium 142 135-145 mmol/L Potassium 4.2 [...] Reviewed date:11/06/2024 01:10:46 PM Interpretation: Performing Lab:[facility], [address] [place] [phone] Notes/Report: Ferritin 48 20-250 ng/mL Complete Blood Count Auto Di ff Reviewed date:02/07/2025 07:19:51 AM Interpretation: Performing Lab:[facility], [address] [place] [phone] Notes/Report: White Blood Count 5.3 4.8-10.8 X10*3/uL [...] Reviewed date:02/07/2025 07:19:51 AM Interpretation: Performing Lab:[facility], [address] [place] [phone] Notes/Report: Sodium 140 135-145 mmol/L Potassium 4.2 [...] Reviewed date:02/07/2025 07:19:51 AM Interpretation: Performing Lab:[facility], [address] [place] [phone] Notes/Report: White Blood Count 5.8 4.8-10.8 X10*3/uL [...] NRBC Abs Auto 0.000 0.0-0.012 X10*3/uL Comprehensive [place]. Panel Fa st Reviewed date:02/07/2025 07:19:51 AM Interpretation: Performing Lab:[facility], [address] [place] [phone] Notes/Report: Sodium 144 135-145 mmol/L Potassium 4.0 [...] Reviewed date:02/07/2025 07:19:51 AM Interpretation: Performing Lab:[facility], [address] [place] [phone] Notes/Report: Triglycerides 101 <150 mg/dL Desirable Triglyceride: [...] Antigen Reviewed date:02/07/2025 07:19:51 AM Interpretation: Performing Lab:[facility], [address] [place] [phone] Notes/Report: Prostate Specific Antigen 1.02 <0.05-4.0 ng/mL PSA methodology: Arthur Alinity i Chemiluminescent Microparticle Immunoassay (CMIA) XR chest 2V Reviewed date:04/08/2025 09:28:19 AM Interpretation: Performing Lab: Notes/Report: [address] [address] XRay Report Signed Patient: Jann Garcia MR#: [id number] 724 : 1965 Acct:[id number] Age/Sex: 60 / M ADM Date: 04/06/25 Loc: [facility] Attending Dr: Jessica Burnett MD Ordering Physician: Jessica Burnett MD Date of Service: 04/06/25 Procedure(s): XR chest 2V Accession Number(s): [id number] cc: Jessica Burnett MD EXAMINATION: XR CHEST [...] Tony Klein MD 04/06/2025 02:31 PM EDT Dictated By: Tony Mcpherson MD Signed By: <Electronically signed by Tony Coombs MD in [place]> 04/06/25 1431 DD/ 1405 TD/TT: 04/06/25 1410 Eap Specialist: [address] [address] XRay Report Signed Patient: Mak Garcia MR#: [id number] 724 : 1965 Acct:[id number] Age/Sex: 60 / M ADM Date: 04/06/25 Loc: [facility] Attending Dr: Jessica Burnett MD Ordering Physician: Jessica Burnett MD Date of Service: 04/06/25 Procedure(s): XR chest 2V Accession Number(s): [id number] cc: Jessica Burnett MD EXAMINATION: XR CHEST [...] 04/06/25 1431 DD/ 1405 TD/TT: 04/06/25 1410 Eap Specialist: Complete Blood Count Auto Di ff Reviewed date:04/08/2025 09:28:19 AM Interpretation: Performing Lab:[facility], [address] [place] [phone] Notes/Report: White Blood Count 8.7 4.8-10.8 X10*3/uL [...] 0.000 0.0-0.012 X10*3/uL Erythrocyte Sedimentation Ra te Reviewed date:04/08/2025 09:28:19 AM Interpretation: Performing Lab:[facility], [address] [place] [phone] Notes/Report: Erythrocyte Sedimentation Rate 29 0-15 MM/HR Patients with polycythemia and many hemoglobin abnormalities may have depressed sed rates whereas patients with anemia may have elevated sed rates. Comprehensive [place]. Panel Fa st Reviewed date:04/08/2025 09:28:19 AM Interpretation: Performing Lab:[facility], [address] [place] [phone] Notes/Report: Sodium 141 135-145 mmol/L Potassium 4.2 [...] Provider Speciality Internal M edicine Referred Provider [facility], Orthopedic Surgeons Referred Provider Specialty Orthopedic [facility] Notes Nimisha Perez [facility] 02/12 02:41:18 PM >ref/demo/progress note/labs faxed to [facility], Nimisha Perez [facility] 03/17/2025 02:14:58 PM >I called [facility] they stated pt has appt with [...] Problem Status W/U Status Risk Notes Problem 259887539 Obesity (E66.9) Active confirmed On his next visit we will collaborate a weight loss strategy designed to lose weight at a rate of 1 pound. Problem 97310579 Hyperglycemia (R73.9) Active confirmed His fasting blood glucose level was 134 which technically is in the diabetic range. I have discussed prediabetes with him at length. I have ordered a hemoglobin A1c to be done with the uric acid. Problem 82370988 Hypertension (I10) Active confirmed His blood pressure is stable. I have strongly recommended aggressive weight loss with regular exercise and sodium restriction. Problem 38590837 Iron deficiency (E61.1) Active confirmed Recent blood work shows his problem has resolved. Problem 9582484954 Pain in right knee (M25.561) Active confirmed He is being referred to orthopedics. I have ordered a uric acid level to be done today. He was instructed to use ibuprofen. A follow-up visit was arranged. Problem [id number] Pain in left knee (M25.562) Active confirmed The left knee is less painful than the right but similar in physical examination. In orthopedic evaluation has been requested. Blood work is pending. Problem 087343300 Radiculopathy, lumbar region (M54.16) Active confirmed He continues to complain of discomfort in his lumbar spine that radiates into the buttocks. He has less intense pain in his lumbar spine with decreased range of motion. We will employ conservative regimen of heat, rest and ibuprofen. Problem 13591618 Hearing loss (H91.90) Active confirmed He has mild hearing loss. He does not wish to have amplification her ENT evaluation at this time. He is able to function without impairment in daily life.. Problem 17680076 Pilonidal cyst (L05.91) Active confirmed . This lesion has completely healed and is not symptomatic at this time. Problem 151475317 DJD (degenerative joint disease) (M19.90) Active confirmed He continues to have recommended lumbar spine pain. He will continue on his current regimen. Problem 48093081 Vitamin D deficiency (E55.9) Active confirmed I continue to recommend he take 1000 units of vitamin D daily Problem 868559316 Shoulder impingement syndrome (M75.40) Active confirmed He has a nerve impingement left arm and I have referred him back to orthopedics.He will be seen April 09, 2025. Problem 506388114 ED (erectile dysfunction) (N52.9) Active confirmed This problem rascon s been addressed with prescription medication. He says it is working. He remained generally care of urologist. Problem 441962074 Right inguinal hernia (K40.90) Active confirmed His symptoms are mild and he wants to observe this for a while to see how much of a nuisance it is. He was informed he could have it repaired or live with it. Follow-up visit was arranged. Problem 78594012 Elevated bilirubin (R17) Active confirmed His bilirubi n was 3.9. This value will be repeated and evaluated is still elevated. Problem 074313575 Chronic GERD (K21.9) Active confirmed This discomfort has resolved and his current therapy was continued. Problem 328087488285097 Chronic deep vein thrombosis (DVT) of brachial vein of right upper extremity (I82.721) Active confirmed After an adequate course of anticoagulation a thrombophilia evaluation is negative. His anticoagulation was discontinued today. Problem 86143567 Neck pain, acute (M54.2) Active confirmed Because he had fever and stiff neck he was sent to the emergency room Vital Signs Heart Rate 82 /min 04/08/2025 Temperature 98.1 degrees Fahrenheit 04/08/2025 Oximetry 97 % 04/08/2025 Blood pressure diastolic 97 mm Hg 04/08/2025 Height 63 in 04/08/2025 Blood pressure systolic 142 mm Hg 04/08/2025 Weight 202 lbs 04/08/2025 BMI 35.78 kg/m2 04/08/2025 Encounters Encounter Location Date Provider Diagnosis Jessica Burnett III, MD [address] [place] [address] [place] [address] 04/08/2025 Jessica Whiterne Radiculopathy, lumba r region M54.16 Jessica Burnett III, MD [address] [place] [address] [place] [address] 04/10/2024 Jessica Whiterne Radiculopathy, lumba r region M54.16 ; Obesity E66.9 ; Hearing loss H91.90 ; Hypertension I10 ; Shoulder impingement syndrome M75.40 ; Chronic GERD K21.9 ; Pilonidal cyst L05.91 and Right inguinal hernia K40.90 Jessica Burnett III, MD [address] [place] [address] [place] [address] 05/02/2024 Jessica Whiterne Radiculopathy, lumba r region M54.16 ; Hearing loss H91.90 ; Obesity E66.9 ; Shoulder impingement syndrome M75.40 and Right inguinal hernia K40.90 Jessica Burnett III, MD [address] [place] [address] [place] [address] 07/08/2024 Jessica Whiterne Radiculopathy, lumba r region M54.16 ; Obesity E66.9 ; Iron deficiency E61.1 ; Hearing loss H91.90 ; Hypertension I10 ; Chronic GERD K21.9 ; Vitamin D deficiency E55.9 and Right inguinal hernia K40.90 Jessica Burnett III, MD [address] [place] [address] [place] [address] 11/11/2024 Jessica Whiterne Radiculopathy, lumba r region M54.16 ; Encounter for immunization Z23 ; Obesity E66.9 ; Iron deficiency E61.1 ; Elevated bilirubin R17 ; Hypertension I10 ; Hearing loss H91.90 ; Shoulder impingement syndrome M75.40 ; Chronic GERD K21.9 and Hyperglycemia R73.9 Jessica Burnett III, MD [address] [place] [address] [place] [address] 02/10/2025 Jessica Burnett Radiculopathy, lumba r region M54.16 ; Pain in right knee M25.561 ; Pain in left knee M25.562 ; Hyperglycemia R73.9 ; Hearing loss H91.90 ; Obesity E66.9 ; Shoulder impingement syndrome M75.40 ; Hypertension I10 ; Chronic GERD K21.9 and Vitamin D deficiency E55.9 Jessica Burnett III, MD [address] [place] [address] [place] [address] 03/03/2025 Jessica Turnerne Radiculopathy, lumba r region M54.16 ; Shoulder impingement syndrome M75.40 ; Obesity E66.9 ; Iron deficiency E61.1 ; Hypertension I10 and Pain in right knee M25.561 Jessica Burnett III, MD [address] [place] [address] [address] [place] [phone] 04/06/2025 Jessica Burnett Radiculopathy, lumba r region M54.16 ; Neck pain, acute M54.2 and Obesity E66.9 Assessments Encounter Date Diagnosis (ICD Code) Assessment Notes Treat ment Notes Treatment Clinical Notes 04/08/2025 Radiculopathy, lumbar region (ICD-10 - M54.16) [...] C) 03/23/2023 PROFILE, FASTING (COMPREHENSIVE METABOLI C) 04/06/2025 PROFILE, FASTING (COMPREHENSIVE METABOLI C) 08/22/2023 PROFILE, FASTING (COMPREHENSIVE METABOLI C) 05/23/2023 PROFILE, FASTING (COMPREHENSIVE METABOLI C) 03/03/2025 PROFILE, FASTING (COMPREHENSIVE METABOLI C) 11/11/2024 PROFILE, RANDOM (COMPREHENSIVE METABOLIC ) 11/11/2024 PROFILE, [...] CBC w DIFF 03/23/2023 CBC w DIFF 04/06/2025 CBC w DIFF 08/30/2022 CBC w DIFF 08/22/2023 CBC w DIFF 12/31/2020 CBC w DIFF 03/03/2025 SED RATE (ESR) 04/06/2025 PROTHROMBIN TIME (PT, [...] 11/11/2024 CBC WITH AUTO DIFF 07/08/2024 Prothrombin [id number] 08/17/2021 Ferritin 03/03/2025 Ferritin 07/08/2024 Lipid Panel 03/23/2023 Lipid Panel 08/22/2023 Lipid Panel 03/03/2025 Lipid Panel 11/11/2024 Next Appt Details Provider Name:Jessica Burnett, 04/17/2025 03:15:00 PM, [address] [place] [address] [place], [place], [phone], Provider Name:Jessica Burnett, 06/04/2025 09:30:00 AM, [address] [place] [address] [place], [place], [phone], Provider Name:Jessica Burnett, 11/12/2025 10:00:00 AM, [address] [place] [address] [place], [phone], Insurance Providers Payer Name Payer Address Payer Phone Subscriber Number Group Number Insured Name Patient Relationship to Insured Coverage Start Date Coverage End Date [employer] [address] [place] [address] [id number] Jann Garcia Self - patient is the insured MEDICA[place] [address] [place] [id number] Jann Garcia Self - patient is the insured MEDICARE NGS [address] [place] [phone] [phone] [id number] GarciaJann lindsey Self - patient is the insured Medical [...]
== END 2025-04-08 12:38 | disposition home or self-care (01) ==
LOC: HO.HOSX 12:37
PROVIDERS: Visit Provider Orthopaedic Surgery
DX: M17.12 Unilateral primary osteoarthritis, left knee (principal); M17.11 Unilateral primary osteoarthritis, right knee; G89.29 Other chronic pain
CPT/HCPCS: 99202

== ENCOUNTER 2025-05-06 13:53 | Outpatient (AMB) | payer MEDICARE, SELFPAY ==
--- NOTE | 2025-05-06 14:04 | A.OFFVIS_ITS ---
Vital Signs 05/06/25 14:05 Height 5 ft 4 in Weight 203 lb BMI 34.8 Intake Visit Reasons: Inj-Bilateral Knee Synvisc-One Intake Note: Mr. Garcia presents with complaints of progressively worsening bilateral knee pains. He describes his pains as sharp in nature. He has had cortisone injections in the past. The most recent injection gave him minimal relief. He has not had a viscosupplementation injection. Has failed the last 3 months of conservative treatment which has included physical therapy exercises, Tylenol and ibuprofen. He wishes to hold off on surgery for as long as possible. Allergies ENVIRONMENTAL Allergy (Mild, Uncoded 05/06/25 14:06) Itching Medication List - Last Reconciled 05/07/25 by Zion Simental MD acetaminophen 650 mg (2 x 325 mg) PO Q6H PRN cyclobenzaprine 5 mg PO TID PRN 7 days ferrous sulfate (Feosol) 325 mg PO DAILY ibuprofen 600 mg PO Q6H PRN omeprazole 20 mg PO DAILY prednisone 20 mg PO DAILY 7 days sildenafil (Viagra) 100 mg PO DAILY PRN tadalafil (Cialis) 5 mg PO DAILY PFSH Medical History DVT (deep venous thrombosis) GERD (gastroesophageal reflux disease) History of anemia Back pain with history of spinal surgery Surgical History History of esophagogastroduodenoscopy (EGD) H/O colonoscopy Family History Son CML (chronic myelocytic leukemia), Onset Age: 36 Social History Household Members: Significant Other Are you a primary attending ambulatory care to a significant other at home: No Do you presently have visiting nurse or other home services: No Alcohol intake: current Alcohol intake frequency: former alcohol drinker Alcohol type: beer Patient Tobacco Use Status: Never used Tobacco Current occupational status: disabled Current occupation: Right Handed Physical Exam Vital Signs: BMI result Body Mass Index 34.8 Const Other: Well-nourished well-developed very friendly male awake alert and oriented x3 in no acute distress Extrem Other: Bilateral lower extremity examination shows good capillary refill, no skin lesions noted, normal sensation light touch Bilateral knee examination shows minimal effusions, palpable crepitus with range of motion, pain with range of motion, no instability Office Procedures AMB Joint Injection/Aspiration Joint Injection/Aspiration Primary Site: left knee Secondary Site: other (48 mg of Synvisc-One viscosupplementation) Injected: 1% plain lidocaine Procedure: The patient tolerated the procedure well Coding 85595 - Large joint Procedure code (CPT) selection complete AMB Joint Injection/Aspiration Joint Injection/Aspiration Primary Site: right knee Prep: site was prepped using aseptic technique Injected: 1% plain lidocaine and other (48 mg of Synvisc-One viscosupplementation) Procedure: The patient tolerated the procedure well Coding 29517 - Large joint Procedure code (CPT) selection complete Results Reviewed Results Reviewed: X-rays of the patient's bilateral knees taken previously show joint space narrowing, subchondral sclerosis, no acute bony abnormalities Assessment & Plan Assessment & Plan (1) Osteoarthritis of left knee: Code(s): M17.12 - Unilateral primary osteoarthritis, left knee Category: Medical (2) Osteoarthritis of right knee: Code(s): M17.11 - Unilateral primary osteoarthritis, right knee Category: Medical Plan Mr. Garcia presents with bilateral knee pains due to osteoarthritis. The risks and benefits of bilateral knee Synvisc-One viscosupplementation injections were discussed at length with the patient. The patient wished to proceed. He tolerated the injections well. He will continue with his home exercise program. He will contact me prior to his follow-up appointment in 3 months should any questions or concerns arise. Feel free to call any time should questions regarding his orthopedic arise. I spent 21 minutes in reviewing the patient's records and imaging studies, seeing the patient and documenting in the medical record. Orders: Orders AMB Joint Injection/Aspiration 05/06/25 M17.12 - Unilateral primary osteoarthritis, left knee AMB Joint Injection/Aspiration 05/06/25 M17.11 - Unilateral primary osteoarthritis, right knee Coding Level of Care Code Est Pt Level 3 (14417) Complex EM visit Add On G2211 Diagnoses Osteoarthritis of left knee M17.12 Osteoarthritis of right knee M17.11 CPT Codes Coding - 57640 Large joint: 44302 - Large joint ([id number]) Coding - 36436 Large joint: 28338 - Large joint ([id number])
[2025-05-06 14:05] VITALS: BMI 34.8
--- OUTSIDE RECORDS SUMMARY | 2025-05-06 14:44 | XMS_ITS | Patient Health Record ---
Author Organization Jessica Burnett III, MD Address [address] [place] [address] Care Team Providers Care X Ray Technician Name Role Phone Jessica Burnett Primary [...] Acid Reviewed date:04/08/2025 09:28:19 AM Interpretation: Performing Lab:[facility], [address] [place] [phone] Notes/Report: Uric Acid 6.8 3.4-7.0 mg/dL Hemoglobin A1c Reviewed date:04/08/2025 09:28:19 AM Interpretation: Performing Lab:[facility], [address] [place] [phone] Notes/Report: Hemoglobin A1c % 6.9 <6.0 % [...] average glucose, using the formula of the [id number] Average Glucose study (ADAG), Diabetes Care, Vol.31,#8, May. 2007 Complete Blood Count Auto Di ff Reviewed date:07/08/2024 10:08:54 AM Interpretation: Performing Lab:[facility], [address] [place] [phone] Notes/Report: White Blood Count 7.0 4.8-10.8 X10*3/uL [...] NRBC Abs Auto 0.000 0.0-0.012 X10*3/uL Comprehensive [place]. Panel Fa Reviewed date:07/08/2024 10:08:54 AM Interpretation: Performing Lab:[facility], [address] [place] [phone] Notes/Report: Sodium 141 135-145 mmol/L Potassium 4.4 3.3-5.1 mmol/L Chloride 103 96-108 mmol/L Carbon Dioxide 30 22-29 mmol/L Anion Gap 12 12-20 Blood Urea Nitrogen 13 9-16 mg/dL Creatinine 0.83 0.5-1.4 mg/dL Estimated Glomerular Filt Rate > 60 NOTE: For -Trinid[place] individuals, multiply the result by 1.210. Chronic [...] Ferritin Reviewed date:07/08/2024 10:08:54 AM Interpretation: Performing Lab:[facility], [address] [place] [phone] Notes/Report: Ferritin 25 20-250 ng/mL Lipid Panel Reviewed date:07/08/2024 10:08:54 AM Interpretation: Performing Lab:[facility], [address] [place] [phone] Notes/Report: Triglycerides 83 <150 mg/dL Desirable Triglyceride: [...] ff Reviewed date:11/06/2024 01:10:46 PM Interpretation: Performing Lab:[facility], [address] [place] [phone] Notes/Report: White Blood Count 5.5 4.8-10.8 X10*3/uL [...] Panel Reviewed date:11/06/2024 01:10:46 PM Interpretation: Performing Lab:[facility], [address] [place] [phone] Notes/Report: Sodium 142 135-145 mmol/L Potassium 4.2 [...] Ferritin Reviewed date:11/06/2024 01:10:46 PM Interpretation: Performing Lab:[facility], [address] [place] [phone] Notes/Report: Ferritin 48 20-250 ng/mL Complete Blood Count Auto Di ff Reviewed date:02/07/2025 07:19:51 AM Interpretation: Performing Lab:[facility], [address] [place] [phone] Notes/Report: White Blood Count 5.3 4.8-10.8 X10*3/uL [...] Panel Reviewed date:02/07/2025 07:19:51 AM Interpretation: Performing Lab:[facility], [address] [place] [phone] Notes/Report: Sodium 140 135-145 mmol/L Potassium 4.2 [...] ff Reviewed date:02/07/2025 07:19:51 AM Interpretation: Performing Lab:[facility], [address] [place] [phone] Notes/Report: White Blood Count 5.8 4.8-10.8 X10*3/uL [...] NRBC Abs Auto 0.000 0.0-0.012 X10*3/uL Comprehensive [place]. Panel Fa st Reviewed date:02/07/2025 07:19:51 AM Interpretation: Performing Lab:[facility], [address] [place] [phone] Notes/Report: Sodium 144 135-145 mmol/L Potassium 4.0 [...] Panel Reviewed date:02/07/2025 07:19:51 AM Interpretation: Performing Lab:[facility], [address] [place] [phone] Notes/Report: Triglycerides 101 <150 mg/dL Desirable Triglyceride: [...] Antigen Reviewed date:02/07/2025 07:19:51 AM Interpretation: Performing Lab:[facility], [address] [place] [phone] Notes/Report: Prostate Specific Antigen 1.02 <0.05-4.0 ng/mL PSA methodology: Arthur Alinity i Chemiluminescent Microparticle Immunoassay (CMIA) XR chest 2V Reviewed date:04/08/2025 09:28:19 AM Interpretation: Performing Lab: Notes/Report: [address] [address] XRay Report Signed Patient: Jann Garcia MR#: [id number] 724 : 1965 Acct:[id number] Age/Sex: 60 / M ADM Date: 04/06/25 Loc: [facility] Attending Dr: Jessica Burnett MD Ordering Physician: Jessica Burnett MD Date of Service: 04/06/25 Procedure(s): XR chest 2V Accession Number(s): [id number] cc: Jessica Burnett MD EXAMINATION: XR CHEST [...] 04/06/25 1431 DD/ 1405 TD/TT: 04/06/25 1410 Fence Gate Assembler: [address] [address] XRay Report Signed Patient: Mak Garcia MR#: [id number] 724 : 1965 Acct:[id number] Age/Sex: 60 / M ADM Date: 04/06/25 Loc: [facility] Attending Dr: Jessica Burnett MD Ordering Physician: Jessica Burnett MD Date of Service: 04/06/25 Procedure(s): XR chest 2V Accession Number(s): [id number] cc: Jessica Burnett MD EXAMINATION: XR CHEST [...] 04/06/25 1431 DD/ 1405 TD/TT: 04/06/25 1410 Fence Gate Assembler: Complete Blood Count Auto Di ff Reviewed date:04/08/2025 09:28:19 AM Interpretation: Performing Lab:[facility], [address] [place] [phone] Notes/Report: White Blood Count 8.7 4.8-10.8 X10*3/uL [...] te Reviewed date:04/08/2025 09:28:19 AM Interpretation: Performing Lab:[facility], [address] [place] [phone] Notes/Report: Erythrocyte Sedimentation Rate 29 0-15 MM/HR Patients with polycythemia and many hemoglobin abnormalities may have depressed sed rates whereas patients with anemia may have elevated sed rates. Comprehensive [place]. Panel Fa st Reviewed date:04/08/2025 09:28:19 AM Interpretation: Performing Lab:[facility], [address] [place] [phone] Notes/Report: Sodium 141 135-145 mmol/L Potassium 4.2 [...] Provider Speciality Internal M edicine Referred Provider [facility], Orthopedic Surgeons Referred Provider Specialty Orthopedic S [facility] Notes Nimisha Perez [facility] 02/12 02:41:18 PM >ref/demo/progress note/labs faxed to [facility], Nimisha Perez [facility] 03/17/2025 02:14:58 PM >I called [facility] they stated pt has appt with [...] Problem Status W/U Status Risk Notes Problem 302112189 Obesity (E66.9) Active confirmed On his next visit we will collaborate a weight loss strategy designed to lose weight at a rate of 1 pound. Problem 02213569 Hyperglycemia (R73.9) Active confirmed His fasting blood glucose level was 134 which technically is in the diabetic range. I have discussed prediabetes with him at length. I have ordered a hemoglobin A1c to be done with the uric acid. Problem 80575735 Hypertension (I10) Active confirmed His blood pressure is stable. I have strongly recommended aggressive weight loss with regular exercise and sodium restriction. Problem 79399742 Iron deficiency (E61.1) Active confirmed Recent blood work shows his problem has resolved. Problem 5551271184 Pain in right knee (M25.561) Active confirmed He is being referred to orthopedics. I have ordered a uric acid level to be done today. He was instructed to use ibuprofen. A follow-up visit was arranged. Problem [id number] Pain in left knee (M25.562) Active confirmed The left knee is less painful than the right but similar in physical examination. In orthopedic evaluation has been requested. Blood work is pending. Problem 665016295 Radiculopathy, lumbar region (M54.16) Active confirmed He continues to complain of discomfort in his lumbar spine that radiates into the buttocks. He has less intense pain in his lumbar spine with decreased range of motion. We will employ conservative regimen of heat, rest and ibuprofen. Problem 44692267 Hearing loss (H91.90) Active confirmed He has mild hearing loss. He does not wish to have amplification her ENT evaluation at this time. He is able to function without impairment in daily life.. Problem 28011229 Pilonidal cyst (L05.91) Active confirmed . This lesion has completely healed and is not symptomatic at this time. Problem 034659974 DJD (degenerative joint disease) (M19.90) Active confirmed He continues to have recommended lumbar spine pain. He will continue on his current regimen. Problem 92802929 Vitamin D deficiency (E55.9) Active confirmed I continue to recommend he take 1000 units of vitamin D daily Problem 362036475 Shoulder impingement syndrome (M75.40) Active confirmed He has a nerve impingement left arm and I have referred him back to orthopedics.He will be seen April 09, 2025. Problem 209998508 ED (erectile dysfunction) (N52.9) Active confirmed This problem rascon s been addressed with prescription medication. He says it is working. He remained generally care of urologist. Problem 142585554 Right inguinal hernia (K40.90) Active confirmed His symptoms are mild and he wants to observe this for a while to see how much of a nuisance it is. He was informed he could have it repaired or live with it. Follow-up visit was arranged. Problem 28064739 Elevated bilirubin (R17) Active confirmed His bilirubi n was 3.9. This value will be repeated and evaluated is still elevated. Problem 553080679 Chronic GERD (K21.9) Active confirmed This discomfort has resolved and his current therapy was continued. Problem 492589024989455 Chronic deep vein thrombosis (DVT) of brachial vein of right upper extremity (I82.721) Active confirmed After an adequate course of anticoagulation a thrombophilia evaluation is negative. His anticoagulation was discontinued today. Problem 03224316 Neck pain, acute (M54.2) Active confirmed Because he had fever and stiff neck he was sent to the emergency room Vital Signs Heart Rate 82 /min 04/17/2025 Temperature 97.5 degrees Fahrenheit 04/17/2025 Oximetry 97 % 04/08/2025 Blood pressure diastolic 85 mm Hg 04/17/2025 Height 63 in 04/17/2025 Blood pressure systolic 132 mm Hg 04/17/2025 Weight 203 lbs 04/17/2025 BMI 35.96 kg/m2 04/17/2025 Encounters Encounter Location Date Provider Diagnosis Jessica Burnett III, MD [address] [place] [address] [place] [address] 07/08/2024 Jessica Burnett Radiculopathy, lumba r region M54.16 ; Obesity E66.9 ; Iron deficiency E61.1 ; Hearing loss H91.90 ; Hypertension I10 ; Chronic GERD K21.9 ; Vitamin D deficiency E55.9 and Right inguinal hernia K40.90 Jessica Burnett III, MD [address] [place] [address] [place] [address] 11/11/2024 Jessica Burnett Radiculopathy, lumba r region M54.16 ; Encounter for immunization Z23 ; Obesity E66.9 ; Iron deficiency E61.1 ; Elevated bilirubin R17 ; Hypertension I10 ; Hearing loss H91.90 ; Shoulder impingement syndrome M75.40 ; Chronic GERD K21.9 and Hyperglycemia R73.9 Jessica Burnett III, MD [address] [place] [address] [place] [address] 02/10/2025 Jessica Burnett Radiculopathy, lumba r region M54.16 ; Pain in right knee M25.561 ; Pain in left knee M25.562 ; Hyperglycemia R73.9 ; Hearing loss H91.90 ; Obesity E66.9 ; Shoulder impingement syndrome M75.40 ; Hypertension I10 ; Chronic GERD K21.9 and Vitamin D deficiency E55.9 Jessica Burnett III, MD [address] [place] [address] [place] [address] 03/03/2025 Jessica Burnett Radiculopathy, lumba r region M54.16 ; Shoulder impingement syndrome M75.40 ; Obesity E66.9 ; Iron deficiency E61.1 ; Hypertension I10 and Pain in right knee M25.561 Jessica Burnett III, MD [address] [place] [address] [place] [address] 04/06/2025 Jessica Burnett Radiculopathy, lumba r region M54.16 ; Neck pain, acute M54.2 and Obesity E66.9 Jessica Burnett III, MD [address] [place] [address] [place] [address] 04/08/2025 Jessica Burnett Fever, unspecified R50.9 ; Muscle spasm M62.838 ; Radiculopathy, lumbar region M54.16 ; Hearing loss H91.90 ; Obesity E66.9 and Pain in right knee M25.561 Jessica Burnett III, MD [address] [place] [address] [address] [place], [place] [address] 04/17/2025 Jessica Whiterne Radiculopathy, lumba r region M54.16 ; Hearing loss H91.90 ; Obesity E66.9 ; DJD (degenerative joint disease) M19.90 ; Hypertension I10 ; Chronic deep vein thrombosis (DVT) of brachial vein of right upper extremity I82.721 and Chronic GERD K21.9 Assessments Encounter Date Diagnosis (ICD Code) Assessment Notes Treatment Notes Treatment Clinical Notes 07/08/2024 Obesity (ICD-10 - E66.9) His body [...] he was sent to the emergency room 04/08/2025 Fever, unspecified (ICD-10 - R50.9) He has been afebrile on every visit to the office but says he has had temperatures up to 100.1. He will continue with Tylenol. He does not appear to be septic. 04/08/2025 Muscle spasm (ICD-10 - M62.838) He will continue with cyclobenzaprine he rest and massage. 04/17/2025 Radiculopathy, lumbar region (ICD-10 - M54.16) [...] function without impairment in daily life.. 07/08/2024 Iron deficiency (ICD-10 - E61.1) His [...] at a rate of 1 pound. 04/08/2025 Radiculopathy, lumbar region (ICD-10 - M54.16) He continues to complain of discomfort in his lumbar spine that radiates into the buttocks. He has less intense pain in his lumbar spine with decreased range of motion. We will employ conservative regimen of heat, rest and ibuprofen. 04/17/2025 Obesity (ICD-10 - E66.9) On his next visit we will collaborate a weight loss strategy designed to lose weight at a rate of 1 pound. 07/08/2024 Hearing loss (ICD-10 - H91.90) He [...] blood work shows his problem has resolved. 04/08/2025 Hearing loss (ICD-10 - H91.90) He has mild hearing loss. He does not wish to have amplification her ENT evaluation at this time. He is able to function without impairment in daily life.. 04/17/2025 DJD (degenerative joint disease) (ICD-10 - M19.90) He continues to have recommended lumbar spine pain. He will continue on his current regimen. 07/08/2024 Hypertension (ICD-10 - I10) His blood [...] loss with regular exercise and sodium restriction. 04/08/2025 Obesity (ICD-10 - E66.9) On his next visit we will collaborate a weight loss strategy designed to lose weight at a rate of 1 pound. 04/17/2025 Hypertension (ICD-10 - I10) His blood [...] use ibuprofen. A follow-up visit was arranged. 04/08/2025 Pain in right knee (ICD-10 - M25.561) He is being referred to orthopedics. I have ordered a uric acid level to be done today. He was instructed to use ibuprofen. A follow-up visit was arranged. 04/17/2025 Chronic deep vein thrombosis (DVT) of brachial vein of right upper extremity (ICD-10 - I82.721) After an adequate course of anticoagulation a thrombophilia evaluation is negative. His anticoagulation was discontinued today. 07/08/2024 Vitamin D deficiency (ICD-10 - E55.9) [...] I have referred him back to orthopedics. 04/17/2025 Chronic GERD (ICD-10 - K21.9) This discomfort has resolved and his current therapy was continued. 07/08/2024 Right inguinal hernia (ICD-10 - K40.90) [...] 11/11/2024 CBC WITH AUTO DIFF 07/08/2024 Prothrombin [id number] 08/17/2021 Ferritin 03/03/2025 Ferritin 07/08/2024 Lipid Panel 03/23/2023 Lipid Panel 08/22/2023 Lipid Panel 03/03/2025 Lipid Panel 11/11/2024 Next Appt Details Provider Name:Jessica Burnett, 06/04/2025 09:30:00 AM, [address] [facility] [address], [place], [address], Provider Name:Jessica Burnett, 11/12/2025 10:00:00 AM, [address] [facility] [address], [place], [address], Insurance Providers Payer Name Payer Address Payer Phone Subscriber Number Group Number Insured Name Patient Relationship to Insured Coverage Start Date Coverage End Date [employer] [address] [place] [address] [id number] Jann Garcia Self - patient is the insured MEDICAID [facility] [address] [place], [place] [id number] GarciaJann lindsey Self - patient is the insured MEDICARE [employer] [address] [facility] [address] [phone] [id number] Mak Garciage Self - patient is the insured Medical [...]
== END 2025-05-06 14:33 | disposition home or self-care (01) ==
LOC: HO.HOS 13:54
PROVIDERS: Visit Provider Orthopaedic Surgery
DX: M17.0 Bilateral primary osteoarthritis of knee (principal)
CPT/HCPCS: 20610; 99213

== ENCOUNTER → 2025-05-06 13:53 | Outpatient (BNVA) | payer MEDICARE, SELFPAY | PROVIDERS: Visit Provider Orthopaedic Surgery | DX: M17.0 Bilateral primary osteoarthritis of knee (principal) | CPT/HCPCS: 20610; 99212; J2003; J7325 ==

== ENCOUNTER 2025-05-23 08:32 | Outpatient (REF) | payer MEDICARE, SELFPAY ==
[2025-05-23 08:54] LABS: MANUAL DIFF FLAG NO
[2025-05-23 09:24] LABS: Hematocrit 43.3 % (42.0-52.0); Hemoglobin 14.3 g/dl (14.0-18.0); Imm Gran Abs Auto 0.01 X10*3/uL (0.00-0.03); Imm Gran Pct Auto 0.1 % (0.0-0.4); Lymphocytes Absolute Auto 2.5 X10*3/uL (1.2-4.9); Mean Corpuscular HGB Conc 33.0 g/dl (31.0-36.0); Mean Corpuscular Hemoglobin 28.5 pg (27.0-33.0); Mean Corpuscular Volume 86.4 fL (80.0-98.0); NRBC Abs Auto 0.000 X10*3/uL (0.0-0.012); NRBC Pct Auto 0.0 /100WBC (0.0-0.2); Platelet Count 276 X10*3/uL (160-400); Red Blood Count 5.01 X10*6/uL (4.60-5.80); White Blood Count 7.1 X10*3/uL (4.8-10.8)
[2025-05-23 10:28] LABS: Alanine Aminotransferase 17 U/L (0-40); Albumin Level 4.3 g/dL (3.5-5.0); Alkaline Phosphatase 63 U/L (39-117); Anion Gap 12 (12-20); Aspartate Amino Transferase 21 U/L (5-37); Blood Urea Nitrogen 16 mg/dL (9-16); Calcium 9.4 mg/dL (8.4-10.2); Carbon Dioxide 30 mmol/L (22-29); Chloride 103 mmol/L (96-108); Cholesterol 155 mg/dL (<200); Estimated Glomerular Filt Rate > 60; HDL Cholesterol 46 mg/dL (>40); Potassium 3.9 mmol/L (3.3-5.1); Sodium 141 mmol/L (135-145); Total Protein 7.6 g/dL (6.5-8.0); Triglycerides 114 mg/dL (<150)
[2025-05-23 11:03] LABS: Ferritin 24 ng/mL (20-250)
== END 2025-05-23 08:33 | disposition home or self-care (01) ==
LOC: HO.LAB 08:32
PROVIDERS: PCP Internal Medicine Medical Oncology; Visit Provider Internal Medicine Medical Oncology
DX: E61.1 Iron deficiency (principal); E66.9 Obesity, unspecified
CPT/HCPCS: 36415; 80053; 80061; 82728; 85025

== ENCOUNTER 2025-07-22 09:02 | Outpatient (REF) | payer MEDICARE, SELFPAY ==
--- OUTSIDE RECORDS SUMMARY | 2025-03-03 06:45 | XMS_ITS ---
Author Organization Jessica Burnett III, MD Address [address] [place] [address] Care Team Providers Care White Sugar Pan Tank Operator Name Role Phone Dr. Jessica Burnett III Primary Care Provider Allergies Allergen (clinical drug ingredient) Drug/Non Drug Allergy documented on EMR Reaction Allergy Type Onset Date Status No Known Drug Allergy Unknown Drug Allergy Active REASON FOR VISIT Bilateral shoulder pain, Lumbar radiculopathy, Hearing loss, Obesity, History of DVT Medications Medication SIG (Take, Route, Frequency, Duration) [...] Tobacco non-user Aggressive nonsmoker Vital Signs Temperature 98.6 degrees Fahrenheit 03/03/20 25 Blood pressure systolic 154 mm Hg 03/03/20 25 Blood pressure diastolic 94 mm Hg 025 Heart Rate 82 /min 03/03/2025 Height 63 in 03/03/2025 Weight 202 lbs 03/03/2025 BMI 35.78 kg/m2 03/03/2025 Encounters Encounter Location Date Provider Diagnosis Jessica Burnett III, MD [address] [place] [address] [place] [address] 03/03/2025 Jessica Burnett Radiculopathy, lumba r region M54.16 ; Shoulder impingement syndrome M75.40 ; Obesity E66.9 ; Iron deficiency E61.1 ; Hypertension I10 and Pain in right knee M25.561 Assessments Encounter Date Diagnosis (ICD Code) Assessment Notes Treatment Notes Treatment Clinical Notes 03/03/2025 Radiculopathy, lumbar region (ICD-10 - M54.16) He continues to complain of discomfort in his lumbar spine that radiates into the buttocks. He has less intense pain in his lumbar spine with decreased range of motion. We will employ conservative regimen of heat, rest and ibuprofen. 03/03/2025 Shoulder impingement syndrome (ICD-10 - M75.40) He has a nerve impingement left arm and I have referred him back to orthopedics.He will be seen April 09, 2025. 03/03/2025 Obesity (ICD-10 - E66.9) We have discussed his diet and nutrition. We made a plan to lose weight at a rate of 1 pound per week. 03/03/2025 Iron deficiency (ICD-10 - E61.1) Recent blood work shows his problem has resolved. 03/03/2025 Hypertension (ICD-10 - I10) His blood pressure is stable. I have strongly recommended aggressive weight loss with regular exercise and sodium restriction. 03/03/2025 Pain in right knee (ICD-10 - M25.561) He is being referred to orthopedics. I have ordered a uric acid level to be done today. He was instructed to use ibuprofen. A follow-up visit was arranged. Plan Of Treatment Medication Medication Name Sig Start Date Stop Date Notes Ferrous Sulfate 324 (65 Fe) MG TAKE 1 TA BLET BY MOUTH EVERY DAY Omeprazole 20 MG TAKE 2 CAPSULES 30 M INUTES BEFORE MORNING MEAL ORALLY ONCE A DAY 30 DAYS 90 Pending Test Test Name Order Date PROFILE, FASTING (COMPREHENSIVE METABOLI C) 03/03/2025 CBC w DIFF 03/03/2025 Ferritin 03/03/2025 Lipid Panel 03/03/2025 Next Appt Details Follow Up: 3 Months, Reason: OV Provider Name:Jessica Burnett , 08/05/2025 10:45:00 AM, [address] [facility] [address] [place], [address], Provider Name:Jessica Burnett , 11/12/2025 10:00:00 AM, [address] [place] [address] [address], [place], [address], Progress Notes * Hugo GARCIAOB:1965 (60 yo M)Acc No.[id number]:03/03/2025 Progress Notes Patient: Jann GARCIA Provider: Fatuma Burnett MD :1965 A ge:60 Y S ex:Male Date:03/03/2025 [facility] Subjective: * Chief Complaints: * B ilateral shoulder painLumbar radiculopathyHearing lossObesityHistory of DVT * HPI: C OVID-19 Screening: He returns to the office for a scheduled visit for ongoing medical management. He has developed severe pain in both shoulders, left worse than right. He has an appointment April 06, 2025 in the orthopedic clinic at [facility] with Dr. Marcial. He will likely receive injections. He will receive a surgical consultation. Currently he is taking meloxicam. His heartburn is well controlled. He has no further symptoms of DVT. His appetite is good. His weight is stable. He is sleeping well. Questions H ave you had any new onset fever, chills, cough, congestion, sore throat, shortness of breath, muscle aches? N o * ROS: G eneral/Constitutional: pain K nees and shoulders, otherwise only normal aches and pains. C hills d enies. F atigue a dmits. F ever d enies. E NT: Decreased hearing i n both ears. R espiratory: Cough d enies. C ardiovascular: Chest pain with exertion d enies. D yspnea on exertion?denies. S hortness of breath d enies. G astrointestinal: Constipation d enies. D ecreased appetite d enies.?Diarrhea d enies. H eartburn d enies. N ausea d enies. R ectal bleeding?denies. V omiting d enies. H ematology: bruising d enies. p etechiae d enies. S wollen glands n one have been noted. G enitourinary: Frequent urination d enies. M usculoskeletal: Muscle aches d enies. P ainful joints B oth shoulders and knees. S ciatica d enies. W eakness d enies. S kin: Itching d enies. R jennifer d enies. S kin lesion(s)?denies. N eurologic: Difficulty speaking d enies. D izziness d enies.?Headache d enies. L ow back pain d enies. P sychiatric: Depressed mood d enies. * Medical History: * Surgical History: s kiya fusion x 4 L4-S1 colonoscopy posterior decompresson L4-L5 caudal epidural injection LSS 12/2012removal of cyst in back 10/2018No history * Hospitalization/Major Diagno stic Procedure: b ack pain 04/2019No history * Family History: F ather: , asthma, cardiac disease, alzheimer's dementia, diagnosed with CVD. M other: , diagnosed with DM. 3 brother(s) , 2 sister(s) - healthy. 2 son(s) , 2 daughter(s) - healthy. . His mother is diabetic and his father has CAD and asthma. * Social History: T obacco Use: T obacco Control (Standard) T obacco use: N onsmoker A dditional Findings: Tobacco non-user A ggressive nonsmoker H e drinks socially and does not smoke. He is and sexually active. * Medications: T akingOmeprazole 20 MG Capsule Delayed Release TAKE 2 [...] reviewed and reconciled with the patient * Allergies: N o Known Drug Allergyno[Allergies Verified] Objective: * Vitals: H t: 63, Wt: 202, BMI:35.78, BP: 154/94, HR: 82, Temp: 98.6, Wt-k.63. * Examination: G eneral Examination: GENERAL APPEARANCE: p wily, well nourished, well developed, in no acute distress, calm and relaxed, obese, man. HEAD: a traumatic, normocephalic. EYES: e jaime, perrla, anicteric, conjugate. EARS: n ormal. NOSE: s eptum intact. ORAL CAVITY: n ormal, unremarkable. NECK/THYROID: n o jugular venous distention, no carotid bruit, thyroid normal. LYMPH NODES: n o enlarged lymph nodes,spleen normal. SKIN: n o suspicious lesions, anicteric. HEART: n o clicks, gallops, murmurs, or rubs, regular rhythm, S1, S2 normal, no s3, or vascular bruits. LUNGS: c lear to auscultation . BREASTS: no masses palpable bilaterally. ABDOMEN: b owel sounds normal, no ascites, no organomegaly, no mass, centripital obesity. RECTAL EXAM: n ot examined. MUSCULOSKELETAL: R crepitus, right knee, pain to range of motion both shoulders, left worse than right, pain is at its worst with elevation above the heart rising, Mild decreased range of motion lumbar spine. PERIPHERAL PULSES: n ormal. NEUROLOGIC: a lert and oriented, cranial nerves 2-12 grossly intact, deep tendon reflexes 2+ symmetrical, motor strength normal upper and lower extremities, sensory exam intact. PSYCH: a lert, oriented. Assessment: * Assessment: 1. S houlder impingement syndrome - M75.40 (Primary) N otes :He has a nerve impingement left arm and I have referred him back to orthopedics.He will be seen April 09, 2025. 2 . R adiculopathy, lumbar region - M54.16 N otes :He continues to complain of discomfort in his lumbar spine that radiates into the buttocks. He has less intense pain in his lumbar spine with decreased range of motion. We will employ conservative regimen of heat, rest and ibuprofen. 3 . O besity - E66.9 N otes :We have discussed his diet and nutrition. We made a plan to lose weight at a rate of 1 pound per week. 4 . I juanita deficiency - E61.1 N otes :Recent blood work shows his problem has resolved. 5 . H ypertension - I10 N otes :His blood pressure is stable. I have strongly recommended aggressive weight loss with regular exercise and sodium restriction. 6 . P ain in right knee - M25.561 N otes :He is being referred to orthopedics. I have ordered a uric acid level to be done today. He was instructed to use ibuprofen. A follow-up visit was arranged. Plan: * Treatment: 2. O besity L AB: PROFILE, FASTING (COMPREHENSIVE METABOLIC) L AB: CBC w DIFF L AB: Ferritin L AB: Lipid Panel 3. I juanita deficiency L AB: PROFILE, FASTING (COMPREHENSIVE METABOLIC) L AB: CBC w DIFF L AB: Ferritin L AB: Lipid Panel 4. O thers Continue Omeprazole Capsule Delayed Release, 20 MG, TAKE 2 CAPSULES 30 MINUTES BEFORE MORNING MEAL ORALLY ONCE A DAY 30 DAYS 90. * Procedure Codes: * Preventive Medicine: Counseling: C are goal follow-up plan: Counseling for abnormal BMI given Y es Above Normal BMI Follow-up D ietary needs education * Follow Up: 3 Months (Reason: OV) * Images: * Sign off status: Completed true * Provider: Fatuma Burnett MD Date: 0 03/03/2025 Generated for Jordy roberts/Basilio/Coryitting on: 1 09:45 AM EDT History and Physical Notes * [...] BREASTS: no masses palpable b ilaterally MUSCULOSKELETAL: R crepitus, right kn ee, pain to range of motion both shoulders, left worse than right, pain is at its worst with elevation above the heart rising, Mild decreased range of motion lumbar spine LYMPH NODES: no enlarged lymph no erika,spleen normal RECTAL EXAM: not examined PSYCH: alert, oriented ORAL CAVITY: normal, unremarkable
--- OUTSIDE RECORDS SUMMARY | 2025-04-06 09:45 | XMS_ITS ---
Author Organization Jessica Burnett III, MD Address [address] [place] [address] Care Team Providers Care Post Office Markup Clerk Name Role Phone Dr. Jessica Burnett III Primary Care Provider Allergies Allergen (clinical drug ingredient) Drug/Non Drug Allergy documented on EMR Reaction Allergy Type Onset Date Status No Known Drug Allergy Unknown Drug Allergy Active REASON FOR VISIT Temperature 102 last night, Neck pain, Upper back pain, Pain with breathing, Obesity, Hearing loss,Hypertension Medications Medication SIG (Take, Route, Frequency, Duration) [...] Nonsmoker Additional Findings: Tobacco non-user Aggressive nonsmoker Problems Problem Type SNOMED Code ICD Code Onset Dates Problem Status W/U Status Risk Notes Problem [id number] Neck pain, acute (M54.2) Active confirmed Because he had fever and stiff neck he was sent to the emergency room Vital Signs Temperature 101.3 degrees Fahrenheit 025 Blood pressure systolic 130 mm Hg 04/06/20 25 Blood pressure diastolic 87 mm Hg 025 Heart Rate 98 /min 04/06/2025 Height 63 in 04/06/2025 Weight 202 lbs 04/06/2025 BMI 35.78 kg/m2 04/06/2025 Encounters Encounter Location Date Provider Diagnosis Jessica Burnett III, MD [address] [place] [address] [place] [address] 04/06/2025 Jessica Burnett Radiculopathy, lumbar region M54.16 ; Neck pain, acute M54.2 and Obesity E66.9 Assessments Encounter Date Diagnosis (ICD Code) Assessment Notes Treatment Notes Treatment Clinical Notes 04/06/2025 Radiculopathy, lumbar region (ICD-10 - M54.16) He continues to complain of discomfort in his lumbar spine that radiates into the buttocks. He has less intense pain in his lumbar spine with decreased range of motion. We will employ conservative regimen of heat, rest and ibuprofen. 04/06/2025 Neck pain, acute (ICD-10 - M54.2) Because he had fever and stiff neck he was sent to the emergency room 04/06/2025 Obesity (ICD-10 - E66.9) On his next visit we will collaborate a weight loss strategy designed to lose weight at a rate of 1 pound. Plan Of Treatment Medication Medication Name Sig Start Date Stop Date Notes Omeprazole 20 MG TAKE 2 CAPSULES 30 M INUTES BEFORE MORNING MEAL ORALLY ONCE A DAY 30 DAYS 90 Ferrous Sulfate 324 (65 Fe) MG TAKE 1 TA BLET BY MOUTH EVERY DAY Pending Test Test Name Order Date PROFILE, FASTING (COMPREHENSIVE METABOLI C) 04/06/2025 CBC w DIFF 04/06/2025 SED RATE (ESR) 04/06/2025 XR CHEST 2 VIEW PA & LAT 04/06/2025 Next Appt Details Follow Up: As Scheduled, Urmila son: OV Provider Name:Jessica Burnett , 08/05/2025 10:45:00 AM, [address] [facility] [place], [address], Provider Name:Jessica Burnett , 11/12/2025 10:00:00 AM, [address] [facility] [place], [address], Progress Notes * Hugo GARCIAOB:1965 (60 yo M)Acc No.[id number]:04/06/2025 Patient: Jann GARCIA Provider: Fatuma Burnett MD :1965 A ge:60 Y S ex:Male Date:04/06/2025 Address: [address], [facility], [id number] Subjective: * Chief Complaints: * T emperature 102 last nightNeck painUpper back painPain with breathingObesityHearing lossHypertension * HPI: C OVID-19 Screening: His temperature is 1 he is complaining of severe back pain.? Every time he takes a deep breath he has pain on examination the neck was stiff and could not be moved forward. He had pain to range of motion of shoulders the cause was unclear but he was sent to the emergency room today thorax or meningitis. Questions H ave you had any new onset fever, chills, cough, congestion, sore throat, shortness of breath, muscle aches? N o * ROS: G eneral/Constitutional: pain N ext to some back muscle pain, pleuritic inspiratory pain. C hills d enies. F atigue a dmits. F ever d enies. E NT: Decreased hearing d enies. R espiratory: Cough d enies. C ardiovascular: Chest pain with exertion W ith inspiration for 24. D yspnea on exertion d enies. S hortness of breath d enies. G [...] Muscle aches d enies. P ainful joints d enies. S ciatica d enies. W eakness d [...] H t: 63, Wt: 202, BMI:35.78, BP: 130/87, HR: 98, Temp: 101.3, Wt-k.63. * Examination: G eneral Examination: GENERAL APPEARANCE: p leasant, well nourished, well developed, in no acute [...] sounds normal, no ascites, no organomegaly, no mass. RECTAL EXAM: n ot examined. MUSCULOSKELETAL: e xtremities unremarkable, no clubbing, cyanosis or edema, Pain with inspiration, neck is stiff and and spasm. PERIPHERAL PULSES: n ormal. NEUROLOGIC: a lert and oriented, cranial nerves 2-12 grossly intact, deep tendon reflexes 2+ symmetrical, motor strength normal upper and lower extremities, sensory exam intact. PSYCH: a lert, oriented. Assessment: * Assessment: 1. N amanuel pain, acute - M54.2 (Primary) N otes :Because he had fever and stiff neck he was sent to the emergency room 2 . R adiculopathy, lumbar region - M54.16 N otes :He continues to complain of discomfort in his lumbar spine that radiates into the buttocks. He has less intense pain in his lumbar spine with decreased range of motion. We will employ conservative regimen of heat, rest and ibuprofen. 3 . O besity - E66.9 N otes :On his next visit we will collaborate a weight loss strategy designed to lose weight at a rate of 1 pound. Plan: * Treatment: 2. O besity L AB: PROFILE, FASTING (COMPREHENSIVE METABOLIC) L AB: CBC w DIFF L AB: SED RATE (ESR) 3. O thers Continue Omeprazole Capsule Delayed Release, 20 MG, TAKE 2 CAPSULES 30 MINUTES BEFORE MORNING MEAL ORALLY ONCE A DAY 30 DAYS 90. * Imaging: * I maging: XR CHEST 2 VIEW PA & LAT * Procedure Codes: * Preventive Medicine: Counseling: C are goal follow-up plan: Counseling for abnormal BMI given Y es Above Normal BMI Follow-up D ietary management education, guidance, and counseling, Dietary needs education, Exercise promotion: strength training, Exercise promotion: stretching, Feeding regime, Giving encouragement to exercise, Lifestyle education regarding diet, Nutrition / feeding management, Nutrition therapy, Prescribed activity/exercise education, Prescribed diet education, Prescribed dietary intake, Special diet education, Weight monitoring , Intervention, Order not done: Medical or Other reason not done * Follow Up: A s Scheduled (Reason: OV) * Images: * Sign off status: Completed true * Provider: Fatuma Burnett MD Date: 0 04/06/2025 Generated for Jordy roberts/Basilio/Mary Louransmitting on: 1 09:45 AM EDT History and [...] able, no clubbing, cyanosis or edema, Pain with inspiration, neck is stiff and and spasm LYMPH NODES: no enlarged lymph no erika,spleen normal RECTAL EXAM: not examined PSYCH: alert, oriented ORAL CAVITY: normal, unremarkable
--- OUTSIDE RECORDS SUMMARY | 2025-04-08 05:15 | XMS_ITS ---
Author Organization Jessica Burnett III, MD Address [address] [place] [address] Care Team Providers Care Principal Engineer Name Role Phone Dr. Jessica Burnett III Primary Care Provider Allergies Allergen (clinical drug ingredient) Drug/Non Drug Allergy documented on EMR Reaction Allergy Type Onset Date Status No Known Drug Allergy Unknown Drug Allergy Active REASON FOR VISIT Muscle spasm, Shoulder pain, Neck, Fever Medications Medication SIG (Take, Route, Frequency, Duration) [...] Tobacco non-user Aggressive nonsmoker Vital Signs Temperature 98.1 degrees Fahrenheit 04/08/20 25 Blood pressure systolic 142 mm Hg 04/08/20 25 Blood pressure diastolic 77 mm Hg 025 Heart Rate 82 /min 04/08/2025 Height 63 in 04/08/2025 Weight 202 lbs 04/08/2025 BMI 35.78 kg/m2 04/08/2025 Oximetry 97 % 04/08/2025 Encounters Encounter Location Date Provider Diagnosis Jessica Brunett III, MD [address] [place] [address] [address] [place] [address] 04/08/2025 Jessica Burnett Fever, unspecified R50.9 ; Muscle spasm M62.838 ; Radiculopathy, lumbar region M54.16 ; Hearing loss H91.90 ; Obesity E66.9 and Pain in right knee M25.561 Assessments Encounter Date Diagnosis (ICD Code) Assessment Notes Treatment Notes Treatment Clinical Notes 04/08/2025 Fever, unspecified (ICD-10 - R50.9) He has been afebrile on every visit to the office but says he has had temperatures up to 100.1. He will continue with Tylenol. He does not appear to be septic. 04/08/2025 Muscle spasm (ICD-10 - M62.838) He will continue with cyclobenzaprine he rest and massage. 04/08/2025 Radiculopathy, lumbar region (ICD-10 - M54.16) He continues to complain of discomfort in his lumbar spine that radiates into the buttocks. He has less intense pain in his lumbar spine with decreased range of motion. We will employ conservative regimen of heat, rest and ibuprofen. 04/08/2025 Hearing loss (ICD-10 - H91.90) He has mild hearing loss. He does not wish to have amplification her ENT evaluation at this time. He is able to function without impairment in daily life.. 04/08/2025 Obesity (ICD-10 - E66.9) On his next visit we will collaborate a weight loss strategy designed to lose weight at a rate of 1 pound. 04/08/2025 Pain in right knee (ICD-10 - M25.561) [...] EVERY DAY Next Appt Details Follow Up: 1 Week, Reason: O V Provider Name:Jessica Burnett , 08/05/2025 10:45:00 AM, [address] [place] [address] [place], [place], [phone], Provider Name:Jessica Burnett , 11/12/2025 10:00:00 AM, [address] [facility] [place], [place], [phone], Progress Notes * Hugo GARCIAOB:1965 (60 yo M)Acc No.[id number]:04/08/2025 Progress Notes Patient: Jann GARCIA Provider: Fatuma Burnett MD :1965 A ge:60 Y S ex:Male Date:04/08/2025 Address: [facility] [id number] Subjective: * Chief Complaints: * M uscle spasmShoulder painNeckFever * HPI: C OVID-19 Screening: He says he has a temperature of 100.1 last night. He continues to have pain in the shoulder muscles and neck muscles. His mind is clear and he has had no nausea or vomiting. He was afebrile today. Could be removed. Muscles and shoulders are tight. He is taking cyclobenzaprine is also taking acetaminophen. He'll be followed carefully. His comprehensive blood work and chest x-ray were reviewed in both were unremarkable. Questions H ave you had any new onset fever, chills, cough, congestion, sore throat, shortness of breath, muscle aches? Y es Fever 100.4 * ROS: G eneral/Constitutional: pain N amanuel and upper back musculature. C hills d enies. F atigue a dmits. F ever u p to 101 degrees. E NT: Decreased hearing d enies. R espiratory: Cough d enies. C ardiovascular: Chest pain with exertion d enies. D yspnea on exertion?with moderate activity. S hortness of breath d enies. G astrointestinal: Constipation d enies. D ecreased appetite t hat is not associated with weight loss. D iarrhea d enies. H eartburn d enies. N ausea?denies. R ectal bleeding d enies. V omiting d enies. H ematology: bruising d enies. p etechiae d enies. S wollen glands n one have been noted. G enitourinary: Frequent urination o nce a night. M usculoskeletal: Muscle aches d enies. P [...] H t: 63, Wt: 202, BMI:35.78, BP: 142/77, HR: 82, Temp: 98.1, Oxygen sat %: 97, Wt- k.63. * P ast Orders: Lab:Prostate Specific Antige n * Collection [...] 51 (Ref Range: >40 mg/dL) * Lab:Comprehensive [place]. Pane l Fast * Collection Date 04/07/2025 02/04/2025 06/25/2024 Collection Time 08:59 AM 08:28 AM 10:16 AM 07:54 AM Order Date 04/07/2025 02/04/2025 06/25/2024 04/21/2023 Sodium 141 (Ref Range: 135-145 mmol/L) 144 (Ref Range: 135-145 mmol/L) 141 (Ref Range: 135-145 mmol/L) 144 (Ref Range: 135-145 mmol/L) Bilirubin Total 2.1 H (Ref Range: 0.0-1.0 mg/dL) 1.3 H (Ref Range: 0.0-1.0 mg/dL) 1.0 (Ref Range: 0.0-1.0 mg/dL) 1.7 H (Ref Range: 0.0-1.0 mg/dL) Aspartate Amino Transferase 18 (Ref Range: 5-37 U/L) 20 (Ref Range: 5-37 U/L) 18 (Ref Range: 5-37 U/L) 18 (Ref Range: 5-37 U/L) Alanine Aminotransferase 14 (Ref Range: 0-40 U/L) 19 (Ref Range: 0-40 U/L) 18 (Ref Range: 0-40 U/L) 15 (Ref Range: 0-40 U/L) Total Protein 7.7 (Ref Range: 6.5-8.0 g/dL) 7.4 (Ref Range: 6.5-8.0 g/dL) 8.0 (Ref Range: 6.5-8.0 g/dL) 7.7 (Ref Range: 6.5-8.0 g/dL) Albumin Level 4.3 (Ref Range: 3.5-5.0 g/dL) 4.1 (Ref Range: 3.5-5.0 g/dL) 4.2 (Ref Range: 3.5-5.0 g/dL) 4.0 (Ref Range: 3.5-5.0 g/dL) Alkaline Phosphatase 58 (Ref Range: 39-117 U/L) 57 (Ref Range: 39-117 U/L) 55 (Ref Range: 39-117 U/L) 56 (Ref Range: 39-117 U/L) Potassium 4.2 (Ref Range: 3.3-5.1 mmol/L) 4.0 (Ref Range: 3.3-5.1 mmol/L) 4.4 (Ref Range: 3.3-5.1 mmol/L) 4.0 (Ref Range: 3.3-5.1 mmol/L) Chloride 104 (Ref Range: 96-108 mmol/L) 108 (Ref Range: 96-108 mmol/L) 103 (Ref Range: 96-108 mmol/L) 109 H (Ref Range: 96-108 mmol/L) Carbon Dioxide 31 H (Ref Range: 22-29 mmol/L) 28 (Ref Range: 22-29 mmol/L) 30 H (Ref Range: 22-29 mmol/L) 25 (Ref Range: 22-29 mmol/L) Anion Gap 10 L (Ref Range: 12-20) 12 (Ref Range: 12-20) 12 (Ref Range: 12-20) 14 (Ref Range: 12-20) Blood Urea Nitrogen 15 (Ref Range: 9-16 mg/dL) 19 H (Ref Range: 9-16 mg/dL) 13 (Ref Range: 9-16 mg/dL) 11 (Ref Range: 9-16 mg/dL) Creatinine 0.72 (Ref Range: 0.5-1.4 mg/dL) 0.88 (Ref Range: 0.5-1.4 mg/dL) 0.83 (Ref Range: 0.5-1.4 mg/dL) 0.86 (Ref Range: 0.5-1.4 mg/dL) Estimated Glomerular Filt Rate > 60 > 60 > 60 > 60 Glucose Fasting 98 (Ref Range: 60-99 mg/dL) 134 H (Ref Range: 60-99 mg/dL) 113 H (Ref Range: 60-99 mg/dL) 107 H (Ref Range: 60-99 mg/dL) Calcium 9.7 (Ref Range: 8.4-10.2 mg/dL) 9.4 (Ref Range: 8.4-10.2 mg/dL) 10.1 (Ref Range: 8.4-10.2 mg/dL) 9.4 (Ref Range: 8.4-10.2 mg/dL) * Lab:Complete Blood Count Aut o Diff * Collection Date 04/07/2025 02/04/2025 11/11/2024 Collection Time 08:59 AM 08:28 AM 10:45 AM 09:33 AM Order Date 04/07/2025 02/04/2025 11/11/2024 11/04/2024 White Blood Count 8.7 (Ref Range: 4.8-10.8 X10*3/uL) 5.8 (Ref Range: 4.8-10.8 X10*3/uL) 5.3 (Ref Range: 4.8-10.8 X10*3/uL) 5.5 (Ref Range: 4.8-10.8 X10*3/uL) Red Blood Count 4.56 L (Ref Range: 4.60-5.80 X10*6/uL) 4.87 (Ref Range: 4.60-5.80 X10*6/uL) 4.95 (Ref Range: 4.60-5.80 X10*6/uL) 5.06 (Ref Range: 4.60-5.80 X10*6/uL) Hemoglobin 12.9 L (Ref Range: 14.0-18.0 g/dl) 14.1 (Ref Range: 14.0-18.0 g/dl) 14.3 (Ref Range: 14.0-18.0 g/dl) 14.5 (Ref Range: 14.0-18.0 g/dl) Hematocrit 39.7 L (Ref Range: 42.0-52.0 %) 43.5 (Ref Range: 42.0-52.0 %) 43.7 (Ref Range: 42.0-52.0 %) 44.4 (Ref Range: 42.0-52.0 %) Mean Corpuscular Volume 87.1 (Ref Range: 80.0-98.0 fL) 89.3 (Ref Range: 80.0-98.0 fL) 88.3 (Ref Range: 80.0-98.0 fL) 87.7 (Ref Range: 80.0-98.0 fL) Mean Corpuscular Hemoglobin 28.3 (Ref Range: 27.0-33.0 pg) 29.0 (Ref Range: 27.0-33.0 pg) 28.9 (Ref Range: 27.0-33.0 pg) 28.7 (Ref Range: 27.0-33.0 pg) Mean Corpuscular HGB Conc 32.5 (Ref Range: 31.0-36.0 g/dl) 32.4 (Ref Range: 31.0-36.0 g/dl) 32.7 (Ref Range: 31.0-36.0 g/dl) 32.7 (Ref Range: 31.0-36.0 g/dl) Red Cell Distribution Width 13.5 (Ref Range: 11.0-16.0 %) 13.4 (Ref Range: 11.0-16.0 %) 13.5 (Ref Range: 11.0-16.0 %) 13.7 (Ref Range: 11.0-16.0 %) Platelet Count 281 (Ref Range: 160-400 X10*3/uL) 283 (Ref Range: 160-400 X10*3/uL) 261 (Ref Range: 160-400 X10*3/uL) 270 (Ref Range: 160-400 X10*3/uL) Mean Platelet Volume 9.7 (Ref Range: 9.4-12.4 fL) 10.1 (Ref Range: 9.4-12.4 fL) 9.9 (Ref Range: 9.4-12.4 fL) 9.3 L (Ref Range: 9.4-12.4 fL) Neutrophils Percent Auto 63.3 (Ref Range: 45-73 %) 46.1 (Ref Range: 45-73 %) 48.0 (Ref Range: 45-73 %) 47.4 (Ref Range: 45-73 %) Imm Gran Pct Auto 0.3 (Ref Range: 0.0-0.4 %) 0.2 (Ref Range: 0.0-0.4 %) 0.2 (Ref Range: 0.0-0.4 %) 0.0 (Ref Range: 0.0-0.4 %) Lymphocytes Percent Auto 26.7 (Ref Range: 20-40 %) 40.5 H (Ref Range: 20-40 %) 40.4 H (Ref Range: 20-40 %) 41.0 H (Ref Range: 20-40 %) Monocytes Percent Auto 8.9 (Ref Range: 2-11 %) 7.3 (Ref Range: 2-11 %) 6.8 (Ref Range: 2-11 %) 7.6 (Ref Range: 2-11 %) Eosinophils Percent Auto 0.5 (Ref Range: 0-4 %) 5.2 H (Ref Range: 0-4 %) 3.8 (Ref Range: 0-4 %) 3.1 (Ref Range: 0-4 %) Basophils Percent Auto 0.3 (Ref Range: 0-2 %) 0.7 (Ref Range: 0-2 %) 0.8 (Ref Range: 0-2 %) 0.9 (Ref Range: 0-2 %) NRBC Pct Auto 0.0 (Ref Range: 0.0-0.2 /100WBC) 0.0 (Ref Range: 0.0-0.2 /100WBC) 0.0 (Ref Range: 0.0-0.2 /100WBC) 0.0 (Ref Range: 0.0-0.2 /100WBC) Neutrophils Absolute Auto 5.5 (Ref Range: 2.0-8.3 x10*3/uL) 2.7 (Ref Range: 2.0-8.3 x10*3/uL) 2.6 (Ref Range: 2.0-8.3 x10*3/uL) 2.6 (Ref Range: 2.0-8.3 x10*3/uL) Imm Gran Abs Auto 0.03 (Ref Range: 0.00-0.03 X10*3/uL) 0.01 (Ref Range: 0.00-0.03 X10*3/uL) 0.01 (Ref Range: 0.00-0.03 X10*3/uL) 0.00 (Ref Range: 0.00-0.03 X10*3/uL) Lymphocytes Absolute Auto 2.3 (Ref Range: 1.2-4.9 X10*3/uL) 2.3 (Ref Range: 1.2-4.9 X10*3/uL) 2.2 (Ref Range: 1.2-4.9 X10*3/uL) 2.3 (Ref Range: 1.2-4.9 X10*3/uL) Monocytes Absolute Auto 0.8 (Ref Range: 0.1-1.2 X10*3/uL) 0.4 (Ref Range: 0.1-1.2 X10*3/uL) 0.4 (Ref Range: 0.1-1.2 X10*3/uL) 0.4 (Ref Range: 0.1-1.2 X10*3/uL) Eosinophils Absolute Auto 0.0 (Ref Range: 0.0-0.4 X10*3/uL) 0.3 (Ref Range: 0.0-0.4 X10*3/uL) 0.2 (Ref Range: 0.0-0.4 X10*3/uL) 0.2 (Ref Range: 0.0-0.4 X10*3/uL) Basophils Absolute Auto 0.0 (Ref Range: 0.0-0.2 X10*3/uL) 0.0 (Ref Range: 0.0-0.2 X10*3/uL) 0.0 (Ref Range: 0.0-0.2 X10*3/uL) 0.1 (Ref Range: 0.0-0.2 X10*3/uL) NRBC Abs Auto 0.000 (Ref Range: 0.0-0.012 X10*3/uL) 0.000 (Ref Range: 0.0-0.012 X10*3/uL) 0.000 (Ref Range: 0.0-0.012 X10*3/uL) 0.000 (Ref Range: 0.0-0.012 X10*3/uL) ???Lab:Uric Acid (Order Date - 02/10/2025) (Collection Date & Time - 02/10/2025 10:23 AM)?ValueReference Range?Uric Acid6.83.4-7.0 - mg/dL ???Lab:Hemoglobin A1c (Order Date - 02/10/2025) (Collection Date & Time - 02/10/2025 10:23 AM)?ValueReference Range?Hemoglobin A1c %6.9H<6.0 - %?Estimated Average [id number]- mg/dL ???Lab:Erythrocyte Sedimentation Rate (Order Date - 04/07/2025) (Collection Date & Time - 04/07/2025 08:59 AM)?ValueReference Range?Erythrocyte Sedimentation [id number] - MM/HR * Imaging:XR chest 2V * Performed Date 04/06/2025 02/05/2024 11/06/2022 02:05 PM 11:12 AM 09:27 AM Order Date 04/06/2025 02/05/2024 11/06/2022 * Examination: G eneral Examination: GENERAL APPEARANCE: p leasant, well nourished, well developed, in no acute distress, calm and relaxed, obese, man. HEAD: a traumatic, normocephalic. EYES: e jaime, perrla, anicteric, conjugate. EARS: n ormal. NOSE: s eptum intact. ORAL CAVITY: n ormal, unremarkable. NECK/THYROID: n o jugular venous distention, no carotid bruit, thyroid normal His neck muscles remain painful to massage the neck is mobile. LYMPH NODES: n o enlarged lymph nodes,spleen normal. SKIN: n o suspicious lesions, anicteric. HEART: n o clicks, gallops, murmurs, or rubs, regular rhythm, S1, S2 normal, no s3, or vascular bruits. LUNGS: c lear to auscultation . BREASTS: no masses palpable bilaterally. ABDOMEN: b owel sounds normal, no ascites, no organomegaly, no mass, centripital obesity. RECTAL EXAM: n ot examined. MUSCULOSKELETAL: e xtremities unremarkable, no clubbing, cyanosis or edema, Range of motion of shoulders is intact, shoulder muscles are very tight. PERIPHERAL PULSES: n ormal. NEUROLOGIC: a lert and oriented, cranial nerves 2-12 grossly intact, deep tendon reflexes 2+ symmetrical, motor strength normal upper and lower extremities, sensory exam intact. PSYCH: a lert, oriented. Assessment: * Assessment: 1. M uscle spasm - M62.838 (Primary) N otes :He will continue with cyclobenzaprine he rest and massage. 2 . F ever, unspecified - R50.9 N otes :He has been afebrile on every visit to the office but says he has had temperatures up to 100.1. He will continue with Tylenol. He does not appear to be septic. 3 . R adiculopathy, lumbar region - M54.16 N otes :He continues to complain of discomfort in his lumbar spine that radiates into the buttocks. He has less intense pain in his lumbar spine with decreased range of motion. We will employ conservative regimen of heat, rest and ibuprofen. 4 . H earing loss - H91.90 N otes :He has mild hearing loss. He does not wish to have amplification her ENT evaluation at this time. He is able to function without impairment in daily life.. 5 . O besity - E66.9 N otes :On his next visit we will collaborate a weight loss strategy designed to lose weight at a rate of 1 pound. 6 . P ain in right knee - M25.561 N otes :He is being referred to orthopedics. I have ordered a uric acid level to be done today. He was instructed to use ibuprofen. A follow-up visit was arranged. Plan: * Treatment: 2. O thers Continue Omeprazole Capsule Delayed Release, 20 MG, TAKE 2 CAPSULES 30 MINUTES BEFORE MORNING MEAL ORALLY ONCE A DAY 30 DAYS 90. * Procedure Codes: 9 4760 MEASURE BLOOD OXYGEN LEVEL * Preventive Medicine: Counseling: C are goal [...] Other reason not done * Follow Up: 1 Week (Reason: OV) * Images: * Sign off status: Completed true * Provider: Fatuma Burnett MD Date: 0 04/08/2025 Generated for Jordy roberts/Basilio/Coryitting on: 1 09:46 AM EDT History and Physical Notes * HPI (History of Present Illness) Category Sub-Category Detail Notes COVID-19 Screening Questions Have you had any new onset fever, chills, cough, congestion, sore throat, shortness of breath, muscle aches?: Yes Fever 100.4 Examination Category Sub-Category Detail Notes General Examination GENERAL APPEARANCE: pleasant , well nourished, well developed, in no acute distress, calm and relaxed, obese, man HEAD: atraumatic, normocep halic EYES: eomi, perrla, anicte shania, conjugate EARS: normal NOSE: septum intact NECK/THYROID: no jugular venous di stention, no carotid bruit, thyroid normal His neck muscles remain painful to massage the neck is mobile HEART: no clicks, gallops, murmurs, or rubs, [...] unremark able, no clubbing, cyanosis or edema, Range of motion of shoulders is intact, shoulder muscles are very tight LYMPH NODES: no enlarged lymph no erika,spleen normal RECTAL EXAM: not examined PSYCH: alert, oriented ORAL CAVITY: normal, unremarkable
--- OUTSIDE RECORDS SUMMARY | 2025-04-17 11:15 | XMS_ITS ---
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 Jessica Burnett III Primary Care Provider Allergies Allergen (clinical drug ingredient) Drug/Non Drug Allergy documented on EMR Reaction Allergy Type Onset Date Status No Known Drug Allergy Unknown Drug Allergy Active REASON FOR VISIT Acute neck pain and muscle spasm, Hearing loss, Obesity, Shoulder impingement syndrome, Hypertension, History of DVT, GERD, Bilateral knee pain Medications Medication SIG (Take, Route, Frequency, Duration) [...] nonsmoker Vital Signs Temperature 97.5 degrees Fahrenheit 04/17/20 25 Blood pressure systolic 132 mm Hg 04/17/20 25 Blood pressure diastolic 85 mm Hg 025 Heart Rate 82 /min 04/17/2025 Height 63 in 04/17/2025 Weight 203 lbs 04/17/2025 BMI 35.96 kg/m2 04/17/2025 Encounters Encounter Location Date Provider Diagnosis Jsesica Burnett III, MD [address] [place] [address] DR [place], [place] [id number] 04/17/2025 Jessica Burnett Radiculopathy, lumba r region M54.16 ; Hearing loss H91.90 ; Obesity E66.9 ; DJD (degenerative joint disease) M19.90 ; Hypertension I10 ; Chronic deep vein thrombosis (DVT) of brachial vein of right upper extremity I82.721 and Chronic GERD K21.9 Assessments Encounter Date Diagnosis (ICD Code) Assessment Notes Treatment Notes Treatment Clinical Notes 04/17/2025 Radiculopathy, lumbar region (ICD-10 - M54.16) He continues to complain of discomfort in his lumbar spine that radiates into the buttocks. He has less intense pain in his lumbar spine with decreased range of motion. We will employ conservative regimen of heat, rest and ibuprofen. 04/17/2025 Hearing loss (ICD-10 - H91.90) He has mild hearing loss. He does not wish to have amplification her ENT evaluation at this time. He is able to function without impairment in daily life.. 04/17/2025 Obesity (ICD-10 - E66.9) On his next visit we will collaborate a weight loss strategy designed to lose weight at a rate of 1 pound. 04/17/2025 DJD (degenerative joint disease) (ICD-10 - M19.90) He continues to have recommended lumbar spine pain. He will continue on his current regimen. 04/17/2025 Hypertension (ICD-10 - I10) His blood pressure is stable. I have strongly recommended aggressive weight loss with regular exercise and sodium restriction. 04/17/2025 Chronic deep vein thrombosis (DVT) of brachial vein of right upper extremity (ICD-10 - I82.721) After an adequate course of anticoagulation a thrombophilia evaluation is negative. His anticoagulation was discontinued today. 04/17/2025 Chronic GERD (ICD-10 - K21.9) This discomfort has resolved and his current therapy was continued. Plan Of Treatment Medication Medication Name Sig Start Date Stop Date Notes Omeprazole 20 MG TAKE 2 CAPSULES 30 M INUTES BEFORE MORNING MEAL ORALLY ONCE A DAY 30 DAYS 90 Ferrous Sulfate 324 (65 Fe) MG TAKE 1 TA BLET BY MOUTH EVERY DAY Next Appt Details Follow Up: As Scheduled, Urmila son: OV Provider Name:Jessica Burnett , 08/05/2025 10:45:00 AM, [address] [place], [place], [id number], Provider Name:Jessica Burnett , 11/12/2025 10:00:00 AM, [address] [place], [address], Progress Notes * Hugo GARCIAOB:1965 (60 yo M)Acc No.[id number]:04/17/2025 Progress Notes Patient: Jann GARCIA Provider: Fatuma Burnett MD :1965 A ge:60 Y S ex:Male Date:04/17/2025 [id number] Subjective: * Chief Complaints: * A cute neck pain and muscle spasmHearing lossObesityShoulder impingement syndromeHypertensionHistory of DVTGERDBilateral knee pain * HPI: C OVID-19 Screening: This is a follow-up to the acute muscle spasm he had his back and neck associate with fever. The fever is gone. He has been to orthopedic surgery been evaluated. He is going to be given injections in both knees on May 06, 2025. He is unable to tell me which will be injected. His neck is feeling much better. He is able to sleep without difficulty. Questions H ave you had any new onset fever, chills, cough, congestion, sore throat, shortness of breath, muscle aches? N o * ROS: G eneral/Constitutional: pain B ack muscles, neck, both knees. C hills d enies. F atigue a dmits. F ever d enies. E NT: Decreased hearing d enies. R espiratory: Cough d enies. C ardiovascular: Chest pain with exertion d enies. D yspnea on exertion?denies. S hortness of breath d enies. G astrointestinal: Constipation o ccasional. D ecreased appetite d enies. D iarrhea d enies. H eartburn d enies. N ausea d enies. R ectal bleeding d enies. V omiting d enies. H ematology: bruising d enies. p etechiae d enies. S wollen glands n one have been noted. G enitourinary: Frequent urination o nce a night. M usculoskeletal: Muscle aches d enies. P ainful joints B oth knees.?Sciatica d enies. W eakness d enies. S [...] Objective: * Vitals: H t: 63, Wt: 203, BMI:35.96, BP: 132/85, HR: 82, Temp: 97.5, Wt-k.08. * P ast Orders: Imaging:XR chest 2V * Performed Date 04/06/2025 02/05/2024 11/06/2022 02:05 PM 11:12 AM 09:27 AM Order Date 04/06/2025 02/05/2024 11/06/2022 * Lab:Complete Blood Count Aut o Diff * Collection Date 04/07/2025 02/04/2025 11/11/2024 Collection Time 08:59 AM 08:28 AM 10:45 AM Order Date 04/07/2025 02/04/2025 11/11/2024 White Blood Count 8.7 (Ref Range: 4.8-10.8 X10*3/uL) 5.8 (Ref Range: 4.8-10.8 X10*3/uL) 5.3 (Ref Range: 4.8-10.8 X10*3/uL) Red Blood Count 4.56 L (Ref Range: 4.60-5.80 X10*6/uL) 4.87 (Ref Range: 4.60-5.80 X10*6/uL) 4.95 (Ref Range: 4.60-5.80 X10*6/uL) Hemoglobin 12.9 L (Ref Range: 14.0-18.0 g/dl) 14.1 (Ref Range: 14.0-18.0 g/dl) 14.3 (Ref Range: 14.0-18.0 g/dl) Hematocrit 39.7 L (Ref Range: 42.0-52.0 %) 43.5 (Ref Range: 42.0-52.0 %) 43.7 (Ref Range: 42.0-52.0 %) Mean Corpuscular Volume 87.1 (Ref Range: 80.0-98.0 fL) 89.3 (Ref Range: 80.0-98.0 fL) 88.3 (Ref Range: 80.0-98.0 fL) Mean Corpuscular Hemoglobin 28.3 (Ref Range: 27.0-33.0 pg) 29.0 (Ref Range: 27.0-33.0 pg) 28.9 (Ref Range: 27.0-33.0 pg) Mean Corpuscular HGB Conc 32.5 (Ref Range: 31.0-36.0 g/dl) 32.4 (Ref Range: 31.0-36.0 g/dl) 32.7 (Ref Range: 31.0-36.0 g/dl) Red Cell Distribution Width 13.5 (Ref Range: 11.0-16.0 %) 13.4 (Ref Range: 11.0-16.0 %) 13.5 (Ref Range: 11.0-16.0 %) Platelet Count 281 (Ref Range: 160-400 X10*3/uL) 283 (Ref Range: 160-400 X10*3/uL) 261 (Ref Range: 160-400 X10*3/uL) Mean Platelet Volume 9.7 (Ref Range: 9.4-12.4 fL) 10.1 (Ref Range: 9.4-12.4 fL) 9.9 (Ref Range: 9.4-12.4 fL) Neutrophils Percent Auto 63.3 (Ref Range: 45-73 %) 46.1 (Ref Range: 45-73 %) 48.0 (Ref Range: 45-73 %) Imm Gran Pct Auto 0.3 (Ref Range: 0.0-0.4 %) 0.2 (Ref Range: 0.0-0.4 %) 0.2 (Ref Range: 0.0-0.4 %) Lymphocytes Percent Auto 26.7 (Ref Range: 20-40 %) 40.5 H (Ref Range: 20-40 %) 40.4 H (Ref Range: 20-40 %) Monocytes Percent Auto 8.9 (Ref Range: 2-11 %) 7.3 (Ref Range: 2-11 %) 6.8 (Ref Range: 2-11 %) Eosinophils Percent Auto 0.5 (Ref Range: 0-4 %) 5.2 H (Ref Range: 0-4 %) 3.8 (Ref Range: 0-4 %) Basophils Percent Auto 0.3 (Ref Range: 0-2 %) 0.7 (Ref Range: 0-2 %) 0.8 (Ref Range: 0-2 %) NRBC Pct Auto [...] 1.2-4.9 X10*3/uL) 2.2 (Ref Range: 1.2-4.9 X10*3/uL) Monocytes Absolute Auto [...] 0.000 (Ref Range: 0.0-0.012 X10*3/uL) * Lab:[facility] [place]. Jordane l Fast * Collection Date 04/07/2025 02/04/2025 06/25/2024 Collection Time 08:59 AM 08:28 AM 10:16 AM Order Date 04/07/2025 02/04/2025 06/25/2024 Sodium 141 (Ref Range: 135-145 mmol/L) 144 (Ref Range: 135-145 mmol/L) 141 (Ref Range: 135-145 mmol/L) Bilirubin Total 2.1 H (Ref Range: 0.0-1.0 mg/dL) 1.3 H (Ref Range: 0.0-1.0 mg/dL) 1.0 (Ref Range: 0.0-1.0 mg/dL) Aspartate Amino Transferase 18 (Ref Range: 5-37 U/L) 20 (Ref Range: 5-37 U/L) 18 (Ref Range: 5-37 U/L) Alanine Aminotransferase 14 (Ref Range: 0-40 U/L) 19 (Ref Range: 0-40 U/L) 18 (Ref Range: 0-40 U/L) Total Protein 7.7 (Ref Range: 6.5-8.0 g/dL) 7.4 (Ref Range: 6.5-8.0 g/dL) 8.0 (Ref Range: 6.5-8.0 g/dL) Albumin Level 4.3 (Ref Range: 3.5-5.0 g/dL) 4.1 (Ref Range: 3.5-5.0 g/dL) 4.2 (Ref Range: 3.5-5.0 g/dL) Alkaline Phosphatase 58 (Ref Range: 39-117 U/L) 57 (Ref Range: 39-117 U/L) 55 (Ref Range: 39-117 U/L) Potassium 4.2 (Ref Range: 3.3-5.1 mmol/L) 4.0 (Ref Range: 3.3-5.1 mmol/L) 4.4 (Ref Range: 3.3-5.1 mmol/L) Chloride 104 (Ref Range: 96-108 mmol/L) 108 (Ref Range: 96-108 mmol/L) 103 (Ref Range: 96-108 mmol/L) Carbon Dioxide 31 H (Ref Range: 22-29 mmol/L) 28 (Ref Range: 22-29 mmol/L) 30 H (Ref Range: 22-29 mmol/L) Anion Gap 10 L (Ref Range: 12-20) 12 (Ref Range: 12-20) 12 (Ref Range: 12-20) Blood Urea Nitrogen 15 (Ref Range: 9-16 mg/dL) 19 H (Ref Range: 9-16 mg/dL) 13 (Ref Range: 9-16 mg/dL) Creatinine 0.72 (Ref Range: 0.5-1.4 mg/dL) 0.88 (Ref Range: 0.5-1.4 mg/dL) 0.83 (Ref Range: 0.5-1.4 mg/dL) Estimated Glomerular Filt Rate > 60 > 60 > 60 Glucose Fasting 98 (Ref Range: 60-99 mg/dL) 134 H (Ref Range: 60-99 mg/dL) 113 H (Ref Range: 60-99 mg/dL) Calcium 9.7 (Ref Range: 8.4-10.2 mg/dL) 9.4 (Ref Range: 8.4-10.2 mg/dL) 10.1 (Ref Range: 8.4-10.2 mg/dL) * Lab:Lipid Panel * Collection Date 02/04/2025 [...] mg/dL) 51 (Ref Range: >40 mg/dL) * Lab:Prostate Specific Antige n * Collection Date 02/04/2025 10/27/2023 10/24/2022 Collection Time 08:28 AM 09:06 AM 09:19 AM Order Date 02/04/2025 10/27/2023 10/24/2022 Prostate Specific Antigen 1.02 (Ref Range: <0.05-4.0 ng/mL) 0.83 (Ref Range: <0.05-4.0 ng/mL) 1.70 (Ref Range: <0.05-4.0 ng/mL) ???Lab:Erythrocyte Sedimentation Rate (Order Date - 04/07/2025) (Collection Date & Time - 04/07/2025 08:59 AM)?ValueReference Range?Erythrocyte Sedimentation [id number] - MM/HR ???Lab:Hemoglobin A1c (Order Date - 02/10/2025) (Collection Date & Time - 02/10/2025 10:23 AM)?ValueReference Range?Hemoglobin A1c %6.9H<6.0 - %?Estimated Average [id number]- mg/dL ???Lab:Uric Acid (Order Date - 02/10/2025) (Collection Date & Time - 02/10/2025 10:23 AM)?ValueReference Range?Uric Acid6.83.4-7.0 - mg/dL * Examination: G eneral Examination: GENERAL APPEARANCE: p leasant, well nourished, well developed, in no acute distress, calm and relaxed, obese, man. HEAD: a traumatic, normocephalic. EYES: e jaime, perrla, anicteric, conjugate. EARS: n ormal. NOSE: s eptum intact. ORAL CAVITY: n ormal, unremarkable. NECK/THYROID: n o jugular venous distention, no carotid bruit, thyroid normal, Improved range of motion with less muscle spasms. LYMPH NODES: n o enlarged lymph nodes,spleen [...] xtremities unremarkable, no clubbing, cyanosis or edema, Back muscles are much looser this point. Pain to range of motion both knees.? Decreased range of motion lumbar spine.. PERIPHERAL PULSES: n ormal. NEUROLOGIC: a lert and oriented, cranial nerves 2-12 grossly intact, deep tendon reflexes 2+ symmetrical, motor strength normal upper and lower extremities, sensory exam intact. PSYCH: a lert, oriented. Assessment: * Assessment: 1. R adiculopathy, lumbar region - M54.16 (Primary) N otes :He continues to complain of discomfort in his lumbar spine that radiates into the buttocks. He has less intense pain in his lumbar spine with decreased range of motion. We will employ conservative regimen of heat, rest and ibuprofen. 2 . H earing loss - H91.90 N otes :He has mild hearing loss. He does not wish to have amplification her ENT evaluation at this time. He is able to function without impairment in daily life.. 3 . O besity - E66.9 N otes :On his next visit we will collaborate a weight loss strategy designed to lose weight at a rate of 1 pound. 4 . D ERICK (degenerative joint disease) - M19.90 N otes :He continues to have recommended lumbar spine pain. He will continue on his current regimen. 5 . H ypertension - I10 N otes :His blood pressure is stable. I have strongly recommended aggressive weight loss with regular exercise and sodium restriction. 6 . C hronic deep vein thrombosis (DVT) of brachial vein of right upper extremity - I82.721 N otes :After an adequate course of anticoagulation a thrombophilia evaluation is negative. His anticoagulation was discontinued today. 7 . C hronic GERD - K21.9 N otes :This discomfort has resolved and his current therapy was continued. Plan: * Treatment: 2. O thers Continue [...] * Provider: Fatuma Burnett MD Date: 0 04/17/2025 Generated for [employer]/Fahayg/eTransmitting on: 1 09:46 AM EDT History and [...] venous di stention, no carotid bruit, thyroid normal, Improved range of motion with less muscle spasms HEART: no clicks, gallops, murmurs, or rubs, [...] unremark able, no clubbing, cyanosis or edema, Back muscles are much looser this point. Pain to range of motion both knees. Decreased range of motion lumbar spine. LYMPH NODES: no enlarged lymph no erika,spleen normal RECTAL EXAM: not examined PSYCH: alert, oriented ORAL CAVITY: normal, unremarkable
--- OUTSIDE RECORDS SUMMARY | 2025-06-04 05:30 | XMS_ITS ---
Author Organization Jessica Burnett III, MD Address [address] [place] [address] Care Team Providers Care Hand Stemmer Name Role Phone Dr. Jessica Burnett III Primary Care Provider Allergies Allergen (clinical drug ingredient) Drug/Non Drug Allergy documented on EMR Reaction Allergy Type Onset Date Status No Known Drug Allergy Unknown Drug Allergy Active REASON FOR VISIT Acute neck pain, Bilateral shoulder pain, Bilateral knee pain, Lumbar radiculopathy, Hypertension, Obesity Medications Medication SIG (Take, Route, Frequency, Duration) [...] Findings: Tobacco non-user Aggressive nonsmoker Vital Signs Height 63 in 06/04/2025 Weight 203 lbs 06/04/2025 BMI 35.96 kg/m2 06/04/2025 Encounters Encounter Location Date Provider Diagnosis Jessica Burnett III, MD [address] [place] [address] [place] [address] 06/04/2025 Jessica Burnett Radiculopathy, lumba r region M54.16 ; Type 2 diabetes mellitus without complication, without long-term current use of insulin E11.9 ; Iron deficiency E61.1 ; Hyperglycemia R73.9 ; Hearing loss H91.90 ; Shoulder impingement syndrome M75.40 ; Obesity E66.9 ; Pain in right knee M25.561 ; Pain in left knee M25.562 and Neck pain, acute M54.2 Assessments Encounter Date Diagnosis (ICD Code) Assessment Notes Treat ment Notes Treatment Clinical Notes 06/04/2025 Radiculopathy, lumbar region (ICD-10 - M54.16) He continues to complain of discomfort in his lumbar spine that radiates into the buttocks. He has less intense pain in his lumbar spine with decreased range of motion. We will employ conservative regimen of heat, rest and ibuprofen. 06/04/2025 Type 2 diabetes mellitus without complication, without long-term current use of insulin (ICD-10 - E11.9) He is likely a diabetic at this time. Hemoglobin A1c is pending. 06/04/2025 Iron deficiency (ICD-10 - E61.1) His ferritin is low normal at 24 and he will continue on iron supplements. 06/04/2025 Hyperglycemia (ICD-10 - R73.9) His fasting blood glucose level was 140 which is in the diabetic range. I have discussed prediabetes with him at length. I have ordered a hemoglobin A1c to be done with the uric acid. 06/04/2025 Hearing loss (ICD-10 - H91.90) He has mild hearing loss. He does not wish to have amplification her ENT evaluation at this time. He is able to function without impairment in daily life.. 06/04/2025 Shoulder impingement syndrome (ICD-10 - M75.40) He has a nerve impingement left arm and I have referred him back to orthopedics.He will be seen April 09, 2025. 06/04/2025 Obesity (ICD-10 - E66.9) On his next visit we will collaborate a weight loss strategy designed to lose weight at a rate of 1 pound. 06/04/2025 Pain in right knee (ICD-10 - M25.561) He is being referred to orthopedics. I have ordered a uric acid level to be done today. He was instructed to use ibuprofen. A follow-up visit was arranged. 06/04/2025 Pain in left knee (ICD-10 - M25.562) The left knee is less painful than the right but similar in physical examination. In orthopedic evaluation has been requested. Blood work is pending. 06/04/2025 Neck pain, acute (ICD-10 - M54.2) Because he had fever and stiff neck he was sent to the emergency room Plan Of Treatment Medication Medication Name Sig Start Date Stop Date Notes Ferrous Sulfate 324 (65 Fe) MG TAKE 1 TA BLET BY MOUTH EVERY DAY Omeprazole 20 MG TAKE 2 CAPSULES 30 M INUTES BEFORE MORNING MEAL ORALLY ONCE A DAY 30 DAYS 90 Pending Test Test Name Order Date PROFILE, RANDOM (COMPREHENSIVE METABOLIC ) 06/04/2025 PSA, TOTAL 06/04/2025 CBC w DIFF 06/04/2025 Hemoglobin A1c 06/04/2025 Next Appt Details Follow Up: July, on: ov review labs Provider Name:Jessica Burnett , 08/05/2025 10:45:00 AM, [address] [facility] [address], [place], [address], Provider Name:Jessica Burnett , 11/12/2025 10:00:00 AM, [address] [facility] [address], [place], [address], Progress Notes * Hugo GARCIAOB:1965 (60 yo M)Acc No.[id number]:06/04/2025 Patient: Sarah Jann MCFADDEN Provider: Fatuma Burnett MD :1965 A ge:60 Y S ex:Male Date:06/04/2025 Address: [place], [id number] Subjective: * Chief Complaints: * A cute neck painBilateral shoulder painBilateral knee painLumbar radiculopathyHypertensionObesity * HPI: * : On his last visit he complained of severe neck pain and shoulder pain and knee pain. He has been to orthopedics and received injections in his knees. The neck pain is much improved. His right knee is the painful one but he is able to conduct all of the activities of daily living.? He is trying to see the orthopedist for his series of injections he says he was given gel.? Will follow up here in 3 months. Telehealth L ocation of provider rendering services: { ...} [address] [place] [address] [address] [facility] [address] L ocation of patient: debby cardozo listed in demographics for today's visit P atient identification confirmed using: N floyd, T elehealth method: T elephone only. Patient not visible to care provider. C onsent: P atient verbally consented to treatment, Patient verbally consented to billing insurance company, Patient informed of any privacy concerns related to method of visit T otal time spent with patient (mins) 1 5 * ROS: G eneral/Constitutional: pain N amanuel and both knees and shoulders. C hills d enies. F atigue a [...] Vitals: H t: 63, Wt: 203, BMI:35.96, Ht-cm: 160.02, Wt-k.08. * P ast Orders: Imaging:XR chest 2V * Performed Date 04/06/2025 02/05/2024 11/06/2022 02:05 PM 11:12 AM 09:27 AM Order Date 04/06/2025 02/05/2024 11/06/2022 * Lab:Complete Blood Count Aut o Diff * Collection Date 05/23/2025 04/07/2025 02/04/2025 Collection Time 08:53 AM 08:59 AM 08:28 AM Order Date 05/23/2025 04/07/2025 02/04/2025 White Blood Count 7.1 (Ref Range: 4.8-10.8 X10*3/uL) 8.7 (Ref Range: 4.8-10.8 X10*3/uL) 5.8 (Ref Range: 4.8-10.8 X10*3/uL) Red Blood Count 5.01 (Ref Range: 4.60-5.80 X10*6/uL) 4.56 L (Ref Range: 4.60-5.80 X10*6/uL) 4.87 (Ref Range: 4.60-5.80 X10*6/uL) Hemoglobin 14.3 (Ref Range: 14.0-18.0 g/dl) 12.9 L (Ref Range: 14.0-18.0 g/dl) 14.1 (Ref Range: 14.0-18.0 g/dl) Hematocrit 43.3 (Ref Range: 42.0-52.0 %) 39.7 L (Ref Range: 42.0-52.0 %) 43.5 (Ref Range: 42.0-52.0 %) Mean Corpuscular Volume 86.4 (Ref Range: 80.0-98.0 fL) 87.1 (Ref Range: 80.0-98.0 fL) 89.3 (Ref Range: 80.0-98.0 fL) Mean Corpuscular Hemoglobin 28.5 (Ref Range: 27.0-33.0 pg) 28.3 (Ref Range: 27.0-33.0 pg) 29.0 (Ref Range: 27.0-33.0 pg) Mean Corpuscular HGB Conc 33.0 (Ref Range: 31.0-36.0 g/dl) 32.5 (Ref Range: 31.0-36.0 g/dl) 32.4 (Ref Range: 31.0-36.0 g/dl) Red Cell Distribution Width 14.0 (Ref Range: 11.0-16.0 %) 13.5 (Ref Range: 11.0-16.0 %) 13.4 (Ref Range: 11.0-16.0 %) Platelet Count 276 (Ref Range: 160-400 X10*3/uL) 281 (Ref Range: 160-400 X10*3/uL) 283 (Ref Range: 160-400 X10*3/uL) Mean Platelet Volume 9.5 (Ref Range: 9.4-12.4 fL) 9.7 (Ref Range: 9.4-12.4 fL) 10.1 (Ref Range: 9.4-12.4 fL) Neutrophils Percent Auto 51.7 (Ref Range: 45-73 %) 63.3 (Ref Range: 45-73 %) 46.1 (Ref Range: 45-73 %) Imm Gran Pct Auto 0.1 (Ref Range: 0.0-0.4 %) 0.3 (Ref Range: 0.0-0.4 %) 0.2 (Ref Range: 0.0-0.4 %) Lymphocytes Percent Auto 35.1 (Ref Range: 20-40 %) 26.7 (Ref Range: 20-40 %) 40.5 H (Ref Range: 20-40 %) Monocytes Percent Auto 7.2 (Ref Range: 2-11 %) 8.9 (Ref Range: 2-11 %) 7.3 (Ref Range: 2-11 %) Eosinophils Percent Auto 5.2 H (Ref Range: 0-4 %) 0.5 (Ref Range: 0-4 %) 5.2 H (Ref Range: 0-4 %) Basophils Percent Auto 0.7 (Ref Range: 0-2 %) 0.3 (Ref Range: 0-2 %) 0.7 (Ref Range: 0-2 %) NRBC Pct Auto 0.0 (Ref Range: 0.0-0.2 /100WBC) 0.0 (Ref Range: 0.0-0.2 /100WBC) 0.0 (Ref Range: 0.0-0.2 /100WBC) Neutrophils Absolute Auto 3.6 (Ref Range: 2.0-8.3 x10*3/uL) 5.5 (Ref Range: 2.0-8.3 x10*3/uL) 2.7 (Ref Range: 2.0-8.3 x10*3/uL) Imm Gran Abs Auto 0.01 (Ref Range: 0.00-0.03 X10*3/uL) 0.03 (Ref Range: 0.00-0.03 X10*3/uL) 0.01 (Ref Range: 0.00-0.03 X10*3/uL) Lymphocytes Absolute Auto 2.5 (Ref Range: 1.2-4.9 X10*3/uL) 2.3 (Ref Range: 1.2-4.9 X10*3/uL) 2.3 (Ref Range: 1.2-4.9 X10*3/uL) Monocytes Absolute Auto 0.5 (Ref Range: 0.1-1.2 X10*3/uL) 0.8 (Ref Range: 0.1-1.2 X10*3/uL) 0.4 (Ref Range: 0.1-1.2 X10*3/uL) Eosinophils Absolute Auto 0.4 (Ref Range: 0.0-0.4 X10*3/uL) 0.0 (Ref Range: 0.0-0.4 X10*3/uL) 0.3 (Ref Range: 0.0-0.4 X10*3/uL) Basophils Absolute Auto 0.1 (Ref Range: 0.0-0.2 X10*3/uL) 0.0 (Ref Range: 0.0-0.2 X10*3/uL) 0.0 (Ref Range: 0.0-0.2 X10*3/uL) NRBC Abs Auto 0.000 (Ref Range: 0.0-0.012 X10*3/uL) 0.000 (Ref Range: 0.0-0.012 X10*3/uL) 0.000 (Ref Range: 0.0-0.012 X10*3/uL) * Lab:Lipid Panel * Collection Date 05/23/2025 02/04/2025 06/25/2024 Collection Time 08:53 AM 08:28 AM 10:16 AM Order Date 05/23/2025 02/04/2025 06/25/2024 Triglycerides 114 (Ref Range: <150 mg/dL) 101 (Ref Range: <150 mg/dL) 83 (Ref Range: <150 mg/dL) Cholesterol 155 (Ref Range: <200 mg/dL) 158 (Ref Range: <200 mg/dL) 166 (Ref Range: <200 mg/dL) LDL Cholesterol Calculated 87 (Ref Range: <100 mg/dL) 93 (Ref Range: <100 mg/dL) 96 (Ref Range: <100 mg/dL) HDL Cholesterol 46 (Ref Range: >40 mg/dL) 45 (Ref Range: >40 mg/dL) 54 (Ref Range: >40 mg/dL) * Lab:Ferritin * Collection Date 05/23/2025 11/04/2024 06/25/2024 Collection Time 08:53 AM 09:33 AM 10:16 AM Order Date 05/23/2025 11/04/2024 06/25/2024 Ferritin 24 (Ref Range: 20-250 ng/mL) 48 (Ref Range: 20-250 ng/mL) 25 (Ref Range: 20-250 ng/mL) * Lab:Kathy Hooper. Gemma l Fast * Collection Date 05/23/2025 04/07/2025 02/04/2025 Collection Time 08:53 AM 08:59 AM 08:28 AM Order Date 05/23/2025 04/07/2025 02/04/2025 Sodium 141 (Ref Range: 135-145 mmol/L) 141 (Ref Range: 135-145 mmol/L) 144 (Ref Range: 135-145 mmol/L) Bilirubin Total 2.1 H (Ref Range: 0.0-1.0 mg/dL) 2.1 H (Ref Range: 0.0-1.0 mg/dL) 1.3 H (Ref Range: 0.0-1.0 mg/dL) Aspartate Amino Transferase 21 (Ref Range: 5-37 U/L) 18 (Ref Range: 5-37 U/L) 20 (Ref Range: 5-37 U/L) Alanine Aminotransferase 17 (Ref Range: 0-40 U/L) 14 (Ref Range: 0-40 U/L) 19 (Ref Range: 0-40 U/L) Total Protein 7.6 (Ref Range: 6.5-8.0 g/dL) 7.7 (Ref Range: 6.5-8.0 g/dL) 7.4 (Ref Range: 6.5-8.0 g/dL) Albumin Level 4.3 (Ref Range: 3.5-5.0 g/dL) 4.3 (Ref Range: 3.5-5.0 g/dL) 4.1 (Ref Range: 3.5-5.0 g/dL) Alkaline Phosphatase 63 (Ref Range: 39-117 U/L) 58 (Ref Range: 39-117 U/L) 57 (Ref Range: 39-117 U/L) Potassium 3.9 (Ref Range: 3.3-5.1 mmol/L) 4.2 (Ref Range: 3.3-5.1 mmol/L) 4.0 (Ref Range: 3.3-5.1 mmol/L) Chloride 103 (Ref Range: 96-108 mmol/L) 104 (Ref Range: 96-108 mmol/L) 108 (Ref Range: 96-108 mmol/L) Carbon Dioxide 30 H (Ref Range: 22-29 mmol/L) 31 H (Ref Range: 22-29 mmol/L) 28 (Ref Range: 22-29 mmol/L) Anion Gap 12 (Ref Range: 12-20) 10 L (Ref Range: 12-20) 12 (Ref Range: 12-20) Blood Urea Nitrogen 16 (Ref Range: 9-16 mg/dL) 15 (Ref Range: 9-16 mg/dL) 19 H (Ref Range: 9-16 mg/dL) Creatinine 0.84 (Ref Range: 0.5-1.4 mg/dL) 0.72 (Ref Range: 0.5-1.4 mg/dL) 0.88 (Ref Range: 0.5-1.4 mg/dL) Estimated Glomerular Filt Rate > 60 > 60 > 60 Glucose Fasting 140 H (Ref Range: 60-99 mg/dL) 98 (Ref Range: 60-99 mg/dL) 134 H (Ref Range: 60-99 mg/dL) Calcium 9.4 (Ref Range: 8.4-10.2 mg/dL) 9.7 (Ref Range: 8.4-10.2 mg/dL) 9.4 (Ref Range: 8.4-10.2 mg/dL) ???Lab:Erythrocyte Sedimentation Rate (Order Date - 04/07/2025) (Collection Date & Time - 04/07/2025 08:59 AM)?ValueReference Range?Erythrocyte Sedimentation [id number] - MM/HR Assessment: * Assessment: 1. T ype 2 diabetes mellitus without complication, without long-term current use of insulin - E11.9 (Primary) N otes :He is likely a diabetic at this time. Hemoglobin A1c is pending. 2 . R adiculopathy, lumbar region - M54.16 N otes :He continues to complain of discomfort in his lumbar spine that radiates into the buttocks. He has less intense pain in his lumbar spine with decreased range of motion. We will employ conservative regimen of heat, rest and ibuprofen. 3 . I juanita deficiency - E61.1 N otes :His ferritin is low normal at 24 and he will continue on iron supplements. 4 . H yperglycemia - R73.9 N otes :His fasting blood glucose level was 140 which is in the diabetic range. I have discussed prediabetes with him at length. I have ordered a hemoglobin A1c to be done with the uric acid. 5 . H earing loss - H91.90 N otes :He has mild hearing loss. He does not wish to have amplification her ENT evaluation at this time. He is able to function without impairment in daily life.. 6 . S houlder impingement syndrome - M75.40 N otes :He has a nerve impingement left arm and I have referred him back to orthopedics.He will be seen April 09, 2025. 7 . O besity - E66.9 N otes :On his next visit we will collaborate a weight loss strategy designed to lose weight at a rate of 1 pound. 8 . P ain in right knee - M25.561 N otes :He is being referred to orthopedics. I have ordered a uric acid level to be done today. He was instructed to use ibuprofen. A follow-up visit was arranged. 9 . P ain in left knee - M25.562 N otes :The left knee is less painful than the right but similar in physical examination. In orthopedic evaluation has been requested. Blood work is pending. 1 0. N amanuel pain, acute - M54.2 N otes :Because he had fever and stiff neck he was sent to the emergency room Plan: * Treatment: 2. I juanita deficiency L AB: PROFILE, RANDOM (COMPREHENSIVE METABOLIC) L AB: PSA, TOTAL L AB: CBC w DIFF 3. H yperglycemia L AB: Hemoglobin A1c 4. O thers Continue Omeprazole Capsule Delayed Release, 20 MG, TAKE 2 CAPSULES 30 MINUTES BEFORE MORNING MEAL ORALLY ONCE A DAY 30 DAYS 90. * Procedure Codes: 9 8012 SYNCH AUDIO-ONLY EST SF 10 * Preventive Medicine: Counseling: C are goal [...] done: Medical or Other reason not done DM Care Plan: P atient Lifestyle Goals P atient wants to be able to manage diabetes without too much effort. T reatment Goals B lood Sugars less than < 115, HbA1C < 7.0. B arriers n o barriers. S elf-Managment Goals W ork on weight loss, with a goal of losing 1 lb per week. * Follow Up: M id July (Reason: ov review labs) * Images: * Sign off status: Completed true * Provider: Fatuma Burnett MD Date: 0 06/04/2025 Generated for Jordy roberts/Basilio/Gemini on: 1 09:46 AM EDT History and Physical Notes * HPI (History of Present Illness) Category Sub-Category Detail Notes Telehealth Location of [facility] rendering services:: {...} [address] [place] [id number] Location of patient:: address listed in demographics for today's visit Patient identification confirmed using:: Name, Telehealth method:: Telephone only. Arely ent not visible to care provider. Consent:: Patient verbally c onsented to treatment, Patient verbally consented to billing insurance company, Patient informed of any privacy concerns related to method of visit Total time spent with patient (mins): 15
[2025-07-22 09:29] LABS: MANUAL DIFF FLAG NO
--- OUTSIDE RECORDS SUMMARY | 2025-07-22 09:46 | XMS_ITS | Patient Health Record ---
Author Organization Jessica Burnett III, MD Address [address] [place] [address] Care Team Providers Care Choral Teacher Name Role Phone Dr. Jessica Burnett III [...] Acid Reviewed date:04/08/2025 09:28:19 AM Interpretation: Performing Lab:[facility], [address] [place] [phone] Notes/Report: Uric Acid 6.8 3.4-7.0 mg/dL Hemoglobin A1c Reviewed date:04/08/2025 09:28:19 AM Interpretation: Performing Lab:[facility], [address] [place] [phone] Notes/Report: Hemoglobin A1c % 6.9 <6.0 % [...] average glucose, using the formula of the [id number] Average Glucose study (ADAG), Diabetes Care, Vol.31,#8, May. 2007 Complete Blood Count Auto Di ff Reviewed date:11/06/2024 01:10:46 PM Interpretation: Performing Lab:[facility], [address] [place] [phone] Notes/Report: White Blood Count 5.5 4.8-10.8 X10*3/uL [...] Panel Reviewed date:11/06/2024 01:10:46 PM Interpretation: Performing Lab:[facility], [address] [place] [phone] Notes/Report: Sodium 142 135-145 mmol/L Potassium 4.2 [...] Ferritin Reviewed date:11/06/2024 01:10:46 PM Interpretation: Performing Lab:[facility], [address] [place] [phone] Notes/Report: Ferritin 48 20-250 ng/mL Complete Blood Count Auto Di ff Reviewed date:02/07/2025 07:19:51 AM Interpretation: Performing Lab:[facility], [address] [place] [phone] Notes/Report: White Blood Count 5.3 4.8-10.8 X10*3/uL [...] Panel Reviewed date:02/07/2025 07:19:51 AM Interpretation: Performing Lab:[facility], [address] [place] [phone] Notes/Report: Sodium 140 135-145 mmol/L Potassium 4.2 [...] ff Reviewed date:02/07/2025 07:19:51 AM Interpretation: Performing Lab:[facility], [address] [place] [phone] Notes/Report: White Blood Count 5.8 4.8-10.8 X10*3/uL [...] NRBC Abs Auto 0.000 0.0-0.012 X10*3/uL Comprehensive [place]. Panel Fa st Reviewed date:02/07/2025 07:19:51 AM Interpretation: Performing Lab:[facility], [address] [place] [phone] Notes/Report: Sodium 144 135-145 mmol/L Potassium 4.0 [...] Panel Reviewed date:02/07/2025 07:19:51 AM Interpretation: Performing Lab:[facility], [address] [place] [phone] Notes/Report: Triglycerides 101 <150 mg/dL Desirable Triglyceride: [...] Antigen Reviewed date:02/07/2025 07:19:51 AM Interpretation: Performing Lab:[facility], [address] [place] [phone] Notes/Report: Prostate Specific Antigen 1.02 <0.05-4.0 ng/mL PSA methodology: Arthur Alinity i Chemiluminescent Microparticle Immunoassay (CMIA) XR chest 2V Reviewed date:04/08/2025 09:28:19 AM Interpretation: Performing Lab: Notes/Report: [address] [address] XRay Report Signed Patient: Jann Garcia MR#: [id number] 724 : 1965 Acct:[id number] Age/Sex: 60 / M ADM Date: 04/06/25 Loc: [facility] Attending Dr: Jessica Burnett MD Ordering Physician: Jessica Burnett MD Date of Service: 04/06/25 Procedure(s): XR chest 2V Accession Number(s): [id number] cc: Jessica Burnett MD EXAMINATION: XR CHEST [...] 04/06/25 1431 DD/ 1405 TD/TT: 04/06/25 1410 [employer]: [address] [address] XRay Report Signed Patient: Mak Garcia MR#: [id number] 724 : 1965 Acct:[id number] Age/Sex: 60 / M ADM Date: 04/06/25 Loc: [facility] Attending Dr: Jessica Burnett MD Ordering Physician: Jessica Burnett MD Date of Service: 04/06/25 Procedure(s): XR chest 2V Accession Number(s): [id number] cc: Jessica Burnett MD EXAMINATION: XR CHEST [...] 04/06/25 1431 DD/ 1405 TD/TT: 04/06/25 1410 [employer]: Complete Blood Count Auto Di ff Reviewed date:04/08/2025 09:28:19 AM Interpretation: Performing Lab:[facility], [address] [place] [phone] Notes/Report: White Blood Count 8.7 4.8-10.8 X10*3/uL [...] te Reviewed date:04/08/2025 09:28:19 AM Interpretation: Performing Lab:[facility], [address] [place] [phone] Notes/Report: Erythrocyte Sedimentation Rate 29 0-15 MM/HR Patients with polycythemia and many hemoglobin abnormalities may have depressed sed rates whereas patients with anemia may have elevated sed rates. Comprehensive [place]. Panel Fa st Reviewed date:04/08/2025 09:28:19 AM Interpretation: Performing Lab:[facility], [address] [place] [phone] Notes/Report: Sodium 141 135-145 mmol/L Potassium 4.2 [...] 3.5-5.0 g/dL Alkaline Phosphatase 58 39-117 U/L Complete Blood Count Auto Di ff Reviewed date:05/23/2025 07:10:14 PM Interpretation: Performing Lab:[facility], [address] [place] [phone] Notes/Report: White Blood Count 7.1 4.8-10.8 X10*3/uL Red Blood Count 5.01 4.60-5.80 X10*6/uL Hemoglobin 14.3 14.0-18.0 g/dl Hematocrit 43.3 42.0-52.0 % Mean Corpuscular Volume 86.4 80.0-98.0 fL Mean Corpuscular Hemoglobin 28.5 27.0-33.0 pg Mean Corpuscular HGB Conc 33.0 31.0-36.0 g/dl Red Cell Distribution Width 14.0 11.0-16.0 % Platelet Count 276 160-400 X10*3/uL Mean Platelet Volume 9.5 9.4-12.4 fL Neutrophils Percent Auto 51.7 45-73 % Imm Gran Pct Auto 0.1 0.0-0.4 % Lymphocytes Percent Auto 35.1 20-40 % Monocytes Percent Auto 7.2 2-11 % Eosinophils Percent Auto 5.2 0-4 % Basophils Percent Auto 0.7 0-2 % NRBC Pct Auto 0.0 0.0-0.2 /100WBC Neutrophils Absolute Auto 3.6 2.0-8.3 x10*3/uL Imm Gran Abs Auto 0.01 0.00-0.03 X10*3/uL Lymphocytes Absolute Auto 2.5 1.2-4.9 X10*3/uL Monocytes Absolute Auto 0.5 0.1-1.2 X10*3/uL Eosinophils Absolute Auto 0.4 0.0-0.4 X10*3/uL Basophils Absolute Auto 0.1 0.0-0.2 X10*3/uL NRBC Abs Auto 0.000 0.0-0.012 X10*3/uL Comprehensive [place]. Panel Fa st Reviewed date:05/23/2025 07:10:14 PM Interpretation: Performing Lab:[facility], [address] [place] [phone] Notes/Report: Sodium 141 135-145 mmol/L Potassium 3.9 3.3-5.1 mmol/L Chloride 103 96-108 mmol/L Carbon Dioxide 30 22-29 mmol/L Anion Gap 12 12-20 Blood Urea Nitrogen 16 9-16 mg/dL Creatinine 0.84 0.5-1.4 mg/dL Estimated Glomerular Filt Rate > 60 Chronic Kidney Disease: Estimated GFR < 60 mL/min/1.73m2 Severe Kidney Disease: Estimated GFR < 15 mL/min/1.73m2 Glucose Fasting 140 60-99 mg/dL A fasting glucose of 126 mg/dl or greater on more than one occasion is considered diagnostic of diabetes. Calcium 9.4 8.4-10.2 mg/dL Bilirubin Total 2.1 0.0-1.0 mg/dL Slight Icte karl. Aspartate Amino Transferase 21 5-37 U/L Alanine Aminotransferase 17 0-40 U/L Total Protein 7.6 6.5-8.0 g/dL Albumin Level 4.3 3.5-5.0 g/dL Alkaline Phosphatase 63 39-117 U/L Ferritin Reviewed date:05/23/2025 07:10:14 PM Interpretation: Performing Lab:[facility], [address] [place] [phone] Notes/Report: Ferritin 24 20-250 ng/mL Lipid Panel Reviewed date:05/23/2025 07:10:14 PM Interpretation: Performing Lab:[facility], [address] [place] [phone] Notes/Report: Triglycerides 114 <150 mg/dL Desirable Triglyceride: less than 150 mg/dL Borderline High Triglyceride 150-199 mg/dL High Triglyceride: 200-499 mg/dL Very High Triglyceride: greater than or equal to 5OO mg/dL Cholesterol 155 <200 mg/dL Desirable Cholesterol: less than 200 mg/dL Borderline High Cholesterol: 200-239 mg/dL High Cholesterol: greater than 239 mg/dL LDL Cholesterol Calculated 87 <100 mg/dL Desirable LDL: less than 100 mg/dL Near Optimal/Above Optimal LDL: 110-129 mg/dL Borderline High LDL: 130-159 mg/dL High LDL: 160-189 mg/dL Very High LDL: greater than or equal to 190 mg/dL HDL Cholesterol 46 >40 mg/dL Desirable HDL: greater than 40 mg/dL Note: This HDL assay may give artificially low results in patients with liver disease. Reason For Referral Reason bilateral knee pain bilateral knee effusion Diagnosis 1 Pain in right knee ( M25.561) Diagnosis 2 Pain in left knee (M 25.562) Referral Organization Jessica Burnett III, MD Referring Provider First Name Jessica Referring Provider Last Name Hortencia Referring Provider Speciality Internal M edicine Referred Provider [facility], Orthopedic Surgeons Referred Provider Specialty Orthopedic [facility] General Notes Nimisha Perez [facility] 02/12 02:41:18 PM >ref/demo/progress note/labs faxed to [facility], Nimisha Perez [facility] 03/17/2025 02:14:58 PM >I called [facility] they stated pt has appt with Dr Driver on 04/08/2025 at 9AM Referral Priority Routine Referral Appointment Date 04/08/2025 Medications Medication SIG (Take, Route, Frequency, Duration) Notes Start Date End Date Status Omeprazole 20 MG TAKE 2 CAPSULES 30 M INUTES BEFORE MORNING MEAL ORALLY ONCE A DAY 30 DAYS 90 for 90 Active Ferrous Sulfate 324 (65 Fe) [...] Problem Status W/U Status Risk Notes Problem 466779787 Obesity (E66.9) Active confirmed On his next visit we will collaborate a weight loss strategy designed to lose weight at a rate of 1 pound. Problem 46930136 Hyperglycemia (R73.9) Active confirmed His fasting blood glucose level was 140 which is in the diabetic range. I have discussed prediabetes with him at length. I have ordered a hemoglobin A1c to be done with the uric acid. Problem 83437014 Hypertension (I10) Active confirmed His blood pressure is stable. I have strongly recommended aggressive weight loss with regular exercise and sodium restriction. Problem 42718390 Iron deficiency (E61.1) Active confirmed His ferritin is low normal at 24 and he will continue on iron supplements. Problem 7346347184 Pain in right knee (M25.561) Active confirmed He is being referred to orthopedics. I have ordered a uric acid level to be done today. He was instructed to use ibuprofen. A follow-up visit was arranged. Problem [id number] Pain in left knee (M25.562) Active confirmed The left knee is less painful than the right but similar in physical examination. In orthopedic evaluation has been requested. Blood work is pending. Problem 450089403 Radiculopathy, lumbar region (M54.16) Active confirmed He continues to complain of discomfort in his lumbar spine that radiates into the buttocks. He has less intense pain in his lumbar spine with decreased range of motion. We will employ conservative regimen of heat, rest and ibuprofen. Problem 62473444 Hearing loss (H91.90) Active confirmed He has mild hearing loss. He does not wish to have amplification her ENT evaluation at this time. He is able to function without impairment in daily life.. Problem 00209134 Pilonidal cyst (L05.91) Active confirmed . This lesion has completely healed and is not symptomatic at this time. Problem 407310513 DJD (degenerative joint disease) (M19.90) Active confirmed He continues to have recommended lumbar spine pain. He will continue on his current regimen. Problem 03902926 Vitamin D deficiency (E55.9) Active confirmed I continue to recommend he take 1000 units of vitamin D daily Problem 300553435 Shoulder impingement syndrome (M75.40) Active confirmed He has a nerve impingement left arm and I have referred him back to orthopedics.He will be seen April 09, 2025. Problem 349067618 ED (erectile dysfunction) (N52.9) Active confirmed This problem rascon s been addressed with prescription medication. He says it is working. He remained generally care of urologist. Problem 833637901 Right inguinal hernia (K40.90) Active confirmed His symptoms are mild and he wants to observe this for a while to see how much of a nuisance it is. He was informed he could have it repaired or live with it. Follow-up visit was arranged. Problem 49286989 Elevated bilirubin (R17) Active confirmed His bilirubi n was 3.9. This value will be repeated and evaluated is still elevated. Problem 22495978 Type 2 diabetes mellitus without complication, without long-term current use of insulin (E11.9) Active confirmed He is likely a diabetic at this time. Hemoglobin A1c is pending. Problem 932986660 Chronic GERD (K21.9) Active confirmed This discomfort has resolved and his current therapy was continued. Problem 935826020858301 Chronic deep vein thrombosis (DVT) of brachial vein of right upper extremity (I82.721) Active confirmed After an adequate course of anticoagulation a thrombophilia evaluation is negative. His anticoagulation was discontinued today. Problem 95855556 Neck pain, acute (M54.2) Active confirmed Because he had fever and stiff neck he was sent to the emergency room Vital Signs Heart Rate 82 /min 04/17/2025 Temperature 97.5 degrees Fahrenheit 04/17/2025 Oximetry 97 % 04/08/2025 Blood pressure diastolic 85 mm Hg 04/17/2025 Height 63 in 06/04/2025 Blood pressure systolic 132 mm Hg 04/17/2025 Weight 203 lbs 06/04/2025 BMI 35.96 kg/m2 06/04/2025 Encounters Encounter Location Date Provider Diagnosis Jessica Burnett III, MD [address] [place] [address] [place] [address] 11/11/2024 Jessica Burnett Radiculopathy, lumba r region M54.16 ; Encounter for immunization Z23 ; Obesity E66.9 ; Iron deficiency E61.1 ; Elevated bilirubin R17 ; Hypertension I10 ; Hearing loss H91.90 ; Shoulder impingement syndrome M75.40 ; Chronic GERD K21.9 and Hyperglycemia R73.9 Jessica Burnett III, MD [address] [place] [address] [place] [address] 02/10/2025 Jessica Burnett Radiculopathy, lumba r region M54.16 ; Pain in right knee M25.561 ; Pain in left knee M25.562 ; Hyperglycemia R73.9 ; Hearing loss H91.90 ; Obesity E66.9 ; Shoulder impingement syndrome M75.40 ; Hypertension I10 ; Chronic GERD K21.9 and Vitamin D deficiency E55.9 Jessica Burnett III, MD [address] [place] [address] [place] [address] 03/03/2025 Jessica Burnett Radiculopathy, lumba r region M54.16 ; Shoulder impingement syndrome M75.40 ; Obesity E66.9 ; Iron deficiency E61.1 ; Hypertension I10 and Pain in right knee M25.561 Jessica Burnett III, MD [address] [place] [address] [place] [address] 04/06/2025 Jessica Burnett Radiculopathy, lumba r region M54.16 ; Neck pain, acute M54.2 and Obesity E66.9 Jessica Burnett III, MD [address] [place] [address] [place] [address] 04/08/2025 Jessica Burnett Fever, unspecified R50.9 ; Muscle spasm M62.838 ; Radiculopathy, lumbar region M54.16 ; Hearing loss H91.90 ; Obesity E66.9 and Pain in right knee M25.561 Jessica Burnett III, MD [address] [place] [address] [address] [place] [address] 04/17/2025 Jessica Burnett Radiculopathy, lumba r region M54.16 ; Hearing loss H91.90 ; Obesity E66.9 ; DJD (degenerative joint disease) M19.90 ; Hypertension I10 ; Chronic deep vein thrombosis (DVT) of brachial vein of right upper extremity I82.721 and Chronic GERD K21.9 Jessica Burnett III, MD [address] [place] [address] [address] [place] [address] 06/04/2025 Jessica Hortencia Radiculopathy, lumba r region M54.16 ; Type [...] function without impairment in daily life.. 06/04/2025 Radiculopathy, lumbar region (ICD-10 - M54.16) [...] at this time. Hemoglobin A1c is pending. 11/11/2024 Obesity (ICD-10 - E66.9) He has [...] at a rate of 1 pound. 06/04/2025 Iron deficiency (ICD-10 - E61.1) His ferritin is low normal at 24 and he will continue on iron supplements. 11/11/2024 Iron deficiency (ICD-10 - E61.1) His [...] He will continue on his current regimen. 06/04/2025 Hyperglycemia (ICD-10 - R73.9) His fasting blood glucose level was 140 which is in the diabetic range. I have discussed prediabetes with him at length. I have ordered a hemoglobin A1c to be done with the uric acid. 11/11/2024 Elevated bilirubin (ICD-10 - R17) His [...] loss with regular exercise and sodium restriction. 06/04/2025 Hearing loss (ICD-10 - H91.90) He has mild hearing loss. He does not wish to have amplification her ENT evaluation at this time. He is able to function without impairment in daily life.. 11/11/2024 Hypertension (ICD-10 - I10) His blood [...] is negative. His anticoagulation was discontinued today. 06/04/2025 Shoulder impingement syndrome (ICD-10 - M75.40) He has a nerve impingement left arm and I have referred him back to orthopedics.He will be seen April 09, 2025. 11/11/2024 Hearing loss (ICD-10 - H91.90) He [...] resolved and his current therapy was continued. 06/04/2025 Obesity (ICD-10 - E66.9) On his next visit we will collaborate a weight loss strategy designed to lose weight at a rate of 1 pound. 11/11/2024 Shoulder impingement syndrome (ICD-10 - M75.40) He has a nerve impingement left arm and I have referred him back to orthopedics. 02/10/2025 Hypertension (ICD-10 - I10) His blood pressure is stable. I have strongly recommended aggressive weight loss with regular exercise and sodium restriction. 06/04/2025 Pain in right knee (ICD-10 - M25.561) He is being referred to orthopedics. I have ordered a uric acid level to be done today. He was instructed to use ibuprofen. A follow-up visit was arranged. 11/11/2024 Chronic GERD (ICD-10 - K21.9) This discomfort has resolved and his current therapy was continued. 02/10/2025 Chronic GERD (ICD-10 - K21.9) This discomfort has resolved and his current therapy was continued. 06/04/2025 Pain in left knee (ICD-10 - M25.562) The left knee is less painful than the right but similar in physical examination. In orthopedic evaluation has been requested. Blood work is pending. 11/11/2024 Hyperglycemia (ICD-10 - R73.9) His fasting glucose is 146. This will be repeated with a hemoglobin A1c. 02/10/2025 Vitamin D deficiency (ICD-10 - E55.9) I continue to recommend he take 1000 units of vitamin D daily 06/04/2025 Neck pain, acute (ICD-10 - M54.2) Because he had fever and stiff neck he was sent to the emergency room Plan Of Treatment Pending Test Test Name Order Date PROFILE, FASTING (COMPREHENSIVE METABOLI C) 03/23/2023 PROFILE, FASTING (COMPREHENSIVE METABOLI C) 08/22/2023 PROFILE, FASTING (COMPREHENSIVE METABOLI C) 04/06/2025 PROFILE, FASTING (COMPREHENSIVE METABOLI C) 05/23/2023 PROFILE, FASTING (COMPREHENSIVE METABOLI C) 03/03/2025 PROFILE, FASTING (COMPREHENSIVE METABOLI C) 11/11/2024 PROFILE, RANDOM (COMPREHENSIVE METABOLIC ) 01/31/2021 PROFILE, RANDOM (COMPREHENSIVE METABOLIC ) 08/30/2022 PROFILE, RANDOM (COMPREHENSIVE METABOLIC ) 07/08/2024 PROFILE, RANDOM (COMPREHENSIVE METABOLIC ) 06/04/2025 PROFILE, RANDOM (COMPREHENSIVE METABOLIC ) 12/31/2020 PROFILE, RANDOM (COMPREHENSIVE METABOLIC ) 11/11/2024 LIPID PANEL 08/30/2022 LIPID PANEL 05/23/2023 TSH (THYROID STIMULATING HORMONE) 2022 FERRITIN 12/31/2020 FERRITIN 05/23/2023 PSA, TOTAL 11/11/2024 PSA, TOTAL 06/04/2025 PSA, TOTAL 08/30/2022 PSA, TOTAL 08/22/2023 CBC w DIFF 05/23/2023 CBC w DIFF 01/31/2021 CBC w DIFF 03/23/2023 CBC w DIFF 06/04/2025 CBC w DIFF 04/06/2025 CBC w DIFF [...] 11/11/2024 CBC WITH AUTO DIFF 07/08/2024 Prothrombin [id number] 08/17/2021 Ferritin 03/03/2025 Ferritin 07/08/2024 Lipid Panel 08/22/2023 Lipid Panel 03/03/2025 Lipid Panel 11/11/2024 Lipid Panel 03/23/2023 Hemoglobin A1c 06/04/2025 Next Appt Details Provider Name:Jessica Burnett , 08/05/2025 10:45:00 AM, [address] [place] [address] [place], [place], [address], Provider Name:Jessica Burnett , 11/12/2025 10:00:00 AM, [address] [place] [address] [place], [place], [address], Insurance Providers Payer Name Payer Address Payer Phone Subscriber Number Group Number Insured Name Patient Relationship to Insured Coverage Start Date Coverage End Date [employer] [address] [place] [address] [id number] Jann Garcia Self - patient is the insured MED[place] [address] [place] [id number] [phone] [id number] Jann Garcia Self - patient is the insured MEDICARE [place] [address] [place] [address] [id number] Jann Garcia Self - patient is the [...]
[2025-07-22 10:15] LABS: Hematocrit 46.6 % (42.0-52.0); Hemoglobin 14.9 g/dl (14.0-18.0); Imm Gran Abs Auto 0.02 X10*3/uL (0.00-0.03); Imm Gran Pct Auto 0.3 % (0.0-0.4); Lymphocytes Absolute Auto 2.4 X10*3/uL (1.2-4.9); Mean Corpuscular HGB Conc 32.0 g/dl (31.0-36.0); Mean Corpuscular Hemoglobin 28.4 pg (27.0-33.0); Mean Corpuscular Volume 88.9 fL (80.0-98.0); NRBC Abs Auto 0.000 X10*3/uL (0.0-0.012); NRBC Pct Auto 0.0 /100WBC (0.0-0.2); Platelet Count 287 X10*3/uL (160-400); Red Blood Count 5.24 X10*6/uL (4.60-5.80); White Blood Count 6.3 X10*3/uL (4.8-10.8)
[2025-07-22 11:14] LABS: Alanine Aminotransferase 19 U/L (0-40); Albumin Level 4.5 g/dL (3.5-5.0); Alkaline Phosphatase 62 U/L (39-117); Anion Gap 12 (12-20); Aspartate Amino Transferase 20 U/L (5-37); Blood Urea Nitrogen 13 mg/dL (9-16); Calcium 9.6 mg/dL (8.4-10.2); Carbon Dioxide 31 mmol/L (22-29); Chloride 105 mmol/L (96-108); Estimated Glomerular Filt Rate > 60; Potassium 4.3 mmol/L (3.3-5.1); Sodium 144 mmol/L (135-145); Total Protein 7.9 g/dL (6.5-8.0)
[2025-07-22 11:29] LABS: Prostate Specific Antigen 1.00 ng/mL (<0.05-4.0)
== END 2025-07-22 09:03 | disposition home or self-care (01) ==
LOC: HO.LAB 09:02
PROVIDERS: PCP Internal Medicine Medical Oncology; Visit Provider Internal Medicine Medical Oncology
DX: Z12.5 Encounter for screening for malignant neoplasm of prostate (principal); M54.16 Radiculopathy, lumbar region; E61.1 Iron deficiency; R35.1 Nocturia; E11.9 Type 2 diabetes mellitus without complications; N52.9 Male erectile dysfunction, unspecified
CPT/HCPCS: 36415; 80053; 83036; 84153; 85025